=== PATIENT | female | born 1960 | race Caucasian/White ===

== ENCOUNTER 2020-07-30 12:51 | Outpatient (REF) | payer OTHER, SELFPAY ==
--- NOTE | 2020-07-30 13:03 | CT_ITS ---
EXAMINATION: CT CHEST SCREENING CLINICAL INFORMATION: Lung cancer screening COMPARISON: Previous exam June 2019 TECHNIQUE: Multidetector volumetric CT imaging of the chest is performed without contrast using low dose technique. Additional 2D coronal and sagittal reformatted images and axial 3D maximum intensity projection (MIP) images are generated on the CT workstation. This CT examination was performed using dose optimization techniques as appropriate, variously including the following: *Automated exposure control *Adjustment of mA and/or kV according to patient size (this includes techniques or standardized protocols for targeted exams where dose is matched to indication/reason for exam; i.e. extremities or head) *Use of iterative reconstruction technique DLP: 53 mGy-cm FINDINGS: LUNGS: There is a 2 mm left upper lobe nodule axial image 173 series 5 that is stable. There is question of a 3 mm right middle lobe nodule axial image 275 series 5 that is stable. There is scarring or chronic subsegmental atelectasis in the medial segment of the right middle lobe that is stable. The lungs are otherwise clear. No evidence of emphysema interstitial lung disease or bronchiectasis is seen. No endobronchial or endotracheal lesion is seen. The questioned endobronchial lesion in the occipital medial segment right middle lobe bronchus is no longer seen. MEDIASTINUM: There is mild coronary artery calcification. The mediastinum is otherwise normal. PLEURA: There is no pleural effusion. No pleural mass or thickening. AXILLA: No lymphadenopathy. No chest wall mass. The previously identified nodule in the left medial breast is no longer seen. UPPER ABDOMEN: Unremarkable OSSEOUS STRUCTURES: Unremarkable. CT/CT lung screening IMPRESSION: Stable small pulmonary nodules. The questioned endobronchial lesion in the proximal medial segment of the right middle lobe is no longer seen. The 8 mm density in the medial left breast is no longer seen. Mild coronary artery calcification. ASSESSMENT: Lung-RADS category 2: Benign RECOMMENDATION: Annual low-dose chest CT follow-up recommended.
== END 2020-07-30 12:52 | disposition home or self-care (01) ==
LOC: HO.CT 12:51
PROVIDERS: PCP Internal Medicine; Visit Provider Surgery
DX: Z12.2 Encounter for screening for malignant neoplasm of respiratory organs (principal); F17.210 Nicotine dependence, cigarettes, uncomplicated
CPT/HCPCS: 71250

== ENCOUNTER 2020-11-04 11:43 | Outpatient (REF) | payer OTHER, SELFPAY ==
[2020-11-04 14:19] LABS: Albumin Level 4.4 g/dL (3.5-5.0); Calcium 9.5 mg/dL (8.4-10.2)
[2020-11-04 14:50] LABS: Vitamin D 25-OH Total 58.8 ng/mL (>30)
[2020-11-05 13:32] LABS: Calcium (PTHI) 9.6 mg/dL (8.6-10.4); PTHI 25 pg/mL (14-64)
== END 2020-11-04 11:44 | disposition home or self-care (01) ==
LOC: HO.HMGCLDS 11:43
PROVIDERS: PCP Internal Medicine; Visit Provider Internal Medicine
DX: M81.0 Age-related osteoporosis without current pathological fracture (principal); E67.3 Hypervitaminosis D
CPT/HCPCS: 36415; 82040; 82306; 82310; 83970

== ENCOUNTER → 2020-11-19 11:35 | Outpatient (BNVA) | payer OTHER, SELFPAY | PROVIDERS: PCP Internal Medicine; Visit Provider Internal Medicine | DX: M81.0 Age-related osteoporosis without current pathological fracture (principal) | CPT/HCPCS: 96402 ==

== ENCOUNTER 2020-12-04 11:17 | Outpatient (REF) | payer OTHER, SELFPAY ==
[2020-12-04 14:30] LABS: Albumin Level 4.2 g/dL (3.5-5.0); Calcium 9.3 mg/dL (8.4-10.2); Estimated Glomerular Filt Rate > 60
== END 2020-12-04 11:18 | disposition home or self-care (01) ==
LOC: HO.HMGCLDS 11:17
PROVIDERS: PCP Internal Medicine; Visit Provider Internal Medicine
DX: M81.0 Age-related osteoporosis without current pathological fracture (principal)
CPT/HCPCS: 36415; 82040; 82310; 82565

== ENCOUNTER → 2021-01-14 12:28 | Outpatient (BNVA) | payer OTHER, SELFPAY | PROVIDERS: PCP Internal Medicine; Visit Provider Internal Medicine ==

== ENCOUNTER 2021-04-29 11:42 | Outpatient (REF) | payer OTHER, SELFPAY ==
--- NOTE | ~2021-04-29 | MM_ITS ---
EXAMINATION: MM SCREENING DIGITAL BREAST TOMOSYNTHESIS, BILATERAL CLINICAL INFORMATION: Screening. Asymptomatic. Benign left breast ultrasound-guided biopsy 2013. The lifetime risk of breast cancer based on the Tyrer-Cuzick Model is 4%. COMPARISON: Mammography: 07/26/2019, 04/26/2019, 03/24/2018, 02/03/2017, 01/22/2016 TECHNIQUE: Digital breast tomosynthesis is performed in both the craniocaudal and mediolateral oblique views along with computer-aided detection (CAD). Synthesized 2D images are generated from the tomosynthesis. FINDINGS: There are scattered areas of fibroglandular density (ACR BI-RADS breast composition Category b). Parenchymal pattern is similar to prior studies. There is no significant mass or architectural abnormality or abnormal calcifications. There is stable parenchymal asymmetry central and central outer left breast. There is no developing density. The axilla and skin contours are unremarkable. Biopsy clip marker is present left breast anterior to mid 9:00 position. MM/MM tomosynthesis screening BI IMPRESSION: No significant changes from prior exams. ASSESSMENT: BI-RADS 2: Benign RECOMMENDATION: Routine annual mammography screening. This patient's information was entered into a reminder system with a target due date for their next mammogram.
== END 2021-04-29 11:43 | disposition home or self-care (01) ==
LOC: HO.MAMMO 11:42
PROVIDERS: PCP Internal Medicine; Visit Provider Internal Medicine
DX: Z12.31 Encounter for screening mammogram for malignant neoplasm of breast (principal)
CPT/HCPCS: 77063; 77067

== ENCOUNTER 2021-05-18 13:27 | Outpatient (REF) | payer OTHER, SELFPAY ==
[2021-05-18 17:04] LABS: Alanine Aminotransferase 10 U/L (0-31); Albumin Level 4.3 g/dL (3.5-5.0); Alkaline Phosphatase 69 U/L (39-117); Anion Gap 13 (12-20); Aspartate Amino Transferase 15 U/L (5-31); Bilirubin Total 0.2 mg/dL (0.0-1.0); Blood Urea Nitrogen 13 mg/dL (9-16); Calcium 9.6 mg/dL (8.4-10.2); Carbon Dioxide 23 mmol/L (22-29); Chloride 109 mmol/L (96-108); Estimated Glomerular Filt Rate > 60; Glucose Random 100 mg/dL (60-115); Phosphorus 3.7 mg/dL (2.7-4.5); Potassium 4.4 mmol/L (3.3-5.1); Sodium 141 mmol/L (135-145); Total Protein 6.9 g/dL (6.5-8.0)
[2021-05-18 17:26] LABS: Vitamin D 25-OH Total 51.5 ng/mL (>30)
[2021-05-19 16:31] LABS: Calcium (PTHI) 9.8 mg/dL (8.6-10.4); PTHI 13 pg/mL (14-64)
[2021-05-22 10:51] LABS: Alkaline Phosphatase Bone 9.3 mcg/L (5.6-29.0)
== END 2021-05-18 13:28 | disposition home or self-care (01) ==
LOC: HO.HMGCLDS 13:27
PROVIDERS: PCP Internal Medicine; Visit Provider Internal Medicine
DX: M81.0 Age-related osteoporosis without current pathological fracture (principal)
CPT/HCPCS: 36415; 80053; 82306; 83970; 84075; 84100

== ENCOUNTER 2021-05-20 13:19 | Outpatient (REF) | payer OTHER, SELFPAY ==
[2021-05-26 23:01] LABS: N-Telopeptide 14 (see note); NTXCreaRU 56 mg/dL (20-275)
== END 2021-05-20 13:20 | disposition home or self-care (01) ==
LOC: HO.HMGCLNP 13:19
PROVIDERS: Visit Provider Internal Medicine
DX: M81.0 Age-related osteoporosis without current pathological fracture (principal)
CPT/HCPCS: 82523

== ENCOUNTER → 2021-05-21 13:04 | Outpatient (BNVA) | payer OTHER, SELFPAY | PROVIDERS: PCP Internal Medicine; Visit Provider Internal Medicine | DX: M81.0 Age-related osteoporosis without current pathological fracture (principal); E55.9 Vitamin D deficiency, unspecified; F17.210 Nicotine dependence, cigarettes, uncomplicated; Z79.82 Long term (current) use of aspirin; Z91.038 Other insect allergy status; Z88.8 Allergy status to other drugs, medicaments and biological substances; Z91.018 Allergy to other foods; Z91.09 Other allergy status, other than to drugs and biological substances; Z79.899 Other long term (current) drug therapy | CPT/HCPCS: 20552; 96372; 99212 ==

== ENCOUNTER 2021-06-04 13:58 | Outpatient (REF) | payer OTHER, SELFPAY ==
[2021-06-04 17:15] LABS: Alanine Aminotransferase 12 U/L (0-31); Albumin Level 4.2 g/dL (3.5-5.0); Alkaline Phosphatase 80 U/L (39-117); Anion Gap 13 (12-20); Aspartate Amino Transferase 17 U/L (5-31); Bilirubin Total 0.2 mg/dL (0.0-1.0); Blood Urea Nitrogen 16 mg/dL (9-16); Calcium 9.3 mg/dL (8.4-10.2); Carbon Dioxide 21 mmol/L (22-29); Chloride 111 mmol/L (96-108); Estimated Glomerular Filt Rate > 60; Glucose Random 138 mg/dL (60-115); Phosphorus 3.5 mg/dL (2.7-4.5); Potassium 4.3 mmol/L (3.3-5.1); Sodium 141 mmol/L (135-145)
[2021-06-04 17:35] LABS: Vitamin D 25-OH Total 52.8 ng/mL (>30)
[2021-06-05 17:51] LABS: Calcium (PTHI) 9.5 mg/dL (8.6-10.4); PTHI 25 pg/mL (14-64)
== END 2021-06-04 13:59 | disposition home or self-care (01) ==
LOC: HO.HMGCLDS 13:58
PROVIDERS: PCP Internal Medicine; Visit Provider Internal Medicine
DX: M81.0 Age-related osteoporosis without current pathological fracture (principal); E55.9 Vitamin D deficiency, unspecified
CPT/HCPCS: 36415; 80053; 82306; 83970; 84100

== ENCOUNTER 2021-06-06 | Outpatient (REF) | payer OTHER, SELFPAY ==
[2021-06-09 23:01] LABS: N-Telopeptide 11 (see note); NTXCreaRU 23 mg/dL (20-275)
== END 2021-06-06 00:01 | disposition home or self-care (01) ==
LOC: HO.HMGCLNP
PROVIDERS: Visit Provider Internal Medicine
DX: M81.0 Age-related osteoporosis without current pathological fracture (principal)
CPT/HCPCS: 82523

== ENCOUNTER 2021-09-11 13:00 | Outpatient (RCR) | payer OTHER, SELFPAY ==
--- NOTE | 2021-07-22 17:07 | MHC.PT.EP ---
[facility] [place] Office [place] Office [place] Office [address] Rudy Kelsey [address] [phone] F: [phone] F: [phone] F: [phone] F: [phone] Physical Therapy Plan of Care Date of Evaluation: Date of Surgery: Diagnosis: R shoulder pain. Assessment: Pt is a 61 y/o female referred to PT for eval and treat of R shoulder pain resulting in decreased tolerance for performing heavy HH chores like carrying laundry, dressing pullovers, reaching her back pocket, and laying on her R side as well as disturbed sleep secondary to decreased R shoulder ROM and strength, decreased scapular posture, TTP of her R supraspnatus and UT, and pain. Pt is deemed an appropriate candidate to receive skilled PT in order to address her physical limitations to improve her functional ability. Frequency and Duration: The patient will be seen 2 x/ wk x 5 wks. Short Term Goals: initiate HEP with evidence of compliance. improve baseline pain with activity to < 4/10; initial 7/10. Detention Goals: Pt will be able to carry her laundry with managed Sx; initial 7/10 difficulty. Pt will be able to dress pullovers with managed Sx; initial 9/10 difficulty. I with HEP. Treatment Plan: Modalities to reduce pain, spasms and effusion. Manual therapy to restore motion and function. Therapeutic exercise to improve strength and flexibility. Neuromuscular re-education for posture and balance. Therapeutic activities to return to functional activities of daily living. Electronically signed by: Jimmy courtney PT Please sign and return to therapist. Thank you for your referral.
--- NOTE | 2021-09-11 16:33 | MHC.PT.DC ---
[facility] [place] Office [place] Office [place] Office [address] Rudy Kelsey [address] [phone] F: [phone] F: [phone] F: [phone] F: [phone] Physical Therapy Discharge Report Diagnosis: R shoulder pain. Date of Surgery: Date of Evaluation: 07/22/21 Date of Discharge: 09/11/21 Treatments to Date: 9 Cancellations to Date: No Shows to Date: Discharge Status: Recommend MD Follow-up Discharge Summary: Blanquita has attended 8 therapy sessions without real improvement of her symptoms. During her time in the clinic she participates in exercises well and has a pleasant attitude though these continue to be many of her initial exercises as she demonstrates therapy interfering behaviors of poor self management in the form of continued over use of her shoulder after repeatedly discussing alternatives as well as poor home program compliance. MD follow up is recommended as Pt not invested self management of her symptoms. 09/08 Pt reports she did a lot of wiping of counters and tables which was painful; Pt reports she did not think about switching arm while in pain from this activity. Pt continues to require some cues for her basic exercises. DC NV likely as program is ending and though improved she has improved though Pt is self limiting her recovery by not changing her behaviors re over use. 09/02: 2 visits to DC anticipated as Pt continues to plateau her progress d/t continuing to refuse limiting repetitive injury activities; she also needs to be reminded of her basic HEP exercises indicating poor home compliance leading to poor progression of therapeutic activities. Pt reports minimal pain/ discomfort with exercises in the clinic. 08/21: 3 visits to DC; continued with Pt ed on decreased repetitive stressors and consistent pain limited HEP. no adverse effects. improving posture with ther ex. 08/14: Pt able to perform program with minor discomfort, no adverse effects. Assess ability to progress NV as Pt reports she has over used her shoulder again and has been in more pain. 08/07: Pt requires re-direction to her exercises. improving self awareness re. painful activities. No adverse effects. Pt re-ed on over use injury and continuing to over use it. NV progress HEP to sharmaine. Pt performs exercises slowly and requires cues to keep count of her reps/ sets. Good sharmaine for todays ther ex. Electronically signed by: Jimmy Wayne PT. Please sign and return to therapist. Thank you for your referral.
== END 2021-09-11 16:33 | disposition home or self-care (01) ==
LOC: HO.PTCHIC 13:00
PROVIDERS: PCP Internal Medicine; Visit Provider Internal Medicine
DX: M25.511 Pain in right shoulder (principal)
CPT/HCPCS: 97110; 97161

== ENCOUNTER → 2021-09-23 13:27 | Outpatient (BNVA) | payer OTHER, SELFPAY | PROVIDERS: PCP Internal Medicine; Visit Provider Urology ==

== ENCOUNTER 2021-10-14 11:26 | Outpatient (REF) | payer OTHER, SELFPAY ==
--- NOTE | 2021-10-19 13:42 | MHC.AU.ANO ---
Adult Audiological Evaluation Date of Visit: 10/14/21 Engineering Design Supervisor Used: Not Applicable Reason for Appointment: Audiologic evaluation due to increased hearing difficulties. Blanquita reports she frequently needs to ask for speech to be repeated. Does patient feel they have a hearing loss?: Yes If Yes, Which Ear?: Both Ears When Was Hearing Difficulty First Noticed?: Approximately 6-7 years ago. Has hearing been tested previously?: Yes Previous Hearing Test Results: Many years ago. Results are not available for review. Hearing Handicap Inventory: HHIE SCORE: 22 Based on HHIE score, patient has: Mild to moderate perceived hearing handicap Ear History: Family History of Hearing Loss?: Yes: Father Ear Infections in Childhood: Both Ears Tinnitus/Ringing/Noises in Ears: Both Ears Ear used on the phone: Right Ear Blocked/Full Sensation in Ear(s): Both Ears History of occupational noise exposure?: No History: History: No Medical History: Medical History: Headache, Migraines, Tobacco Use, Anemia, Schizophrenic Disorder Medication List: Amitrptyline, Aspirin, Buspar, Calcium Carbonate, Claritin, Depakote ER, Ditropan ER, Fioricet, Anushka-Lanta, Inderal LA, Lomotil, Meclizine, Mevacor, Miralax, Nystatin, Prilosec, Prolia, Requip, Rogaine, Topamax, Vistaril, Zyprexa, Vitamin C and D3 Otoscopy: Right Ear: Unremarkable Left Ear: Unremarkable Tympanometry: Tympanometry performed due to: To assess integrity of the middle ear system Right Ear: Hypercompliant Middle Ear System (Type Ad) Left Ear: Hypercompliant Middle Ear System (Type Ad) Otoacoustic Emissions Frequency Range Used: 1.6-8 kHz Right Ear Results: Present 1600 and 2000 Hz, Absent 3122-4925 Hz Analysis: Present emissions suggest normal cochlear function Rules out peripheral hearing loss greater than a mild degree Reduced/Absent emissions suggest cochlear dysfunction Results are consistent with degree and configuration of hearing loss Left Ear Results: Present 1600 and 2000 Hz, Absent 8015-5290 Hz Analysis: Present emissions suggest normal cochlear function Rules out peripheral hearing loss greater than a mild degree Reduced/Absent emissions suggest cochlear dysfunction Results are consistent with degree and configuration of hearing loss Hearing Evaluation: Transducer(s) Used: Insert Earphones Bone Conduction Method: Conventional Audiometry Stimuli Used: Pure Tones Right Ear: Description of Hearing: Mild sloping to moderate sensorineural hearing loss Left Ear: Description of Hearing: Mild sloping to moderate sensorineural hearing loss Speech Recognition Threshold (SRT): Method Used: Monitored Live Voice Stimuli Used: Spondee Words Right Ear: 30 dB HL Left Ear: 30 dB HL Word Discrimination: Method: Recorded Lists Word Lists Used: NU-6 Right Ear: 92% at 70 dB HL Left Ear: 96% at 70 dB HL QuickSIN: Binaural Quick SIN Test: 13 dB SNR Loss . This score suggests Blanquita experiences a moderate degree of difficulty understanding speech with increasing levels of background noise in this controlled test environment. Real world situations, or if Blanquita is not paying attention to the speaker, or is more anxious, speech understanding/auditory processing may be much more difficult for her. Recommendations: Trial with amplification is recommended. Medical clearance from a physician is required before fitting. Hearing Aid Fitting will be scheduled when all materials arrive. Discussed and provided a handout regarding Communication Strategies to use to try to improve speech understanding as much as possible. Audiological re-evaluation in one year. Will send a reminder card. Diagnosis: Primary Diagnosis: H90.3 Bilateral Sensorineural Hearing Loss Services Performed: Comprehensive Audiological Evaluation (CPT 38654) Diagnostic Otoacoustic Emissions (CPT 52030, 26+TC) Tympanometry (CPT 82879) Signature: Provider: Justice Bradley, [facility]
--- NOTE | 2021-10-19 13:46 | MHC.AU.MED ---
Medical Clearance for Hearing Instrumentation Date: 10/19/21 Patient Name: Blanquita Gonzalez Date of : 1960 Primary Care Provider: Referring Provider: Kevin Muñoz MD We have seen your patient on 10/14/21 and have determined that they are a candidate for amplification (See accompanying report). Specifically, they would benefit from: Hearing aid use in both ears There is a statute that addresses Medical Evaluation Requirements prior to fitting a patient with a hearing aid. According to [place] statute 265 CMR:6.03(1), (a) General. Except as provided in 265 CMR 6.03(1)(b), a electronic engineering draftsperson shall not sell a hearing aid unless the prospective user has presented to the electronic engineering draftsperson a written statement signed by a licensed physician that states that the patient's hearing loss has been medically evaluated and the patient may be considered a candidate for a hearing aid. The medical evaluation must have taken place within the preceding six months. Please note: Due to the [place] Statute referenced above, we cannot accept a signature other than that of a licensed physician. ROAD MACHINE RUNNER and PA signatures cannot be accepted. I am in agreement with the above recommendation. There is no medical contraindication for hearing instrumentation. Physician Signature Date Physician Name (Printed)
--- NOTE | 2021-10-19 13:51 | MHC.AU.HAS ---
Hearing Aid Evaluation Date of Visit: 10/14/21 Database Admin Used: Not Applicable Historical Information: Description of Hearing: Mild sloping to moderate sensorineural hearing loss bilaterally. Speech understanding in quiet is excellent; however, Quick SIN shows at least a moderate degree of difficulty with increasing levels of background noise. Current personal amplification information, if applicable: None Summary: Due to Blanquita's history of significant anxiety, and to make care and manipulation of hearing aids easier, recommend binaural rechargeable hearing aids. Hearing Aid Prescription: Based on the individual?s shared listening needs, communication environments, dexterity, desire for connectivity, and personal preferences, the following prescription for amplification has been made: Right ear: Voice Coach: Phonak Model: Audeo P 70-R Battery Size: Rechargeable Color: Brown Cloth Finishing Range Tender: #2 Medium Type of Dome: Open Left ear: Voice Coach: Phonak Model: Audeo P 70-R Battery Size: Rechargeable Color: Brown Cloth Finishing Range Tender: #2 Medium Type of Dome: Open Accessories/Assistive Technology Recommended: None Plan of Care: Patient wishes to purchase hearing aids as prescribed Action Taken/Action Needed: Medical Clearance to be requested from PCP/ENT Hearing Instrument Fitting to be scheduled when materials arrive Primary Diagnosis: H90.3 Bilateral Sensorineural Hearing Loss Signature:Provider: Justice Bradley, [facility]
--- NOTE | 2021-10-23 11:07 | MHC.AU.MED ---
Medical Clearance for Hearing Instrumentation Date: 10/19/21 Patient Name: Blanquita Gonzalez Date of : 1960 Primary Care Provider: Referring Provider: Kevin Muñoz MD We have seen your patient on 10/14/21 and have determined that they are a candidate for amplification (See accompanying report). Specifically, they would benefit from: Hearing aid use in both ears There is a statute that addresses Medical Evaluation Requirements prior to fitting a patient with a hearing aid. According to [place] statute 265 CMR:6.03(1), (a) General. Except as provided in 265 CMR 6.03(1)(b), a hearing instrument specialist shall not sell a hearing aid unless the prospective user has presented to the hearing instrument specialist a written statement signed by a licensed physician that states that the patient's hearing loss has been medically evaluated and the patient may be considered a candidate for a hearing aid. The medical evaluation must have taken place within the preceding six months. Please note: Due to the [place] Statute referenced above, we cannot accept a signature other than that of a licensed physician. WELLNESS INSTRUCTOR and PA signatures cannot be accepted. I am in agreement with the above recommendation. There is no medical contraindication for hearing instrumentation. Physician Signature Date Physician Name (Printed)
== END 2021-10-14 11:27 | disposition home or self-care (01) ==
LOC: HO.SH 11:26
PROVIDERS: Visit Provider Internal Medicine
DX: H90.3 Sensorineural hearing loss, bilateral (principal)
CPT/HCPCS: 92557; 92567; 92588; 92591

== ENCOUNTER 2021-10-29 16:11 | Outpatient (REF) | payer OTHER, SELFPAY ==
[2021-10-29 18:04] LABS: Ferritin 107 ng/mL (10-250); Vitamin D 25-OH Total 50.2 ng/mL (>30)
[2021-10-30 09:01] LABS: Thyroglobulin 16.1 ng/mL
[2021-11-02 16:42] LABS: Zinc 75 mcg/dL (60-130)
== END 2021-10-29 16:12 | disposition home or self-care (01) ==
LOC: HO.LAB 16:11
PROVIDERS: Visit Provider Physician Assistant Medical
DX: L30.4 Erythema intertrigo (principal); L64.8 Other androgenic alopecia; L65.0 Telogen effluvium
CPT/HCPCS: 36415; 82306; 82728; 84432; 84630

== ENCOUNTER 2021-11-12 10:48 | Outpatient (REF) | payer OTHER, SELFPAY ==
--- NOTE | ~2021-11-12 | MM_ITS ---
EXAMINATION: BONE DENSITOMETRY CLINICAL INDICATION: Age-related osteoporosis without current pathological fracture. COMPARISON: Previous BD dated 08/24/2019 and baseline BD dated 07/22/2017. TECHNIQUE: Using a Settle DXA System (software version: 13.1) manufactured by [employer], dual-energy x-ray absorptiometry was performed of the lumbar spine and left hip. The images are of good technical quality. Summary results are attached. FINDINGS: AP SPINE L1-L2 (excluding L3 and L4): The data of L1-L4 has been changed to exclude the L3 and L4 vertebral bodies, because degenerative changes at these levels may cause overestimation of lumbar spine density. Current: BMD 0.846 g/cm2, Z-score -1.2, T-score -2.7, osteoporosis, 14.6% decrease from previous, 2.2% decrease from baseline (<5% change is not significant). Prior: BMD 0.991 g/cm2. Baseline: BMD 0.865 g/cm2. LEFT FEMUR, NECK: Current: BMD 0.818 g/cm2, Z-score -0.2, T-score -1.6, osteopenia. Prior: BMD 0.764 g/cm2. Baseline: BMD 0.792 g/cm2. LEFT FEMUR, TOTAL: Current: BMD 0.864 g/cm2, Z-score -0.1, T-score -1.1, osteopenia, 1.9% increase from previous, 1.2% increase from baseline (<5% change is not significant). Prior: BMD 0.848 g/cm2. Baseline: BMD 0.854 g/cm2. IDENTIFIED RISK FACTORS: Osteoporosis, tobacco use (current smoker), menopause. HISTORY OF FRACTURE: None listed. MEDICATIONS: Calcium and multivitamin, Prolia. MM/XR DEXA axial skeleton IMPRESSION: 1. DIAGNOSIS: Osteoporosis based on the lowest T-score value of -2.7 in the lumbar spine applying World Health Organization criteria. 2. 10-YEAR FRACTURE RISK PREDICTION, FRAX: According to the guidelines, FRAX calculation should only be performed on patients in the osteopenia bone density category. Therefore, FRAX was not performed on this patient. 3. Treatment Recommendations: NOF guidelines recommend consideration for treatment in postmenopausal women and men age 50 and older presenting with the following: -A hip or vertebral (clinical or morphometric) fracture. -T-score less than or equal to -2.5 at the femoral neck or spine after appropriate evaluation to exclude secondary causes. -Low bone mass at the hip or spine and a 10-year fracture probability by FRAX of greater than or equal to 3% for hip fracture or greater than or equal to 20% for major osteoporotic fracture based on the [place] adapted WHO algorithm. 4. Other Recommendations: All treatment decisions require clinical judgment and consideration of individual patient factors, including patient preferences, comorbidities, previous drug use, risk factors not captured in the FRAX model (e.g. frailty, falls, vitamin D deficiency, increased bone turnover, interval significant decline in bone density) and possible under or overestimation of fracture risk by FRAX. Additional medical evaluation for secondary cause of low bone mineral density may be appropriate. FUTURE SCAN RECOMMENDATION: People with diagnosed cases of osteoporosis or at high risk for fracture should have regular bone mineral density tests. For patients eligible for Medicare, routine testing is allowed once every 2 years. The testing frequency can be increased to one year for patients who have rapidly progressing disease, those who are receiving or discontinuing medical therapy to restore bone mass, or have additional risk factors.
== END 2021-11-12 10:49 | disposition home or self-care (01) ==
LOC: HO.MAMMO 10:48
PROVIDERS: Visit Provider Internal Medicine
DX: Z13.820 Encounter for screening for osteoporosis (principal); M81.0 Age-related osteoporosis without current pathological fracture; Z78.0 Asymptomatic menopausal state; F17.200 Nicotine dependence, unspecified, uncomplicated
CPT/HCPCS: 77080

== ENCOUNTER 2021-11-20 12:49 | Outpatient (REF) | payer OTHER, SELFPAY | END 2021-11-20 12:50 | disposition home or self-care (01) | LOC: HO.HAP 12:49 | PROVIDERS: Visit Provider Internal Medicine | DX: Z13.89 Encounter for screening for other disorder (principal) ==

== ENCOUNTER → 2021-11-25 13:18 | Outpatient (BNVA) | payer OTHER, SELFPAY | PROVIDERS: PCP Internal Medicine; Visit Provider Internal Medicine | DX: M81.0 Age-related osteoporosis without current pathological fracture (principal); E55.9 Vitamin D deficiency, unspecified; F17.210 Nicotine dependence, cigarettes, uncomplicated; F14.20 Cocaine dependence, uncomplicated; Z23 Encounter for immunization; Z88.8 Allergy status to other drugs, medicaments and biological substances; Z91.038 Other insect allergy status; Z91.018 Allergy to other foods; Z79.82 Long term (current) use of aspirin; Z79.899 Other long term (current) drug therapy | CPT/HCPCS: 96372; 99212 ==

== ENCOUNTER 2021-11-30 13:30 | Outpatient (RCR) | payer OTHER, SELFPAY ==
--- NOTE | 2021-11-10 12:25 | MHC.OT.OEV ---
[address] [phone] F: [phone] Occupational Therapy Evaluation Diagnosis: Left thumb pain Date of Onset: 11/03/20 Attending Provider: Kevin Muñoz Prescribed Treatment: Eval and Treat History of Current Condition: Pt w/ hx of left thumb pain. About one year ago, pt reports injury to right shoulder from excessive cleaning - used left hand to compensate which caused more pain. Significant Medical History: Right shoulder injury. High cholesterol. 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 Living Situation, Family and/or Social Support: Lives in 2 room apartment. Lives on the 2nd floor. Current Level of Function and Occupation Self Care, Employment, Leisure: Difficulty with cooking/cleaning, gripping and pinching tasks Hard time dumping water pasta water Sleep: Sleeping is difficult due to right arm and shoulder pain. *When asked pt reports changes in sensation with arms, but unable to specify, reports that she sleeps in position w/ arms flexed in towards body Driving: Able to drive. Vision: Balance: Pain Assessment Pain Score: 0 Pain Scale Used: Numeric (0 - 10) Pain Location and Description: Left thumb MP joint. No pain at rest. Pain when aggravated 8/10. Aggravating Factors: Pinching, grasping such as putting dishes away and carrying objects. Alleviating Factors: None trialed, had recommendation for Tylenol from PCP but is unsure of dosing and will confirm w/ Dr Muñoz Skin and Soft Tissue Assessment Skin and Soft Tissue: Atrophy Comments: Edema in left thenar eminence Hypothenar atrophy and intrinsic wasting Dryness B/L'y Nerve assessment Ulnar Nerve: Left Impaired Median Nerve: WFL Radial Nerve: WFL Comments: Sensory Assessment Temperature: WFL Light Touch: WFL Proprioception: WFL Edema Assessment Upper Extremity: Left Impaired Comments: left thenar eminence/MCP edema Special Tests Comments: (-) Finklestein's (-) Grind Test B/L'ly Pt w/ CMC laxity on assessment (+) Anai's sign w/ lat pinch (+) Ananya's sign AROM(PROM) Strength Cervical Cervical Flexion: Cervical Extension: Cervical Lateral Flexion: Cervical Rotation: Comments: WNL Shoulder Flexion: Extension: Abduction: Internal Rotation: External Rotation: Comments: WNL Flexion: Extension: Abduction: Internal Rotation: External Rotation: Comments: Elbow Flexion: Extension: Pronation: Supination: Comments: WNL Flexion: Extension: Pronation: Supination: Comments: Wrist Flexion: Extension: Ulnar Deviation: Radial Deviation: Comments: WNL Flexion: Extension: Ulnar Deviation: Radial Deviation: Comments: Thumb Thumb CMC Flexion: Thumb MCP Flexion: Thumb IP Flexion: Radial Abduction: Palmar Abduction: [place] (Kapandji 0-10): Comments: WNL, left MP hyperext w/ lat pinch Digits Index MCP: PIP: DIP: Long MCP: PIP: DIP: Ring MCP: PIP: DIP: Small MCP: PIP: DIP: Comments: Some intrinsic tightness B/L'ly Gross Grasp: L 45 lbs R 48 lbs Lateral Pinch: L 7lbs R 9lbs Two-Point Pinch: L 3lbs R 4lbs Three-Jaw Pillo: L 6lbs R 9lbs Comments: Patient Education Primary Language: Gambian Garbage Collection Supervisor Required: No Current Knowledge: Teaching Method: Demonstration Handouts Verbal Education Needs Identified on Evaluation: ADL's Disease Information Equipment Use Exercise Pain Safety How did patient/family demonstrate learning? Patient demonstrates Patient verbalizes Needs reinforcement Barriers to Learning: Hearing Readiness for Learning: Accepting Who was educated? Patient Comments: Pt needs reinforcement and multiple verbal cues to comprehend new information. Plan of Care Assessment: Pt presents with left thumb pain, that has been prevalent for the past year. Pt says left thumb pain was exacerbated after a right shoulder injury from excessive cleaning. Pt went to PT for shoulder injury, but still reports pain, has not kept up w/ HEP. Pt is right hand dominant but was using the left hand more due to right shoulder injury. Prior to injury, pt was Ind with ADLs and IADLs. Currently, pt has difficulty with cooking and cleaning, specifically gripping and pinching tasks such as holding pots and pans. At this time pain is consistent w/ arthritic changes, also may have mild ulnar neuropathy. Pt to cont OT services to relive pain, and learn adaptive techniques. STG Duration: 1 week Short Term Goals: Pt to be Ind with HEP Pt to report <4/10 pain with exacerbating tasks. Pt to verbalize or demo adaptive techniques for joint protection. Pt to report appropriate orthosis wear. LTG Duration: 3 weeks Lean Leader Goals: Pt to report <2/10 pain with all ADLs/IADLs. Pt QuickDash score to be <25. Pt to demo good use of heat for self management of pain. Pt to report good follow through with sleeping modifictions. Frequency and Duration: The patient will be seen 2x/week for 3 weeks Treatment Plan: Therapeutic Exercise Therapeutic Activity Home Exercise Program Splinting Patient Education Edema Control Paraffin Fluidotherapy MHP Soft Tissue Mobilization Kinesiotaping Left CMC orthosis made on eval Electronically Signed By: Tuyet Avilez OT/s Reviewed/agree with student documentation: Yes Therapist: Joselin Correia OTR/L Please sign and return to therapist, Thank you for your referral.
--- NOTE | 2021-11-30 14:13 | MHC.OT.DC ---
[address] [phone] F: [phone] Occupational Therapy Discharge Note Provider: Kevin Muñoz MD Diagnosis: Left thumb pain Date of Evaluation: 11/10/21 Date of Discharge: 11/30/21 Treatments to Date: 4 Discharge Status: Achieved Goals Improved Function Independent with HEP Discharge Summary: Blanquita was seen for left thumb due to hx of arthritis. Pt is doing well, with some decreased carry over for modification/adaptive techniques for joint protection. Pt reporting pain when not taking Tylenol, but has a good understanding of using Tylenol for pain management. Consistent and good carry over w/ orthosis wear. Pt good follow through with HEP and able to demonstrate ulner nerve glides, and tendon glides. Pt to d/c today for continued self management with HEP. Electronically Signed By: Tuyet Avilez OT/s Reviewed/agree with student documentation: Yes Therapist: Joselin Correia OTR/L Please Sign and return to therapist, thank you for your referral.
== END 2021-11-30 14:12 | disposition home or self-care (01) ==
LOC: HO.OT 13:30
PROVIDERS: PCP Internal Medicine; Visit Provider Internal Medicine
DX: M79.645 Pain in left finger(s) (principal)
CPT/HCPCS: 29130; 97110; 97140; 97165; 97760

== ENCOUNTER 2021-12-09 12:46 | Outpatient (REF) | payer OTHER, SELFPAY ==
[2021-12-09 14:08] LABS: Albumin Level 4.3 g/dL (3.5-5.0)
[2021-12-11 13:46] LABS: Calcium (PTHI) 9.9 mg/dL (8.6-10.4); PTHI 28 pg/mL (14-64)
== END 2021-12-09 12:47 | disposition home or self-care (01) ==
LOC: HO.HMGCLDS 12:46
PROVIDERS: Visit Provider Internal Medicine
DX: M81.0 Age-related osteoporosis without current pathological fracture (principal)
CPT/HCPCS: 36415; 82040; 83970

== ENCOUNTER 2022-01-08 12:46 | Outpatient (REF) | payer OTHER, SELFPAY | END 2022-01-08 12:47 | disposition home or self-care (01) | LOC: HO.HAP 12:46 | PROVIDERS: Visit Provider Internal Medicine | DX: Z46.1 Encounter for fitting and adjustment of hearing aid (principal); H90.3 Sensorineural hearing loss, bilateral; H93.13 Tinnitus, bilateral | CPT/HCPCS: V5011; V5020; V5160; V5261; V5264 ==

== ENCOUNTER 2022-01-25 12:29 | Outpatient (REF) | payer OTHER, SELFPAY ==
--- NOTE | 2022-01-26 10:54 | MHC.AU.HFU ---
Hearing Instrument Follow-Up- Binaural Date of Visit: 01/25/22 Right Ear: [facility] Cook: Phonak Model: Audeo P 70-R Serial Number: [id number] Repair Warranty: 02/07/2025 Loss and Damage Warranty: 02/07/2025 Battery Size: Rechargeable Color: Brown Manager Of Business: #2 Medium Type of Dome: Open Type of Mold: Canal Lock C-Shell #[id number] warranty 04/02/2022 Type of Wax Guard: CeruStop Dispensed By: [facility] Date of Fittin01/08/2022 Left Ear: [facility] Cook: Phonak Model: Audeo P 70-R Serial Number: [id number] Repair Warranty: 02/07/2025 Loss and Damage Warranty: 02/07/2025 Battery Size: Rechargeable Color: Brown Manager Of Business: #2 Medium Type of Dome: Open Type of Mold: Canal Lock C-Shell #[id number] warranty 04/02/2022 Type of Wax Guard: CeruStop Dispensed By: [facility] Date of Fittin01/08/2022 Follow-Up Summary: Overall patient reports she is doing well the aids. Datalogging show average of 6.6 hours daily wearing time. Patient reports she did not wear them for a few days when not feeling well and she stayed in bed. 2 concerns: Left aid rubs behind the ear with some discomfort and hears herself well, but does not notice much difference with the aids in speech understanding when others talk. After looking at left aid on ear, patient's glasses fit differently compared to the right side. When the glasses (only on the left ear) is placed over the forest technician wire, the aid no longer rubs against the back of the ear. Patient will try. Increased 6733-1535 Hz overall 5 dB with patient noticing difference in clarity of speech while in office. Reviewed hearing aid care and wax guard change. Patient wants to keep aids. Recommendations: Hearing instrument follow-up or maintenance as needed. Please contact our clinic with any questions or concerns. Diagnosis Code(s): Primary Diagnosis: H90.3 Bilateral Sensorineural Hearing Loss Secondary Diagnosis: H93.13 Tinnitus, Bilateral Services Performed:[place] Non-Quantity Charges: HANC: NonBillable Event Signature:Provider: Justice Bradley, [facility]
== END 2022-01-25 12:30 | disposition home or self-care (01) ==
LOC: HO.HAP 12:29
PROVIDERS: Visit Provider Internal Medicine
DX: Z13.89 Encounter for screening for other disorder (principal)

== ENCOUNTER 2022-05-20 11:19 | Outpatient (REF) | payer OTHER, SELFPAY ==
[2022-05-20 14:21] LABS: Alanine Aminotransferase 10 U/L (0-31); Alkaline Phosphatase 61 U/L (39-117); Anion Gap 14 (12-20); Aspartate Amino Transferase 14 U/L (5-31); Bilirubin Total < 0.2 mg/dL (0.0-1.0); Blood Urea Nitrogen 15 mg/dL (9-16); Calcium 9.1 mg/dL (8.4-10.2); Carbon Dioxide 23 mmol/L (22-29); Chloride 109 mmol/L (96-108); Estimated Glomerular Filt Rate > 60; Glucose Random 142 mg/dL (60-115); Phosphorus 4.6 mg/dL (2.7-4.5); Potassium 4.3 mmol/L (3.3-5.1); Sodium 142 mmol/L (135-145); Total Protein 6.8 g/dL (6.5-8.0)
[2022-05-20 14:33] LABS: Vitamin D 25-OH Total 40.2 ng/mL (>30)
[2022-05-23 12:52] LABS: Calcium (PTHI) 9.3 mg/dL (8.6-10.4); PTHI 27 pg/mL (16-77)
== END 2022-05-20 11:20 | disposition home or self-care (01) ==
LOC: HO.HMGCLDS 11:19
PROVIDERS: PCP Internal Medicine; Visit Provider Internal Medicine
DX: M81.0 Age-related osteoporosis without current pathological fracture (principal); E55.9 Vitamin D deficiency, unspecified
CPT/HCPCS: 36415; 80053; 82306; 83970; 84100

== ENCOUNTER 2022-05-21 11:25 | Outpatient (REF) | payer OTHER, SELFPAY ==
[2022-05-28 05:41] LABS: N-Telopeptide 18 (see note); NTXCreaRU 47 mg/dL (20-275)
== END 2022-05-21 11:26 | disposition home or self-care (01) ==
LOC: HO.HMGCLNP 11:25
PROVIDERS: Visit Provider Internal Medicine
DX: M81.0 Age-related osteoporosis without current pathological fracture (principal)
CPT/HCPCS: 82523

== ENCOUNTER → 2022-05-26 11:31 | Outpatient (BNVA) | payer OTHER, SELFPAY | PROVIDERS: PCP Internal Medicine; Visit Provider Internal Medicine | DX: M81.0 Age-related osteoporosis without current pathological fracture (principal) | CPT/HCPCS: 96372; 99212 ==

== ENCOUNTER 2022-06-11 13:28 | Outpatient (REF) | payer OTHER, SELFPAY ==
[2022-06-11 16:46] LABS: Estimated Glomerular Filt Rate > 60
[2022-06-13 13:56] LABS: Calcium (PTHI) 9.6 mg/dL (8.6-10.4); PTHI 32 pg/mL (16-77)
== END 2022-06-11 13:29 | disposition home or self-care (01) ==
LOC: HO.HMGCLDS 13:28
PROVIDERS: PCP Internal Medicine; Visit Provider Internal Medicine
DX: M81.0 Age-related osteoporosis without current pathological fracture (principal)
CPT/HCPCS: 36415; 82565; 83970

== ENCOUNTER 2022-09-22 11:30 | Outpatient (REF) | payer OTHER, SELFPAY ==
--- NOTE | ~2022-09-22 | MM_ITS ---
EXAMINATION: MM SCREENING DIGITAL BREAST TOMOSYNTHESIS, BILATERAL CLINICAL INFORMATION: Screening. Asymptomatic. The lifetime risk of breast cancer based on the Tyrer-Cuzick Model is 4%. COMPARISON: Mammography: 04/29/2021, 07/26/2019, 04/26/2019, targeted left breast ultrasound 03/04/2020, 07/26/2019 TECHNIQUE: Digital breast tomosynthesis is performed in both the craniocaudal and mediolateral oblique views along with computer-aided detection (CAD). Synthesized 2D images are generated from the tomosynthesis. FINDINGS: There are scattered areas of fibroglandular density (ACR BI-RADS breast composition Category b). Parenchymal pattern is similar to prior exams and there is no developing density or interval mass or architectural abnormality. Small parenchymal asymmetry central left breast on CC view is stable and consistent with grouped microcysts on prior ultrasounds. There is a biopsy clip marker again seen anterior 9:00 left breast. There are some scattered round and ductal secretory calcifications again noted on the right. The axilla and skin contours are unremarkable. MM/MM tomosynthesis screening BI IMPRESSION: No mammographic evidence of malignancy. ASSESSMENT: BI-RADS 2: Benign RECOMMENDATION: Routine annual mammography screening. This patient's information was entered into a reminder system with a target due date for their next mammogram.
== END 2022-09-22 11:31 | disposition home or self-care (01) ==
LOC: HO.MAMMO 11:30
PROVIDERS: PCP Internal Medicine; Visit Provider Internal Medicine
DX: Z12.31 Encounter for screening mammogram for malignant neoplasm of breast (principal)
CPT/HCPCS: 77063; 77067

== ENCOUNTER 2022-11-29 09:13 | Outpatient (REF) | payer OTHER, SELFPAY ==
[2022-11-29 12:48] LABS: Alanine Aminotransferase 9 U/L (0-31); Albumin Level 4.2 g/dL (3.5-5.0); Alkaline Phosphatase 78 U/L (39-117); Anion Gap 11 (12-20); Aspartate Amino Transferase 16 U/L (5-31); Bilirubin Total 0.2 mg/dL (0.0-1.0); Blood Urea Nitrogen 12 mg/dL (9-16); Calcium 9.6 mg/dL (8.4-10.2); Carbon Dioxide 26 mmol/L (22-29); Chloride 108 mmol/L (96-108); Estimated Glomerular Filt Rate > 60; Glucose Random 138 mg/dL (60-115); Phosphorus 3.8 mg/dL (2.7-4.5); Sodium 141 mmol/L (135-145); Total Protein 6.7 g/dL (6.5-8.0)
[2022-11-29 12:54] LABS: Vitamin D 25-OH Total 50.3 ng/mL (>30)
[2022-11-30 13:58] LABS: Calcium (PTHI) 10.5 mg/dL (8.6-10.4); PTHI 14 pg/mL (16-77)
== END 2022-11-29 09:14 | disposition home or self-care (01) ==
LOC: HO.HMGCLDS 09:13
PROVIDERS: Visit Provider Internal Medicine
DX: M81.0 Age-related osteoporosis without current pathological fracture (principal); E55.9 Vitamin D deficiency, unspecified
CPT/HCPCS: 36415; 80053; 82306; 83970; 84100

== ENCOUNTER 2022-11-30 | Outpatient (REF) | payer OTHER, SELFPAY ==
[2022-12-09 13:33] LABS: N-Telopeptide 19 (see note); NTXCreaRU 63 mg/dL (20-275)
== END 2022-11-30 00:01 | disposition home or self-care (01) ==
LOC: HO.LNP
PROVIDERS: Visit Provider Internal Medicine
DX: M81.0 Age-related osteoporosis without current pathological fracture (principal)
CPT/HCPCS: 82523

== ENCOUNTER 2022-12-01 10:49 | Outpatient (REF) | payer OTHER, SELFPAY | END 2022-12-01 10:50 | disposition home or self-care (01) | LOC: HO.HMGCLNP 10:49 | PROVIDERS: PCP Internal Medicine; Visit Provider Internal Medicine | DX: Z13.89 Encounter for screening for other disorder (principal) ==

== ENCOUNTER → 2022-12-08 11:34 | Outpatient (BNVA) | payer OTHER, SELFPAY | PROVIDERS: PCP Internal Medicine; Visit Provider Internal Medicine | DX: M81.0 Age-related osteoporosis without current pathological fracture (principal) | CPT/HCPCS: 96372 ==

== ENCOUNTER → 2022-12-17 13:09 | Outpatient (BNVA) | payer OTHER, SELFPAY | PROVIDERS: PCP Internal Medicine; Visit Provider Urology ==

== ENCOUNTER 2022-12-28 14:24 | Outpatient (REF) | payer OTHER, SELFPAY ==
[2022-12-28 18:23] LABS: Estimated Glomerular Filt Rate > 60
[2022-12-31 14:04] LABS: Calcium (PTHI) 9.4 mg/dL (8.6-10.4); PTHI 34 pg/mL (16-77)
== END 2022-12-28 14:25 | disposition home or self-care (01) ==
LOC: HO.HMGCLDS 14:24
PROVIDERS: PCP Internal Medicine; Visit Provider Internal Medicine
DX: M81.0 Age-related osteoporosis without current pathological fracture (principal)
CPT/HCPCS: 36415; 82565; 83970

== ENCOUNTER 2023-01-06 11:00 | Outpatient (RCR) | payer OTHER, SELFPAY ==
--- NOTE | 2022-12-06 16:11 | MHC.PT.EP ---
[facility] [place] Office [place] Office [place] Office [address] Rudy Kelsey [address] [phone] F: [phone] F: [phone] F: [phone] F: [phone] Physical Therapy Plan of Care Date of Evaluation: Date of Surgery: Diagnosis: LBP, unspecified. Assessment: Pt is a 62 y/o female referred to PT for LBP resulting in decreased tolerance for sitting and walking for duration, as well as bedding and squatting activities, heavy HH chores, and disturbed sleep secondary to R LE radicular Sx, decreased trunk ROM and strength, increased R > L posterior LE tissue tension, decreased posture, and pain. Pt is deemed an appropriate candidate to receive skilled PT services to address their physical impairments in order to improve their functional ability. Frequency and Duration: The patient will be seen 2 x / wk x 4 wks. Short Term Goals: Initiate HEP. Improve base line pain to < 3/10; initial 4/5 with activity. Home Economics Expert Goals: I with HEP. R LE radicular Sx abolished. Core strength improved to at least good +; initial: good. Pt will be able to walk long distances with managed sx; initial: unable to tolerate. Pt will be able to sit > 1 hour with managed Sx initial: < 1/2 hour. Treatment Plan: Modalities to reduce pain, spasms and effusion. Manual therapy to restore motion and function. Therapeutic exercise to improve strength and flexibility. Neuromuscular re-education for posture and balance. Therapeutic activities to return to functional activities of daily living. Electronically signed by: Jimmy Wayne PT Please sign and return to therapist. Thank you for your referral.
--- NOTE | 2023-02-22 12:03 | MHC.PT.DC ---
[facility] [place] Office [place] Office [place] Office [address] Rudy Kelsey [address] [phone] F: [phone] F: [phone] F: [phone] F: [phone] Physical Therapy Discharge Report Diagnosis: LBP, unspecified. Date of Surgery: Date of Evaluation: 12/06/22 Date of Discharge: 02/22/23 Treatments to Date: 8 Cancellations to Date: No Shows to Date: Discharge Status: Achieved Goals Improved Function Independent with HEP Discharge Summary: Electronically signed by: Jimmy Wayne PT. Please sign and return to therapist. Thank you for your referral.
== END 2023-02-22 12:01 | disposition home or self-care (01) ==
LOC: HO.PTCHIC 11:00
PROVIDERS: PCP Internal Medicine; Visit Provider Internal Medicine
DX: M54.50 Low back pain, unspecified (principal)
CPT/HCPCS: 97110; 97161

== ENCOUNTER 2023-02-22 14:31 | Outpatient (REF) | payer OTHER, SELFPAY | END 2023-02-22 14:32 | disposition home or self-care (01) | LOC: HO.SH 14:31 | PROVIDERS: Visit Provider Internal Medicine | DX: H90.3 Sensorineural hearing loss, bilateral (principal); R13.19 Other dysphagia | CPT/HCPCS: 92557; 92567; 92593; 99499 ==

== ENCOUNTER 2023-03-14 06:59 | Day surgery (SDC) | payer OTHER, SELFPAY ==
[2023-03-08 14:04] VITALS: BMI 27.2
--- NOTE | 2023-03-11 07:58 | MHC.SHP ---
Pre-Procedural Eval Section A Date of Service: 03/11/23 The patient is an INPATIENT: No Changes since office visit: No Cold of Flu in the past 2 weeks, No New Medical Problems, No Changes in Medication and No Patient answered all questions The History & Physical has been completed within 30 days and I have reviewed it.: Yes Section B Chief Complaint: Age-related nuclear cataract, right eye Allergies: Allergies Allergy/AdvReac Type Severity Reaction Status Date / Time clozapine [From Clozaril] Allergy Mild UNKNOWN Verified 02/25/23 14:40 fluoxetine [From Prozac] Allergy Mild ANXIETY Verified 02/25/23 14:40 lithium [[place]] Allergy Mild UNKNOWN Verified 02/25/23 14:40 oxcarbazepine Allergy Mild ANXIETY Verified 02/25/23 14:40 [From Trileptal] carbamazepine [Tegretol] Allergy Unknown Unknown Verified 02/25/23 14:40 quetiapine [Seroquel] Allergy Unknown unknown Verified 02/25/23 14:40 ziprasidone [Ge[place]] Allergy Unknown Unknown Verified 02/25/23 14:40 CINNAMON TOAST CRUNCH Allergy Severe THROAT Uncoded 12/17/22 13:13 SWELLING FRUIT LOOPS Allergy Severe THROAT Uncoded 12/17/22 13:13 SWELLING KIDNEY BEANS Allergy Severe THROAT Uncoded 12/17/22 13:13 SWELLING Clozaril Allergy Unknown Unknown Uncoded 12/17/22 13:13 Environmental Allergy Unknown unknown Uncoded 12/17/22 13:13 Floxin Otic Allergy Unknown unknown Uncoded 12/17/22 13:13 [place] Carbonate Allergy Unknown Unknown Uncoded 12/17/22 13:13 [place] Allergy Unknown unknown Uncoded 12/17/22 13:13 Some cereals Allergy Unknown Unknown Uncoded 12/17/22 13:13 Spider Bites Allergy Unknown unknown Uncoded 12/17/22 13:13 Plan Diagnosis/Plan: Unchanged I have reviewed the history and physical and performed a pertinent physical examination on my patient. No changes have occurred unless specified. Time Spent With Patient Time: Total time managing care of this patient today ____ minutes.
--- NOTE | 2023-03-11 08:31 | HO.ANESPROP2 ---
Documented by User: Felicia Saldana NP 03/11/23 08:35 HPI - Anesthesia Eval Consult details Narrative: 63yo F for Right Cataract Multifocal with IOL Insertion PCP cleared No previous cataract on record PMFSH Active Problems Active Problems: All Active Problems (Updated 03/08/23 @ 13:37 by Kita Mehta, RN) Shoulder pain, right (Acute) Encounter for general adult medical examination with abnormal findings (Acute) Restless leg syndrome (Acute) Lipid disorder (Acute) Difficulty hearing (Acute) Abdominal bloating (Acute) Folliculitis (Acute) Overactive bladder (Acute) Pain of left thumb (Acute) Poor balance (Acute) Tobacco abuse (Acute) Shortness of breath (Acute) Lower back pain (Acute) Right ankle pain (Acute) At risk for polypharmacy (Acute) Stress bladder incontinence, female (Acute) Pre-op evaluation (Acute) Cataract (Acute) Family history of diabetes mellitus (Acute) Vitamin D deficiency (Acute) Osteoporosis (Acute) Back pain (Acute) Past Medical History Medical History (Updated 03/08/23 @ 13:37 by Kita Mehta RN) Anxiety Asthma Back pain Depression Endobronchial mass Habitual snoring Headache IBS (irritable bowel syndrome) Osteoporosis Schizophrenia Vitamin D deficiency Family History Family History Father Back problem Diabetes mellitus Cataract Mother Diabetes mellitus Maternal Grandfather No problems noted. Maternal Grandmother No problems noted. Paternal Grandfather No problems noted. Paternal Grandmother No problems noted. Surgical History Surgical History History of bladder surgery History of tubal ligation Social History Social History Housing: Apartment Alcohol intake: former Patient Tobacco Use Status: Current everyday Tobacco user Tobacco use type: Cigarette Cigarette Packs Per Day: 0.5 Cigarettes Per Day: 10.0 Years Smoked: 35 e-Cigarette/Vaping Use: Never Used Use of substances other than those prescribed or required for medical reasons: No Substance Use Type: Crack/Cocaine Have you been hit, kicked, punched, or otherwise hurt by someone within the past year? If so, by whom?: No Advance Directives: No Advance Directives Information Provided: Yes Advance Directives on File: No Recently lost weight without trying: No Eating poorly because of decreased appetite: No Nutrition Risks: No Nutritional Risk Patient : No : No Poor oral hygiene: Yes (dentures) Current occupational status: disabled Cognitive needs: No Hearing needs: No Vision needs: Yes Meds Allergies Allergy/AdvReac Type Severity Reaction Status Date / Time clozapine [From Clozaril] Allergy Mild UNKNOWN Verified 02/25/23 14:40 fluoxetine [From Prozac] Allergy Mild ANXIETY Verified 02/25/23 14:40 lithium [[place]] Allergy Mild UNKNOWN Verified 02/25/23 14:40 oxcarbazepine Allergy Mild ANXIETY Verified 02/25/23 14:40 [From Trileptal] carbamazepine [Tegretol] Allergy Unknown Unknown Verified 02/25/23 14:40 quetiapine [Seroquel] Allergy Unknown unknown Verified 02/25/23 14:40 ziprasidone [Geodon] Allergy Unknown Unknown Verified 02/25/23 14:40 CINNAMON TOAST CRUNCH Allergy Severe THROAT Uncoded 12/17/22 13:13 SWELLING FRUIT LOOPS Allergy Severe THROAT Uncoded 12/17/22 13:13 SWELLING KIDNEY BEANS Allergy Severe THROAT Uncoded 12/17/22 13:13 SWELLING Clozaril Allergy Unknown Unknown Uncoded 12/17/22 13:13 Environmental Allergy Unknown unknown Uncoded 12/17/22 13:13 Floxin Otic Allergy Unknown unknown Uncoded 12/17/22 13:13 [place] Carbonate Allergy Unknown Unknown Uncoded 12/17/22 13:13 [place] Allergy Unknown unknown Uncoded 12/17/22 13:13 Some cereals Allergy Unknown Unknown Uncoded 12/17/22 13:13 Spider Bites Allergy Unknown unknown Uncoded 12/17/22 13:13 Home Medications Medication Instructions Recorded Confirmed Last Taken Type amitriptyline 25 mg tablet 25 mg PO DAILY 09/11/20 03/08/23 03/14/23 History buspirone 10 mg tablet 10 mg PO BID 09/11/20 03/08/23 03/14/23 History tkslwuddkj-xbopdbbkhqcco-nfbvwvle 1 cap PO Q6H PRN Migraine Headache 09/11/20 03/08/23 Unknown History 50 mg-300 mg-40 mg capsule (Fioricet) dicyclomine 20 mg tablet 20 mg PO QID 09/11/20 03/08/23 Unknown History lorazepam 0.5 mg tablet (Ativan) 0.5 mg PO Q6H PRN Anxiety 09/11/20 03/08/23 Unknown History meclizine 25 mg tablet 25 mg PO DAILY PRN Dizziness 09/11/20 03/08/23 Unknown History olanzapine 20 mg tablet (Zyprexa) 40 mg PO BEDTIME 09/11/20 03/08/23 Unknown History propranolol 120 mg capsule,24 120 mg PO DAILY 09/11/20 03/08/23 03/14/23 History hr,extended release topiramate 100 mg tablet (Topamax) 100 mg PO DAILY 07/07/21 03/08/23 03/14/23 History minoxidil 2.5 mg tablet 2.5 mg PO DAILY 08/26/21 03/08/23 Unknown History divalproex 500 mg tablet,extended 1,000 mg PO BEDTIME 09/23/21 03/08/23 Unknown History release 24 hr hydroxyzine pamoate 50 mg capsule 50 mg PO DAILY PRN Anxiety 09/23/21 03/08/23 Unknown History polyethylene glycol 3350 17 gram 17 g PO BEDTIME 09/23/21 03/08/23 Unknown History oral powder packet acetaminophen 650 mg 650 mg PO Q8H PRN Pain 11/06/21 03/08/23 Unknown History tablet,extended release (Tylenol 8 Hour) omeprazole 20 mg capsule,delayed 20 mg PO DAILY 11/25/21 03/08/23 03/14/23 History release Exam Exam Date and Time: March 11, 2023 0831 Height,Weight and Vital Signs: Height 5 ft 1 in Weight 65.317 kg Pertinent Lab Results Pertinent Lab Results: Laboratory Tests 03/20/20 11/29/22 12/28/22 10:25 09:23 14:29 WBC 8.6 Hgb 14.5 Hct 44.9 Plt Count 282 Sodium 141 Potassium 4.0 Chloride 108 Carbon Dioxide 26 BUN 12 Creatinine 0.71 Assessment and Plan Assessment Anesthesia Assessment: Chart Reviewed Documented by User: Angelica Styles MD 03/14/23 08:48 [facility] Past Medical History Medical History (Updated 03/08/23 @ 13:37 by Kita Mehta RN) Anxiety Asthma Back pain Depression Endobronchial mass Habitual snoring Headache IBS (irritable bowel syndrome) Osteoporosis Schizophrenia Vitamin D deficiency Family History Family History Father Back problem Diabetes mellitus Cataract Mother Diabetes mellitus Maternal Grandfather No problems noted. Maternal Grandmother No problems noted. Paternal Grandfather No problems noted. Paternal Grandmother No problems noted. Family history of problems with anesthesia: No Surgical History Surgical History History of bladder surgery History of tubal ligation History of Problems with Anesthesia: No Social History Social History Housing: Apartment Alcohol intake: former Patient Tobacco Use Status: Current everyday Tobacco user Tobacco use type: Cigarette Cigarette Packs Per Day: 0.5 Cigarettes Per Day: 10.0 Years Smoked: 35 e-Cigarette/Vaping Use: Never Used Use of substances other than those prescribed or required for medical reasons: No Substance Use Type: Crack/Cocaine Have you been hit, kicked, punched, or otherwise hurt by someone within the past year? If so, by whom?: No Advance Directives: No Advance Directives Information Provided: Yes Advance Directives on File: No Recently lost weight without trying: No Eating poorly because of decreased appetite: No Nutrition Risks: No Nutritional Risk Patient : No : No Poor oral hygiene: Yes (dentures) Current occupational status: disabled Cognitive needs: No Hearing needs: No Vision needs: Yes Meds Allergies Allergy/AdvReac Type Severity Reaction Status Date / Time clozapine [From Clozaril] Allergy Mild UNKNOWN Verified 02/25/23 14:40 fluoxetine [From Prozac] Allergy Mild ANXIETY Verified 02/25/23 14:40 lithium [[place]] Allergy Mild UNKNOWN Verified 02/25/23 14:40 oxcarbazepine Allergy Mild ANXIETY Verified 02/25/23 14:40 [From Trileptal] carbamazepine [Tegretol] Allergy Unknown Unknown Verified 02/25/23 14:40 quetiapine [Seroquel] Allergy Unknown unknown Verified 02/25/23 14:40 ziprasidone [Geodon] Allergy Unknown Unknown Verified 02/25/23 14:40 CINNAMON TOAST CRUNCH Allergy Severe THROAT Uncoded 12/17/22 13:13 SWELLING FRUIT LOOPS Allergy Severe THROAT Uncoded 12/17/22 13:13 SWELLING KIDNEY BEANS Allergy Severe THROAT Uncoded 12/17/22 13:13 SWELLING Clozaril Allergy Unknown Unknown Uncoded 12/17/22 13:13 Environmental Allergy Unknown unknown Uncoded 12/17/22 13:13 Floxin Otic Allergy Unknown unknown Uncoded 12/17/22 13:13 [place] Carbonate Allergy Unknown Unknown Uncoded 12/17/22 13:13 [place] Allergy Unknown unknown Uncoded 12/17/22 13:13 Some cereals Allergy Unknown Unknown Uncoded 12/17/22 13:13 Spider Bites Allergy Unknown unknown Uncoded 12/17/22 13:13 Home Medications Medication Instructions Recorded Confirmed Last Taken Type amitriptyline 25 mg tablet 25 mg PO DAILY 09/11/20 03/08/23 03/14/23 History buspirone 10 mg tablet 10 mg PO BID 09/11/20 03/08/23 03/14/23 History wufzauisbq-ygwhiwysmrqxw-aunioimg 1 cap PO Q6H PRN Migraine Headache 09/11/20 03/08/23 Unknown History 50 mg-300 mg-40 mg capsule (Fioricet) dicyclomine 20 mg tablet 20 mg PO QID 09/11/20 03/08/23 Unknown History lorazepam 0.5 mg tablet (Ativan) 0.5 mg PO Q6H PRN Anxiety 09/11/20 03/08/23 Unknown History meclizine 25 mg tablet 25 mg PO DAILY PRN Dizziness 09/11/20 03/08/23 Unknown History olanzapine 20 mg tablet (Zyprexa) 40 mg PO BEDTIME 09/11/20 03/08/23 Unknown History propranolol 120 mg capsule,24 120 mg PO DAILY 09/11/20 03/08/23 03/14/23 History hr,extended release topiramate 100 mg tablet (Topamax) 100 mg PO DAILY 07/07/21 03/08/23 03/14/23 History minoxidil 2.5 mg tablet 2.5 mg PO DAILY 08/26/21 03/08/23 Unknown History divalproex 500 mg tablet,extended 1,000 mg PO BEDTIME 09/23/21 03/08/23 Unknown History release 24 hr hydroxyzine pamoate 50 mg capsule 50 mg PO DAILY PRN Anxiety 09/23/21 03/08/23 Unknown History polyethylene glycol 3350 17 gram 17 g PO BEDTIME 09/23/21 03/08/23 Unknown History oral powder packet acetaminophen 650 mg 650 mg PO Q8H PRN Pain 11/06/21 03/08/23 Unknown History tablet,extended release (Tylenol 8 Hour) omeprazole 20 mg capsule,delayed 20 mg PO DAILY 11/25/21 03/08/23 03/14/23 History release Exam Airway Mallampati Class: II TM Dist: >3cm Neck ROM: Full Heart: rrr Lungs: cta Assessment and Plan Assessment Anesthesia Assessment: Anesthesia Plan Discussed Final Anesthetic Review Family History of Problems with Anesthesia: No History of Problems with Anesthesia: No NPO: Yes ASA Class: III Final Preanesthetic Review: No Changes in Pt Med Stat, Meds/Allgs Chart Reviewed and Consent Obtained/Reviewed Patient Risk: Intermediate Procedure Risk: Intermediate Anesthetic Plan Anesthetic Plan: MAC: Disposition: Standard PACU
--- OUTSIDE RECORDS SUMMARY | 2023-03-14 07:00 | XMS_ITS ---
Author Name Alpesh Aranda Jr Address [address] [place] [address] Organization [facility] Address [address] [place] [address] Care Team Providers Care Drawer In Stitch Bonding Machine Name Role Phone Alpesh Aranda Jr Unavailable PROBLEMS Type Condition ICD9-CM Code [id number] Code Onset Dates Condition Status SNOMED Code Problem Irritable bowel syndrome with both constipation and diarrhea K58.2 Active 22703863 Problem Colon cancer screening Z12.11 Active 632981131 Problem Gastroesophageal reflux disease without esophagitis K21.9 Active [id number] 5 ALLERGIES Substance Reaction Event Type Date Status steroids Unknown Non Drug Allergy January, Active ENCOUNTERS Encounter Location Date Diagnosis [facility] [address] [place] [phone] January, Other dysphagia R13.19 ; Gastroesophageal reflux disease without esophagitis K21.9 and Irritable bowel syndrome with both constipation and diarrhea K58.2 [facility] [address] [place] [phone] Dec, [facility] [address] [place] [phone] January, Gastroesophageal reflux disease without esophagitis K21.9 [facility] [address] [place] [phone] Apr, [facility] [address] [place] [address] 14 Apr, 2021 [facility] [address] [place] 10 Dec, 2020 [facility] [address] [place] 09 Dec, 2020 Gastroesophageal reflux disease without esophagitis K21.9 [facility] [address] [place] 09 Dec, 2020 [facility] [address] [place] Sep, [facility] [address] [place] Sep, Gastroesophageal reflux disease without esophagitis K21.9 and Irritable bowel syndrome with both constipation and diarrhea K58.2 [facility] [address] [place] [address] Jul, [facility] [address] [place] May, [facility] [address] [place] 31 Dec, 2019 [facility] [address] [place] 24 Dec, 2019 [facility] [address] [place] [address] 18 Dec, 2019 Colon cancer screening Z12.11 [facility] [address] [place] [phone] 13 Dec, 2019 Colon cancer screening Z12.11 and Esophageal reflux K21.9 [facility] [address] [place] [address] Oct, Gastroesophageal reflux disease without esophagitis K21.9 ; Irritable bowel syndrome with both constipation and diarrhea K58.2 and Colon cancer screening Z12.11 [facility] [address] [place] [address] Sep, Esophageal reflux 530.81 [facility] [address] [place] [address] May, Gastro-esophageal reflux disease without esophagitis K21.9 [facility] [address] [place] [address] Apr, [facility] [address] [place] [address] January, [facility] [address] [place] [address] January, [facility] [address] [place] [address] January, Irritable bowel syndrome with both constipation and diarrhea K58.2 and Gastroesophageal reflux disease without esophagitis K21.9 [facility] [address] [place] [address] January, [facility] [address] [place] [address] Dec, [facility] [address] [place] [address] Oct, [facility] [address] [place] [address] Oct, [facility] [address] [place] [address] Aug, [facility] [address] [place] [address] Jun, [facility] [address] [place] [address] Jun, [facility] [address] [place] [address] Dec, [facility] [address] [place] [address] Oct, [facility] [address] [place] [address] Apr, [facility] [address] [place] [address] Jan, [facility] [address] [place] [address] Jan, [facility] [address] [place] [address] Aug, [facility] [address] [place] [address] Jul, [facility] [address] [place] [address] 09 Oct, 2015 Other dysphagia R13.19 ; Irritable bowel syndrome without diarrhea K58.9 and Gastro-esophageal reflux disease without esophagitis K21.9 [facility] [address] [place] [phone] January, [facility] [address] [place] [phone] Jan, [facility] [address] [place] [phone] Jan, [facility] [address] [place] [address] Dec, [facility] [address] [place] [phone] Dec, Irritable bowel syndrome 564.1 [facility] [address] [place] [address] Dec, Irritable bowel syndrome 564.1 and Esophageal reflux 530.81 [facility] [address] [place] [phone] Aug, [facility] [address] [place], [place] [phone] Apr, [facility] [address] [place] [phone] Sep, [facility] [address] [place] [phone] Apr, [facility] [address] [place] [phone] Mar, IMMUNIZATIONS Vaccine Route Administration Date Status Influenza Unknown Jul 20, 2022 Administered Influenza Unknown Jul 03, 2020 Administered Influenza Unknown Jul 11, 2019 Administered SOCIAL HISTORY Qualifiers Date Current Smoker REASON FOR REFERRAL FUNCTIONAL STATUS PLAN OF CARE Activity Details VITAL SIGNS Weight 164 lbs 2023-02-18 Weight 147 lbs 2020-09-04 Weight 142 lbs 2019-10-24 Weight 142 lbs 2018-02-15 Weight 127 lbs 2015-07-11 Weight 131 lbs 2014-12-04 Height 61.5 in 2023-02-18 Height 61.5 in 2020-09-04 Height 61.5 in 2019-10-24 Height 61.5 in 2018-02-15 Height 61.5 in 2015-07-11 Height 61.5 in 2014-12-04 BMI 30.48 kg/m2 2023-02-18 BMI 27.32 kg/m2 2020-09-04 BMI 26.39 kg/m2 2019-10-24 BMI 26.39 kg/m2 2018-02-15 BMI 23.61 kg/m2 2015-07-11 BMI 24.35 kg/m2 2014-12-04 Heart Rate 80 /min 2018-02-15 Heart Rate 60 /min 2014-12-04 Temperature 97.5 degrees Fahrenheit Temperature 97.5 degrees Fahrenheit Blood pressure systolic 000 mm Hg Blood pressure diastolic 00 mm Hg 2023-01 MEDICATIONS Medication Instructions Dosage Frequency Start Date End Date Duration Status Requip 1 MG Orally Once a day 1 tablet 1 to 3 hours before bedtime 24h Active Omeprazole 20 MG TAKE 1 CAPSULE BY MOUTH TWICE DAILY 30 Active Calcium Carbonate 600 MG Orally Once a day 1 tablet 24h Active Fish Oil 1000 MG Orally Once a day 1 capsule 24h Active Tylenol 8 Hour 650 MG Orally every 8 hrs 1 tablets as needed 8h Active busPIRone HCl 10 MG Orally Twice a day 1 tablet 12h Active Propranolol HCl 120 MG Orally Once a day 1 capsule 24h 30 day(s) Active MiraLax 17 GM Orally Once a day 1 packet mixed with 8 ounces of fluid 24h Apr, 30 day(s) Active Meclizine HCl 25 MG Orally prn 1 tablet as needed Active ZyPREXA 20 MG Orally Once a day 1 tablet 24h Active Claritin 10 MG Orally Once a day 1 tablet 24h Active Bentyl 20 MG Orally up to 4 times daily 1 tablet Active Simethicone 80 MG Orally Four times a day as needed for gas 1 tablet after meals and at bedtime January, Active Diphenoxylate-Atr opine 2.5-0.025 MG TAKE 1 TABLET BY MOUTH FOUR TIMES DAILY Jan, 30 Active Vistaril 50 MG Orally every 6 hrs 1 capsule as needed 6h 30 day(s) Active Ditropan XL 15 MG Orally Once a day 1 tablet 24h Active Aspirin 325 MG Orally Once a day 1 tablet 24h Active Amitriptyline HCl 25 MG Orally Once a day 1 tablet at bedtime 24h Active Prolia 60 MG/ML as directed Active SM Antacid Advanced 200-200-20 MG/5ML TAKE 10 ML NEEDED ORALLY FOUR TIMES A DAY 9 Active Depakote ER 500 MG Orally Once a day 2 tablet 24h Active Fioricet 50-300-40 MG Orally every 4 hrs 1 capsule as needed 4h Active Topiramate 100 MG Orally twice a day 1 tablet 12h Active Melatonin 3 MG Orally Once a day 1 tablet at bedtime as needed 24h 30 day(s) Active Lovastatin 40 MG Orally Once a day 1 tablet with a meal 24h Active PROCEDURES Procedure Date Ordered Result Body Site DOC MEDS VERIFIED W/PT OR RE Oct 24, 2019 COLORECTAL CA SCREEN DOC REV Sep 04, 2020 COLORECTAL CA SCREEN DOC REV February 18, 2023 COLORECTAL CA SCREEN DOC REV Oct 24, 2019 Pt scrn tbco id as non user February 18, 2023 PT TOBACCO SCREEN RCVD TLK Sep 04, 2020 UPPER GI ENDOSCOPY, BIOPSY December 14, 2019 DOC MEDS VERIFIED W/PT OR RE February 18, 2023 DOC MEDS VERIFIED W/PT OR RE Sep 04, 2020 BP NOT ASSESS PATIENT NOT ELIGIBLE Sep 04, 2020 BP SCR PRFRM RCMDD DEFIND SCR INTVL Oct 24, 2019 DOC RSN FOR NOT SCREEN/REC F/U HBP February 18, 2023 PT TOBACCO SCREEN RCVD TLK Oct 24, 2019 RESULTS Name Result Date Reference Range CT SCREENING COLONOGRAPHY 2020-02-08 GI BIOPSY 2019-12-14 G.I. BIOPSY XR GIAC 2019-07-23 XR GIAC 2015-07-15 REASON FOR VISIT Patient presents today for food stuck in throat, food been getting stuck in throat./ waitiing on sooner appt for pt , Patient presents today for food stuck in throat, Aluminum -Magnesium Simethicone , r/f request/ dr. ybarra pt , gas and bloating, needs refill on lomotil, requesting refill, void, 1 yr ov recall, patient presents today for irritable bowel syndrome, Pt no show, Patient presents today heartburn, Lower abdominal Food , needs new scripts due to was transferred over from [facility], results., gerd,screening, Patient presents today for GERD and colon recall, f/u office visit, r/f request, reflux/Maalox, r/f request miralax, Needs refill , follow up, Put on one year OV follow up, patient presents today for F/U VISIT, Rx, refill , Patient presents today for follow up for dysphagia and IBS, r/s o/v, question on bentyl, refill request on Lomotil, Needs refill, Looking for refill on RX Bentyl, RE: Lomotil, Looking for a refill on Bentyl, looking for Lomotil, [employer] NEED[employer] SIGN, refill request for Dicyclomine, 1 year o/v recall, follow up/hard time swollowing, prior auth, med not covered, new script, Needs Lomotil, ? meds, abdominal pain, constipation Insurance Providers Health Insurance Type Health Plan Insurance Address Health Plan Insurance Phone Health Plan Insurance Name Health Plan Coverage Dates Member ID Patient Relationship to Subscriber Patient Address Patient Phone Patient Name Patient Date of Subscriber ID Subscriber Name Subscriber Date of Group No MEDICAID OF [employer] [address] [facility] [address] MEDICAID OF [facility] [id number] self MARS Daniel [id number] [address] [facility] [address] [address] [facility] [id number] [facility] self MARS Daniel [id number]
[2023-03-14 07:48] VITALS: BP 111/62; PULSE 75; RESP 16; TEMP 36.6; O2SAT 95
[2023-03-14] MEDS: Lactated Ringers 500 ML 50 ML IV (07:50)
[2023-03-14] MEDS: Tetracaine HCl/PF 0.5% Oph Sol 4 ML DROPS 1 DROP EYE-RIGHT (07:50)
[2023-03-14] MEDS: Cyclopentolate 1 % Ophth Sol 2 ML DRPBTL 1 DROP EYE-RIGHT ×3 (07:51→08:00)
[2023-03-14] MEDS: Tropicamide 1 % Ophth Sol 3 ML BTL 1 DROP EYE-RIGHT ×3 (07:52→08:00)
[2023-03-14] MEDS: Ketorolac Tromethamine 0.5% Op 5 ML DROPS 1 DROP EYE-RIGHT ×3 (07:53→08:01)
[2023-03-14] MEDS: Phenylephrine HCL 2.5% Oph SoL 2 ML BOTTLE 1 DROP EYE-RIGHT ×3 (07:56→08:02)
--- NOTE | 2023-03-14 08:43 | HO.PNOPHT ---
Ophthalmology Procedure Procedure Date of Service: 03/14/23 Ophthalmology Viscoelastic: Healtrini Duet Dual Pack Pro Ophthalmology Lenses: TECNIS [id number] (15.5) Procedure Notes: PREOPERATIVE DIAGNOSIS: Decreased visual acuity right eye secondary to cataract POSTOPERATIVE DIAGNOSIS: Same PROCEDURE: Right cataract extraction with intraocular lens insertion SURGEON: Flynn Mendoza M.D. ANESTHESIA: Topical/MAC ESTIMATED BLOOD LOSS: None COMPLICATIONS: None After obtaining informed consent, the patient was brought to the operating room suite and placed in the supine position. After adequate sedation per anesthesia, topical drops of Tetracaine were given to the right eye. The eye was then prepped and draped in the usual sterile fashion. The operating room microscope was then positioned over the operative eye and a lid speculum placed. A paracentesis was created. Viscoelastic was then instilled into the anterior chamber. A three plane incision was then created temporally, utilizing a 2.85 mm keratome. Capsulotomy forceps were then utilized to create a circular tear capsulotomy. Hydrodissection and hydrodelineation were carried out until adequate mobilization of the nucleus occurred. Phacoemulsification was then utilized to remove the dense central nucleus followed by removal of the cortical material utilizing the automated aspiration irrigation unit. Viscoelastic was instilled into the posterior capsular bag followed by placement of a posterior chamber intraocular lens without difficulty. The residual Viscoelastic was then removed utilizing the automated IA machine. The wound was checked and found to be watertight. The patient tolerated the procedure well and the lid speculum was removed. Intracameral injection of Vigamox 0.1 mL followed by a subtenon injection of Kenalog-40 0.2 mL were administered. The patient will be seen in the a.m.
[2023-03-14 09:09] VITALS: BP 133/57; PULSE 73; RESP 17; TEMP 36.1; O2SAT 97
== END 2023-03-14 09:18 | disposition home or self-care (01) ==
PROVIDERS: PCP Internal Medicine; Visit Provider Ophthalmology
PROC: (CPT 66985; principal; 2023-03-14 09:30)
DX: H25.11 Age-related nuclear cataract, right eye (principal); H54.7 Unspecified visual loss; H35.413 Lattice degeneration of retina, bilateral; H18.413 Arcus senilis, bilateral; E78.00 Pure hypercholesterolemia, unspecified; G43.909 Migraine, unspecified, not intractable, without status migrainosus; G47.00 Insomnia, unspecified; J45.909 Unspecified asthma, uncomplicated; M81.0 Age-related osteoporosis without current pathological fracture; Z79.899 Other long term (current) drug therapy; Z79.82 Long term (current) use of aspirin; Z79.51 Long term (current) use of inhaled steroids; Z88.8 Allergy status to other drugs, medicaments and biological substances; Z83.3 Family history of diabetes mellitus; F17.210 Nicotine dependence, cigarettes, uncomplicated
CPT/HCPCS: 66984; J2250; J3301; V2632

== ENCOUNTER 2023-03-28 06:50 | Day surgery (SDC) | payer OTHER, SELFPAY ==
[2023-03-08 14:08] VITALS: BMI 27.2
--- NOTE | 2023-03-24 14:46 | HO.ANESPROP2 ---
Documented by User: Felicia Saldana NP 03/24/23 14:47 HPI - Anesthesia Eval Consult details Narrative: 63yo F for Left Cataract Multifocal with IOL Insertion PCP cleared Right eye 03/14/23 with MAC: midaz 1 PMFSH Active Problems Active Problems: All Active Problems (Updated 03/08/23 @ 13:37 by Kita Mehta, RN) Shoulder pain, right (Acute) Encounter for general adult medical examination with abnormal findings (Acute) Restless leg syndrome (Acute) Lipid disorder (Acute) Difficulty hearing (Acute) Abdominal bloating (Acute) Folliculitis (Acute) Overactive bladder (Acute) Pain of left thumb (Acute) Poor balance (Acute) Tobacco abuse (Acute) Shortness of breath (Acute) Lower back pain (Acute) Right ankle pain (Acute) At risk for polypharmacy (Acute) Stress bladder incontinence, female (Acute) Pre-op evaluation (Acute) Cataract (Acute) Family history of diabetes mellitus (Acute) Vitamin D deficiency (Acute) Osteoporosis (Acute) Back pain (Acute) Past Medical History Medical History (Updated 03/08/23 @ 13:37 by Kita Mehta RN) Anxiety Asthma Back pain Depression Endobronchial mass Habitual snoring Headache IBS (irritable bowel syndrome) Osteoporosis Schizophrenia Vitamin D deficiency Family History Family History Father Back problem Diabetes mellitus Cataract Mother Diabetes mellitus Maternal Grandfather No problems noted. Maternal Grandmother No problems noted. Paternal Grandfather No problems noted. Paternal Grandmother No problems noted. Family history of problems with anesthesia: No Surgical History Surgical History History of bladder surgery History of tubal ligation History of Problems with Anesthesia: No Social History Social History Housing: Apartment Alcohol intake: former Patient Tobacco Use Status: Current everyday Tobacco user Tobacco use type: Cigarette Cigarette Packs Per Day: 0.5 Cigarettes Per Day: 10.0 Years Smoked: 35 e-Cigarette/Vaping Use: Never Used Use of substances other than those prescribed or required for medical reasons: No Substance Use Type: Crack/Cocaine Have you been hit, kicked, punched, or otherwise hurt by someone within the past year? If so, by whom?: No Advance Directives: No Advance Directives Information Provided: Yes Advance Directives on File: No Recently lost weight without trying: No Nutrition Risks: No Nutritional Risk Patient : No : No Poor oral hygiene: Yes (dentures) Current occupational status: disabled Cognitive needs: No Hearing needs: No Vision needs: Yes Meds Allergies Allergy/AdvReac Type Severity Reaction Status Date / Time clozapine [From Clozaril] Allergy Mild UNKNOWN Verified 02/25/23 14:40 fluoxetine [From Prozac] Allergy Mild ANXIETY Verified 02/25/23 14:40 lithium [[employer]] Allergy Mild UNKNOWN Verified 02/25/23 14:40 oxcarbazepine Allergy Mild ANXIETY Verified 02/25/23 14:40 [From Trileptal] carbamazepine [Tegretol] Allergy Unknown Unknown Verified 02/25/23 14:40 quetiapine [Seroquel] Allergy Unknown unknown Verified 02/25/23 14:40 ziprasidone [Ge[place]] Allergy Unknown Unknown Verified 02/25/23 14:40 [place] TOAST CRUNCH Allergy Severe THROAT Uncoded 12/17/22 13:13 SWELLING FRUIT LOOPS Allergy Severe THROAT Uncoded 12/17/22 13:13 SWELLING KIDNEY BEANS Allergy Severe THROAT Uncoded 12/17/22 13:13 SWELLING Clozaril Allergy Unknown Unknown Uncoded 12/17/22 13:13 Environmental Allergy Unknown unknown Uncoded 12/17/22 13:13 Floxin Otic Allergy Unknown unknown Uncoded 12/17/22 13:13 [employer] Carbonate Allergy Unknown Unknown Uncoded 12/17/22 13:13 Narvane Allergy Unknown unknown Uncoded 12/17/22 13:13 Some cereals Allergy Unknown Unknown Uncoded 12/17/22 13:13 Spider Bites Allergy Unknown unknown Uncoded 12/17/22 13:13 Home Medications Medication Instructions Recorded Confirmed Last Taken Type amitriptyline 25 mg tablet 25 mg PO DAILY 09/11/20 03/08/23 03/14/23 History buspirone 10 mg tablet 10 mg PO BID 09/11/20 03/08/23 03/14/23 History sowwwlalhy-beaxokzvqfuuy-oapoyadj 1 cap PO Q6H PRN Migraine Headache 09/11/20 03/08/23 Unknown History 50 mg-300 mg-40 mg capsule (Fioricet) dicyclomine 20 mg tablet 20 mg PO QID 09/11/20 03/08/23 Unknown History lorazepam 0.5 mg tablet (Ativan) 0.5 mg PO Q6H PRN Anxiety 09/11/20 03/08/23 Unknown History meclizine 25 mg tablet 25 mg PO DAILY PRN Dizziness 09/11/20 03/08/23 Unknown History olanzapine 20 mg tablet (Zyprexa) 40 mg PO BEDTIME 09/11/20 03/08/23 Unknown History propranolol 120 mg capsule,24 120 mg PO DAILY 09/11/20 03/08/23 03/14/23 History hr,extended release topiramate 100 mg tablet (Topamax) 100 mg PO DAILY 07/07/21 03/08/23 03/14/23 History minoxidil 2.5 mg tablet 2.5 mg PO DAILY 08/26/21 03/08/23 Unknown History divalproex 500 mg tablet,extended 1,000 mg PO BEDTIME 09/23/21 03/08/23 Unknown History release 24 hr hydroxyzine pamoate 50 mg capsule 50 mg PO DAILY PRN Anxiety 09/23/21 03/08/23 Unknown History polyethylene glycol 3350 17 gram 17 g PO BEDTIME 09/23/21 03/08/23 Unknown History oral powder packet acetaminophen 650 mg 650 mg PO Q8H PRN Pain 11/06/21 03/08/23 Unknown History tablet,extended release (Tylenol 8 Hour) omeprazole 20 mg capsule,delayed 20 mg PO DAILY 11/25/21 03/08/23 03/14/23 History release Exam Exam Date and Time: March 24, 2023 144 Height,Weight and Vital Signs: Height 5 ft 1 in Weight 65.317 kg Assessment and Plan Assessment Anesthesia Assessment: Chart Reviewed Final Anesthetic Review Family History of Problems with Anesthesia: No History of Problems with Anesthesia: No Documented by User: Karina Humphries MD 03/28/23 07:31 [facility] Past Medical History Medical History (Updated 03/08/23 @ 13:37 by Kita Mehta RN) Anxiety Asthma Back pain Depression Endobronchial mass Habitual snoring Headache IBS (irritable bowel syndrome) Osteoporosis Schizophrenia Vitamin D deficiency Family History Family History Father Back problem Diabetes mellitus Cataract Mother Diabetes mellitus Maternal Grandfather No problems noted. Maternal Grandmother No problems noted. Paternal Grandfather No problems noted. Paternal Grandmother No problems noted. Surgical History Surgical History History of bladder surgery History of tubal ligation Social History Social History Housing: Apartment Alcohol intake: former Patient Tobacco Use Status: Current everyday Tobacco user Tobacco use type: Cigarette Cigarette Packs Per Day: 0.5 Cigarettes Per Day: 10.0 Years Smoked: 35 e-Cigarette/Vaping Use: Never Used Use of substances other than those prescribed or required for medical reasons: No Substance Use Type: Crack/Cocaine Have you been hit, kicked, punched, or otherwise hurt by someone within the past year? If so, by whom?: No Advance Directives: No Advance Directives Information Provided: Yes Advance Directives on File: No Recently lost weight without trying: No Nutrition Risks: No Nutritional Risk Patient : No : No Poor oral hygiene: Yes (dentures) Current occupational status: disabled Cognitive needs: No Hearing needs: No Vision needs: Yes Meds Allergies Allergy/AdvReac Type Severity Reaction Status Date / Time clozapine [From Clozaril] Allergy Mild UNKNOWN Verified 02/25/23 14:40 fluoxetine [From Prozac] Allergy Mild ANXIETY Verified 02/25/23 14:40 lithium [[employer]] Allergy Mild UNKNOWN Verified 02/25/23 14:40 oxcarbazepine Allergy Mild ANXIETY Verified 02/25/23 14:40 [From Trileptal] carbamazepine [Tegretol] Allergy Unknown Unknown Verified 02/25/23 14:40 quetiapine [Seroquel] Allergy Unknown unknown Verified 02/25/23 14:40 ziprasidone [Geodon] Allergy Unknown Unknown Verified 02/25/23 14:40 [place] TOAST CRUNCH Allergy Severe THROAT Uncoded 12/17/22 13:13 SWELLING FRUIT LOOPS Allergy Severe THROAT Uncoded 12/17/22 13:13 SWELLING KIDNEY BEANS Allergy Severe THROAT Uncoded 12/17/22 13:13 SWELLING Clozaril Allergy Unknown Unknown Uncoded 12/17/22 13:13 Environmental Allergy Unknown unknown Uncoded 12/17/22 13:13 Floxin Otic Allergy Unknown unknown Uncoded 12/17/22 13:13 [employer] Carbonate Allergy Unknown Unknown Uncoded 12/17/22 13:13 Narvane Allergy Unknown unknown Uncoded 12/17/22 13:13 Some cereals Allergy Unknown Unknown Uncoded 12/17/22 13:13 Spider Bites Allergy Unknown unknown Uncoded 12/17/22 13:13 Home Medications Medication Instructions Recorded Confirmed Last Taken Type amitriptyline 25 mg tablet 25 mg PO DAILY 09/11/20 03/08/23 03/14/23 History buspirone 10 mg tablet 10 mg PO BID 09/11/20 03/08/23 03/14/23 History djgtakshyf-slfqlywqqildm-fendttiq 1 cap PO Q6H PRN Migraine Headache 09/11/20 03/08/23 Unknown History 50 mg-300 mg-40 mg capsule (Fioricet) dicyclomine 20 mg tablet 20 mg PO QID 09/11/20 03/08/23 Unknown History lorazepam 0.5 mg tablet (Ativan) 0.5 mg PO Q6H PRN Anxiety 09/11/20 03/08/23 Unknown History meclizine 25 mg tablet 25 mg PO DAILY PRN Dizziness 09/11/20 03/08/23 Unknown History olanzapine 20 mg tablet (Zyprexa) 40 mg PO BEDTIME 09/11/20 03/08/23 Unknown History propranolol 120 mg capsule,24 120 mg PO DAILY 09/11/20 03/08/23 03/14/23 History hr,extended release topiramate 100 mg tablet (Topamax) 100 mg PO DAILY 07/07/21 03/08/23 03/14/23 History minoxidil 2.5 mg tablet 2.5 mg PO DAILY 08/26/21 03/08/23 Unknown History divalproex 500 mg tablet,extended 1,000 mg PO BEDTIME 09/23/21 03/08/23 Unknown History release 24 hr hydroxyzine pamoate 50 mg capsule 50 mg PO DAILY PRN Anxiety 09/23/21 03/08/23 Unknown History polyethylene glycol 3350 17 gram 17 g PO BEDTIME 09/23/21 03/08/23 Unknown History oral powder packet acetaminophen 650 mg 650 mg PO Q8H PRN Pain 11/06/21 03/08/23 Unknown History tablet,extended release (Tylenol 8 Hour) omeprazole 20 mg capsule,delayed 20 mg PO DAILY 11/25/21 03/08/23 03/14/23 History release Exam Airway Mallampati Class: II TM Dist: >3cm Neck ROM: Full Denture: Upper and Lower Assessment and Plan Assessment Anesthesia Assessment: Anesthesia Plan Discussed Final Anesthetic Review NPO: Yes ASA Class: II Final Preanesthetic Review: No Changes in Pt Med Stat, Meds/Allgs Chart Reviewed, Consent Obtained/Reviewed and Anes Risks/Benef Reviewed Patient Risk: Low Procedure Risk: Low Anesthetic Plan Anesthetic Plan: MAC: Disposition: Standard PACU
--- OUTSIDE RECORDS SUMMARY | 2023-03-28 06:52 | XMS_ITS ---
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 Name Role Phone Alpesh Aranda Jr Unavailable [phone] PROBLEMS Type Condition ICD9-CM Code WTD84-[id number] Code Onset Dates Condition Status SNOMED Code Problem Irritable bowel syndrome with both constipation and diarrhea K58.2 Active 42443761 Problem Colon cancer screening Z12.11 Active 053067435 Problem Gastroesophageal reflux disease without esophagitis K21.9 Active 48104050 5 ALLERGIES Substance Reaction Event Type Date Status steroids Unknown Non Drug Allergy January, Active ENCOUNTERS Encounter Location Date Diagnosis [facility] [address] [place] [phone] January, Other dysphagia R13.19 ; Gastroesophageal reflux disease without esophagitis K21.9 and Irritable bowel syndrome with both constipation and diarrhea K58.2 [facility] [address] [place] [phone] Dec, [facility] [address] [place] [phone] January, Gastroesophageal reflux disease without esophagitis K21.9 [facility] [address] [place] [phone] Apr, [facility] [address] [place] [address] 14 Apr, 2021 [facility] [address] [place] 10 Dec, 2020 [facility] [address] [place] 09 Dec, 2020 Gastroesophageal reflux disease without esophagitis K21.9 [facility] [address] [place] 09 Dec, 2020 [facility] [address] [place] Sep, [facility] [address] [place] Sep, Gastroesophageal reflux disease without esophagitis K21.9 and Irritable bowel syndrome with both constipation and diarrhea K58.2 [facility] [address] [place] [address] Jul, [facility] [address] [place] May, [facility] [address] [place] 31 Dec, 2019 [facility] [address] [place] 24 Dec, 2019 [facility] [address] [place] [address] 18 Dec, 2019 Colon cancer screening Z12.11 [facility] Outpatient [address] [place] [id number] Dec, 2019 Colon cancer screening Z12.11 and Esophageal reflux K21.9 [facility] [address] [place] [address] Oct, Gastroesophageal reflux disease without esophagitis K21.9 ; Irritable bowel syndrome with both constipation and diarrhea K58.2 and Colon cancer screening Z12.11 [facility] [address] [place] [address] Sep, Esophageal reflux 530.81 [facility] [address] [place] [address] May, Gastro-esophageal reflux disease without esophagitis K21.9 [facility] [address] [place] [address] Apr, [facility] [address] [place] [address] January, [facility] [address] [place] [address] January, [facility] [address] [place] [address] January, Irritable bowel syndrome with both constipation and diarrhea K58.2 and Gastroesophageal reflux disease without esophagitis K21.9 [facility] [address] [place] [address] January, [facility] [address] [place] [address] Dec, [facility] [address] [place] [address] Oct, [facility] [address] [place] [address] Oct, [facility] [address] [place] [address] Aug, [facility] [address] [place] [address] Jun, [facility] [address] [place] [address] Jun, [facility] [address] [place] [address] Dec, [facility] [address] [place] [address] Oct, [facility] [address] [place] [address] Apr, [facility] [address] [place] [address] Jan, [facility] [address] [place] [address] Jan, [facility] [address] [place] [address] Aug, [facility] [address] [place] [address] Jul, [facility] [address] [place] [address] 09 Oct, 2015 Other dysphagia R13.19 ; Irritable bowel syndrome without diarrhea K58.9 and Gastro-esophageal reflux disease without esophagitis K21.9 [facility] [address] [place] [phone] January, [facility] [address] [place] [phone] Jan, [facility] [address] [place] [phone] Jan, [facility] [address] [place] [address] Dec, [facility] [address] [place] [address] Dec, Irritable bowel syndrome 564.1 [facility] [address] [place] [address] Dec, Irritable bowel syndrome 564.1 and Esophageal reflux 530.81 [facility] ER [address] [place] [phone] Aug, [facility] ER [address] [place], [place] [id number] Apr, [facility] Outpatient [address] [place] [id number] Sep, [facility] ER [address] [place] [id number] Apr, [facility] ER [address] [place] [id number] Mar, IMMUNIZATIONS Vaccine Route Administration Date Status [...] CA SCREEN DOC REV Oct 24, 2019 PT TOBACCO SCREEN RCVD TLK Oct 24, 2019 Pt scrn tbco id as non user February 18, 2023 DOC MEDS VERIFIED W/PT OR RE February 18, 2023 UPPER GI ENDOSCOPY, BIOPSY December 14, 2019 DOC MEDS VERIFIED W/PT OR RE Sep 04, 2020 DOC RSN FOR NOT SCREEN/REC F/U HBP February 18, 2023 BP NOT ASSESS PATIENT NOT ELIGIBLE Sep 04, 2020 BP SCR PRFRM RCMDD DEFIND SCR INTVL Oct 24, 2019 PT TOBACCO SCREEN RCVD TLK Sep 04, 2020 RESULTS Name Result Date Reference Range CT [...] scripts due to was transferred over from [facility], results., gerd,screening, Patient presents today for GERD [...] Subscriber Date of Group No MEDICAID OF [employer] [address] [facility] [address] MEDICAID OF [facility] Corp[employer] self MARS Daniel [id number] 1 [facility] [address] [address] [facility] [id number] [facility] self MARS Daniel [id number]
[2023-03-28 07:43] VITALS: BP 128/63; PULSE 79; RESP 16; TEMP 36.9; O2SAT 97
[2023-03-28] MEDS: Tetracaine HCl/PF 0.5% Oph Sol 4 ML DROPS 1 DROP EYE-LEFT (07:45)
[2023-03-28] MEDS: Cyclopentolate 1 % Ophth Sol 2 ML DRPBTL 1 DROP EYE-LEFT ×3 (07:46→08:02)
[2023-03-28] MEDS: Tropicamide 1 % Ophth Sol 3 ML BTL 1 DROP EYE-LEFT ×3 (07:48→08:04)
[2023-03-28] MEDS: Ketorolac Tromethamine 0.5% Op 5 ML DROPS 1 DROP EYE-LEFT ×3 (07:50→08:06)
[2023-03-28] MEDS: Lactated Ringers 500 ML 50 ML IV (07:51)
[2023-03-28] MEDS: Phenylephrine HCL 2.5% Oph SoL 2 ML BOTTLE 1 DROP EYE-LEFT ×3 (07:52→08:08)
--- NOTE | 2023-03-28 08:01 | PC.NURSE ---
Patient unsure what medications were taken today. [facility] comes and delivers my medications, I know I took 6 today, not sure what ones . Dr. Humphries aware. Okay to proceed. Upper and lower full dentures glued in, okay to leave in for procedure per Dr. Humphries. Arline CURTAIN FITTER made aware.
--- NOTE | 2023-03-28 08:35 | HO.PNOPHT ---
Ophthalmology Procedure Procedure Date of Service: 03/28/23 Ophthalmology Viscoelastic: Healtrini Beardt Dual Pack Pro Ophthalmology Lenses: TECJENNIFER [id number] (12) Procedure Notes: PREOPERATIVE DIAGNOSIS: Decreased visual acuity left eye secondary to cataract POSTOPERATIVE DIAGNOSIS: Same PROCEDURE: Left cataract extraction with intraocular lens insertion SURGEON: Flynn Mendoza M.D. ANESTHESIA: Topical/MAC ESTIMATED BLOOD LOSS: None COMPLICATIONS: None After obtaining informed consent, the patient was brought to the operation room suite and placed in the supine position. After adequate sedation per anesthesia, topical drops of Tetracaine were given to the left eye. The eye was then prepped and draped in the usual sterile fashion. The operating room microscope was then positioned over the operative eye and a lid speculum placed. A paracentesis was created. Viscoelastic was then instilled into the anterior chamber. A three plane incision was then created temporally, utilizing a 2.85 mm keratome. Capsulotomy forceps were then utilized to create a circular tear capsulotomy. Hydrodissection and hydrodelineation were carried out until adequate mobilization of the nucleus occurred. Phacoemulsification was then utilized to remove the dense central nucleus followed by removal of the cortical material utilizing the automated aspiration irrigation unit. Viscoat elastic was instilled into the posterior capsular bag followed by placement of a posterior chamber intraocular lens without difficulty. The residual Viscoat elastic was then removed utilizing the automated IA machine. The wound was check and found to be watertight. The patient tolerated the procedure well and the lid speculum was removed. Intracameral injection of Vigamox 0.1 mL followed by a subtenon injection of Kenalog-40 0.2 mL were administered. The patient will be seen in the a.m.
[2023-03-28 09:10] VITALS: BP 109/66; PULSE 75; RESP 18; TEMP 36.1; O2SAT 96
== END 2023-03-28 09:12 | disposition home or self-care (01) ==
PROVIDERS: PCP Internal Medicine; Visit Provider Ophthalmology
PROC: (CPT 66985; principal; 2023-03-28 08:50)
DX: H25.12 Age-related nuclear cataract, left eye (principal); H54.7 Unspecified visual loss; H18.413 Arcus senilis, bilateral; H35.413 Lattice degeneration of retina, bilateral; E78.00 Pure hypercholesterolemia, unspecified; E55.9 Vitamin D deficiency, unspecified; M81.0 Age-related osteoporosis without current pathological fracture; Z83.3 Family history of diabetes mellitus; Z79.82 Long term (current) use of aspirin; Z79.899 Other long term (current) drug therapy; Z88.8 Allergy status to other drugs, medicaments and biological substances; F17.210 Nicotine dependence, cigarettes, uncomplicated
CPT/HCPCS: 66984; J2250; J3301; V2632

== ENCOUNTER 2023-05-27 09:56 | Outpatient (REF) | payer OTHER, SELFPAY ==
--- NOTE | ~2023-05-27 | FL_ITS ---
EXAMINATION: FL BARIUM SWALLOW CLINICAL INFORMATION: Dysphagia. COMPARISON: None available. TECHNIQUE: Barium swallow examination is performed using fluoroscopic evaluation in addition to multiple fluoroscopic spot views. The patient is imaged both upright and prone and using both thick and thin sulfate along with effervescent granules. Fluoroscopy time: 1.6 minutes DAP: 11.077 Gycm2 Images: 45 FINDINGS: Following oral administration of thick, thin barium and barium-coated turkey, there is normal propagation of bolus from the oral cavity through the pharynx, esophagus into stomach. There is slow progression of solid food through the mid and distal esophagus which subsequently cleared with thin barium and water. On oral administration thin barium and barium tablet, there is spontaneous passage through the pharynx and esophagus into stomach without obstruction. FL/FL barium swallow IMPRESSION: Unremarkable barium swallow in upright view.
== END 2023-05-27 09:57 | disposition home or self-care (01) ==
LOC: HO.XRAY 09:56
PROVIDERS: PCP Internal Medicine; Visit Provider Internal Medicine Gastroenterology
DX: R13.19 Other dysphagia (principal)
CPT/HCPCS: 74220

== ENCOUNTER → 2023-05-27 09:57 | Outpatient (BNV) | payer OTHER, SELFPAY | PROVIDERS: PCP Internal Medicine; Visit Provider Radiology Diagnostic Radiology | DX: R13.19 Other dysphagia (principal) | CPT/HCPCS: 74221 ==

== ENCOUNTER 2023-06-13 13:54 | Outpatient (REF) | payer OTHER, SELFPAY ==
[2023-06-13 16:30] LABS: Alanine Aminotransferase 7 U/L (0-31); Albumin Level 4.2 g/dL (3.5-5.0); Alkaline Phosphatase 84 U/L (39-117); Anion Gap 15 (12-20); Aspartate Amino Transferase 12 U/L (5-31); Bilirubin Total 0.1 mg/dL (0.0-1.0); Blood Urea Nitrogen 10 mg/dL (9-16); Calcium 9.9 mg/dL (8.4-10.2); Carbon Dioxide 23 mmol/L (22-29); Chloride 108 mmol/L (96-108); Estimated Glomerular Filt Rate > 60; Glucose Random 130 mg/dL (60-115); Phosphorus 3.5 mg/dL (2.7-4.5); Potassium 3.7 mmol/L (3.3-5.1); Sodium 142 mmol/L (135-145); Total Protein 7.1 g/dL (6.5-8.0)
[2023-06-13 16:39] LABS: Vitamin D 25-OH Total 84.2 ng/mL (>30)
[2023-06-14 14:13] LABS: Calcium (PTHI) 9.7 mg/dL (8.6-10.4); PTHI 24 pg/mL (16-77)
[2023-06-17 16:04] LABS: Alkaline Phosphatase Bone 10.7 mcg/L (5.6-29.0)
== END 2023-06-13 13:55 | disposition home or self-care (01) ==
LOC: HO.HMGCLDS 13:54
PROVIDERS: PCP Internal Medicine; Visit Provider Internal Medicine
DX: M81.0 Age-related osteoporosis without current pathological fracture (principal); E55.9 Vitamin D deficiency, unspecified
CPT/HCPCS: 36415; 80053; 82306; 83970; 84075; 84100

== ENCOUNTER 2023-06-21 12:57 | Outpatient (AMB) | payer OTHER, SELFPAY ==
--- NOTE | 2023-06-21 13:02 | AM.OFFVISNUR ---
Intake Intake Visit Reasons: Prolia Allergies clozapine [From Clozaril] Allergy (Mild, Verified 03/28/23 07:39) UNKNOWN fluoxetine [From Prozac] Allergy (Mild, Verified 03/28/23 07:39) ANXIETY lithium [[place]] Allergy (Mild, Verified 03/28/23 07:39) UNKNOWN oxcarbazepine [From Trileptal] Allergy (Mild, Verified 03/28/23 07:39) ANXIETY carbamazepine [Tegretol] Allergy (Unknown, Verified 03/28/23 07:39) Unknown quetiapine [Seroquel] Allergy (Unknown, Verified 03/28/23 07:39) unknown ziprasidone [[place]] Allergy (Unknown, Verified 03/28/23 07:39) Unknown [place] TOAST CRUNCH Allergy (Severe, Uncoded 03/28/23 07:39) THROAT SWELLING FRUIT LOOPS Allergy (Severe, Uncoded 03/28/23 07:39) THROAT SWELLING KIDNEY BEANS Allergy (Severe, Uncoded 03/28/23 07:39) THROAT SWELLING Clozaril Allergy (Unknown, Uncoded 03/28/23 07:39) Unknown Environmental Allergy (Unknown, Uncoded 03/28/23 07:39) unknown Floxin Otic Allergy (Unknown, Uncoded 03/28/23 07:39) unknown [place] Carbonate Allergy (Unknown, Uncoded 03/28/23 07:39) Unknown Narvane Allergy (Unknown, Uncoded 03/28/23 07:39) unknown Some cereals Allergy (Unknown, Uncoded 03/28/23 07:39) Unknown Spider Bites Allergy (Unknown, Uncoded 03/28/23 07:39) unknown Office Meds Prolia 60 mg/mL subcutaneous syringe Performing Provider: Hesham Scott MD Performing Location: [facility] Administered by: Al Bales RN on 06/21/23 13:02 Dose Route Admin Location Dispensed Lot Number Expiration Date NDC Serger 60 mg subcut L arm 1 mL [id number] 10/02/25 AMGEN Coding Assessment & Plan Assessment & Plan Orders: Orders AMB Denosumab Injection Patient Supplied Today M81.0 - Age-related osteoporosis without current pathological fracture
== END 2023-06-21 13:42 | disposition home or self-care (01) ==
PROVIDERS: PCP Internal Medicine; Visit Provider Internal Medicine Endocrinology, Diabetes & Metabolism
DX: M81.0 Age-related osteoporosis without current pathological fracture (principal)

== ENCOUNTER → 2023-06-21 12:57 | Outpatient (BNVA) | payer OTHER, SELFPAY | PROVIDERS: PCP Internal Medicine; Visit Provider Internal Medicine Endocrinology, Diabetes & Metabolism | DX: M81.0 Age-related osteoporosis without current pathological fracture (principal) | CPT/HCPCS: 96372; J0897 ==

== ENCOUNTER 2023-07-19 11:32 | Outpatient (AMB) | payer OTHER, SELFPAY ==
--- NOTE | 2023-07-19 11:33 | MHC.PC.OV ---
Vital Signs 07/19/23 11:35 Height 5 ft 1 in Weight 140 lb 8 oz BMI 26.5 BP 110/64 Blood Pressure Location Lt brachial Position Sitting Pulse 74 Pulse Source Pulse Oximeter Temp 97.8 F Temp Source Oral Pulse Oximetry (%) 94 Oxygen Delivery Method Room Air Intake Visit Reasons: PE Allergies clozapine [From Clozaril] Allergy (Mild, Verified 07/19/23 11:38) UNKNOWN fluoxetine [From Prozac] Allergy (Mild, Verified 07/19/23 11:38) ANXIETY lithium [[place]] Allergy (Mild, Verified 07/19/23 11:38) UNKNOWN oxcarbazepine [From Trileptal] Allergy (Mild, Verified 07/19/23 11:38) ANXIETY carbamazepine [Tegretol] Allergy (Unknown, Verified 07/19/23 11:38) Unknown quetiapine [Seroquel] Allergy (Unknown, Verified 07/19/23 11:38) unknown ziprasidone [Geodon] Allergy (Unknown, Verified 07/19/23 11:38) Unknown CINNAMON TOAST CRUNCH Allergy (Severe, Uncoded 03/28/23 07:39) THROAT SWELLING FRUIT LOOPS Allergy (Severe, Uncoded 03/28/23 07:39) THROAT SWELLING KIDNEY BEANS Allergy (Severe, Uncoded 03/28/23 07:39) THROAT SWELLING Clozaril Allergy (Unknown, Uncoded 03/28/23 07:39) Unknown Environmental Allergy (Unknown, Uncoded 03/28/23 07:39) unknown Floxin Otic Allergy (Unknown, Uncoded 03/28/23 07:39) unknown [place] Carbonate Allergy (Unknown, Uncoded 03/28/23 07:39) Unknown [place] Allergy (Unknown, Uncoded 03/28/23 07:39) unknown Some cereals Allergy (Unknown, Uncoded 03/28/23 07:39) Unknown Spider Bites Allergy (Unknown, Uncoded 03/28/23 07:39) unknown Medication List - Last Reconciled 07/19/23 by Kevin Muñoz MD acetaminophen ER (Tylenol 8 Hour) 650 mg PO Q8H PRN albuterol sulfate 90 mcg/actuation (ProAir HFA) 1 inh inhalation QID PRN 30 days amitriptyline 25 mg PO DAILY aspirin (Adult Aspirin Regimen) 81 mg PO DAILY buspirone 10 mg PO BID gjpslckpmp-zymxyxnfebqtb-wdcz 50-300-40 mg (Fioricet) 1 cap PO Q6H PRN calcium citrate-vitamin D3 315 mg-5 mcg (200 unit) 1 tab PO BID 30 days denosumab (Prolia) 60 mg subcut [id number] 1 day dicyclomine 20 mg PO QID divalproex ER 1,000 mg PO BEDTIME fluticasone propionate 50 mcg/actuation 1 spray intranasal DAILY hydroxyzine pamoate 50 mg PO DAILY PRN lactobacillus combination no.4 (Probiotic) 3,000 mmu cells PO DAILY 90 days loratadine 10 mg PO DAILY 90 days lorazepam (Ativan) 0.5 mg PO Q6H PRN lovastatin 40 mg PO DAILY meclizine 25 mg PO DAILY PRN minoxidil 2.5 mg PO DAILY mupirocin calcium 2% 1 appl topical TID 7 days olanzapine (Zyprexa) 40 mg PO BEDTIME omeprazole 20 mg PO DAILY oxybutynin chloride ER 15 mg PO DAILY 90 days polyethylene glycol 3350 17 grams PO BEDTIME propranolol ER 120 mg PO DAILY ropinirole 1 mg PO DAILY 90 days simethicone (Gas Relief (simethicone)) 80 mg PO BID-QID PRN 90 days topiramate (Topamax) 100 mg PO DAILY Tobacco use date assessed: 07/19/23 Fall risk assessment: No Falls in past year Last assessed Fall Risk: 07/19/23 Dental Screening Dental Screen Date: 07/19/23 Did you have a dental visit in the last 12 months?: No Did you have a dental problem in the last 6 months where you did not have access to dental care?: No Was dental information given to patient?: Patient declined HPI PE HPI Details Patient is 63-year-old female came in today for physical examination. Currently having sinus pressure with nasal discharge yellow in color for the past 4 days Postnasal drip present and headache present around eyes. Continue to smoke once again patient was instructed to stop smoking or at least cut down Mammogram was in September of last year Patient goes to OBGYN for Pap smear and breast exams Colonoscopy was in [address] Aranda Amoxicillin sent for sinus infection patient is to continue with Flonase nasal spray Labs done recently reviewed vitamin-D level is in 80s patient does not need any more supplements. Patient is seeing number of other providers including psychiatrist [facility] Medical History Headache Anxiety Depression Schizophrenia Habitual snoring Asthma IBS (irritable bowel syndrome) Endobronchial mass Vitamin D deficiency Osteoporosis Back pain Surgical History History of bladder surgery History of tubal ligation Family History Father Back problem Diabetes mellitus Cataract Mother Diabetes mellitus Maternal Grandfather No problems noted. Maternal Grandmother No problems noted. Paternal Grandfather No problems noted. Paternal Grandmother No problems noted. Social History Housing: Apartment Alcohol intake: former Patient Tobacco Use Status: Current everyday Tobacco user Tobacco use type: Cigarette Cigarette Packs Per Day: 0.5 Cigarettes Per Day: 10.0 Years Smoked: 35 e-Cigarette/Vaping Use: Never Used Substance Use Type: Crack/Cocaine Current occupational status: disabled Cognitive needs: No Hearing needs: No Vision needs: Yes Questionnaire PHQ-9 Over the last 2 weeks, how often have you been bothered by any of the following problems? 1. Little interest or pleasure in doing things: several days 2. Feeling down, depressed, or hopeless: several days 3. Trouble falling or staying asleep, or sleeping too much: nearly every day 4. Feeling tired or having little energy: nearly every day 5. Poor appetite or overeating: more than half the days 6. Feeling bad about yourself - or that you are a failure or have let yourself or your family down: more than half the days 7. Trouble concentrating on things, such as reading the newspaper or watching television: several days 8. Moving or speaking so slowly that other people could have noticed. Or the opposite - being so fidgety or restless that you have been moving around a lot more than usual: not at all 9. Thoughts that you would be better off or of hurting yourself in some way: not at all Total score: 13 Depression Screening Interpretation: Positive Depression Screening Follow-up: Existing condition and In treatment Depression Screening Done: Yes 52812 - PHQ-9 Billing: Yes Source: Developed by Drs. Hesham Sapp, Amanda Marino, Jace Phillips and colleagues, with an educational brittany from [employer]. Thrive Questionnaire Date Thrive assessed: 07/19/23 I am a: Patient What is your living situation today?: I have a steady place to live Within the past 12 months, did the food you bought not last and you didn't have the money to get more?: Sometimes True Do you have trouble paying for medicines?: Yes Do you have trouble getting transportation to medical appointments?: No Do you have trouble paying your heating and electricity bill?: Yes Do you have trouble taking care of your child, family member or friend?: No Are you currently unemployed and looking for a job?: No Are you interested in more education?: No AUDIT C Alcohol Use Questionnaire (AUDIT-C) 1. How often do you have a drink containing alcohol?: Never 3. How often do you have six or more drinks on one occasion?: Never Total Score: 0 Score Reviewed/Action Taken: Yes MARIA TERESA-7 AMB Questionnaire MARIA TERESA-7 Date MARIA TERESA - 7 assessed: 07/19/23 Feeling nervous, anxious, or on edge: 1 = Several days Not being able to stop or control worryin = More than half the days Worrying too much about different things: 1 = Several days Trouble relaxin = Several days Being so restless that it is hard to sit still: 1 = Several days Becoming easily annoyed or irritable: 1 = Several days Feeling afraid as if something awful might happen: 1 = Several days Total MARIA TERESA-7 score (0-4 normal; 5-9 mild; 10-14 moderate; 15-21 severe): 8 Source: Developed by Drs. Hesham Sapp, Amanda Marino, Jace Phillips and colleagues, with an educational brittany from [employer]. MARIA TERESA-7 Assessment Billing MARIA TERESA-7 Assessment Tool: MARIA TERESA-7 Assessment [id number] Review of Systems Const Denies chills, Denies fever(s) and Denies headache(s) Eyes Denies blurry vision ENT Denies headache(s), Denies nasal discharge, Denies nasal obstruction, Denies odynophagia and Denies sinus pain Card Denies chest pain at rest and Denies chest pain with activity Resp Denies cough and Denies hemoptysis GI Denies diarrhea, Denies odynophagia, Denies vomiting and Denies hematemesis Reports as per HPI Musc Denies abnormal gait Skin/Breast Reports as per HPI Neuro Denies Neuro-related abnormal movements, Denies Abnormal speech present, Denies abnormal gait, Denies headache(s) and Denies Sensory deficit (Neuro) Psych Denies mood swings and Denies paranoia Endo Reports as per HPI Russ/Lymph Reports as per HPI Aller/Immun Reports as per HPI Physical exam (Primary Care) Vital Signs: Last Vital Signs Temp 97.8 F 07/19/23 11:35 Pulse 74 07/19/23 11:35 BP 110/64 07/19/23 11:35 Pulse Ox 94 07/19/23 11:35 Oxygen Delivery Method Room Air 07/19/23 11:35 BMI result Body Mass Index 26.5 Tobacco/Smoking Status: Tobacco use Status Tobacco use date assessed 07/19/23 07/19/23 11:40 Patient Tobacco Use Status Current everyday Tobacco 07/19/23 11:34 Tobacco use type Cigarette 07/19/23 11:34 e-Cigarette/Vaping Use Never Used 07/19/23 11:34 PHQ-9: PHQ-9 Score PHQ-9: Total score 13 07/19/23 12:28 Depression Screening Interpretation: Positive Depression Screening Follow-up: Existing condition and In treatment Thrive Assessment: Date of Thrive Assessment Date Thrive assessed 07/19/23 07/19/23 12:04 Const General: cooperative, comfortable and no acute distress Orientation/consciousness: patient oriented x3 HENMT Head: Yes normocephalic and Yes atraumatic Eyes General: appearance normal, both eyes and all related structures Pupils: Equal, round and reactive pupils present EOM: EOMs intact bilaterally Neck Neck: Yes supple and No lymphadenopathy Thyroid: Thyroid normal Lymphatic: no lymphadenopathy noted Resp Effort & Inspection: normal respiratory effort and able to speak in complete sentences Auscultation: clear to auscultation bilaterally Cardio Heart sounds: S1 normal heart sound present and S2 normal heart sound present GI Palpation (GI): Soft to palpation and nontender Auscultation: normal bowel sounds General: Yes no CVA tenderness Back/Spine/Pelvis Back: no CVA tenderness Skin General skin exam: elasticity normal and turgor normal Neuro General: patient oriented x3 and gait normal Cranial nerves: Yes Equal, round and reactive pupils present Speech: No Abnormal speech present Sensory Exam: No Sensory deficit (Neuro) Coordination: tandem gait normal and Romberg test negative Extrem General: Yes normal exam except as noted and No edema Assessment and Plan Assessment & Plan (1) Encounter for general adult medical examination with abnormal findings: Code(s): Z00.01 - Encounter for general adult medical examination with abnormal findings (2) Acute sinusitis: Code(s): J01.90 - Acute sinusitis, unspecified Qualifiers: Recurrence: non-recurrent Sinusitis location: maxillary Qualified Code(s): J01.00 - Acute maxillary sinusitis, unspecified (3) Restless leg syndrome: Code(s): G25.81 - Restless legs syndrome (4) Poor balance: Code(s): R26.89 - Other abnormalities of gait and mobility (5) Tobacco abuse: Code(s): Z72.0 - Tobacco use (6) At risk for polypharmacy: Code(s): Z91.89 - Other specified personal risk factors, not elsewhere classified (7) Overactive bladder: Code(s): N32.81 - Overactive bladder (8) Lipid disorder: Code(s): E78.9 - Disorder of lipoprotein metabolism, unspecified (9) Osteoporosis: Code(s): M81.0 - Age-related osteoporosis without current pathological fracture Qualifiers: Osteoporosis type: age-related Presence of current pathological fracture: unspecified Qualified Code(s): M81.0 - Age-related osteoporosis without current pathological fracture Plan Patient is 63-year-old female came in today for physical examination. Currently having sinus pressure with nasal discharge yellow in color for the past 4 days Postnasal drip present and headache present around eyes. Continue to smoke once again patient was instructed to stop smoking or at least cut down Mammogram was in September of last year Patient goes to OBGYN for Pap smear and breast exams Colonoscopy was in [address] Aranda Amoxicillin sent for sinus infection patient is to continue with Flonase nasal spray Labs done recently reviewed vitamin-D level is in 80s patient does not need any more supplements. Patient is seeing number of other providers including psychiatrist Medication list reviewed patient is on ropinirole for restless leg Also have a history of osteoporosis and is taking calcium supplement IBS is stable with dicyclomine For allergies she is taking loratadine and Flonase nasal spray She has chronic vertigo which is stable with meclizine Continue lovastatin for lipid control Medications: New amoxicillin 875 mg PO BID 14 tabs 0RF 7 days Coding Level of Care Code Est Pt Prev Care 40-64y(71122) Diagnoses Encounter for general adult medical examination with abnormal findings Z00.01 Acute non-recurrent maxillary sinusitis J01.00 Recurrence: non-recurrent Sinusitis location: maxillary Restless leg syndrome G25.81 Poor balance R26.89 Tobacco abuse Z72.0 At risk for polypharmacy Z91.89 Overactive bladder N32.81 Lipid disorder E78.9 Age related osteoporosis, unspecified pathological fracture presence M81.0 Osteoporosis type: age-related Presence of current pathological fracture: unspecified Additional Codes MARIA TERESA-7 Assessment Billing - MARIA TERESA-7 Assessment Tool: MARIA TERESA-7 Assessment [id number] ([id number])
[2023-07-19 11:35] VITALS: BP 110/64; PULSE 74; TEMP 36.6; O2SAT 94; BMI 26.5
== END 2023-07-19 12:00 | disposition home or self-care (01) ==
PROVIDERS: Visit Provider Internal Medicine
DX: Z00.01 Encounter for general adult medical examination with abnormal findings (principal); J01.00 Acute maxillary sinusitis, unspecified; G25.81 Restless legs syndrome; R26.89 Other abnormalities of gait and mobility; Z72.0 Tobacco use; Z91.89 Other specified personal risk factors, not elsewhere classified; N32.81 Overactive bladder; E78.9 Disorder of lipoprotein metabolism, unspecified; M81.0 Age-related osteoporosis without current pathological fracture
CPT/HCPCS: 99396

== ENCOUNTER 2023-08-31 13:22 | Outpatient (AMB) | payer OTHER, SELFPAY ==
--- NOTE | 2023-08-31 13:23 | A.OFFVIS_ITS ---
Intake Vital Signs 08/31/23 13:26 Height 5 ft 1 in Weight 141 lb 12.116 oz BMI 26.8 BP 128/72 Blood Pressure Location Lt brachial Position Sitting Pulse 86 Pulse Source Pulse Oximeter Intake Visit Reasons: F/U Osteoporosis-CONFIRMED Intake Note: Patient present today for Osteoporosis follow up visit. 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 Accompanied by: Self / Same As Patient Allergies clozapine [From Clozaril] Allergy (Mild, Verified 08/31/23 13:30) UNKNOWN fluoxetine [From Prozac] Allergy (Mild, Verified 08/31/23 13:30) ANXIETY lithium [[place]] Allergy (Mild, Verified 08/31/23 13:30) UNKNOWN oxcarbazepine [From Trileptal] Allergy (Mild, Verified 08/31/23 13:30) ANXIETY carbamazepine [Tegretol] Allergy (Unknown, Verified 08/31/23 13:30) Unknown quetiapine [Seroquel] Allergy (Unknown, Verified 08/31/23 13:30) unknown ziprasidone [Geodon] Allergy (Unknown, Verified 08/31/23 13:30) Unknown CINNAMON TOAST CRUNCH Allergy (Severe, Uncoded 03/28/23 07:39) THROAT SWELLING FRUIT LOOPS Allergy (Severe, Uncoded 03/28/23 07:39) THROAT SWELLING KIDNEY BEANS Allergy (Severe, Uncoded 03/28/23 07:39) THROAT SWELLING Clozaril Allergy (Unknown, Uncoded 03/28/23 07:39) Unknown Environmental Allergy (Unknown, Uncoded 03/28/23 07:39) unknown Floxin Otic Allergy (Unknown, Uncoded 03/28/23 07:39) unknown [place] Carbonate Allergy (Unknown, Uncoded 03/28/23 07:39) Unknown Narv[place] Allergy (Unknown, Uncoded 03/28/23 07:39) unknown Some cereals Allergy (Unknown, Uncoded 03/28/23 07:39) Unknown Spider Bites Allergy (Unknown, Uncoded 03/28/23 07:39) unknown Medication List - Last Reconciled 08/31/23 by Hesham Scott MD acetaminophen ER (Tylenol 8 Hour) 650 mg PO Q8H PRN albuterol sulfate 90 mcg/actuation (ProAir HFA) 1 inh inhalation QID PRN 30 days amitriptyline 25 mg PO DAILY amoxicillin 875 mg PO BID 7 days aspirin (Adult Aspirin Regimen) 81 mg PO DAILY buspirone 10 mg PO BID cooxlblcou-qjbcxndchlqcg-savk 50-300-40 mg (Fioricet) 1 cap PO Q6H PRN calcium citrate-vitamin D3 315 mg-5 mcg (200 unit) 1 tab PO BID 30 days denosumab (Prolia) 60 mg subcut [id number] 1 day dicyclomine 20 mg PO QID divalproex ER 1,000 mg PO BEDTIME fluticasone propionate 50 mcg/actuation 1 spray intranasal DAILY hydroxyzine pamoate 50 mg PO DAILY PRN lactobacillus combination no.4 (Probiotic) 3,000 mmu cells PO DAILY 90 days loratadine 10 mg PO DAILY 90 days lorazepam (Ativan) 0.5 mg PO Q6H PRN lovastatin 40 mg PO DAILY meclizine 25 mg PO DAILY PRN minoxidil 2.5 mg PO DAILY mupirocin calcium 2% 1 appl topical TID 7 days olanzapine (Zyprexa) 40 mg PO BEDTIME omeprazole 20 mg PO DAILY oxybutynin chloride ER 15 mg PO DAILY 90 days polyethylene glycol 3350 17 grams PO BEDTIME propranolol ER 120 mg PO DAILY ropinirole 1 mg PO DAILY 90 days simethicone (Gas Relief (simethicone)) 80 mg PO BID-QID PRN 90 days topiramate (Topamax) 100 mg PO DAILY HPI HPI Comments History of Present Illness Details 63 YO Female with PMHx Osteoporosis is seen in F/U for Osteoporosis. She was previously followed by Darya Rhoades. First diagnosed in 2016 after she had a fragility fracture of the R leg. She had a DEXA scan completed shortly after which revealed Osteoporosis of the lumbar spine with T score of -2.5. Was started on treatment with Fosamax weekly 04/2018. She failed treatment with this as her BMD acutely worsened while on treatment. This was stopped and she was switched to Prolia. She has had 5 doses thus far (11/02/2019, 05/12/2020, and 11/19/2020, 05/21/2021, 11/25/2021). She has tolerated Prolia well. BMD did decline slightly from prior in her spine on her most recent DEXA. Has 2 servings of dietary calcium per day in the form of milk. Takes Calcium supplement 600 mg 3 tabs daily. Not taking Vitamin D currently. Does use depakote and Topiramate daily. Denies ever using PPI, anticoagulant or glucocorticoid medication. Does not do exercise. Fracture history: Fragility fracture of R leg in 2017. Height loss: 0.5 inch. 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 Menses were regular. , breastfed for 3 years in total. Menopause was age 51. History of Kidney stones: Denies. Family history of Osteoporosis in her mother. UTD on dental cleanings and sees dentist every 6 months. No planned upcoming dental work or extractions. DXA dated: 11/12/2021 FINDINGS: AP SPINE L1-L2 (excluding L3 and L4): The data of L1-L4 has been changed to exclude the L3 and L4 vertebral bodies, because degenerative changes at these levels may cause overestimation of lumbar spine density. Current: BMD 0.846 g/cm2, Z-score -1.2, T-score -2.7, osteoporosis, 14.6% decrease from previous, 2.2% decre ase from baseline (<5% change is not significant). Prior: BMD 0.991 g/cm2. Baseline: BMD 0.865 g/cm2. LEFT FEMUR, NECK: Current: BMD 0.818 g/cm2, Z-score -0.2, T-score -1.6, osteopenia. Prior: BMD 0.764 g/cm2. Baseline: BMD 0.792 g/cm2. LEFT FEMUR, TOTAL: Current: BMD 0.864 g/cm2, Z-score -0.1, T-score -1.1, osteopenia, 1.9% increase from previous, 1.2% increase from baseline (<5% change is not significant). Prior: BMD 0.848 g/cm2. Baseline: BMD 0.854 g/cm2. Labs: Laboratory Tests 05/20/22 05/20/22 11:35 11:35 Sodium 142 Potassium 4.3 Creatinine 0.80 Estimated GFR > 60 25-OH Vitamin D To jenise 40.2 PTH Intact 27 Calcium (PTH Intac t) 9.3 currently on Prolia since 2019 [facility] Medical History Headache Anxiety Depression Schizophrenia Habitual snoring Asthma IBS (irritable bowel syndrome) Endobronchial mass Vitamin D deficiency Osteoporosis Back pain Surgical History History of bladder surgery History of tubal ligation Family History Father Back problem Diabetes mellitus Cataract Mother Diabetes mellitus Maternal Grandfather No problems noted. Maternal Grandmother No problems noted. Paternal Grandfather No problems noted. Paternal Grandmother No problems noted. Social History Housing: Apartment Alcohol intake: former Patient Tobacco Use Status: Current everyday Tobacco user Tobacco use type: Cigarette Cigarette Packs Per Day: 0.5 Cigarettes Per Day: 10.0 Years Smoked: 35 e-Cigarette/Vaping Use: Never Used Substance Use Type: Crack/Cocaine Current occupational status: disabled Cognitive needs: No Hearing needs: No Vision needs: Yes Physical Exam Vital Signs: Last Vital Signs Pulse 86 08/31/23 13:26 BP 128/72 08/31/23 13:26 BMI result Body Mass Index 26.8 Assessment & Plan Assessment & Plan (1) Osteoporosis: Code(s): M81.0 - Age-related osteoporosis without current pathological fracture Qualifiers: Osteoporosis type: age-related Presence of current pathological fracture: unspecified Qualified Code(s): M81.0 - Age-related osteoporosis without current pathological fracture Plan: This is a 63-year-old white female with a history of osteoporosis and previous fragility fracture. Secondary workup was negative. She is currently on Prolia. The plan is to repeat DEXA bone density in 2-3 months time. Assuming bone density is stable or increased, could consider transitioning to either intravenous oral bisphosphonate at next time of Prolia administration in January 2024 Orders: Orders XR DEXA axial skeleton Today M81.0 - Age-related osteoporosis without current pathological fracture Coding Level of Care Code Est Pt Level 3 (10118) Diagnoses Age related osteoporosis, unspecified pathological fracture presence M81.0 Osteoporosis type: age-related Presence of current pathological fracture: unspecified
[2023-08-31 13:26] VITALS: BP 128/72; PULSE 86; BMI 26.8
== END 2023-08-31 15:04 | disposition home or self-care (01) ==
PROVIDERS: PCP Internal Medicine; Visit Provider Internal Medicine Endocrinology, Diabetes & Metabolism
DX: M81.0 Age-related osteoporosis without current pathological fracture (principal)
CPT/HCPCS: 99213

== ENCOUNTER → 2023-08-31 13:22 | Outpatient (BNVA) | payer OTHER, SELFPAY | PROVIDERS: Visit Provider Internal Medicine Endocrinology, Diabetes & Metabolism | DX: M81.0 Age-related osteoporosis without current pathological fracture (principal) | CPT/HCPCS: 99212 ==

== ENCOUNTER 2023-09-04 00:17 | Inpatient (IN) | payer OTHER, SELFPAY ==
[2023-09-04] VITALS (8 sets, daily range): BP systolic 92–129; BP diastolic 41–66; PULSE 70–97; RESP 16–18; TEMP 36.7–37.8; O2SAT 94–98; BMI 27.6
--- NOTE | ~2023-09-04 | CT_ITS ---
EXAMINATION: CT ABDOMEN AND PELVIS WITH CONTRAST CLINICAL INFORMATION: Pain, tenderness COMPARISON: None available. TECHNIQUE: Multidetector volumetric images were obtained from the superior aspect of the liver through the pubic symphysis following administration 85 mL of Omnipaque 350 intravenous contrast. Sagittal and coronal reformatted images were obtained on the technologist's workstation. Oral contrast: No This CT examination was performed using dose optimization techniques as appropriate, variously including the following: *Automated exposure control *Adjustment of mA and/or kV according to patient size (this includes techniques or standardized protocols for targeted exams where dose is matched to indication/reason for exam; i.e. extremities or head) *Use of iterative reconstruction technique DLP: 541 mGy-cm FINDINGS: LUNG BASES: Streaky right lower lobe and additional dependent bilateral lower lobe opacities are more suggestive of atelectasis. LIVER, GALLBLADDER, AND BILIARY TREE: The liver is normal in size, shape, and attenuation. No focal hepatic lesion or biliary ductal dilatation is present. The gallbladder is unremarkable with no evidence of radiopaque gallstones, gallbladder wall thickening, or obvious pericholecystic inflammatory changes. PANCREAS: Mild fatty atrophy. SPLEEN: Unremarkable. ADRENAL GLANDS: Unremarkable. KIDNEYS AND URETERS: Bilateral nephrograms are symmetric. No hydronephrosis or obstructing calculus identified. BLADDER: Unremarkable. GASTROINTESTINAL TRACT: Small bowel appears unremarkable. There is prominent fluid distention of the ascending, transverse, and proximal descending colon. There is prominent stool within the distal descending and proximal to mid sigmoid colon. Transition from stool-distended to a decreased caliber of bowel is present in the region of the mid sigmoid colon in the posterior pelvis such as on image 71/85. There is only mild gaseous distention of the colon beyond this site as well as a small amount of stool in the rectum. At the transition site there is a suspected segment of wall thickening with surrounding stranding. Overall pattern is suspicious for colonic obstruction which could be due to underlying malignant or benign stricturing. Appendix appears borderline dilated, without significant adjacent inflammatory change. Small volume of free fluid predominantly in the lower abdomen and pelvis. No free air identified. ABDOMINAL WALL: No significant hernia is appreciated. LYMPH NODES: Normal. VASCULAR: There is atherosclerotic calcification along the aorta and iliac arteries. PELVIC VISCERA: Unremarkable. OSSEOUS STRUCTURES: Scattered degenerative changes in the spine. CT/CT abdomen pelvis w IV con IMPRESSION: 1. Prominent distention of the much of the colon with fluid and stool, with transition to decreased caliber in the region of the mid sigmoid colon in the posterior pelvis. Appearance is suspicious for colonic obstruction, which could be due to underlying malignant or benign stricturing. Correlation with colonoscopy is recommended. 2. Small volume of free fluid predominantly in the lower abdomen and pelvis. 3. Borderline dilated appendix without significant adjacent inflammatory change.
--- OUTSIDE RECORDS SUMMARY | 2023-09-04 00:34 | XMS_ITS | Patient Health Record ---
Author Name Unknown Organization [facility] Address [address] [place] [phone] Care Team Providers Care Medical Insurance Claims Specialist Name Role Phone Toni HARDING, [facility] Primary Care Provider Siddharth Alexander Jr Unavailable ALLERGIES Allergen (clinical drug ingredient) Drug/Non Drug Allergy documented on EMR Reaction Allergy Type Onset Date Status Steroids steroids (uncoded) Unknown Allergy A ctive RESULTS Component Value Reference Range Notes FL barium swallow Reviewed date:06/01/2023 09:02:24 AM Interpretation: Performing Lab: Notes/Report: [address] [address] Fluoroscopy Report Signed Patient: Mars Gonzalez MR#: [id number] : 1960 Acct:[id number] Age/Sex: 63 / F ADM Date: 05/27/23 Loc: HO.XRAY Attending Dr: Siddharth Ware Ordering Physician: SIDDHARTH WARE MD Date of Service: 05/27/23 Procedure(s): FL barium swallow Accession Number(s): [id number] cc: SIDDHARTH WARE MD EXAMINATION: FL BARIUM SWALLOW CLINICAL INFORMATION: Dysphagia. COMPARISON: None available. TECHNIQUE: Barium swallow examination is performed using fluoroscopic evaluation in addition to multiple fluoroscopic spot views. The patient is imaged both upright and prone and using both thick and thin sulfate along with effervescent granules. Fluoroscopy time: 1.6 minutes DAP: 11.077 Gycm2 Images: 45 FINDINGS: Following oral administration of thick, thin barium and barium-coated turkey, there is normal propagation of bolus from the oral cavity through the pharynx, esophagus into stomach. There is slow progression of solid food through the mid and distal esophagus which subsequently cleared with thin barium and water. On oral administration thin barium and barium tablet, there is spontaneous passage through the pharynx and esophagus into stomach without obstruction. FL/FL barium swallow IMPRESSION: Unremarkable barium swallow in upright view. 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: PRIETO REASON FOR REFERRAL No Information MEDICATIONS Medication SIG (Take, Route, Frequency, Duration) Notes Start Date End Date Status Melatonin 3 MG 1 tablet at bedtime as needed Orally Once a day for 30 day(s) Active Claritin 10 MG 1 tablet Orally Once a day Active Polyethylene Glycol 3350 17 GM TAKE 1 PACKET MIXED WITH 8 OUNCES OF FLUID ONCE A DAY FOR CONSTIPATION for 28 Active Bentyl 20 MG 1 tablet Orally up t o 4 times daily Active Prolia 60 MG/ML as directed Subcutaneous Active Vistaril 50 MG 1 capsule as needed Orally every 6 hrs for 30 day(s) Active MiraLax 17 GM 1 packet mixed with 8 ounces of fluid Orally Once a day for 30 day(s) 04/28/2021 Active busPIRone HCl 10 MG 1 tablet Orally Twic e a day Active Tylenol 8 Hour 650 MG 1 tablets as neede d Orally every 8 hrs Active Aspirin 325 MG 1 tablet Orally Once a day Active Fioricet 50-300-40 MG 1 capsule as neede d Orally every 4 hrs Active Diphenoxylate-Atropine 2.5-0.025 MG TAKE 1 TABLET BY MOUTH FOUR TIMES DAILY for 30 days 04/12/2023 Active Calcium Carbonate 600 MG 1 tablet Orally Once a day Active SM Antacid Advanced 200-200-20 MG/5ML TAKE 10 ML NEEDED ORALLY FOUR TIMES A DAY for 9 Active Topiramate 100 MG 1 tablet Orally twic e a day Active Meclizine HCl 25 MG 1 tablet as needed O rally prn Active Simethicone 80 MG 1 tablet after meals and at bedtime Orally Four times a day as needed for gas 02/18/2023 Active Fish Oil 1000 MG 1 capsule Orally Onc e a day Active ZyPREXA 20 MG 1 tablet Orally Once a day Active Ditropan XL 15 MG 1 tablet Orally Once a day Active Propranolol HCl 120 MG 1 capsule Orally Once a day for 30 day(s) Active Lovastatin 40 MG 1 tablet with a meal Orally Once a day Active Requip 1 MG 1 tablet 1 to 3 hour s before bedtime Orally Once a day Active Amitriptyline HCl 25 MG 1 tablet at bedt angela Orally Once a day Active Depakote ER 500 MG 2 tablet Orally Once a day Active Omeprazole 20 MG TAKE 1 CAPSULE BY [facility] TWICE DAILY for 30 Active IMMUNIZATIONS Vaccine Route Administration Date Status Comme nts Influenza Unknown 07/11/2019 Administered Influenza Unknown 07/03/2020 Administered Influenza Unknown 07/20/2022 Administered SOCIAL HISTORY Tobacco Use: Social History Observation Description Date Details (start date - stop date) Current Smoker NA - NA Sex Assigned At : Social History Observation Description Sex Assigned At Unknown Tobacco Use/Smoking Question Answer Notes Patient is a current smoker How often do you smoke cigarettes? every day How many cigarettes a day do you smoke? 21-30 How soon after you wake up do you smoke your fir st cigarette? 6-30 minutes Are you interested in quitting? Not ready to kelly t PROBLEMS Problem Type ICD Code Onset Dates Problem Status W/U Status Risk SNOMED Code Notes Problem Colon cancer screening (Z12.11) Active confirmed 980750247 Problem Gastroesophageal reflux disease without esophagitis (K21.9) Active confirmed 850346719 Problem Irritable bowel syndrome with both constipation and diarrhea (K58.2) Active confirmed 36556690 Encounters Encounter Location Date Provider Diagnosis [facility] [address] [place] [phone] 10/27/2022 Siddharth Ware Jr [facility] [address] [place] [phone] 02/18/2023 Siddharth Ware Jr Other dysphagia R13.19 ; Gastroesophageal reflux disease without esophagitis K21.9 and Irritable bowel syndrome with both constipation and diarrhea K58.2 [facility] [address] [place] [phone] 12/03/2022 Siddharth Ware Jr [facility] [address] [place] [phone] 04/11/2023 Siddharth Ware Jr [facility] [address] [place] [address] 06/01/2023 Siddharth Ware Jr ASSESSMENTS Encounter Date Diagnosis Assessment Notes Treatment Notes Treatment Clinical Notes 02/18/2023 Other dysphagia (ICD -10 - R13.19) 02/18/2023 Gastroesophageal ref lux disease without esophagitis (ICD-10 - K21.9) 02/18/2023 Irritable bowel syndrome with both constipation and diarrhea (ICD-10 - K58.2) PLAN OF TREATMENT Pending Test Test Name Order Date CT COLON SCREENING NO CONTRAST 0 XR BARIUM SWALLOW-ESOPHAGUS 02/18/2023 XR GI SERIES 07/11/2015 XR GI SERIES 05/30/2019 Future Test Test Name Order Date UPPER GI ENDOSCOPY 10/24/2019 COLONOSCOPY 10/24/2019 Insurance Providers Payer Name Payer Address Payer Phone Subscriber Number Group Number Insured Name Patient Relationship to Insured Coverage Start Date Coverage End Date [facility] [address] [address] [place], [place] [id number] MARS APTEL Self - patient is the insured MEDICAID OF [facility] [address] [place] [address] [id number] MARS PATEL Self - patient is the insured MEDICAL (GENERAL) HISTORY Medical History History ICD Code colonoscopy 12/14/19, no polyps, ten-year followup irritable bowel syndrome with both const ipation and diarrhea Schizo-affective disorder with history o f psychosis depression anxiety 2017 right ankle fracture osteoporosis gastroesophageal reflux disease, endosco py 12/14/19, normal Dysphagia Surgical History Surgery Date(Month/Year) tubal ligation ankle 2017
[2023-09-04] MEDS: 0.9 % Sodium Chloride 1,000 ML 999 ML IV ×3 (01:46→08:23)
[2023-09-04 01:55] LABS: Basophils Absolute Auto 0.1 X10*3/uL (0.0-0.2); Basophils Percent Auto 0.2 % (0-2); Eosinophils Absolute Auto 0.1 X10*3/uL (0.0-0.4); Eosinophils Percent Auto 0.5 % (0-4); Hematocrit 42.3 % (37.0-47.0); Hemoglobin 14.3 g/dl (12.0-16.0); Imm Gran Pct Auto 0.5 % (0.0-0.4); Lymphocytes Absolute Auto 1.9 X10*3/uL (1.2-4.9); Lymphocytes Percent Auto 9.1 % (20-40); MANUAL DIFF FLAG SCAN; Mean Corpuscular HGB Conc 33.8 g/dl (31.0-35.0); Mean Corpuscular Hemoglobin 30.1 pg (27.0-33.0); Mean Corpuscular Volume 89.1 fL (80.0-98.0); Mean Platelet Volume 11.4 fL (9.4-12.3); Monocytes Absolute Auto 2.2 X10*3/uL (0.1-1.2); Monocytes Percent Auto 10.5 % (2-11); Neutrophils Absolute Auto 16.8 x10*3/uL (2.0-8.3); Neutrophils Percent Auto 79.2 % (45-73); Platelet Count 255 X10*3/uL (160-400); Red Blood Count 4.75 X10*6/uL (4.20-5.50); Red Cell Distribution Width 14.5 % (11.0-16.0); SCAN SMEAR FLAG 1; White Blood Count 21.1 X10*3/uL (4.8-10.8)
[2023-09-04 02:30] LABS: SLIDE REVIEW VERIFIED
[2023-09-04 03:02] LABS: Alanine Aminotransferase 6 U/L (0-31); Albumin Level 3.4 g/dL (3.5-5.0); Alkaline Phosphatase 68 U/L (39-117); Anion Gap 13 (12-20); Aspartate Amino Transferase 12 U/L (5-31); Bilirubin Direct 0.2 mg/dL (0.0-0.5); Bilirubin Total 0.3 mg/dL (0.0-1.0); Blood Urea Nitrogen 9 mg/dL (9-16); C Reactive Protein 10.53 mg/dL (< or = 0.50); Calcium 8.5 mg/dL (8.4-10.2); Carbon Dioxide 15 mmol/L (22-29); Chloride 113 mmol/L (96-108); Creatinine Clr Calc Pharmacy 72.8; Estimated Glomerular Filt Rate > 60; Glucose Random 135 mg/dL (60-115); Lipase 7 U/L (8-78); Magnesium 2.7 mg/dL (1.6-2.6); Potassium 3.2 mmol/L (3.3-5.1); Sodium 138 mmol/L (135-145); Total Protein 6.7 g/dL (6.5-8.0)
[2023-09-04 03:46] LABS: Appearance Urine Cloudy; Color Urine Yellow; Glucose Urine UA Negative (Negative); Leukocyte Esterase Urine Trace (Negative); Nitrite Urine Negative (Negative); PH 8.5 (5.0-9.0); UMIC TRIGGER UACC YES; Urine Blood Small (1+) (Negative); Urine Ketones Negative (Negative); Urine Protein Trace mg/dL (Neg-Trace)
[2023-09-04 03:49] LABS: Bacteria Urine 4+ (None Seen); Hyaline Casts Urine 0-2 /LPF (0-2); UACC Culture Trigger YES; WBC Urine 21-50 /HPF (0-5)
[2023-09-04] MEDS: Sodium Phosphate,Mono-Dibasic 133 ML ENEMA PR (04:45)
--- NOTE | 2023-09-04 06:05 | PC.NURSE ---
housekeeping staff to bring soap enema
--- NOTE | 2023-09-04 08:06 | ED_ITS ---
HPI - General Adult General Chief complaint: Abdominal Pain Stated complaint: ABD Pain Time Seen by Provider: 09/04/23 01:12 Related Data Home Medications Medication Instructions Recorded Confirmed amitriptyline 25 mg tablet 25 mg PO DAILY 09/11/20 07/19/23 buspirone 10 mg tablet 10 mg PO BID 09/11/20 07/19/23 rieapinqza-cptrmpvxzrzor-jbdzcwmy 1 cap PO Q6H PRN Migraine Headache 09/11/20 07/19/23 50 mg-300 mg-40 mg capsule (Fioricet) dicyclomine 20 mg tablet 20 mg PO QID 09/11/20 03/28/23 lorazepam 0.5 mg tablet (Ativan) 0.5 mg PO Q6H PRN Anxiety 09/11/20 07/19/23 meclizine 25 mg tablet 25 mg PO DAILY PRN Dizziness 09/11/20 07/19/23 olanzapine 20 mg tablet (Zyprexa) 40 mg PO BEDTIME 09/11/20 03/28/23 propranolol 120 mg capsule,24 120 mg PO DAILY 09/11/20 07/19/23 hr,extended release topiramate 100 mg tablet (Topamax) 100 mg PO DAILY 07/07/21 07/19/23 minoxidil 2.5 mg tablet 2.5 mg PO DAILY 08/26/21 07/19/23 divalproex 500 mg tablet,extended 1,000 mg PO BEDTIME 09/23/21 03/28/23 release 24 hr hydroxyzine pamoate 50 mg capsule 50 mg PO DAILY PRN Anxiety 09/23/21 03/28/23 polyethylene glycol 3350 17 gram 17 g PO BEDTIME 09/23/21 03/28/23 oral powder packet acetaminophen 650 mg 650 mg PO Q8H PRN Pain 11/06/21 07/19/23 tablet,extended release (Tylenol 8 Hour) omeprazole 20 mg capsule,delayed 20 mg PO DAILY 11/25/21 03/28/23 release Previous Rx's Medication Instructions Recorded mupirocin calcium 2 % topical cream 1 appl topical TID 7 days #15 grams 08/26/21 lactobacillus combination no.4 3 3,000 mmu cells PO DAILY Bloating 09/08/21 billion cell capsule (Probiotic) 90 days #90 caps ropinirole 1 mg tablet 1 mg PO DAILY 90 days #90 tabs 02/12/22 albuterol sulfate 90 mcg/actuation 1 inh inhalation QID PRN shortness 07/14/22 aerosol inhaler (ProAir HFA) of breath or wheezing 30 days #18 grams simethicone 80 mg chewable tablet 80 mg PO BID-QID PRN abdominal 10/26/22 (Gas Relief (simethicone)) distention 90 days #90 tabs loratadine 10 mg tablet 10 mg PO DAILY 90 days #90 tabs 11/03/22 oxybutynin chloride 15 mg 15 mg PO DAILY overactive bladder 12/17/22 tablet,extended release 24 hr 90 days #90 tabs fluticasone propionate 50 1 spray intranasal DAILY #16 grams 12/20/22 mcg/actuation nasal spray,suspension lovastatin 40 mg tablet 40 mg PO DAILY #90 tabs 01/06/23 calcium citrate 315 mg-vitamin D3 1 tab PO BID 30 days #60 tabs 01/26/23 5 mcg (200 unit) tablet aspirin 81 mg tablet,delayed 81 mg PO DAILY #90 tabs 04/22/23 release (Adult Aspirin Regimen) denosumab 60 mg/mL subcutaneous 60 mg subcut [id number] 1 day #1 mL 06/09/23 syringe (Prolia) amoxicillin 875 mg tablet 875 mg PO BID 7 days #14 tabs 07/19/23 Allergies Allergy/AdvReac Type Severity Reaction Status Date / Time clozapine [From Clozaril] Allergy Mild UNKNOWN Verified 09/04/23 00:27 fluoxetine [From Prozac] Allergy Mild ANXIETY Verified 09/04/23 00:27 lithium [[place]] Allergy Mild UNKNOWN Verified 09/04/23 00:27 oxcarbazepine Allergy Mild ANXIETY Verified 09/04/23 00:27 [From Trileptal] carbamazepine [Tegretol] Allergy Unknown Unknown Verified 09/04/23 00:27 quetiapine [Seroquel] Allergy Unknown unknown Verified 09/04/23 00:27 ziprasidone [Geodon] Allergy Unknown Unknown Verified 09/04/23 00:27 CINNAMON TOAST CRUNCH Allergy Severe THROAT Uncoded 09/04/23 00:27 SWELLING FRUIT LOOPS Allergy Severe THROAT Uncoded 09/04/23 00:27 SWELLING KIDNEY BEANS Allergy Severe THROAT Uncoded 09/04/23 00:27 SWELLING Clozaril Allergy Unknown Unknown Uncoded 09/04/23 00:27 Environmental Allergy Unknown unknown Uncoded 09/04/23 00:27 Floxin Otic Allergy Unknown unknown Uncoded 09/04/23 00:27 [place] Carbonate Allergy Unknown Unknown Uncoded 09/04/23 00:27 [place] Allergy Unknown unknown Uncoded 09/04/23 00:27 Some cereals Allergy Unknown Unknown Uncoded 09/04/23 00:27 Spider Bites Allergy Unknown unknown Uncoded 09/04/23 00:27 [facility] Past Medical History Medical History Headache Anxiety Depression Schizophrenia Habitual snoring Asthma IBS (irritable bowel syndrome) Endobronchial mass Vitamin D deficiency Osteoporosis Back pain Surgical History History of bladder surgery History of tubal ligation Family History Family History Father Back problem Diabetes mellitus Cataract Mother Diabetes mellitus Maternal Grandfather No problems noted. Maternal Grandmother No problems noted. Paternal Grandfather No problems noted. Paternal Grandmother No problems noted. Social History Social History Housing: Apartment Alcohol intake: former Patient Tobacco Use Status: Current everyday Tobacco user Tobacco use type: Cigarette Cigarette Packs Per Day: 0.5 Cigarettes Per Day: 10.0 Years Smoked: 35 e-Cigarette/Vaping Use: Never Used Substance Use Type: Crack/Cocaine Advance Directives: No Advance Directives Information Provided: No Current occupational status: disabled Cognitive needs: No Hearing needs: No Vision needs: Yes Physical Exam ED Vital Signs: Vital Signs - 24 hr 09/04/23 00:27 09/04/23 03:49 09/04/23 04:43 Temperature 98.8 F 98.8 F 100.1 F Pulse Rate 87 88 Respiratory Rate 16 16 Blood Pressure 112/58 L 92/41 L Pulse Oximetry 94 95 Oxygen Delivery Method Room Air Room Air 09/04/23 05:50 Temperature 99.7 F Pulse Rate 90 Respiratory Rate 17 Blood Pressure 101/41 L Pulse Oximetry 95 Oxygen Delivery Method Room Air BMI result Body Mass Index 27.6 Const Other: The patient is a chronically ill appearing, frail 63-year-old. She is awake and alert and pleasant and cooperative. She does not appear obviously acutely toxic or in distress. HENMT Other: Face is symmetrical. Mucous membranes moist. Eyes Other: Pupils are round equal, conjunctivae clear, extraocular movements intact. Neck Other: Moving her neck easily Resp Other: Lungs are clear, no respiratory difficulty Cardio Other: Patient has regular rate and rhythm no murmur GI Other: The abdomen is protuberant but not frankly distended. She is quite tender in the left lower quadrant. Skin Other: Skin is pale and dry. Neuro Other: The patient is awake and alert. She is frail but neurologically intact. Extrem Other: No peripheral edema. Medications Administered Discontinued Medications Generic Name Dose Route Start Last Admin Trade Name Freq PRN Reason Stop Dose Admin Sodium Chloride 1,000 mls @ 999 mls/hr 09/04/23 01:30 09/04/23 02:55 Ns IV 09/04/23 02:30 Infused .Q1H1M MARILEE Infusion Sodium Chloride 1,000 mls @ 999 mls/hr 09/04/23 06:00 09/04/23 06:08 Ns IV 09/04/23 07:00 999 mls/hr .Q1H1M MARILEE Administration Sodium Biphosphate/Sodium Phosphate 133 ml 09/04/23 04:23 09/04/23 04:45 Sodium Phosphate,[place]-Dibasic 133 Ml Enema AL 09/04/23 04:24 133 ml ONCE ONE Administration Medical Decision Making Medical Decision Making [facility] Narrative: The patient presents with abdominal pain and a complaint of feeling constipated with no stool for several days. Patient does not seem toxic and she has not had a fever [place] [address] [place] scan of the abdomen and pelvis shows ?prominent distension much of the colon with fluid and stool with transition to decreased caliber in the region of the mid sigmoid colon in the posterior pelvis. Appearance is suspicious for colonic obstruction, which could be due to underlying malignant or benign stricture ring. Correlation with colonoscopy is recommended. ? I spoke to the radiologist about his reading. The radiologist also implied that any colonic abscess obstruction could be due to impacted stool in the sigmoid and he felt that attempts at stool evacuation with enemas was not unreasonable. The patient was given a Fleet enema with no success. She was then given a soapsuds enema also with no success. At that point I felt the patient would need hospitalization. I spoke to Dr. Clark of Gastroenterology who felt that possibly giving a bowel prep from above might be appropriate. I then contacted the hospitalist and the patient will be admitted to the hospitalist service. Have also ordered ceftriaxone and metronidazole given the high white blood count although I do not have a strong impression that this is obviously an infectious process. The patient has not had a fever. Lab Data 09/04/23 01:41 09/04/23 02:39 Labs: Lab Results 09/04/23 09/04/23 09/04/23 Range/Units 01:41 02:39 03:38 WBC 21.1 H (4.8-10.8) X10*3/uL RBC 4.75 (4.20-5.50) X10*6/uL Hgb 14.3 (12.0-16.0) g/dl Hct 42.3 (37.0-47.0) % MCV 89.1 (80.0-98.0) fL MCH 30.1 (27.0-33.0) pg MCHC 33.8 (31.0-35.0) g/dl RDW 14.5 (11.0-16.0) % Plt Count 255 (160-400) X10*3/uL MPV 11.4 (9.4-12.3) fL Immature Gran % (Auto) 0.5 H (0.0-0.4) % Neut % (Auto) 79.2 H (45-73) % Lymph % (Auto) 9.1 L (20-40) % Bullitt % (Auto) 10.5 (2-11) % Eos % (Auto) 0.5 (0-4) % Baso % (Auto) 0.2 (0-2) % Lymph # (Auto) 1.9 (1.2-4.9) X10*3/uL [place]itt # (Auto) 2.2 H (0.1-1.2) X10*3/uL Eos # (Auto) 0.1 (0.0-0.4) X10*3/uL Baso # (Auto) 0.1 (0.0-0.2) X10*3/uL Abs Immat Gran (auto) 0.10 H (0.00-0.03) X10*3/uL Absolute Neuts (auto) 16.8 H (2.0-8.3) x10*3/uL Absolute Nucleated RBC 0.000 (0.0-0.012) X10*3/uL Nucleated RBC % (auto) 0.0 (0.0-0.2) /100WBC Smear Tech's Comments VERIFIED Sodium 138 (135-145) mmol/L Potassium 3.2 L (3.3-5.1) mmol/L Chloride 113 H (96-108) mmol/L Carbon Dioxide 15 L (22-29) mmol/L Anion Gap 13 (12-20) BUN 9 (9-16) mg/dL Creatinine 0.68 (0.5-1.4) mg/dL Estim Creat Clear Calc 72.8 Estimated GFR > 60 Random Glucose 135 H (60-115) mg/dL Lactic Acid (0.5-2.0) mmol/L Calcium 8.5 D (8.4-10.2) mg/dL Magnesium 2.7 H (1.6-2.6) mg/dL Total Bilirubin 0.3 (0.0-1.0) mg/dL Direct Bilirubin 0.2 (0.0-0.5) mg/dL AST 12 (5-31) U/L ALT 6 (0-31) U/L Alkaline Phosphatase 68 (39-117) U/L C-Reactive Protein 10.53 H (< or = 0.50) mg/dL Total Protein 6.7 (6.5-8.0) g/dL Albumin 3.4 L (3.5-5.0) g/dL Lipase 7 L (8-78) U/L Urine Color Yellow Urine Appearance Cloudy Urine pH 8.5 (5.0-9.0) Ur Specific Lawn 1.010 (1.005-1.025) Urine Protein Trace (Neg-Trace) mg/dL Urine Glucose (UA) Negative (Negative) mg/dL Urine Ketones Negative (Negative) mg/dL Urine Blood Small (1+) H (Negative) Urine Nitrite Negative (Negative) Ur Leukocyte Esterase Trace H (Negative) Urine RBC 11-20 H (0-2) /HPF Urine WBC 21-50 H (0-5) /HPF Ur Squamous Epith Cells 11-20 (0-2) /HPF Urine Bacteria 4+ (None Seen) Hyaline Casts 0-2 (0-2) /LPF 09/04/23 Range/Units 07:54 WBC (4.8-10.8) X10*3/uL RBC (4.20-5.50) X10*6/uL Hgb (12.0-16.0) g/dl Hct (37.0-47.0) % MCV (80.0-98.0) fL MCH (27.0-33.0) pg MCHC (31.0-35.0) g/dl RDW (11.0-16.0) % Plt Count (160-400) X10*3/uL MPV (9.4-12.3) fL Immature Gran % (Auto) (0.0-0.4) % Neut % (Auto) (45-73) % Lymph % (Auto) (20-40) % Bull[place] % (Auto) (2-11) % Eos % (Auto) (0-4) % Baso % (Auto) (0-2) % Lymph # (Auto) (1.2-4.9) X10*3/uL [place] # (Auto) (0.1-1.2) X10*3/uL Eos # (Auto) (0.0-0.4) X10*3/uL Baso # (Auto) (0.0-0.2) X10*3/uL Abs Immat Gran (auto) (0.00-0.03) X10*3/uL Absolute Neuts (auto) (2.0-8.3) x10*3/uL Absolute Nucleated RBC (0.0-0.012) X10*3/uL Nucleated RBC % (auto) (0.0-0.2) /100WBC Smear Tech's Comments Sodium (135-145) mmol/L Potassium (3.3-5.1) mmol/L Chloride (96-108) mmol/L Carbon Dioxide (22-29) mmol/L Anion Gap (12-20) BUN (9-16) mg/dL Creatinine (0.5-1.4) mg/dL Estim Creat Clear Calc Estimated GFR Random Glucose (60-115) mg/dL Lactic Acid 2.2 H* (0.5-2.0) mmol/L Calcium (8.4-10.2) mg/dL Magnesium (1.6-2.6) mg/dL Total Bilirubin (0.0-1.0) mg/dL Direct Bilirubin (0.0-0.5) mg/dL AST (5-31) U/L ALT (0-31) U/L Alkaline Phosphatase (39-117) U/L C-Reactive Protein (< or = 0.50) mg/dL Total Protein (6.5-8.0) g/dL Albumin (3.5-5.0) g/dL Lipase (8-78) U/L Urine Color Urine Appearance Urine pH (5.0-9.0) Ur Specific Lawn (1.005-1.025) Urine Protein (Neg-Trace) mg/dL Urine Glucose (UA) (Negative) mg/dL Urine Ketones (Negative) mg/dL Urine Blood (Negative) Urine Nitrite (Negative) Ur Leukocyte Esterase (Negative) Urine RBC (0-2) /HPF Urine WBC (0-5) /HPF Ur Squamous Epith Cells (0-2) /HPF Urine Bacteria (None Seen) Hyaline Casts (0-2) /LPF Discharge Plan Discharge Clinical Impression: Abdominal pain Patient Disposition: Admitted As Inpatient
[2023-09-04 08:15] LABS: Lactic Acid 2.2 mmol/L (0.5-2.0)
[2023-09-04] MEDS: cefTRIAXone sodium 2 GM in 0.9 % Sodium Chloride 50 ML IV (08:23)
--- NOTE | 2023-09-04 08:31 | PC.NURSE ---
Pt is a&ox4, abd is distended and firm. Pt reports diffuse abd pain upon movement. +Bowel sounds in all quadrants. abx started with another liter of NS, awaiting admission. #20 on left ac
[2023-09-04] MEDS: metroNIDAZOLE/NS 500 MG/100 ML PIGGYBACK 100 MG IV ×2 (09:01→21:42)
--- NOTE | 2023-09-04 09:24 | PHA.MEDREC ---
Pharmacy Consult ? Medication Reconciliation Pharmacy has completed the medication reconciliation. Spoke to [facility] ([phone]) which handles patient's medications to confirm meds.
[2023-09-04] MEDS: Magnesium Hydrox/Alum Hydrox 30 ML ORAL.SUSP PO (09:52)
[2023-09-04 09:58] LABS: Reflex Lactate? Lactic Acid Added
[2023-09-04] MEDS: Potassium Chloride/H20 10 MEQ/100 ML PIGGYBACK 100 MEQ IV ×2 (12:39→14:03)
--- NOTE | 2023-09-04 12:44 | PC.NURSE ---
Seen by hospitalist, awaits admit orders. K+ started per order. ?Plan for bowel prep tonight
--- NOTE | 2023-09-04 13:01 | P.HPHOSP_ITS ---
History of Present Illness Date of Service: 09/04/23 Attending physician on admission: Kassandra Jacob Chief Complaint: Constipation, abd pain Pt is a 63-year-old female with a PMH significant for?IBS, GERD, HTN, HLD, mild intermittent asthma, and mood disorder who presents to the ED with?worsening constipation, abdominal distention and pain x3 days. Pt has a hx of GI issues including IBS and GERD, followed by Dr. Aranda with last colonoscopy in 2019. Pt states symptoms began around a week ago with constipation. Was having infrequent small, hard bowel movements with last movement three days ago. Has not been passing gas today, not sure if she did yesterday. Also reports three days of worsening abdominal distention and left lower abdominal pain. Some nausea yesterday and today but no vomiting. She has been eating very little the past three days and been taking home laxatives to no effect. Reports a similar episode of constipation approximately 1 year ago that resolved with home remedies, but notes this current episode is much more severe and she is in much greater pain. Denies chest pain/pressure, palpitations. No shortness of breath. Spoke with General surgery who said patient may need diverting colostomy, but there is currently no need for emergent surgery. In the ED pt with elevated temperature up to 100.1, tachycardia to 97 and initially soft BP as low as 92/41, satting at 95% on RA. Labs were significant for leukocytosis of 21.1, potassium 3.2, lactic acid 2.2 with repeat 1.0, C- reactive protein 10.53. UA possibly positive for UTI with trace amount of leukocyte esterase with 21-[address]?abdomen and pelvis found prominent distension of much of the colon with fluid and stool with transition to decreased caliber in the region of the mid sec avoid, apparent suspicious for colonic obstruction could be due to underlying malignant or benign stricturring. In the ED patient was given a Fleet enema and then a soapsuds enema without any benefit. ED clinician spoke to gastroenterology recommended hospitalization and a trial of Hold bowel prep. Pt was treated with enema, IVF, ceftriaxone, and metronidazole. Pt will be admitted to the hospital for treatment further evaluation of colonic obstruction. Review of Systems 2 Review of Systems: Constipation x1 week Abd pain and distention x3 days Not passing gas times day Nausea, no vomiting Denies SOB No chest pain/pressure [facility] Medical History HLD (hyperlipidemia) HTN (hypertension) Headache Anxiety Depression Schizophrenia Habitual snoring Asthma IBS (irritable bowel syndrome) Endobronchial mass Vitamin D deficiency Osteoporosis Back pain Family History Father Back problem Diabetes mellitus Cataract Mother Diabetes mellitus Maternal Grandfather No problems noted. Maternal Grandmother No problems noted. Paternal Grandfather No problems noted. Paternal Grandmother No problems noted. Surgical History History of bladder surgery History of tubal ligation Social History Household Members: None Housing: Apartment Do you presently have visiting nurse or other home services: No Alcohol intake: former Patient Tobacco Use Status: Current everyday Tobacco user Tobacco use type: Cigarette Cigarette Packs Per Day: 1 Cigarettes Per Day: 20.0 Years Smoked: 35 Smoked in Last 30 Days: Yes e-Cigarette/Vaping Use: Never Used Use of substances other than those prescribed or required for medical reasons: No Substance Use Type: Crack/Cocaine Have you been hit, kicked, punched, or otherwise hurt by someone within the past year? If so, by whom?: No Do you feel safe in your current relationship?: No Current Relationship Is there a partner from a previous relationship who is making you feel unsafe now?: No Are you made to feel afraid or neglected: No Advance Directives: No Advance Directives Information Provided: No Do you have thoughts of harming others: None Do you have a plan to hurt others: No Plan Recently lost weight without trying: No Nutrition Risks: No Nutritional Risk Patient : No Current occupational status: disabled Cognitive needs: No Hearing needs: No Vision needs: Yes Meds Allergies Allergy/AdvReac Type Severity Reaction Status Date / Time clozapine [From Clozaril] Allergy Mild UNKNOWN Verified 09/04/23 00:27 fluoxetine [From Prozac] Allergy Mild ANXIETY Verified 09/04/23 00:27 lithium [[place]] Allergy Mild UNKNOWN Verified 09/04/23 00:27 oxcarbazepine Allergy Mild ANXIETY Verified 09/04/23 00:27 [From Trileptal] carbamazepine [Tegretol] Allergy Unknown Unknown Verified 09/04/23 00:27 quetiapine [Seroquel] Allergy Unknown unknown Verified 09/04/23 00:27 ziprasidone [Geodon] Allergy Unknown Unknown Verified 09/04/23 00:27 CINNAMON TOAST CRUNCH Allergy Severe THROAT Uncoded 09/04/23 00:27 SWELLING FRUIT LOOPS Allergy Severe THROAT Uncoded 09/04/23 00:27 SWELLING KIDNEY BEANS Allergy Severe THROAT Uncoded 09/04/23 00:27 SWELLING Clozaril Allergy Unknown Unknown Uncoded 09/04/23 00:27 Environmental Allergy Unknown unknown Uncoded 09/04/23 00:27 Floxin Otic Allergy Unknown unknown Uncoded 09/04/23 00:27 [place] Carbonate Allergy Unknown Unknown Uncoded 09/04/23 00:27 [place] Allergy Unknown unknown Uncoded 09/04/23 00:27 Some cereals Allergy Unknown Unknown Uncoded 09/04/23 00:27 Spider Bites Allergy Unknown unknown Uncoded 09/04/23 00:27 Active Medications: Current Medications Acetaminophen (Acetaminophen 325 Mg Tablet) 650 mg PO Q6H PRN PRN Reason: Pain, Mild (Pain Scale 1-3) Potassium Chloride (Potassium Chloride/H20) 10 meq in 100 mls @ 100 mls/hr IV Q1H [facility] Stop: 09/04/23 14:14 Last Admin: 09/04/23 12:39 Dose: 100 mls/hr Sodium Chloride (Ns) 1,000 mls @ 100 mls/hr IVCONT .Q10H [facility] Metronidazole (Flagyl) 500 mg in 100 mls @ 100 mls/hr IV Q12H [facility] Ceftriaxone Sodium 1 gm/ (Sodium Chloride) 50 mls @ 100 mls/hr IV Q24H [facility] Melatonin (Melatonin 3 Mg Tablet) 6 mg PO BEDTIME PRN PRN Reason: Insomnia Morphine Sulfate (Morphine Sulfate 4 Mg/Ml Cartridge) 4 mg IVPUSH Q4H PRN; Protocol PRN Reason: Pain, Severe (Pain Scale 7-10) Ondansetron HCl (Ondansetron Hcl 4 Mg/2 Ml Vial) 4 mg IVPUSH Q8H PRN PRN Reason: Nausea and Vomiting Sodium Chloride (0.9 % Sodium Chloride Flush 3 Ml Syringe) 3 ml IVFLUSH QSHIFT MARILEE Home Medications Medication Instructions Recorded Confirmed Last Taken Type tphmzwosxd-mqxiuvqigxlmj-tadtzmvo 1 cap PO Q6H PRN Migraine Headache 09/11/20 09/04/23 Unknown History 50 mg-300 mg-40 mg capsule (Fioricet) lorazepam 0.5 mg tablet (Ativan) 0.5 mg PO Q6H PRN Anxiety 09/11/20 09/04/23 Unknown History olanzapine 20 mg tablet (Zyprexa) 20 mg PO BEDTIME 09/11/20 09/04/23 09/02/23 History propranolol 120 mg capsule,24 120 mg PO DAILY 09/11/20 09/04/23 09/03/23 09:00 History hr,extended release minoxidil 2.5 mg tablet 2.5 mg PO BID 08/26/21 09/04/23 09/03/23 09:00 History divalproex 500 mg tablet,extended 1,000 mg PO BEDTIME 09/23/21 09/04/23 09/02/23 History release 24 hr polyethylene glycol 3350 17 gram 17 g PO BEDTIME 09/23/21 09/04/23 09/02/23 History oral powder packet omeprazole 20 mg capsule,delayed 20 mg PO BID 11/25/21 09/04/23 09/03/23 09:00 History release amitriptyline 25 mg tablet 50 mg PO BEDTIME 09/04/23 09/04/23 09/02/23 History aspirin 325 mg tablet 325 mg PO DAILY 09/04/23 09/04/23 09/03/23 09:00 History buspirone 15 mg tablet 15 mg PO BID 09/04/23 09/04/23 09/03/23 09:00 History diphenoxylate-atropine 2.5 1 tab PO QID PRN Diarrhea 09/04/23 09/04/23 Unknown History mg-0.025 mg tablet lovastatin 40 mg tablet 40 mg PO BEDTIME 09/04/23 09/04/23 09/02/23 History melatonin 5 mg disintegrating 5 mg PO BEDTIME 09/04/23 09/04/23 09/02/23 History tablet nystatin 100,000 unit/gram topical 1 appl topical BID 09/04/23 09/04/23 09/03/23 09:00 History cream oxybutynin chloride 15 mg 15 mg PO BEDTIME overactive bladder 09/04/23 09/04/23 09/02/23 History tablet,extended release 24 hr ropinirole 1 mg tablet 1 mg PO BEDTIME 09/04/23 09/04/23 09/02/23 History simethicone 80 mg chewable tablet 80 mg PO BID PRN abdominal 09/04/23 09/04/23 Unknown History (Gas Relief (simethicone)) distention topiramate 100 mg tablet 100 mg PO BID 09/04/23 09/04/23 09/03/23 09:00 History Physical Exam 2 Vital Signs and Narrative: Vital Signs: Last Vital Signs Temp 99.1 F 09/04/23 11:52 Pulse 97 09/04/23 11:52 Resp 16 09/04/23 11:52 BP 129/66 09/04/23 11:52 Pulse Ox 96 09/04/23 11:52 O2 Del Method Room Air 09/04/23 11:52 BMI result Body Mass Index 27.6 Constitutional: Alert, in no acute distress. Mental Status: Oriented to person, place and time. Eyes: Pupils are equal, round, and reactive to light. Ear, Nose, and Throat: Oropharynx clear, mucous membranes moist. Ears and nose without deformities. Trachea midline. Respiratory: Clear to auscultation bilaterally. No wheezing, rales, or rhonchi. Cardiovascular: S1, S2 regular. No murmurs, rubs, or gallops. Gastrointestinal: Abdomen soft, distended, with lower abd tenderness especially in LLQ. Normal bowel sounds. Neurologic: Cranial nerves II-XII are grossly intact bilaterally. No focal neurological deficits. Moves all extremities spontaneously. Skin: Warm, dry. Musculoskeletal: No cyanosis or clubbing. Extremities: No edema. Psychiatric: Normal mood and affect. Results Labs 09/05/23 05:18 09/05/23 05:18 Labs: Laboratory Results - last 24 hr 09/04/23 09/04/23 09/04/23 01:41 02:39 03:38 MCV 89.1 MCH 30.1 MCHC 33.8 RDW 14.5 Plt Count 255 MPV 11.4 Immature Gran % (Auto) 0.5 H Neut % (Auto) 79.2 H Lymph % (Auto) 9.1 L Will % (Auto) 10.5 Eos % (Auto) 0.5 Baso % (Auto) 0.2 Lymph # (Auto) 1.9 Will # (Auto) 2.2 H Eos # (Auto) 0.1 Baso # (Auto) 0.1 Abs Immat Gran (auto) 0.10 H Absolute Neuts (auto) 16.8 H Absolute Nucleated RBC 0.000 Nucleated RBC % (auto) 0.0 Smear Tech's Comments VERIFIED Anion Gap 13 Estim Creat Clear Calc 72.8 Estimated GFR > 60 Random Glucose 135 H Lactic Acid Lactic Acid F/U @ 2Hr Calcium 8.5 D Magnesium 2.7 H Total Bilirubin 0.3 Direct Bilirubin 0.2 AST 12 ALT 6 Alkaline Phosphatase 68 C-Reactive Protein 10.53 H Total Protein 6.7 Albumin 3.4 L Lipase 7 L Urine Color Yellow Urine Appearance Cloudy Urine pH 8.5 Ur Specific [place] 1.010 Urine Protein Trace Urine Glucose (UA) Negative Urine Ketones Negative Urine Blood Small (1+) H Urine Nitrite Negative Ur Leukocyte Esterase Trace H Urine RBC 11-20 H Urine WBC 21-50 H Ur Squamous Epith Cells 11-20 Urine Bacteria 4+ Hyaline Casts 0-2 09/04/23 09/04/23 07:54 10:12 MCV MCH MCHC RDW Plt Count MPV Immature Gran % (Auto) Neut % (Auto) Lymph % (Auto) Will % (Auto) Eos % (Auto) Baso % (Auto) Lymph # (Auto) Will # (Auto) Eos # (Auto) Baso # (Auto) Abs Immat Gran (auto) Absolute Neuts (auto) Absolute Nucleated RBC Nucleated RBC % (auto) Smear Tech's Comments Anion Gap Estim Creat Clear Calc Estimated GFR Random Glucose Lactic Acid 2.2 H* Lactic Acid F/U @ 2Hr 1.0 Calcium Magnesium Total Bilirubin Direct Bilirubin AST ALT Alkaline Phosphatase C-Reactive Protein Total Protein Albumin Lipase Urine Color Urine Appearance Urine pH Ur Specific [place] Urine Protein Urine Glucose (UA) Urine Ketones Urine Blood Urine Nitrite Ur Leukocyte Esterase Urine RBC Urine WBC Ur Squamous Epith Cells Urine Bacteria Hyaline Casts Imaging Radiologist's Impressions: Impressions Abdomen/Pelvis CT 09/04/23 03:32 IMPRESSION: 1. Prominent distention of the much of the colon with fluid and stool, with transition to decreased caliber in the region of the mid sigmoid colon in the posterior pelvis. Appearance is suspicious for colonic obstruction, which could be due to underlying malignant or benign stricturing. Correlation with colonoscopy is recommended. 2. Small volume of free fluid predominantly in the lower abdomen and pelvis. 3. Borderline dilated appendix without significant adjacent inflammatory change. Assessment and Plan (1) Abdominal pain: Status: Acute (2) Constipation: Status: Acute Plan Pt is a 63-year-old female with a PMH significant for?IBS, GERD, HTN, HLD, mild intermittent asthma, and mood disorder who presents to the ED with?worsening constipation, abdominal distention and pain x3 days. Pt has a hx of GI issues including IBS and GERD, followed by Dr. Aranda with last colonoscopy in 2019. Pt states symptoms began around a week ago with constipation. Pt will be admitted to the hospital for treatment further evaluation of colonic obstruction. Constipation, ?Colonic obstruction Patient constipation x1 week, distention and abdominal pain x3 days, not passing gas at least [address] of abdomen and pelvis suspicious for colonic obstruction, possibly d/t underlying malignant or benign stricturing Received Fleet enema and then a soapsuds enema with no benefit in ED Patient will be made NPO, given IVF Analgesics for pain management Will start on colace, Miralax bid GI consult General surgery consult Question of gastroenteritis Patient with low-grade fever, leukocytosis of 21.1 Patient meets sepsis criteria: Tachycardia, wbc's, lactic acid Patient given IVF and started on broad-spectrum antibiotics in the ED Will place on maintenance fluids Will empirically treat with ceftriaxone and Flagyl, started 09/04/2023 Question of UTI UA with trace leukocyte esterase, 21-50 WBCs Patient being covered by ceftriaxone Mood disorder Continue home meds HTN BP initially soft, will hold for today HLD Continue statin Full Code Attending:?Dr. Jacob DVT Prophylaxis: Pneumatic boots d/t possible procedures Pt will require a hospitalization of at least two nights for treatment of?likely colonic obstruction. Patient required IVF, bowel rest, close monitoring, and specialist consultation. Quality Stroke Does the patient have a stroke diagnosis?: No VTE Prior VTE?: No VTE Risk Level:: Medical - moderate - high VTE Device Contraindication: N/A - Device Ordered VTE Drug Contraindication: Treatment Not Indicated
[2023-09-04] MEDS: 0.9 % Sodium Chloride 1,000 ML 100 ML IVCONT ×2 (13:03→22:56)
--- OUTSIDE RECORDS SUMMARY | 2023-09-04 13:03 | XMS_ITS | Patient Health Record ---
Author Name Unknown Organization [facility] Address [address] [place] [phone] Care Team Providers Care Car Greaser Name Role Phone Toni HARDING, [facility] Primary Care Provider Siddharth Alexander Jr Unavailable [phone] ALLERGIES Allergen (clinical drug ingredient) Drug/Non Drug Allergy documented on EMR Reaction Allergy Type Onset Date Status Steroids steroids (uncoded) Unknown Allergy A ctive RESULTS Component Value Reference Range Notes [place] barium swallow Reviewed date:06/01/2023 09:02:24 AM Interpretation: Performing Lab: Notes/Report: [address] [address] Fluoroscopy Report Signed Patient: Mars Gonzalez MR#: [id number] : 1960 Acct:[id number] Age/Sex: 63 / F ADM Date: 05/27/23 Loc: HO.XRAY Attending Dr: Siddharth Ware Ordering Physician: SIDDHARTH WARE MD Date of Service: 05/27/23 Procedure(s): FL barium swallow Accession Number(s): [id number] cc: SIDDHARTH WARE MD EXAMINATION: FL BARIUM [...] in OV> 05/27/23 1713 DD/ 1017 TD/TT: Tag Press Operator: PRIETO REASON FOR REFERRAL No Information MEDICATIONS [...] Omeprazole 20 MG TAKE 1 CAPSULE BY [facility] TWICE DAILY for 30 Active IMMUNIZATIONS Vaccine [...] Problem Colon cancer screening (Z12.11) Active confirmed 084479741 Problem Gastroesophageal reflux disease without esophagitis (K21.9) Active confirmed 010138510 Problem Irritable bowel syndrome with both constipation and diarrhea (K58.2) Active confirmed [id number] Encounters Encounter Location Date Provider Diagnosis [facility] [address] [place] [phone] 10/27/2022 Siddharth Ware Jr [facility] [address] [place] [phone] 02/18/2023 Siddharth Ware Jr Other dysphagia R13.19 ; Gastroesophageal reflux disease without esophagitis K21.9 and Irritable bowel syndrome with both constipation and diarrhea K58.2 [facility] [address] [place] [phone] 12/03/2022 Siddharth Ware Jr [facility] [address] [place] [phone] 04/11/2023 Siddharth Ware Jr [facility] [address] [place] [address] 06/01/2023 Siddharth Ware Jr ASSESSMENTS Encounter Date [...] Insured Coverage Start Date Coverage End Date [facility] [address] [address] [place], [place] [id number] MARS PATEL Self - patient is the insured MEDICAID OF [facility] [address] [place] [address] [id number] MARS PATEL Self - patient is the [...]
[2023-09-04] MEDS: Docusate Sodium 100 MG CAPSULE PO ×2 (14:02→21:35)
[2023-09-04] MEDS: polyethylene glycoL 3350 17 GM POWD.PACK PO ×2 (14:03→21:35)
--- NOTE | 2023-09-04 15:02 | PM.EVENT ---
Event Note Date of Service: 09/04/23 Event Note: GI Consult-Full note dictated. History from patient and EMR. Imp: I suspect this could represent diverticulitis with resultant narrowing and spasm of the colon in that region leading to the CT findings, the leukocytosis and elevated CRP, her symptoms of the worsening IBS and constipation, and the clinical findings of distention and tenderness. Her colonoscopy and CT colonography in 2019 were negative for any mass or colitis in that area, but both exams were limited due to the redundancy of her colon and limited preps on each occasion. Other possible diagnoses could include a colon neoplasm or stricture. Rec: Agree with IV antibiotics, surgical consult, NPO, supportive care, stool softeners, and observation. F/U labs in AM. If her course does not improve I would consider a Gastrograffin enema to evaluate the left colon if OK with Surgery. If things remain as they are I would not recommend a colonoscopy as she would not tolerate an oral cleanout and there would be an increased risk of complication with ongoing inflammation and the component of obstruction. She may ultimately need surgery if things don't improve as well. D/W patient in detail and she is comfortable with this plan. Thanks. Time Spent With Patient Time: Total time managing care of this patient today ____ minutes.
[2023-09-04] MEDS: Morphine Sulfate 4 MG/ML CARTRIDGE 2 MG IVPUSH (16:40)
[2023-09-04] MEDS: Omeprazole 20 MG CAPSULE.DR PO (16:41)
[2023-09-04] MEDS: cefTRIAXone sodium 1 GM in 0.9 % Sodium Chloride 50 ML IV (20:41)
[2023-09-04] MEDS: rOPINIRole HCL 1 MG TABLET PO (21:35)
[2023-09-04] MEDS: busPIRone HCl 5 MG TABLET 15 MG PO (21:35)
[2023-09-04] MEDS: Pravastatin Sodium 40 MG TABLET PO (21:35)
[2023-09-04] MEDS: Divalproex Sodium ER 500 MG TAB.ER.24H 1000 MG PO (21:35)
[2023-09-04] MEDS: OLANZapine 10 MG TABLET 20 MG PO (21:35)
[2023-09-04] MEDS: oxyBUTYnin chloride ER 5 MG TAB.ER.24 15 MG PO (21:36)
[2023-09-04] MEDS: Topiramate 100 MG TABLET PO (21:36)
[2023-09-04] MEDS: minoxidiL 2.5 MG TABLET PO (22:23)
[2023-09-04] MEDS: Amitriptyline HCl 50 MG TABLET PO (22:23)
--- NOTE | 2023-09-04 23:29 | CONS_ITS ---
DATE OF SERVICE: 09/04/2023 REASON FOR CONSULTATION: Abdominal pain, worsening constipation, and abnormal CT scan of colon. HISTORY OF PRESENT ILLNESS: The patient is a 63-year-old female, followed by Dr. Aranda for underlying chronic irritable bowel syndrome. She has symptoms that seem to range from both diarrhea to constipation. That has been her baseline for many years. She underwent both an incomplete colonoscopy and CT colonography in 2019. These were both negative for any type of mass nor inflammatory bowel disease, but the preps were somewhat limited on both exams and the colon was redundant. The patient describes that she was basically in her usual state of health up until a few days ago when she began having worsening constipation, abdominal distention, abdominal pain primarily in the left lower quadrant, and anorexia. She did have some nausea, but did not have any vomiting. She did not notice any hematochezia nor melena. She denies any jaundice nor definitive fever at home. She did have some dysuria. She did try some oral laxative such as milk of magnesia without any relief and she came to the ER earlier today for evaluation. In the ER, she received a Fleets Enema and a soapsuds enema, but without any improvement nor any real clinical response in regard to bowel movements. She has not been passing any gas nor stool basically for the past 1 or 2 days. She is still having abdominal pain primarily in the left lower quadrant, although it does spread rather diffusely. Her temperature in the ER was as high as 100.1. She was started on ceftriaxone and metronidazole intravenously. MEDICATIONS: Medications at home include amitriptyline, aspirin, buspirone, butalbital with acetaminophen and caffeine, vitamin D, Lomotil p.r.n., divalproex, Flonase nasal spray, loratadine, lorazepam, lovastatin, melatonin, minoxidil, olanzapine, omeprazole, oxybutynin, MiraLAX, propranolol, Requip, simethicone p.r.n., topiramate, and denosumab subcutaneously every 6 months. Her medications here in the hospital include acetaminophen, amitriptyline, buspirone, butalbital with acetaminophen and caffeine, IV ceftriaxone, divalproex, Colace, Flonase, Claritin, Ativan, melatonin, IV Flagyl, minoxidil, morphine p.r.n., Zyprexa, omeprazole, Zofran, oxybutynin, MiraLAX, pravastatin, Requip, propranolol, simethicone p.r.n., and Topamax. PAST MEDICAL HISTORY: She describes a tubal ligation, bladder suspensions. She denies any other abdominal surgeries. Colonoscopy and CT colonography in 2019 with results as above, although both preps were limited. Irritable bowel syndrome. Gastroesophageal reflux. Hypertension. Hyperlipidemia. Asthma. Mood disorder. She denies any history of [place], stroke, nor diabetes. Anxiety and depression. Schizophrenia. Osteoporosis. SOCIAL HISTORY: She lives by herself. She does smoke. She denies any alcohol use. FAMILY HISTORY: Negative for GI malignancy nor inflammatory bowel disease. REVIEW OF SYSTEMS: CONSTITUTIONAL: She has been feeling poorly lately due to the symptoms with associated anorexia. CARDIAC: No chest pain. PULMONARY: No coughing or hemoptysis. GI: As above. URINARY: She has had dysuria, but no hematuria. NEUROLOGIC: No headache. PHYSICAL EXAMINATION: GENERAL: The patient is a pleasant, alert, comfortable-appearing female, in no distress. VITAL SIGNS: Stable and she has been afebrile since her temperature of 100.1 earlier on the arrival in the ER. SKIN: Warm and dry. Anicteric sclerae. NECK: Supple. Moist mucous membranes. CHEST: Clear. CARDIAC: Normal S1 and S2. ABDOMEN: Soft, but distended. There is diffuse tenderness, but primarily in the left lower quadrant to palpation. Bowel sounds are diminished. The abdomen is somewhat tympanitic. She has guarding. LABORATORY DATA: Initial white blood cell count 21.1, hemoglobin 14.3, platelets 255,000. Lactic acid level 2.2 with a followup of 1.0. Potassium 3.2, chloride 113, CO2 15, BUN 9, creatinine 0.7. Normal LFTs. C-reactive protein of 10.5. Albumin 3.4. Lipase of 7. Urinalysis is consistent with urinary tract infection with 21 to 50 wbc's, 11 to 20 rbc's, trace leukocyte esterase, and a pH of 8.5. IMAGING DATA: Her CT scan is notable for what appears to be some component of inflammation and obstruction at the level of the sigmoid colon without any definitive mass. The proximal colon was somewhat dilated with stool and liquid. At the segment of transition, there were some wall thickening and stranding consistent with some type of inflammation. There was no definitive mass. There was a small amount of fluid in the pelvis. IMPRESSION: Given the patient's clinical history, she appears to have some acute process causing a component of obstruction in the sigmoid colon with the resultant abdominal pain, CT scan findings, and tenderness on her exam. This may very well represent diverticulitis given a longstanding history of chronic constipation. Given the CT scan colonography and colonoscopy 3 years ago, I doubt this represents a colon cancer, but again those studies were somewhat suboptimal due to the prep and the redundant colon. A stricture in relation to either ischemia or chronic diverticular disease could be a contributing factor as well. At this point, I would continue the current plan of antibiotics, n.p.o., supportive care and surgical consultation. I would not recommend a colonoscopy at this time due to the component of obstruction and inflammation, as I do not think she would tolerate a p.o. cleanout nor tolerate the procedure due to increased potential for complications such as perforation. If her course does not improve, one could consider a Gastrografin enema to further evaluate the left colon and area of probable obstruction. I would clear that with the surgical consultation first. Certainly, if she does not improve and things remain as they are, she may very well need surgical exploration as well. This has been discussed with the patient in detail. She understands and is comfortable with the plan. Thanks for the consultation. MD BARB Byrne/ÁLVARO / [id number] K[place]
--- NOTE | 2023-09-05 02:08 | PC.NURSE ---
pt self ambulating to bedside commode, assist pt with blankets, now resting comfortably, no complaints at this time
--- NOTE | 2023-09-05 04:06 | PC.NURSE ---
pt had large formed BM
[2023-09-05 04:11] VITALS: BP 98/52; PULSE 100; RESP 12; TEMP 37.8; O2SAT 95
[2023-09-05] MEDS: Acetaminophen 325 MG TABLET 650 MG PO (04:20)
[2023-09-05 06:20] LABS: Anion Gap 9 (12-20); Blood Urea Nitrogen 6 mg/dL (9-16); Calcium 7.3 mg/dL (8.4-10.2); Carbon Dioxide 15 mmol/L (22-29); Chloride 117 mmol/L (96-108); Creatinine Clr Calc Pharmacy 88.4; Estimated Glomerular Filt Rate > 60; Glucose Random 118 mg/dL (60-115); Potassium 3.3 mmol/L (3.3-5.1); Sodium 138 mmol/L (135-145)
[2023-09-05 06:21] VITALS: BP 106/54; PULSE 91; RESP 18; TEMP 36.8; O2SAT 93
[2023-09-05 06:25] LABS: Hematocrit 37.1 % (37.0-47.0); Hemoglobin 12.3 g/dl (12.0-16.0); Mean Corpuscular HGB Conc 33.2 g/dl (31.0-35.0); Mean Corpuscular Hemoglobin 30.7 pg (27.0-33.0); Mean Corpuscular Volume 92.5 fL (80.0-98.0); Mean Platelet Volume 11.9 fL (9.4-12.3); Platelet Count 230 X10*3/uL (160-400); Red Blood Count 4.01 X10*6/uL (4.20-5.50); Red Cell Distribution Width 14.7 % (11.0-16.0); White Blood Count 19.3 X10*3/uL (4.8-10.8)
[2023-09-05 06:26] VITALS: TEMP 36.8
[2023-09-05 07:46] VITALS: BP 121/58; PULSE 88; RESP 16; TEMP 36.4; O2SAT 94
[2023-09-05] MEDS: 0.9 % Sodium Chloride 1,000 ML 100 ML IVCONT ×2 (08:33→16:27)
[2023-09-05] MEDS: metroNIDAZOLE/NS 500 MG/100 ML PIGGYBACK 100 MG IV ×2 (08:35→23:24)
[2023-09-05] MEDS: Loratadine 10 MG TABLET PO (08:35)
[2023-09-05] MEDS: Sodium Bicarbonate 650 MG TABLET PO ×4 (08:36→22:31)
[2023-09-05] MEDS: busPIRone HCl 5 MG TABLET 15 MG PO ×2 (08:36→22:27)
[2023-09-05] MEDS: Propranolol HCL LA 60 MG CAP.SA.24H 120 MG PO (08:36)
[2023-09-05] MEDS: polyethylene glycoL 3350 17 GM POWD.PACK PO (08:36)
[2023-09-05] MEDS: Topiramate 100 MG TABLET PO ×2 (08:36→22:31)
[2023-09-05] MEDS: minoxidiL 2.5 MG TABLET PO ×2 (08:36→22:31)
[2023-09-05] MEDS: Docusate Sodium 100 MG CAPSULE PO (08:36)
[2023-09-05 08:38] VITALS: BMI 27.6
--- NOTE | 2023-09-05 08:53 | PM.CNGS ---
History of Present Illness Consult details Consult date: 09/05/23 <Eloina Jones PA-C - Last Filed: 09/05/23 09:09> Requesting physician: Kassandra Jacob <CASANDRA Almendarez Last Filed: 09/05/23 09:09> Narrative: The patient is a 63-year-old female with hx of IBS who presented to the ED with complaints of worsening abdominal pain and distention over the past few days. She is followed by Dr. Aranda for underlying chronic irritable bowel syndrome. She reports constipation at baseline and takes miralax daily. She underwent both an incomplete colonoscopy and CT colonography in 2019 which were both negative for any type of mass, inflammatory bowel disease, but the preps were somewhat limited on both exams and the colon was redundant. Her pain is in the lower abdomen, mainly the left side. She denies flatus or BM in the past 2 days. She did have some nausea without vomiting. She denies fever, chills, diarrhea, melena, hematochezia. She tried her normal miralax and milk of magnesia without relief. She therefore came to the ED for evaluation where she received fleets and soapsuds enema without any improvement or BM. In the ED, labs were obtained which were significant for a leukocytosis of 21.1 and a lactic acidosis. CT scan showed prominent distention of the much of the colon with fluid and stool with transition to decreased caliber in the region of the mid sigmoid colon with segment of wall thickening with surrounding stranding. She was admitted to the hospitalist service for further treatment. <Eloina Jones PA-C - Last Filed: 09/05/23 09:09> Review of Systems Constitutional: Constitutional: Denies chills and Denies fever(s) <CASANDRA Almendarez Last Filed: 09/05/23 09:09> ENT: Denies dizziness <CASANDRA Almendarez Last Filed: 09/05/23 09:09> Cardiovascular: Cardiovascular: Denies chest pain and Denies dyspnea <CASANDRA Almendarez Last Filed: 09/05/23 09:09> Respiratory: Respiratory: Denies cough and Denies dyspnea <CASANDRA Almendarez Last Filed: 09/05/23 09:09> Gastrointestinal: Gastrointestinal: Reports as per HPI <Eloina Jones PA-C Last Filed: 09/05/23 09:09> Genitourinary: Genitourinary: Denies hematuria <Eloina Jones PA-C Last Filed: 09/05/23 09:09> Integumentary/Breasts: Skin/Breast: Denies rash and Denies jaundice <Eloina Jones PA-C Last Filed: 09/05/23 09:09> Neurologic: Denies dizziness <Eloina Jones PA-C Last Filed: 09/05/23 09:09> [facility] Past Medical History Medical History: Medical History HLD (hyperlipidemia) HTN (hypertension) Headache Anxiety Depression Schizophrenia Habitual snoring Asthma IBS (irritable bowel syndrome) Endobronchial mass Vitamin D deficiency Osteoporosis Back pain <Eloina Jones PA-C Last Filed: 09/05/23 09:09> Family History Family History: Family History Father Back problem Diabetes mellitus Cataract Mother Diabetes mellitus Maternal Grandfather No problems noted. Maternal Grandmother No problems noted. Paternal Grandfather No problems noted. Paternal Grandmother No problems noted. <Eloina Jones PA-C Last Filed: 09/05/23 09:09> Surgical History Surgical History: Surgical History History of bladder surgery History of tubal ligation <CASANDRA Almendarez Last Filed: 09/05/23 09:09> Social History Social History: Social History Household Members: None Housing: Apartment Do you presently have visiting nurse or other home services: No Alcohol intake: former Patient Tobacco Use Status: Current everyday Tobacco user Tobacco use type: Cigarette Cigarette Packs Per Day: 1 Cigarettes Per Day: 20.0 Years Smoked: 35 Smoked in Last 30 Days: Yes e-Cigarette/Vaping Use: Never Used Use of substances other than those prescribed or required for medical reasons: No Substance Use Type: Crack/Cocaine Have you been hit, kicked, punched, or otherwise hurt by someone within the past year? If so, by whom?: No Do you feel safe in your current relationship?: No Current Relationship Is there a partner from a previous relationship who is making you feel unsafe now?: No Are you made to feel afraid or neglected: No Advance Directives: No Advance Directives Information Provided: No Do you have thoughts of harming others: None Do you have a plan to hurt others: No Plan Recently lost weight without trying: No Nutrition Risks: No Nutritional Risk Patient : No Current occupational status: disabled Cognitive needs: No Hearing needs: No Vision needs: Yes <Eloina Jones PA-C - Last Filed: 09/05/23 09:09> Meds Allergies/Adverse reactions: Allergies Allergy/AdvReac Type Severity Reaction Status Date / Time clozapine [From Clozaril] Allergy Mild UNKNOWN Verified 09/04/23 00:27 fluoxetine [From Prozac] Allergy Mild ANXIETY Verified 09/04/23 00:27 lithium [[place]] Allergy Mild UNKNOWN Verified 09/04/23 00:27 oxcarbazepine Allergy Mild ANXIETY Verified 09/04/23 00:27 [From Trileptal] carbamazepine [Tegretol] Allergy Unknown Unknown Verified 09/04/23 00:27 quetiapine [Seroquel] Allergy Unknown unknown Verified 09/04/23 00:27 ziprasidone [[place]] Allergy Unknown Unknown Verified 09/04/23 00:27 CINNAMON TOAST CRUNCH Allergy Severe THROAT Uncoded 09/04/23 00:27 SWELLING FRUIT LOOPS Allergy Severe THROAT Uncoded 09/04/23 00:27 SWELLING KIDNEY BEANS Allergy Severe THROAT Uncoded 09/04/23 00:27 SWELLING Clozaril Allergy Unknown Unknown Uncoded 09/04/23 00:27 Environmental Allergy Unknown unknown Uncoded 09/04/23 00:27 Floxin Otic Allergy Unknown unknown Uncoded 09/04/23 00:27 [place] Carbonate Allergy Unknown Unknown Uncoded 09/04/23 00:27 [place] Allergy Unknown unknown Uncoded 09/04/23 00:27 Some cereals Allergy Unknown Unknown Uncoded 09/04/23 00:27 Spider Bites Allergy Unknown unknown Uncoded 09/04/23 00:27 <Eloina Jones PA-C - Last Filed: 09/05/23 09:09> Active Medications: Current Medications Acetaminophen (Acetaminophen 325 Mg Tablet) 650 mg PO Q6H PRN PRN Reason: Pain, Mild (Pain Scale 1-3) Last Admin: 09/05/23 04:20 Dose: 650 mg Acetaminophen/Butalbital/Caffeine (Butalb/Acetamin/Caff 50/325/40 Tablet) 1 tab PO Q6H PRN PRN Reason: Migraine Headache Amitriptyline HCl (Amitriptyline Hcl 50 Mg Tablet) 50 mg PO BEDTIME [facility] Last Admin: 09/04/23 22:23 Dose: 50 mg Buspirone HCl (Buspirone Hcl 5 Mg Tablet) 15 mg PO BID [facility] Last Admin: 09/05/23 08:36 Dose: 15 mg Divalproex Sodium (Divalproex Sodium Er 500 Mg Tab.Er.24h) 1,000 mg PO BEDTIME [facility] Last Admin: 09/04/23 21:35 Dose: 1,000 mg Docusate Sodium (Docusate Sodium 100 Mg Capsule) 100 mg PO BID [facility] Last Admin: 09/05/23 08:36 Dose: 100 mg Fluticasone Propionate (Fluticasone Propionate Nasal 16 Gm [place]) 1 spray NOSTRIL-B DAILY [facility] Last Admin: 09/05/23 08:36 Dose: Not Given Sodium Chloride (Ns) 1,000 mls @ 100 mls/hr IVCONT .Q10H [facility] Last Admin: 09/05/23 08:33 Dose: 100 mls/hr Metronidazole (Flagyl) 500 mg in 100 mls @ 100 mls/hr IV Q12H [facility] Last Admin: 09/05/23 08:35 Dose: 100 mls/hr Ceftriaxone Sodium 1 gm/ (Sodium Chloride) 50 mls @ 100 mls/hr IV Q24H [facility] Last Infusion: 09/04/23 21:33 Dose: Infused Loratadine (Loratadine 10 Mg Tablet) 10 mg PO DAILY [facility] Last Admin: 09/05/23 08:35 Dose: 10 mg Lorazepam (Lorazepam 0.5 Mg Tablet) 0.5 mg PO Q6H PRN PRN Reason: Anxiety Melatonin (Melatonin 3 Mg Tablet) 6 mg PO BEDTIME PRN PRN Reason: Insomnia Minoxidil (Minoxidil 2.5 Mg Tablet) 2.5 mg PO BID [facility] Last Admin: 09/05/23 08:36 Dose: 2.5 mg Morphine Sulfate (Morphine Sulfate 4 Mg/Ml Cartridge) 2 mg IVPUSH Q4H PRN; Protocol PRN Reason: Pain, Severe (Pain Scale 7-10) Last Admin: 09/04/23 16:40 Dose: 2 mg Olanzapine (Olanzapine 10 Mg Tablet) 20 mg PO BEDTIME [facility] Last Admin: 09/04/23 21:35 Dose: 20 mg Omeprazole (Omeprazole 20 Mg Capsule.Dr) 20 mg PO BID@0630,1630 [facility] Last Admin: 09/05/23 08:32 Dose: Not Given Ondansetron HCl (Ondansetron Hcl 4 Mg/2 Ml Vial) 4 mg IVPUSH Q8H PRN PRN Reason: Nausea and Vomiting Oxybutynin Chloride (Oxybutynin Chloride Er 5 Mg Tab.Er.24) 15 mg PO BEDTIME [facility] Last Admin: 09/04/23 21:36 Dose: 15 mg Polyethylene Glycol (Polyethylene Glycol 3350 17 Gm Powd.Pack) 17 gm PO BID [facility] Last Admin: 09/05/23 08:36 Dose: 17 gm Pravastatin Sodium (Pravastatin Sodium 40 Mg Tablet) 40 mg PO BEDTIME [facility] Last Admin: 09/04/23 21:35 Dose: 40 mg Propranolol HCl (Propranolol Hcl La 60 Mg Cap.Sa.24h) 120 mg PO DAILY [facility]; Protocol Last Admin: 09/05/23 08:36 Dose: 120 mg Ropinirole HCl (Ropinirole Hcl 1 Mg Tablet) 1 mg PO BEDTIME [facility] Last Admin: 09/04/23 21:35 Dose: 1 mg Simethicone (Simethicone 80 Mg Tab.Chew) 80 mg PO BID PRN PRN Reason: abdominal distention Sodium Bicarbonate (Sodium Bicarbonate 650 Mg Tablet) 650 mg PO QID [facility] Last Admin: 09/05/23 08:36 Dose: 650 mg Sodium Chloride (0.9 % Sodium Chloride Flush 3 Ml Syringe) 3 ml IVFLUSH QSHIFT [facility] Last Admin: 09/05/23 08:36 Dose: Not Given Topiramate (Topiramate 100 Mg Tablet) 100 mg PO BID [facility] Last Admin: 09/05/23 08:36 Dose: 100 mg <Eloina Jones PA-C - Last Filed: 09/05/23 09:09> Home medications: Home Medications Medication Instructions Recorded Confirmed Last Taken Type [id number] 1 cap PO Q6H PRN Migraine Headache 09/11/20 09/04/23 Unknown History 50 mg-300 mg-40 mg capsule (Fioricet) lorazepam 0.5 mg tablet (Ativan) 0.5 mg PO Q6H PRN Anxiety 09/11/20 09/04/23 Unknown History olanzapine 20 mg tablet (Zyprexa) 20 mg PO BEDTIME 09/11/20 09/04/23 09/02/23 History propranolol 120 mg capsule,24 120 mg PO DAILY 09/11/20 09/04/23 09/03/23 09:00 History hr,extended release minoxidil 2.5 mg tablet 2.5 mg PO BID 08/26/21 09/04/23 09/03/23 09:00 History divalproex 500 mg tablet,extended 1,000 mg PO BEDTIME 09/23/21 09/04/23 09/02/23 History release 24 hr polyethylene glycol 3350 17 gram 17 g PO BEDTIME 09/23/21 09/04/23 09/02/23 History oral powder packet omeprazole 20 mg capsule,delayed 20 mg PO BID 11/25/21 09/04/23 09/03/23 09:00 History release amitriptyline 25 mg tablet 50 mg PO BEDTIME 09/04/23 09/04/23 09/02/23 History aspirin 325 mg tablet 325 mg PO DAILY 09/04/23 09/04/23 09/03/23 09:00 History buspirone 15 mg tablet 15 mg PO BID 09/04/23 09/04/23 09/03/23 09:00 History diphenoxylate-atropine 2.5 1 tab PO QID PRN Diarrhea 09/04/23 09/04/23 Unknown History mg-0.025 mg tablet lovastatin 40 mg tablet 40 mg PO BEDTIME 09/04/23 09/04/23 09/02/23 History melatonin 5 mg disintegrating 5 mg PO BEDTIME 09/04/23 09/04/23 09/02/23 History tablet nystatin 100,000 unit/gram topical 1 appl topical BID 09/04/23 09/04/23 09/03/23 09:00 History cream oxybutynin chloride 15 mg 15 mg PO BEDTIME overactive bladder 09/04/23 09/04/23 09/02/23 History tablet,extended release 24 hr ropinirole 1 mg tablet 1 mg PO BEDTIME 09/04/23 09/04/23 09/02/23 History simethicone 80 mg chewable tablet 80 mg PO BID PRN abdominal 09/04/23 09/04/23 Unknown History (Gas Relief (simethicone)) distention topiramate 100 mg tablet 100 mg PO BID 09/04/23 09/04/23 09/03/23 09:00 History <CASANDRA Almendarez Last Filed: 09/05/23 09:09> Physical Exam Vital Signs: Vital Signs: Last Vital Signs Temp 97.5 F 09/05/23 07:46 Pulse 88 09/05/23 07:46 Resp 16 09/05/23 07:46 BP 121/58 L 09/05/23 07:46 Pulse Ox 94 09/05/23 07:46 O2 Del Method Room Air 09/05/23 07:46 BMI result Body Mass Index 27.6 <CASANDRA Almendarez Last Filed: 09/05/23 09:09> Const: General: comfortable, no acute distress and alert <CASANDRA Almendarez Last Filed: 09/05/23 09:09> Orientation/consciousness: patient oriented x3 <CASANDRA Almendarez Last Filed: 09/05/23 09:09> Resp: Effort & Inspection: normal respiratory effort <CASANDRA Almendarez Last Filed: 09/05/23 09:09> GI: Inspection: Yes distended and No scar <CASANDRA Almendarez Last Filed: 09/05/23 09:09> Palpation (GI): Soft to palpation, nontender, no guarding and not rigid <CASANDRA Almendarez Last Filed: 09/05/23 09:09> Percussion: Yes tympanic to percussion <CASANDRA Almendarez Last Filed: 09/05/23 09:09> Skin: General skin exam: no rashes or lesions noted <CASANDRA Almendarez Last Filed: 09/05/23 09:09> Neuro: General: patient oriented x3 and moves all extremities <CASANDRA Almendarez Last Filed: 09/05/23 09:09> Results Labs Result diagrams: 09/05/23 05:18 09/05/23 05:18 <CASANDRA Almendarez Last Filed: 09/05/23 09:09> Labs: Abnormal lab results 09/05/23 Range/Units 05:18 WBC 19.3 H (4.8-10.8) X10*3/uL RBC 4.01 L (4.20-5.50) X10*6/uL Chloride 117 H (96-108) mmol/L Carbon Dioxide 15 L (22-29) mmol/L Anion Gap 9 L (12-20) BUN 6 L (9-16) mg/dL Random Glucose 118 H (60-115) mg/dL Calcium 7.3 L D (8.4-10.2) mg/dL Short CBC 09/05/23 Range/Units 05:18 WBC 19.3 H (4.8-10.8) X10*3/uL Hgb 12.3 (12.0-16.0) g/dl Hct 37.1 (37.0-47.0) % Plt Count 230 (160-400) X10*3/uL BMP 09/05/23 05:18 Sodium 138 Potassium 3.3 Chloride 117 H Carbon Dioxide 15 L BUN 6 L Creatinine 0.56 Calcium 7.3 L D Urine 09/04/23 Range/Units 03:38 Urine Color Yellow Urine Appearance Cloudy Urine pH 8.5 (5.0-9.0) Ur Specific [place] 1.010 (1.005-1.025) Urine Protein Trace (Neg-Trace) mg/dL Urine Glucose (UA) Negative (Negative) mg/dL All other labs normal. <CASANDRA Almendarez Last Filed: 09/05/23 09:09> Imaging Abdomen CT scan report/results: report reviewed and image reviewed <CASANDRA Almendarez Last Filed: 09/05/23 09:09> Assessment and Plan (1) Constipation: Qualifiers: Constipation type: chronic idiopathic constipation Qualified Code(s): K59.04 - Chronic idiopathic constipation <Eloina GamezCASANDRA nagel - Last Filed: 09/05/23 09:09> Status: Acute <Eloina RobertCASANDRA nagel - Last Filed: 09/05/23 09:09> (2) Abdominal pain: Qualifiers: Abdominal location: generalized Qualified Code(s): R10.84 - Generalized abdominal pain <Eloina CASANDRA Jones - Last Filed: 09/05/23 09:09> Status: Acute <Eloina GamezCASANDRA nagel - Last Filed: 09/05/23 09:09> 63 year old female admitted with worsening abdominal pain and distention with CT scan showing colonic distention and sigmoid stricture. Seen by GI who felt this was secondary to diverticulitis. She is now passing flatus and moving her bowels. May require resection of strictured segment if obstruction persists or recurs but at this point can hold off as she is improving and continue supportive measures. Advance diet as tolerated. Continue bowel regimen for constipation and hard stools. Increase activity. <Eloina Jones PA-C - Last Filed: 09/05/23 09:09> 63 year old female admitted with worsening abdominal pain and distention with CT scan showing colonic distention and sigmoid stricture. Seen by GI who felt this was secondary to diverticulitis. She is now passing flatus and moving her bowels. May require resection of strictured segment if obstruction persists or recurs but at this point can hold off as she is improving and continue supportive measures. Advance diet as tolerated. Continue bowel regimen for constipation and hard stools. Increase activity. As noted above patient with abdominal pain and distension found on CT to have evidence of chronic constipation with markedly distended colon with possibility of a narrowing in the sigmoid colon. Patient previously underwent colonoscopy and no tumor or stricture was identified although the sigmoid colon was found to be redundant. This morning the patient feels improved and did pass a bowel movement. No surgical intervention is anticipated at this time although she will need continued bowel regime to allow passage of the probable hard stool. Agree with advancing diet. <Deandre Jackson MD - Last Filed: 09/05/23 12:27> Procedures Date of Service Date of Service: 09/05/23 <Eloina Jones PA-C - Last Filed: 09/05/23 09:09> 09/05/23 <Deandre Jackson MD - Last Filed: 09/05/23 12:27>
[2023-09-05 15:45] VITALS: BP 114/62; PULSE 77; RESP 18; TEMP 37.2; O2SAT 93
--- NOTE | 2023-09-05 15:54 | HO.PM.IMPN ---
Subjective Subjective Date of Service: 09/05/23 Interval History: abd pain Review of Systems Abdominal pain somewhat improving, patient passed bowel movement this morning. Denies any nausea or vomiting Will try clear liquid diet. Physical Exam Vital Signs: Vital Signs: Last Vital Signs Temp 97.5 F 09/05/23 07:46 Pulse 88 09/05/23 07:46 Resp 16 09/05/23 07:46 BP 121/58 L 09/05/23 07:46 Pulse Ox 94 09/05/23 07:46 O2 Del Method Room Air 09/05/23 07:46 BMI result Body Mass Index 27.6 Appearance: Alert.? Oriented X3.? . cvs: rrr, [id number] , no murmur res: clear to auscultation ,no rhonchii or wheezing abd: no rebound or guarding ,mild soarness llq , bs present. ext pulses present , no cyanosis . neuro: axo3 , nonfocal. Objective Data Active Medications Acetaminophen (Acetaminophen 325 Mg Tablet) 650 mg PO Q6H PRN PRN Reason: Pain, Mild (Pain Scale 1-3) Last Admin: 09/05/23 04:20 Dose: 650 mg Documented By: NUBIA Acetaminophen/Butalbital/Caffeine (Butalb/Acetamin/Caff 50/325/40 Tablet) 1 tab PO Q6H PRN PRN Reason: Migraine Headache Amitriptyline HCl (Amitriptyline Hcl 50 Mg Tablet) 50 mg PO BEDTIME [facility] Last Admin: 09/04/23 22:23 Dose: 50 mg Documented By: NUBIA Buspirone HCl (Buspirone Hcl 5 Mg Tablet) 15 mg PO BID [facility] Last Admin: 09/05/23 08:36 Dose: 15 mg Documented By: JOANA Divalproex Sodium (Divalproex Sodium Er 500 Mg Tab.Er.24h) 1,000 mg PO BEDTIME [facility] Last Admin: 09/04/23 21:35 Dose: 1,000 mg Documented By: NUBIA Docusate Sodium (Docusate Sodium 100 Mg Capsule) 100 mg PO BID [facility] Last Admin: 09/05/23 08:36 Dose: 100 mg Documented By: JOANA Fluticasone Propionate (Fluticasone Propionate Nasal 16 Gm [place]) 1 spray NOSTRIL-B DAILY [facility] Last Admin: 09/05/23 08:36 Dose: Not Given Documented By: JOANA Non-Admin Reason: Med Not Available Sodium Chloride (Ns) 1,000 mls @ 100 mls/hr IVCONT .Q10H [facility] Last Admin: 09/05/23 08:33 Dose: 100 mls/hr Documented By: JOANA Metronidazole (Flagyl) 500 mg in 100 mls @ 100 mls/hr IV Q12H [facility] Last Infusion: 09/05/23 10:00 Dose: Infused Documented By: JOANA Ceftriaxone Sodium 1 gm/ (Sodium Chloride) 50 mls @ 100 mls/hr IV Q24H [facility] Last Infusion: 09/04/23 21:33 Dose: Infused Documented By: NUBIA Loratadine (Loratadine 10 Mg Tablet) 10 mg PO DAILY [facility] Last Admin: 09/05/23 08:35 Dose: 10 mg Documented By: JOANA Lorazepam (Lorazepam 0.5 Mg Tablet) 0.5 mg PO Q6H PRN PRN Reason: Anxiety Melatonin (Melatonin 3 Mg Tablet) 6 mg PO BEDTIME PRN PRN Reason: Insomnia Minoxidil (Minoxidil 2.5 Mg Tablet) 2.5 mg PO BID [facility] Last Admin: 09/05/23 08:36 Dose: 2.5 mg Documented By: JOANA Morphine Sulfate (Morphine Sulfate 4 Mg/Ml Cartridge) 2 mg IVPUSH Q4H PRN; Protocol PRN Reason: Pain, Severe (Pain Scale 7-10) Last Admin: 09/04/23 16:40 Dose: 2 mg Documented By: TRESSA Olanzapine (Olanzapine 10 Mg Tablet) 20 mg PO BEDTIME [facility] Last Admin: 09/04/23 21:35 Dose: 20 mg Documented By: NUBIA Omeprazole (Omeprazole 20 Mg Capsule.Dr) 20 mg PO BID@0630,1630 [facility] Last Admin: 09/05/23 08:32 Dose: Not Given Documented By: JOANA Non-Admin Reason: Patient Refused Ondansetron HCl (Ondansetron Hcl 4 Mg/2 Ml Vial) 4 mg IVPUSH Q8H PRN PRN Reason: Nausea and Vomiting Oxybutynin Chloride (Oxybutynin Chloride Er 5 Mg Tab.Er.24) 15 mg PO BEDTIME [facility] Last Admin: 09/04/23 21:36 Dose: 15 mg Documented By: NUBIA Polyethylene Glycol (Polyethylene Glycol 3350 17 Gm Powd.Pack) 17 gm PO BID [facility] Last Admin: 09/05/23 08:36 Dose: 17 gm Documented By: JOANA Pravastatin Sodium (Pravastatin Sodium 40 Mg Tablet) 40 mg PO BEDTIME [facility] Last Admin: 09/04/23 21:35 Dose: 40 mg Documented By: NUBIA Propranolol HCl (Propranolol Hcl La 60 Mg Cap.Sa.24h) 120 mg PO DAILY [facility]; Protocol Last Admin: 09/05/23 08:36 Dose: 120 mg Documented By: JOANA Ropinirole HCl (Ropinirole Hcl 1 Mg Tablet) 1 mg PO BEDTIME [facility] Last Admin: 09/04/23 21:35 Dose: 1 mg Documented By: NUBIA Simethicone (Simethicone 80 Mg Tab.Chew) 80 mg PO BID PRN PRN Reason: abdominal distention Sodium Bicarbonate (Sodium Bicarbonate 650 Mg Tablet) 650 mg PO QID [facility] Last Admin: 09/05/23 12:15 Dose: 650 mg Documented By: JOANA Sodium Chloride (0.9 % Sodium Chloride Flush 3 Ml Syringe) 3 ml IVFLUSH QSHIFT [facility] Last Admin: 09/05/23 08:36 Dose: Not Given Documented By: JOANA Non-Admin Reason: IV Running Topiramate (Topiramate 100 Mg Tablet) 100 mg PO BID [facility] Last Admin: 09/05/23 08:36 Dose: 100 mg Documented By: JOANA Labs 09/05/23 05:18 09/05/23 05:18 Labs: Laboratory Results - last 24 hr 09/05/23 05:18 MCV 92.5 MCH 30.7 MCHC 33.2 RDW 14.7 Plt Count 230 MPV 11.9 Absolute Nucleated RBC 0.000 Nucleated RBC % (auto) 0.0 Anion Gap 9 L Estim Creat Clear Calc 88.4 Estimated GFR > 60 Random Glucose 118 H Calcium 7.3 L D Microbiology Microbiology Results: Microbiology 09/04/23 07:54 Blood Culture - Preliminary Blood - Venous No growth after 24 hours. 09/04/23 07:54 Blood Culture - Preliminary Blood - Venous No growth after 24 hours. 09/04/23 Unknown Urine Culture - Preliminary Urine clean catch - Urine [place] top Gram negative tushar Assessment and Plan (1) Abdominal pain: Status: Acute (2) Constipation: Status: Acute Plan 63-year-old female with a PMH significant for?IBS, GERD, HTN, HLD, mild intermittent asthma, and mood disorder who presents to the ED with?worsening constipation, abdominal distention and pain x3 days. Pt has a hx of GI issues including IBS and GERD, followed by Dr. Aranda with last colonoscopy in 2019. Pt states symptoms began around a week ago with constipation. Pt will be admitted to the hospital for treatment further evaluation of colonic obstruction. Constipation, ?Colonic obstruction Patient constipation x1 week, distention and abdominal pain x3 days, not passing gas at least [address] of abdomen and pelvis suspicious for colonic obstruction, possibly d/t underlying malignant or benign stricturing Received Fleet enema and then a soapsuds enema with no benefit in ED passed bm this morning, abdominal pain improving Analgesics for pain management Will start on colace, Miralax bid GI consult and General surgery consult evaluation noted-started on clear liquid,continue iv antibiotics Question of gastroenteritis Patient with low-grade fever, leukocytosis of 21.1 Patient meets sepsis criteria: Tachycardia, wbc's, lactic acid continue ceftriaxone and Flagyl, started 09/04/2023 Question of UTI urine culture grew gram neg tushar. UA with trace leukocyte esterase, 21-50 WBCs Patient being covered by ceftriaxone Mood disorder Continue home meds HTN BP initially soft, will hold for today HLD Continue statin Full Code DVT Prophylaxis: Pneumatic boots d/t possible procedures ongoing hospitalization need for treatment of?likely colonic obstruction,gastroenteritis/uti: Patient required IVF, bowel rest, iv antibiotics close monitoring, and specialist consultation. Quality Stroke Does the patient have a stroke diagnosis?: No VTE Prior VTE?: No VTE Risk Level:: Medical - moderate - high VTE Device Contraindication: N/A - Device Ordered VTE Drug Contraindication: Treatment Not Indicated
[2023-09-05] MEDS: Omeprazole 20 MG CAPSULE.DR PO (16:27)
[2023-09-05 19:25] VITALS: BP 101/51; PULSE 82; RESP 19; TEMP 36.1; O2SAT 97
[2023-09-05] MEDS: OLANZapine 10 MG TABLET 20 MG PO (22:27)
[2023-09-05] MEDS: oxyBUTYnin chloride ER 5 MG TAB.ER.24 15 MG PO (22:27)
[2023-09-05] MEDS: Pravastatin Sodium 40 MG TABLET PO (22:28)
[2023-09-05] MEDS: Divalproex Sodium ER 500 MG TAB.ER.24H 1000 MG PO (22:29)
[2023-09-05] MEDS: rOPINIRole HCL 1 MG TABLET PO (22:29)
[2023-09-05] MEDS: Amitriptyline HCl 50 MG TABLET PO (22:30)
[2023-09-05] MEDS: cefTRIAXone sodium 1 GM in 0.9 % Sodium Chloride 50 ML IV (22:35)
[2023-09-06 04:00] VITALS: BP 93/51; PULSE 77; RESP 16; TEMP 36; O2SAT 96
[2023-09-06] MEDS: 0.9 % Sodium Chloride 1,000 ML 100 ML IVCONT (04:49)
--- NOTE | 2023-09-06 05:46 | PC.NURSE ---
Pt's BP trending down, last BP 93/51, asymptomatic. Throughout shift, pt had multiple episodes of loose stools. Pt on IVF and has been drinking fluids. MD Han notified of the pt's BP trending down. No new orders were given, but to monitor pt's BP. Will continue to monitor pt's BP.
[2023-09-06] MEDS: Omeprazole 20 MG CAPSULE.DR PO ×2 (06:09→17:25)
[2023-09-06 07:46] VITALS: BP 108/55; PULSE 77; RESP 16; TEMP 36.1; O2SAT 98
--- NOTE | 2023-09-06 08:02 | PM.PNGS ---
Subjective Subjective Date of Service: 09/06/23 Patient reports: feels better, tolerating liquids well and diarrhea Physical Exam Vital Signs: Vital Signs: Last Vital Signs Temp 96.9 F 09/06/23 07:46 Pulse 77 09/06/23 07:46 Resp 16 09/06/23 07:46 BP 108/55 L 09/06/23 07:46 Pulse Ox 98 09/06/23 07:46 O2 Del Method Room Air 09/06/23 07:46 BMI result Body Mass Index 27.6 Const: General: comfortable, no acute distress and alert Orientation/consciousness: patient oriented x3 Resp: Effort & Inspection: normal respiratory effort GI: Inspection: Yes distended and No scar Palpation (GI): Soft to palpation, nontender, no guarding and not rigid Percussion: Yes tympanic to percussion ( Reduced from yesterday) Skin: General skin exam: no rashes or lesions noted Neuro: General: patient oriented x3 and moves all extremities Extrem: General: No edema Objective Data Active Medications Acetaminophen (Acetaminophen 325 Mg Tablet) 650 mg PO Q6H PRN PRN Reason: Pain, Mild (Pain Scale 1-3) Last Admin: 09/05/23 04:20 Dose: 650 mg Documented By: NUBIA Acetaminophen/Butalbital/Caffeine (Butalb/Acetamin/Caff 50/325/40 Tablet) 1 tab PO Q6H PRN PRN Reason: Migraine Headache Amitriptyline HCl (Amitriptyline Hcl 50 Mg Tablet) 50 mg PO BEDTIME [facility] Last Admin: 09/05/23 22:30 Dose: 50 mg Documented By: DAVION Buspirone HCl (Buspirone Hcl 5 Mg Tablet) 15 mg PO BID [facility] Last Admin: 09/05/23 22:27 Dose: 15 mg Documented By: DAVION Divalproex Sodium (Divalproex Sodium Er 500 Mg Tab.Er.24h) 1,000 mg PO BEDTIME [facility] Last Admin: 09/05/23 22:29 Dose: 1,000 mg Documented By: DAVION Docusate Sodium (Docusate Sodium 100 Mg Capsule) 100 mg PO BID [facility] Last Admin: 09/05/23 22:32 Dose: Not Given Documented By: DAVION Non-Admin Reason: multiple bowel movements Fluticasone Propionate (Fluticasone Propionate Nasal 16 Gm [place]) 1 spray NOSTRIL-B DAILY [facility] Last Admin: 09/05/23 08:36 Dose: Not Given Documented By: JOANA Non-Admin Reason: Med Not Available Metronidazole (Flagyl) 500 mg in 100 mls @ 100 mls/hr IV Q12H [facility] Last Infusion: 09/06/23 00:38 Dose: Infused Documented By: DAVION Ceftriaxone Sodium 1 gm/ (Sodium Chloride) 50 mls @ 100 mls/hr IV Q24H [facility] Last Infusion: 09/05/23 23:25 Dose: Infused Documented By: DAVION Loratadine (Loratadine 10 Mg Tablet) 10 mg PO DAILY [facility] Last Admin: 09/05/23 08:35 Dose: 10 mg Documented By: JOANA Lorazepam (Lorazepam 0.5 Mg Tablet) 0.5 mg PO Q6H PRN PRN Reason: Anxiety Melatonin (Melatonin 3 Mg Tablet) 6 mg PO BEDTIME PRN PRN Reason: Insomnia Minoxidil (Minoxidil 2.5 Mg Tablet) 2.5 mg PO BID [facility] Last Admin: 09/05/23 22:31 Dose: 2.5 mg Documented By: DAVION Morphine Sulfate (Morphine Sulfate 4 Mg/Ml Cartridge) 2 mg IVPUSH Q4H PRN; Protocol PRN Reason: Pain, Severe (Pain Scale 7-10) Last Admin: 09/04/23 16:40 Dose: 2 mg Documented By: TRESSA Olanzapine (Olanzapine 10 Mg Tablet) 20 mg PO BEDTIME [facility] Last Admin: 09/05/23 22:27 Dose: 20 mg Documented By: DAVION Omeprazole (Omeprazole 20 Mg Capsule.Dr) 20 mg PO BID@0630,1630 [facility] Last Admin: 09/06/23 06:09 Dose: 20 mg Documented By: DAVION Ondansetron HCl (Ondansetron Hcl 4 Mg/2 Ml Vial) 4 mg IVPUSH Q8H PRN PRN Reason: Nausea and Vomiting Oxybutynin Chloride (Oxybutynin Chloride Er 5 Mg Tab.Er.24) 15 mg PO BEDTIME [facility] Last Admin: 09/05/23 22:27 Dose: 15 mg Documented By: DAVION Polyethylene Glycol (Polyethylene Glycol 3350 17 Gm Powd.Pack) 17 gm PO BID [facility] Last Admin: 09/05/23 22:32 Dose: Not Given Documented By: DAVION Non-Admin Reason: multiple bowel movements Pravastatin Sodium (Pravastatin Sodium 40 Mg Tablet) 40 mg PO BEDTIME [facility] Last Admin: 09/05/23 22:28 Dose: 40 mg Documented By: DAVION Propranolol HCl (Propranolol Hcl La 60 Mg Cap.Sa.24h) 120 mg PO DAILY [facility]; Protocol Last Admin: 09/05/23 08:36 Dose: 120 mg Documented By: JOANA Ropinirole HCl (Ropinirole Hcl 1 Mg Tablet) 1 mg PO BEDTIME [facility] Last Admin: 09/05/23 22:29 Dose: 1 mg Documented By: DAVION Simethicone (Simethicone 80 Mg Tab.Chew) 80 mg PO BID PRN PRN Reason: abdominal distention Sodium Bicarbonate (Sodium Bicarbonate 650 Mg Tablet) 650 mg PO QID [facility] Last Admin: 09/05/23 22:31 Dose: 650 mg Documented By: DAVION Sodium Chloride (0.9 % Sodium Chloride Flush 3 Ml Syringe) 3 ml IVFLUSH QSHIFT [facility] Last Admin: 09/06/23 00:35 Dose: Not Given Documented By: DAVION Non-Admin Reason: IV Running Topiramate (Topiramate 100 Mg Tablet) 100 mg PO BID [facility] Last Admin: 09/05/23 22:31 Dose: 100 mg Documented By: DAVION Labs 09/05/23 05:18 09/05/23 05:18 Microbiology Microbiology Results: Microbiology 09/04/23 Unknown Urine Culture - Final Urine clean catch - Urine m[place] top Klebsiella pneumoniae 09/04/23 07:54 Blood Culture - Preliminary Blood - Venous No growth after 24 hours. 09/04/23 07:54 Blood Culture - Preliminary Blood - Venous No growth after 24 hours. Procedures Date of Service Date of Service: 09/06/23 Progress Note: A&P Assessment and plan (1) Abdominal pain: Status: Acute (2) Constipation: Status: Acute Plan overall patient is much improved having had multiple bowel movements. Examination is improved with minimal to no abdominal tenderness at this time. She probably still has a fair amount of stool within her colon and she continue with the Bowel regime. She tolerated the clear liquids feels ready to advance to a regular diet. This was discussed with Dr. Jacob and regular diet has been ordered. No surgical intervention recommended at this time. Time Spent With Patient Time: Total time managing care of this patient today ____ minutes. Quality Stroke Does the patient have a stroke diagnosis?: No VTE Prior VTE?: No VTE Risk Level:: Medical - moderate - high VTE Device Contraindication: N/A - Device Ordered VTE Drug Contraindication: Treatment Not Indicated
[2023-09-06] MEDS: metroNIDAZOLE/NS 500 MG/100 ML PIGGYBACK 100 MG IV (08:28)
[2023-09-06] MEDS: Nicotine 21 MG PATCH.TD24 TRANSDERMA (08:29)
[2023-09-06] MEDS: Propranolol HCL LA 60 MG CAP.SA.24H 120 MG PO (08:30)
[2023-09-06] MEDS: Loratadine 10 MG TABLET PO (08:30)
[2023-09-06] MEDS: minoxidiL 2.5 MG TABLET PO ×2 (08:30→22:19)
[2023-09-06] MEDS: Topiramate 100 MG TABLET PO ×2 (08:30→22:20)
[2023-09-06] MEDS: Sodium Bicarbonate 650 MG TABLET PO ×4 (08:30→22:21)
[2023-09-06] MEDS: busPIRone HCl 5 MG TABLET 15 MG PO ×2 (08:30→22:18)
[2023-09-06] MEDS: Docusate Sodium 100 MG CAPSULE PO (08:30)
[2023-09-06 08:50] LABS: Anion Gap 10 (12-20); Blood Urea Nitrogen 3 mg/dL (9-16); Calcium 7.6 mg/dL (8.4-10.2); Carbon Dioxide 17 mmol/L (22-29); Chloride 119 mmol/L (96-108); Estimated Glomerular Filt Rate > 60; Glucose Random 93 mg/dL (60-115); Potassium 3.2 mmol/L (3.3-5.1); Sodium 143 mmol/L (135-145)
--- NOTE | 2023-09-06 09:10 | MHC.CM.PN ---
Female 63 DX Colonic obstruction. She lives by herself in a [facility] apartment. She is independent with all functional mobility. A copy of her HCP has been requested. DP return to [facility] apartment. [facility] will provide transport home.
--- NOTE | 2023-09-06 11:05 | HO.PM.IMPN ---
Subjective Subjective Date of Service: 09/06/23 Interval History: suspected diverticulitis Review of Systems abd pain seems somewhat improving , has diarrhae Physical Exam Vital Signs: Vital Signs: Last Vital Signs Temp 96.9 F 09/06/23 07:46 Pulse 77 09/06/23 07:46 Resp 16 09/06/23 07:46 BP 108/55 L 09/06/23 07:46 Pulse Ox 98 09/06/23 07:46 O2 Del Method Room Air 09/06/23 07:46 BMI result Body Mass Index 27.6 Appearance: Alert.? Oriented X3.? . cvs: rrr, [id number] , no murmur res: clear to auscultation ,no rhonchii or wheezing abd: no rebound or guarding ,mild soarness llq , bs present. ext pulses present , no cyanosis . neuro: axo3 , nonfocal. Objective Data Active Medications Acetaminophen (Acetaminophen 325 Mg Tablet) 650 mg PO Q6H PRN PRN Reason: Pain, Mild (Pain Scale 1-3) Last Admin: 09/05/23 04:20 Dose: 650 mg Documented By: NUBIA Acetaminophen/Butalbital/Caffeine (Butalb/Acetamin/Caff 50/325/40 Tablet) 1 tab PO Q6H PRN PRN Reason: Migraine Headache Amitriptyline HCl (Amitriptyline Hcl 50 Mg Tablet) 50 mg PO BEDTIME [facility] Last Admin: 09/05/23 22:30 Dose: 50 mg Documented By: DAVION Buspirone HCl (Buspirone Hcl 5 Mg Tablet) 15 mg PO BID [facility] Last Admin: 09/06/23 08:30 Dose: 15 mg Documented By: URI Divalproex Sodium (Divalproex Sodium Er 500 Mg Tab.Er.24h) 1,000 mg PO BEDTIME [facility] Last Admin: 09/05/23 22:29 Dose: 1,000 mg Documented By: DAVION Fluticasone Propionate (Fluticasone Propionate Nasal 16 Gm [place]) 1 spray NOSTRIL-B DAILY [facility] Last Admin: 09/05/23 08:36 Dose: Not Given Documented By: JOANA Non-Admin Reason: Med Not Available Metronidazole (Flagyl) 500 mg in 100 mls @ 100 mls/hr IV Q12H [facility] Last Admin: 09/06/23 08:28 Dose: 100 mls/hr Documented By: URI Ceftriaxone Sodium 1 gm/ (Sodium Chloride) 50 mls @ 100 mls/hr IV Q24H [facility] Last Infusion: 09/05/23 23:25 Dose: Infused Documented By: DAVION Loratadine (Loratadine 10 Mg Tablet) 10 mg PO DAILY [facility] Last Admin: 09/06/23 08:30 Dose: 10 mg Documented By: URI Lorazepam (Lorazepam 0.5 Mg Tablet) 0.5 mg PO Q6H PRN PRN Reason: Anxiety Melatonin (Melatonin 3 Mg Tablet) 6 mg PO BEDTIME PRN PRN Reason: Insomnia Minoxidil (Minoxidil 2.5 Mg Tablet) 2.5 mg PO BID [facility] Last Admin: 09/06/23 08:30 Dose: 2.5 mg Documented By: URI Morphine Sulfate (Morphine Sulfate 4 Mg/Ml Cartridge) 2 mg IVPUSH Q4H PRN; Protocol PRN Reason: Pain, Severe (Pain Scale 7-10) Last Admin: 09/04/23 16:40 Dose: 2 mg Documented By: TRESSA Nicotine (Nicotine 21 Mg Patch.Td24) 21 mg TRANSDERMA DAILY [facility] Last Admin: 09/06/23 08:29 Dose: 21 mg Documented By: URI Olanzapine (Olanzapine 10 Mg Tablet) 20 mg PO BEDTIME [facility] Last Admin: 09/05/23 22:27 Dose: 20 mg Documented By: DAVION Omeprazole (Omeprazole 20 Mg Capsule.Dr) 20 mg PO BID@0630,1630 [facility] Last Admin: 09/06/23 06:09 Dose: 20 mg Documented By: DAVION Ondansetron HCl (Ondansetron Hcl 4 Mg/2 Ml Vial) 4 mg IVPUSH Q8H PRN PRN Reason: Nausea and Vomiting Oxybutynin Chloride (Oxybutynin Chloride Er 5 Mg Tab.Er.24) 15 mg PO BEDTIME [facility] Last Admin: 09/05/23 22:27 Dose: 15 mg Documented By: DAVION Pravastatin Sodium (Pravastatin Sodium 40 Mg Tablet) 40 mg PO BEDTIME [facility] Last Admin: 09/05/23 22:28 Dose: 40 mg Documented By: DAVION Propranolol HCl (Propranolol Hcl La 60 Mg Cap.Sa.24h) 120 mg PO DAILY [facility]; Protocol Last Admin: 09/06/23 08:30 Dose: 120 mg Documented By: URI Ropinirole HCl (Ropinirole Hcl 1 Mg Tablet) 1 mg PO BEDTIME [facility] Last Admin: 09/05/23 22:29 Dose: 1 mg Documented By: DAVION Simethicone (Simethicone 80 Mg Tab.Chew) 80 mg PO BID PRN PRN Reason: abdominal distention Sodium Bicarbonate (Sodium Bicarbonate 650 Mg Tablet) 650 mg PO QID [facility] Last Admin: 09/06/23 08:30 Dose: 650 mg Documented By: URI Sodium Chloride (0.9 % Sodium Chloride Flush 3 Ml Syringe) 3 ml IVFLUSH QSHIFT [facility] Last Admin: 09/06/23 08:06 Dose: Not Given Documented By: URI Non-Admin Reason: IV Running Topiramate (Topiramate 100 Mg Tablet) 100 mg PO BID [facility] Last Admin: 09/06/23 08:30 Dose: 100 mg Documented By: URI Labs 09/05/23 05:18 09/06/23 08:29 Labs: Laboratory Results - last 24 hr 09/06/23 08:29 Anion Gap 10 L Estim Creat Clear Calc 90.0 Estimated GFR > 60 Random Glucose 93 Calcium 7.6 L Microbiology Microbiology Results: Microbiology 09/04/23 07:54 Blood Culture - Preliminary Blood - Venous No growth after 48 hours. 09/04/23 07:54 Blood Culture - Preliminary Blood - Venous No growth after 48 hours. 09/04/23 Unknown Urine Culture - Final Urine clean catch - Urine [place] top Klebsiella pneumoniae Assessment and Plan (1) Constipation: Status: Acute (2) Abdominal pain: Status: Acute Plan 63-year-old female with a PMH significant for?IBS, GERD, HTN, HLD, mild intermittent asthma, and mood disorder who presents to the ED with?worsening constipation, abdominal distention and pain x3 days. Pt has a hx of GI issues including IBS and GERD, followed by Dr. Aranda with last colonoscopy in 2019. Pt states symptoms began around a week ago with constipation. Pt will be admitted to the hospital for treatment further evaluation of colonic obstruction. Suspected Duverticulitis ,constipation Patient constipation x1 week, distention and abdominal pain x3 days, not passing gas at least [address] of abdomen and pelvis suspicious for colonic obstruction, possibly d/t underlying malignant or benign stricturing given ivf ,npo,pain meds intially: then seeb by Gi -possible Suspected Duverticulitis ,constipation -added iv antibiotics and luxatives (please see Gi note for detail info). General surgery following-continue above management -no acute surgerical intervention at present. Question of gastroenteritis vs diverticulitis leukocytosis improving intially met sepsis criteria: Tachycardia, wbc's, lactic acid,which seems to be improved. added stool studies -c diff and gip panel. continue ceftriaxone and Flagyl, started 09/04/2023 Question of UTI urine culture grew gram neg tushar. UA with trace leukocyte esterase, 21-50 WBCs [place] ceftriaxone( 09/04/23). Mood disorder Continue home meds HTN BP initially soft, will hold for today HLD Continue statin Full Code DVT Prophylaxis: Pneumatic boots d/t possible procedures ongoing hospitalization need : for treatment of?likely diverticulitis vs gastroenteritis/uti: Patient required IVF, bowel rest, iv antibiotics close monitoring, and specialist consultation. Quality Stroke Does the patient have a stroke diagnosis?: No VTE Prior VTE?: No VTE Risk Level:: Medical - moderate - high VTE Device Contraindication: N/A - Device Ordered VTE Drug Contraindication: Treatment Not Indicated
[2023-09-06] MEDS: Potassium Chloride ER 20 MEQ TAB.ER.PRT PO (12:57)
--- NOTE | 2023-09-06 14:08 | P.CDIM_ITS ---
PROVIDER RESPONSE TEXT: To clarify, the appropriate diagnosis supported by the clinical indicators: Other (explain): sepsis sec to suspected diverticulitis QUERY TEXT: PHYSICIAN'S DOCUMENTATION REQUEST Date of Query: 09/06/2023 07:53 AM EST Patient Name: Blanquita Gonzalez Admit Date: 09/04/2023 Dear Kassandra Jacob, A review of the medical record indicates additional documentation may be needed. Please review below and update the documentation accordingly. Clinical indicators: H&P & Progress notes: Question of gastroenteritis patient with low grade fever, leukocytosis of 21.1 Patient meets sepsis criteria: Tachycardia, wbc's, lactic acid WBC 19.3 LA 2.2 RR 16 TEMP 98.8 Started broad spectrum antibiotics in the ED. Sepsis Systemic manifestations of infection, with 2 or more SIRS criteria which include: Fever > 100.4?F or hypothermia < 96.8?F Leukocytosis - WBC > 12,000 or leukopenia, WBC < 4,000, or > 10% bands Tachycardia- > 90 beats/minute Tachypnea- RR > 20 breaths/minute or PaCO2 < 32mmHg Based on the above information and the recognized standard for sepsis, could you please clarify if th is diagnoses is still accurate and reflective of the patient's condition to ensure quality of the medical record. Sepsis is/was present and is a clinical diagnosis based on After study (the condition) has been ruled out Other (explain) Clinically unable to determine (explain) Thank you, Catalina Benson, CCS, CDIS Use of terms such as suspected, likely, concern for, or probable (associated with a specific diagnosi s that is being evaluated, monitored, or treated as if it exists) are acceptable and can be coded in the inpatient se tting, when documented at the time of discharge. Please use your independent medical judgment in providing your response. THIS QUERY IS PART OF THE PERMANENT MEDICAL RECORD
[2023-09-06] MEDS: Meclizine HCl 12.5 MG TABLET PO (14:17)
[2023-09-06 15:24] VITALS: BP 126/66; PULSE 81; RESP 16; TEMP 36.3; O2SAT 98
[2023-09-06 15:41] LABS: CDiff Gene PCR NEGATIVE (Negative)
[2023-09-06 16:27] LABS: Adenovirus F 40/41 Not Detected (Not Detect.); Astrovirus Not Detected (Not Detect.); Campylobacter Not Detected (Not Detect.); Cryptosporidium Not Detected (Not Detect.); Cyclospora cayetanensis Not Detected (Not Detect.); E. coli EAEC Not Detected (Not Detect.); E. coli EPEC Not Detected (Not Detect.); E. coli ETEC Not Detected (Not Detect.); E. coli STEC Not Detected (Not Detect.); Entamoeba histolytica Not Detected (Not Detect.); Giardia lamblia Not Detected (Not Detect.); Norovirus GI/GII Not Detected (Not Detect.); Plesiomonas shigelloides Not Detected (Not Detect.); Rotavirus A Not Detected (Not Detect.); Salmonella Not Detected (Not Detect.); Sapovirus Not Detected (Not Detect.); Shigella sp./EIEC Not Detected (Not Detect.); Vibrio Not Detected (Not Detect.); Vibrio Cholerae Not Detected (Not Detect.); Yersinia enterocolitica Not Detected (Not Detect.)
--- NOTE | 2023-09-06 18:36 | PC.NURSE ---
Pt A&OX4. [place] to command 4/5 sensation intact. LS dim denies SOB or CP. Abdomen round semi firm BS+X4 denies nausea/vomiting. Diet changed this am tolerating solid food. Continues with loose stool. OOB to bathroom with assist. Stool sample sent per order. c/o vertigo, per pt has had in past and taken Meclizine. Dr Jacob notified 12.5mg Meclizine ordered and given in afternoon per pt with little effect. IV fluids dc'd this am. OOB to chair in afternoon. Will continue to monitor and report changes
[2023-09-06] MEDS: cefTRIAXone sodium 1 GM in 0.9 % Sodium Chloride 50 ML IV (22:10)
[2023-09-06] MEDS: Divalproex Sodium ER 500 MG TAB.ER.24H 1000 MG PO (22:17)
[2023-09-06] MEDS: oxyBUTYnin chloride ER 5 MG TAB.ER.24 15 MG PO (22:18)
[2023-09-06] MEDS: Pravastatin Sodium 40 MG TABLET PO (22:19)
[2023-09-06] MEDS: rOPINIRole HCL 1 MG TABLET PO (22:19)
[2023-09-06] MEDS: Amitriptyline HCl 50 MG TABLET PO (22:19)
[2023-09-06] MEDS: OLANZapine 10 MG TABLET 20 MG PO (22:20)
[2023-09-06] MEDS: 0.9 % Sodium Chloride Flush 3 ML SYRINGE IVFLUSH (22:23)
[2023-09-07] MEDS: metroNIDAZOLE/NS 500 MG/100 ML PIGGYBACK 100 MG IV
[2023-09-07 03:59] VITALS: BP 117/56; PULSE 78; RESP 16; TEMP 36.1; O2SAT 97
[2023-09-07] MEDS: Omeprazole 20 MG CAPSULE.DR PO (06:20)
[2023-09-07 06:58] LABS: Hematocrit 37.4 % (37.0-47.0); Hemoglobin 12.5 g/dl (12.0-16.0); Mean Corpuscular HGB Conc 33.4 g/dl (31.0-35.0); Mean Corpuscular Hemoglobin 30.4 pg (27.0-33.0); Platelet Count 324 X10*3/uL (160-400); Red Blood Count 4.11 X10*6/uL (4.20-5.50); Red Cell Distribution Width 14.9 % (11.0-16.0); White Blood Count 9.9 X10*3/uL (4.8-10.8)
[2023-09-07 07:15] VITALS: BP 90/60; PULSE 70; RESP 16; TEMP 36.1; O2SAT 95
[2023-09-07 07:21] LABS: Anion Gap 12 (12-20); Blood Urea Nitrogen 7 mg/dL (9-16); Calcium 8.5 mg/dL (8.4-10.2); Carbon Dioxide 17 mmol/L (22-29); Chloride 118 mmol/L (96-108); Creatinine Clr Calc Pharmacy 77.4; Estimated Glomerular Filt Rate > 60; Glucose Random 93 mg/dL (60-115); Potassium 3.7 mmol/L (3.3-5.1); Sodium 143 mmol/L (135-145)
[2023-09-07] MEDS: metroNIDAZOLE 500 MG TABLET PO (10:29)
[2023-09-07] MEDS: Sodium Bicarbonate 650 MG TABLET PO (10:29)
[2023-09-07] MEDS: Topiramate 100 MG TABLET PO (10:29)
[2023-09-07] MEDS: Loratadine 10 MG TABLET PO (10:30)
[2023-09-07] MEDS: Nicotine 21 MG PATCH.TD24 TRANSDERMA (10:30)
[2023-09-07] MEDS: busPIRone HCl 5 MG TABLET 15 MG PO (10:30)
[2023-09-07] MEDS: 0.9 % Sodium Chloride Flush 3 ML SYRINGE IVFLUSH (10:30)
[2023-09-07] MEDS: Fluticasone Propionate Nasal 16 GM SPRAY 1 SPRAY NOSTRIL-B (10:30)
--- NOTE | 2023-09-07 10:30 | P.DS_ITS ---
DS: Providers Provider Date of Service: 09/07/23 Date of admission: 09/04/23 12:53 Primary care physician: Kevin Muñoz MD Consults: 09/04/23 12:58 Consult to Gastroenterology Routine Consulting Provider: Hesham Clark Reason for consultation: Colonic obstruction Consult to General Surgery Routine Consulting Provider: [facility] Reason for consultation: Colonic obstruction DS: Diagnosis Discharge Diagnosis (1) Constipation: Status: Acute (2) Abdominal pain: Status: Acute DS: Summary Hospital Course Hospital Course: from initial hpi: 63-year-old female with a PMH significant for IBS, GERD, HTN, HLD, mild intermittent asthma, and mood disorder who presents to the ED with worsening constipation, abdominal distention and pain x3 days. Pt has a hx of GI issues including IBS and GERD, followed by Dr. Aranda with last colonoscopy in 2019. Pt states symptoms began around a week ago with constipation. Was having infrequent small, hard bowel movements with last movement three days ago. Has not been passing gas today, not sure if she did yesterday. Also reports three days of worsening abdominal distention and left lower abdominal pain. Some nausea yesterday and today but no vomiting. She has been eating very little the past three days and been taking home laxatives to no effect. Reports a similar episode of constipation approximately 1 year ago that resolved with home remedies, but notes this current episode is much more severe and she is in much greater pain. Denies chest pain/pressure, palpitations. No shortness of breath . Spoke with General surgery who said patient may need diverting colostomy, but there is currently no need for emergent surgery. In the ED pt with elevated temperature up to 100.1, tachycardia to 97 and initially soft BP as low as 92/41, satting at 95% on RA. Labs were significant for leukocytosis of 21.1, potassium 3.2, lactic acid 2.2 with repeat 1.0, C- reactive protein 10.53. UA possibly positive for UTI with trace amount of leukocyte esterase with 21-[address] abdomen and pelvis found prominent distension of much of the colon with fluid and stool with transition to decreased caliber in the region of the mid sec avoid, apparent suspicious for colonic obstruction could be due to underlying malignant or benign stricturring. In the ED patient was given a Fleet enema and then a soapsuds enema without any benefit. ED clinician spoke to gastroenterology recommended hospitalization and a trial of Hold bowel prep. Pt was treated with enema, IVF, ceftriaxone, and metronidazole. Pt will be admitted to the hospital for treatment further evaluation of colonic obstruction. hospital course: Patient was admitted for suspected acute diverticulitis. Was treated with ceftriaxone Flagyl. Diet was slowly advanced and patient tolerated well. On discharge will continue 5 more days of cefuroxime and Flagyl. Also noted to have acute urinary tract infection growing Klebsiella. On discharge will continue with cefuroxime. Patient will also follow up with GI as outpatient for mood disorders continue Depakote. For hyperlipidemia is continue statin. For chronic metabolic acidosis will be started on sodium bicarb and should be followed up outpatient. Time Attestation Discharge coordination time: Greater than 30 minutes Quality: Safe Use of Opioids Does Pt have an Active Cancer Diagnosis on the Problem List?: No Quality: Stroke Does the patient have a stroke diagnosis?: No Physical Exam Vital Signs: Vital Signs: Last Vital Signs Temp 96.9 F 09/07/23 07:15 Pulse 70 09/07/23 07:15 Resp 16 09/07/23 07:15 BP 90/60 09/07/23 07:15 Pulse Ox 95 09/07/23 07:15 O2 Del Method Room Air 09/07/23 07:15 BMI result Body Mass Index 27.6 Appearance: Alert.? Oriented X3.? . cvs: rrr, [id number] , no murmur res: clear to auscultation ,no rhonchii or wheezing abd: no rebound or guarding bs present. ext pulses present , no cyanosis . neuro: axo3 , nonfocal. DS: Data Data Completed and Pending Labs on day of discharge: Laboratory Results - last 24 hr 09/06/23 09/07/23 14:16 06:31 WBC 9.9 RBC 4.11 L Hgb 12.5 Hct 37.4 MCV 91.0 MCH 30.4 MCHC 33.4 RDW 14.9 Plt Count 324 D MPV 11.0 Absolute Nucleated RBC 0.000 Nucleated RBC % (auto) 0.0 Sodium 143 Potassium 3.7 Chloride 118 H Carbon Dioxide 17 L Anion Gap 12 BUN 7 L Creatinine 0.64 Estim Creat Clear Calc 77.4 Estimated GFR > 60 Random Glucose 93 Calcium 8.5 D Stl C. cayetanensis PCR Not Detected Stool Rotavirus A PCR Not Detected Stl Adenov F 40/41 PCR Not Detected Stool Astrovirus (PCR) Not Detected Stool Campylobacter PCR Not Detected Stool Cryptosporidium PCR Not Detected Stl Sh Tox Pr E STEC PCR Not Detected Stool E coli O157 PCR Not applicable Stl Enterotoxigenic E PCR Not Detected Stool EPEC (PCR) Not Detected Stool EAEC (PCR) Not Detected Stl E. histolytica PCR Not Detected Stool Giardia Lamblia PCR Not Detected Stl P. shigelloides PCR Not Detected Stool Salmonella PCR Not Detected Stool Sapovirus (PCR) Not Detected Stl Shigella/EIEC PCR Not Detected St Y.enterocolitica PCR Not Detected Stool Vibrio (PCR) Not Detected Stl Vibrio cholerae PCR Not Detected Stl Norovirus GI/GII PCR Not Detected C. difficile Tox B Gene NEGATIVE Preliminary micro results at discharge 09/04/23 07:54 Blood Culture - Preliminary Blood - Venous No growth after 48 hours. 09/04/23 07:54 Blood Culture - Preliminary Blood - Venous No growth after 48 hours. Discharge Plan Discharge Anticipated Discharge Date/Time: 09/07/23 10:26 Patient Disposition: Home, Self-Care Discharge Diagnosis: constipation Referrals: Kevin Muñoz MD [Primary Care Provider] - 1 Week Discharge Medications: New metronidazole 500 mg Tablet 500 mg PO Q8H Qty: 15 0RF sodium bicarbonate 650 mg Tablet 650 mg PO TIDAC Qty: 90 0RF cefuroxime axetil 500 mg tablet 500 mg PO BID Qty: 10 0RF Continued loratadine 10 mg tablet 10 mg PO DAILY 90 Days Qty: 90 3RF fluticasone propionate 50 mcg/actuation spray,suspension 1 spray intranasal DAILY Qty: 16 2RF calcium citrate-vitamin D3 315 mg-5 mcg (200 unit) tablet 1 tab PO BID 30 Days Qty: 60 11RF Prolia 60 mg/mL syringe 60 mg subcut [id number] 1 Days Qty: 1 1RF aspirin 325 mg tablet 325 mg PO DAILY amitriptyline 25 mg tablet 50 mg PO BEDTIME nystatin 100,000 unit/gram cream 1 appl topical BID topiramate 100 mg tablet 100 mg PO BID buspirone 15 mg tablet 15 mg PO BID melatonin 5 mg tablet,disintegrating 5 mg PO BEDTIME simethicone [Gas Relief (simethicone)] 80 mg tablet,chewable 80 mg PO BID PRN (Reason: abdominal distention) diphenoxylate-atropine 2.5-0.025 mg tablet 1 tab PO QID PRN (Reason: Diarrhea) oxybutynin chloride 15 mg tablet extended release 24hr 15 mg PO BEDTIME ropinirole 1 mg tablet 1 mg PO BEDTIME Rx Instructions: Take 1-3 hours before bedtime lovastatin 40 mg tablet 40 mg PO BEDTIME propranolol 120 mg capsule,extended release 24 hr 120 mg PO DAILY [id number] [Fioricet] 50-300-40 mg capsule 1 cap PO Q6H PRN (Reason: Migraine Headache) lorazepam [Ativan] 0.5 mg tablet 0.5 mg PO Q6H PRN (Reason: Anxiety) olanzapine [Zyprexa] 20 mg tablet 20 mg PO BEDTIME minoxidil 2.5 mg tablet 2.5 mg PO BID divalproex 500 mg tablet extended release 24 hr 1,000 mg PO BEDTIME polyethylene glycol 3350 17 gram powder in packet 17 g PO BEDTIME omeprazole 20 mg capsule,delayed release(DR/EC) 20 mg PO BID Discharge Orders: Discharge Order (Routine); Ordered 09/07/23 Ordered By: Jalen Guadalupe Diet: Advance to usual diet Activity on Discharge: As tolerated Stand Alone Forms: Patient Portal Discharge page Care Plan Goals: recovery Health Concerns: acidosis, uti, colitis Plan of Treatment: ceftin, flagyl for 5 days, start sodium bicarb and monitor bmp, follow up with gi Assessment: see above
--- NOTE | 2023-09-07 11:08 | MHC.CM.PN ---
Patient is discharged today to [facility]. Spoke with power project manager, Freya. [facility] worker will provide transportation home at 1pm this afternoon.
== END 2023-09-07 13:22 | disposition home or self-care (01) | DRG 720 ==
LOC: HO.ED 08:07 → HO.EDOVER 13:01 → HO.S3 09-05 06:40
PROVIDERS: Internal Medicine; Admitting Provider Student in an Organized Health Care Education/Training Program; Emergency Provider Emergency Medicine; PCP Internal Medicine; Visit Provider Internal Medicine
DX: A41.9 Sepsis, unspecified organism (principal); E78.5 Hyperlipidemia, unspecified; B96.1 Klebsiella pneumoniae [K. pneumoniae] as the cause of diseases classified elsewhere; K57.32 Diverticulitis of large intestine without perforation or abscess without bleeding; F39 Unspecified mood [affective] disorder; J45.20 Mild intermittent asthma, uncomplicated; K59.04 Chronic idiopathic constipation; N39.0 Urinary tract infection, site not specified; Z79.82 Long term (current) use of aspirin; Z79.51 Long term (current) use of inhaled steroids; Z79.899 Other long term (current) drug therapy
CPT/HCPCS: 36415; 74177; 80048; 80076; 81001; 83605; 83690; 83735; 85025; 85027; 86140; 87040; 87086; 87088; 87186; 87493; 87507; 99285; J0696; J1836; J2270; J3480

== ENCOUNTER → 2023-09-04 12:53 | Outpatient (BNV) | payer OTHER, SELFPAY | PROVIDERS: Admitting Provider Student in an Organized Health Care Education/Training Program; Emergency Provider Emergency Medicine; PCP Internal Medicine; Visit Provider Physician Assistant Surgical | DX: R10.84 Generalized abdominal pain (principal); K59.04 Chronic idiopathic constipation | CPT/HCPCS: 99222; 99232 ==

== ENCOUNTER → 2023-09-04 12:53 | Outpatient (BNV) | payer OTHER, SELFPAY | PROVIDERS: Admitting Provider Student in an Organized Health Care Education/Training Program; Emergency Provider Emergency Medicine; PCP Internal Medicine; Visit Provider Student in an Organized Health Care Education/Training Program | DX: K59.04 Chronic idiopathic constipation (principal); R10.84 Generalized abdominal pain | CPT/HCPCS: 99223; 99232; 99239 ==

== ENCOUNTER 2023-09-28 11:17 | Outpatient (REF) | payer OTHER, SELFPAY ==
--- NOTE | ~2023-09-28 | MM_ITS ---
EXAMINATION: MM SCREENING DIGITAL BREAST TOMOSYNTHESIS, BILATERAL CLINICAL INFORMATION: Screening. Asymptomatic. COMPARISON: Mammography: This study is compared with prior exams dating back to 2018. TECHNIQUE: Digital breast tomosynthesis is performed in both the craniocaudal and mediolateral oblique views along with computer-aided detection (CAD). Synthesized 2D images are generated from the tomosynthesis. FINDINGS: There are scattered areas of fibroglandular density (ACR BI-RADS breast composition Category b). There are no significant masses, abnormal calcifications, or other abnormalities. There is a tissue marker present in the left breast from prior benign percutaneous biopsy. MM/MM tomosynthesis screening BI IMPRESSION: No mammographic evidence of malignancy. ASSESSMENT: BI-RADS BI-RADS 2 - Benign Findings RECOMMENDATION: Routine annual mammography screening. 1 year F/U This examination should not preclude the clinical evaluation of a suspicious palpable abnormality. This patient's information was entered into a reminder system with a target due date for their next mammogram.
== END 2023-09-28 11:18 | disposition home or self-care (01) ==
LOC: HO.MAMMO 11:17
PROVIDERS: PCP Internal Medicine; Visit Provider Internal Medicine
DX: Z12.31 Encounter for screening mammogram for malignant neoplasm of breast (principal)
CPT/HCPCS: 77063; 77067

== ENCOUNTER → 2023-09-28 11:30 | Outpatient (BNV) | payer OTHER, SELFPAY | PROVIDERS: PCP Internal Medicine; Visit Provider Radiology Diagnostic Radiology | DX: Z12.31 Encounter for screening mammogram for malignant neoplasm of breast (principal) | CPT/HCPCS: 77063; 77067 ==

== ENCOUNTER 2023-11-04 15:44 | Outpatient (AMB) | payer OTHER, SELFPAY ==
--- NOTE | 2023-11-04 15:44 | A.OFFVIS_ITS ---
Intake Intake Visit Reasons: Overactive Bladder- follow up Intake Note: Patient presents today for a follow-up Meds- Oxybutinin, Allergies to Antibiotic- No Known Allergies Blood Thinner- Aspirin Toolman Required: No Allergies clozapine [From Clozaril] Allergy (Mild, Verified 11/04/23 15:47) UNKNOWN fluoxetine [From Prozac] Allergy (Mild, Verified 11/04/23 15:47) ANXIETY lithium [[place]] Allergy (Mild, Verified 11/04/23 15:47) UNKNOWN oxcarbazepine [From Trileptal] Allergy (Mild, Verified 11/04/23 15:47) ANXIETY carbamazepine [Tegretol] Allergy (Unknown, Verified 11/04/23 15:47) Unknown quetiapine [Seroquel] Allergy (Unknown, Verified 11/04/23 15:47) unknown ziprasidone [Geodon] Allergy (Unknown, Verified 11/04/23 15:47) Unknown CINNAMON TOAST CRUNCH Allergy (Severe, Uncoded 11/04/23 15:47) THROAT SWELLING FRUIT LOOPS Allergy (Severe, Uncoded 11/04/23 15:47) THROAT SWELLING KIDNEY BEANS Allergy (Severe, Uncoded 11/04/23 15:47) THROAT SWELLING Clozaril Allergy (Unknown, Uncoded 11/04/23 15:47) Unknown Environmental Allergy (Unknown, Uncoded 11/04/23 15:47) unknown Floxin Otic Allergy (Unknown, Uncoded 11/04/23 15:47) unknown [place] Carbonate Allergy (Unknown, Uncoded 11/04/23 15:47) Unknown Narvane Allergy (Unknown, Uncoded 11/04/23 15:47) unknown Some cereals Allergy (Unknown, Uncoded 11/04/23 15:47) Unknown Spider Bites Allergy (Unknown, Uncoded 11/04/23 15:47) unknown Medication List - Last Reconciled 11/04/23 by Zack Jha MD amitriptyline 50 mg PO BEDTIME aspirin 325 mg PO DAILY buspirone 15 mg PO BID pmpulooaei-hjmerpdwbhhww-utuo 50-300-40 mg (Fioricet) 1 cap PO Q6H PRN calcium citrate-vitamin D3 315 mg-5 mcg (200 unit) 1 tab PO BID 30 days cefuroxime axetil 500 mg PO BID denosumab (Prolia) 60 mg subcut [id number] 1 day diphenoxylate-atropine 2.5-0.025 mg 1 tab PO QID PRN divalproex ER 1,000 mg PO BEDTIME fluticasone propionate 50 mcg/actuation 1 spray intranasal DAILY loratadine 10 mg PO DAILY 90 days lorazepam (Ativan) 0.5 mg PO Q6H PRN lovastatin 40 mg PO BEDTIME melatonin 5 mg PO BEDTIME metronidazole 500 mg PO Q8H minoxidil 2.5 mg PO BID nystatin 1 appl topical BID olanzapine (Zyprexa) 20 mg PO BEDTIME omeprazole 20 mg PO BID oxybutynin chloride ER 15 mg PO BEDTIME polyethylene glycol 3350 17 grams PO BEDTIME propranolol ER 120 mg PO DAILY ropinirole 1 mg PO BEDTIME simethicone (Gas Relief (simethicone)) 80 mg PO BID PRN sodium bicarbonate 650 mg PO TIDAC topiramate 100 mg PO BID HPI HPI Comments History of Present Illness Details Blanquita is a pleasant female. She is a patient of Dr. Muoñz. She is seen for the following urologic conditions. - overactive bladder Telemedicine Evaluation 15 min Consultation Doximity Rosie Video attempted Persistent overactive bladder Does well with oxybutynin Overactive bladder Longstanding urinary urgency with frequency Occasional nocturia Stable storage symptoms Current therapy oxybutynin 15 mg daily Follow-up 6 months PFS Medical History HLD (hyperlipidemia) HTN (hypertension) Headache Anxiety Depression Schizophrenia Habitual snoring Asthma IBS (irritable bowel syndrome) Endobronchial mass Vitamin D deficiency Osteoporosis Back pain Surgical History History of bladder surgery History of tubal ligation Family History Father Back problem Diabetes mellitus Cataract Mother Diabetes mellitus Maternal Grandfather No problems noted. Maternal Grandmother No problems noted. Paternal Grandfather No problems noted. Paternal Grandmother No problems noted. Social History Household Members: None Housing: Apartment Do you presently have visiting nurse or other home services: No Alcohol intake: former Patient Tobacco Use Status: Current everyday Tobacco user Tobacco use type: Cigarette Cigarette Packs Per Day: 1 Cigarettes Per Day: 20.0 Years Smoked: 35 e-Cigarette/Vaping Use: Never Used Substance Use Type: Crack/Cocaine service: No Current occupational status: disabled Cognitive needs: No Hearing needs: No Vision needs: Yes Review of Systems Const All systems reviewed & are unremarkable except as noted in HPI and below Reports no additional complaints Resp Reports no additional complaints GI Reports no additional complaints Reports as per HPI Musc Reports no additional complaints Physical Exam Telemedicine evaluation Appropriate responses Regular breathing rate and rhythm HEENT Head: Yes normal to inspection Ears: hearing grossly normal bilaterally Eyes General: appearance normal, both eyes and all related structures Neck Neck: Yes normal visual inspection Chest Chest palpation & inspection: normal inspection of the chest Resp Effort & Inspection: normal respiratory effort and able to speak in complete sentences Assessment & Plan Assessment & Plan (1) Overactive bladder: Code(s): N32.81 - Overactive bladder Plan Six-month follow-up Medications: Changed From oxybutynin chloride ER 15 mg PO BEDTIME overactive bladder To oxybutynin chloride ER 15 mg PO BEDTIME 90 tabs 1RF overactive bladder 90 days Patient Instructions: Imaging studies, laboratory and physical exam results were discussed and reviewed in detail. No major barriers to patient understanding were identified. An opportunity to ask questions regarding the treatment plan was provided. All questions were answered. The patient expressed understanding and agreement with the above treatment plan. The patient is aware they should contact our office by phone for worsening of their current condition or the appearance of new urologic symptoms. Compliance is encouraged with any medications and followup testing that is ordered. It is a privilege to participate in the urologic care of your patient. If you have any questions or concerns regarding treatment for the above conditions, or other urologic issues, please do not hesitate to contact me. The office telephone contact is [phone]. This note is constructed using voice recognition software. While every effort has been made to ensure accuracy nutrition worker errors may have been included. Yours sincerely, Dr Zack Jha MD, [facility] - Urology Providers of Expert, Compassionate Care for the Genitourinary System Telehealth Telehealth Location of provider rendering services: practice address Location of patient: address on file Patient Identification confirmed using: Name, : Yes Telehealth method: video Patient verbally consented to treatment: Yes Patient verbally consented to billing insurance company: Yes Patient informed of any privacy concerns related to visit: Yes Coding Level of Care Code Tele Est Pt Level 4 (92872) Diagnoses Overactive bladder N32.81
--- OUTSIDE RECORDS SUMMARY | 2023-11-04 15:45 | XMS_ITS | Patient Health Record ---
Author Name Unknown Organization [facility] Address [address] [place] [phone] Care Team Providers Care Speech Clinician Name Role Phone Toni HARDING, [facility] Primary Care Provider Siddharth Alexander Jr Unavailable ALLERGIES Allergen (clinical drug ingredient) Drug/Non Drug Allergy documented on EMR Reaction Allergy Type Onset Date Status Steroids steroids (uncoded) Unknown Allergy A ctive RESULTS Component Value Reference Range Notes FL barium swallow Reviewed date:06/01/2023 09:02:24 AM Interpretation: Performing Lab: Notes/Report: [address] [address] Fluoroscopy Report Signed Patient: Mars Gonzalez MR#: [id number] : 1960 Acct:[id number] Age/Sex: 63 / F ADM Date: 05/27/23 Loc: HO.XRAY Attending Dr: Siddharth Ware Ordering Physician: SIDDHARTH WARE MD Date of Service: 05/27/23 Procedure(s): FL barium swallow Accession Number(s): [id number] cc: SIDDHARTH WARE MD EXAMINATION: FL BARIUM [...] in OV> 05/27/23 1713 DD/ 1017 TD/TT: Concrete Puddler: PRIETO REASON FOR REFERRAL No Information MEDICATIONS [...] Omeprazole 20 MG TAKE 1 CAPSULE BY [facility] TWICE DAILY for 30 Active IMMUNIZATIONS [...] Problem Colon cancer screening (Z12.11) Active confirmed [id number] Problem Diverticulitis (K57.92) Active confirmed Problem Gastroesophageal reflux disease without esophagitis (K21.9) Active confirmed [id number] Problem Irritable bowel syndrome with both constipation and diarrhea (K58.2) Active confirmed [id number] Encounters Encounter Location Date Provider Diagnosis [facility] [address] [place] [phone] 02/18/2023 Siddharth Ware Jr Other dysphagia R13.19 ; Gastroesophageal reflux disease without esophagitis K21.9 and Irritable bowel syndrome with both constipation and diarrhea K58.2 [facility] [address] [place] [phone] 12/03/2022 Siddharth Ware Jr [facility] [address] [place] [phone] 04/11/2023 Siddharth Ware Jr [facility] [address] [place] [phone] 06/01/2023 Siddharth Ware ASSESSMENTS Encounter Date Diagnosis Assessment Notes Treatment [...] Insured Coverage Start Date Coverage End Date [facility] [address] [address] [place], [place] [id number] MARS PATEL Self - patient is the insured MEDICAID OF [facility] [address] [place] [address] [id number] MARS PATEL Self - patient is the insured MEDICAL (GENERAL) HISTORY Medical History History ICD Code colonoscopy 12/14/19, no polyps, ten-year followup irritable bowel syndrome with both const ipation and diarrhea Schizo-affective disorder with history o f psychosis depression anxiety 2016 right ankle fracture osteoporosis gastroesophageal reflux disease, endosco py 12/14/19, normal Dysphagia Surgical History Surgery Date(Month/Year) tubal ligation ankle 2017
== END 2023-11-04 16:30 | disposition home or self-care (01) ==
LOC: HO.HUSH 15:44
PROVIDERS: PCP Internal Medicine; Visit Provider Urology
DX: N32.81 Overactive bladder (principal)
CPT/HCPCS: 99213

== ENCOUNTER → 2023-11-04 15:44 | Outpatient (BNVA) | payer OTHER, SELFPAY | PROVIDERS: PCP Internal Medicine; Visit Provider Urology ==

== ENCOUNTER 2023-11-19 09:31 | Outpatient (REF) | payer OTHER, SELFPAY ==
[2023-11-19 11:20] LABS: Appearance Urine Cloudy; Color Urine Yellow; Glucose Urine UA Negative (Negative); Leukocyte Esterase Urine Large (3+) (Negative); Nitrite Urine Positive (Negative); PH 6.5 (5.0-9.0); UMIC TRIGGER UA YES; Urine Blood Negative (Negative); Urine Ketones Negative (Negative); Urine Protein Negative (Neg-Trace)
[2023-11-19 11:26] LABS: Bacteria Urine 4+ (None Seen); Hyaline Casts Urine 0-2 /LPF (0-2); RBC Urine 0-2 /HPF (0-2); Squamous Epithelial Cell Urine 0-2 /HPF (0-2); WBC Urine >50 /HPF (0-5)
== END 2023-11-19 09:32 | disposition home or self-care (01) ==
LOC: HO.HMGCLDS 09:31
PROVIDERS: PCP Internal Medicine; Visit Provider Urology
DX: N32.81 Overactive bladder (principal)
CPT/HCPCS: 81001; 87086; 87088; 87186

== ENCOUNTER 2023-12-14 14:40 | Outpatient (REF) | payer OTHER, SELFPAY ==
[2023-12-14 16:35] LABS: Calcium 9.7 mg/dL (8.4-10.2)
[2023-12-14 16:40] LABS: Albumin Level 4.1 g/dL (3.5-5.0); Anion Gap 11 (12-20); Blood Urea Nitrogen 13 mg/dL (9-16); Calcium 9.7 mg/dL (8.4-10.2); Carbon Dioxide 25 mmol/L (22-29); Chloride 110 mmol/L (96-108); Estimated Glomerular Filt Rate > 60; Glucose Random 152 mg/dL (60-115); Potassium 3.5 mmol/L (3.3-5.1); Sodium 142 mmol/L (135-145)
== END 2023-12-14 14:41 | disposition home or self-care (01) ==
LOC: HO.HMGCLDS 14:40
PROVIDERS: Visit Provider Internal Medicine Endocrinology, Diabetes & Metabolism
DX: M81.0 Age-related osteoporosis without current pathological fracture (principal)
CPT/HCPCS: 36415; 80048; 82040; 82310

== ENCOUNTER 2023-12-20 12:42 | Outpatient (REF) | payer OTHER, SELFPAY ==
--- NOTE | ~2023-12-20 | MM_ITS ---
EXAMINATION: BONE DENSITOMETRY CLINICAL INDICATION: Age-related osteoporosis without current pathological fracture. COMPARISON: Previous BD dated 11/12/2021 and baseline BD dated 07/22/2017. TECHNIQUE: Using a Podclass DXA System (software version: 13.1) manufactured by [employer], dual-energy x-ray absorptiometry was performed of the lumbar spine and left hip. The images are of good technical quality. Summary results are attached. FINDINGS: LEFT FEMUR, NECK: Current: BMD 0.798 g/cm2, Z-score -0.3, T-score -1.7, osteopenia. Prior: BMD 0.818 g/cm2. Baseline: BMD 0.792 g/cm2. LEFT FEMUR, TOTAL: Current: BMD 0.873 g/cm2, Z-score 0.0, T-score -1.1, osteopenia, 1.0% increase from previous, 2.2% increase from baseline (<5% change is not significant). Prior: BMD 0.864 g/cm2. Baseline: BMD 0.854 g/cm2. AP SPINE L1-L2 (excluding L3 and L4): The data of L1-L4 has been changed to exclude the L3 and L4 vertebral bodies, because degenerative sclerosis at these levels may cause overestimation of lumbar spine density. Current: BMD 0.874 g/cm2, Z-score -1.0, T-score -2.4, osteopenia, 3.3% increase from previous, 1.0% increase from baseline (<5% change is not significant). Prior: BMD 0.846 g/cm2. Baseline: BMD 0.865 g/cm2. IDENTIFIED RISK FACTORS: Early menopause, height loss, history of fracture (adult), osteoporosis, secondary osteoporosis, tobacco user (current smoker). HISTORY OF FRACTURE: Ankle. MEDICATIONS: Calcium, multivitamin, ERT/SERMS. MM/XR DEXA axial skeleton IMPRESSION: 1. DIAGNOSIS: Osteopenia based on the lowest T-score value of -2.4 in the lumbar spine applying World Health Organization criteria. 2. 10-YEAR FRACTURE RISK PREDICTION, FRAX: Not performed in this patient on estrogen or bone building treatments. 3. Treatment Recommendations: NOF guidelines recommend consideration for treatment in postmenopausal women and men age 50 and older presenting with the following: -A hip or vertebral (clinical or morphometric) fracture. -T-score less than or equal to -2.5 at the femoral neck or spine after appropriate evaluation to exclude secondary causes. -Low bone mass at the hip or spine and a 10-year fracture probability by FRAX of greater than or equal to 3% for hip fracture or greater than or equal to 20% for major osteoporotic fracture based on the [place] adapted WHO algorithm. 4. Other Recommendations: All treatment decisions require clinical judgment and consideration of individual patient factors, including patient preferences, comorbidities, previous drug use, risk factors not captured in the FRAX model (e.g. frailty, falls, vitamin D deficiency, increased bone turnover, interval significant decline in bone density) and possible under or overestimation of fracture risk by FRAX. Additional medical evaluation for secondary cause of low bone mineral density may be appropriate. FUTURE SCAN RECOMMENDATION: People with diagnosed cases of osteoporosis or at high risk for fracture should have regular bone mineral density tests. For patients eligible for Medicare, routine testing is allowed once every 2 years. The testing frequency can be increased to one year for patients who have rapidly progressing disease, those who are receiving or discontinuing medical therapy to restore bone mass, or have additional risk factors.
== END 2023-12-20 12:43 | disposition home or self-care (01) ==
LOC: HO.MAMMO 12:42
PROVIDERS: PCP Internal Medicine; Visit Provider Internal Medicine Endocrinology, Diabetes & Metabolism
DX: Z13.820 Encounter for screening for osteoporosis (principal); M81.0 Age-related osteoporosis without current pathological fracture; Z78.0 Asymptomatic menopausal state
CPT/HCPCS: 77080

== ENCOUNTER 2023-12-27 13:32 | Outpatient (AMB) | payer OTHER, SELFPAY ==
--- NOTE | 2023-12-27 13:43 | AM.OFFVISNUR ---
Intake Intake Visit Reasons: Prolia Allergies clozapine [From Clozaril] Allergy (Mild, Verified 11/04/23 15:47) UNKNOWN fluoxetine [From Prozac] Allergy (Mild, Verified 11/04/23 15:47) ANXIETY lithium [[place]] Allergy (Mild, Verified 11/04/23 15:47) UNKNOWN oxcarbazepine [From Trileptal] Allergy (Mild, Verified 11/04/23 15:47) ANXIETY carbamazepine [Tegretol] Allergy (Unknown, Verified 11/04/23 15:47) Unknown quetiapine [Seroquel] Allergy (Unknown, Verified 11/04/23 15:47) unknown ziprasidone [Geodon] Allergy (Unknown, Verified 11/04/23 15:47) Unknown CINNAMON TOAST CRUNCH Allergy (Severe, Uncoded 11/04/23 15:47) THROAT SWELLING FRUIT LOOPS Allergy (Severe, Uncoded 11/04/23 15:47) THROAT SWELLING KIDNEY BEANS Allergy (Severe, Uncoded 11/04/23 15:47) THROAT SWELLING Clozaril Allergy (Unknown, Uncoded 11/04/23 15:47) Unknown Environmental Allergy (Unknown, Uncoded 11/04/23 15:47) unknown Floxin Otic Allergy (Unknown, Uncoded 11/04/23 15:47) unknown [place] Carbonate Allergy (Unknown, Uncoded 11/04/23 15:47) Unknown Narvane Allergy (Unknown, Uncoded 11/04/23 15:47) unknown Some cereals Allergy (Unknown, Uncoded 11/04/23 15:47) Unknown Spider Bites Allergy (Unknown, Uncoded 11/04/23 15:47) unknown Office Meds Prolia 60 mg/mL subcutaneous syringe Performing Provider: Hesham Scott MD Performing Location: [facility] Administered by: Shanda Prado LPN on 12/27/23 13:43 Dose Route Admin Location Dispensed Lot Number Expiration Date [employer] 60 mg subcut Both upper arms 1 mL [id number] 04/01/26 AMGEN Coding Assessment & Plan Assessment & Plan Orders: Orders AMB Denosumab Injection Patient Supplied Today M81.0 - Age-related osteoporosis without current pathological fracture
== END 2023-12-27 13:42 | disposition home or self-care (01) ==
PROVIDERS: PCP Internal Medicine; Visit Provider Internal Medicine Endocrinology, Diabetes & Metabolism
DX: M81.0 Age-related osteoporosis without current pathological fracture (principal)

== ENCOUNTER → 2023-12-27 13:32 | Outpatient (BNVA) | payer OTHER, SELFPAY | PROVIDERS: PCP Internal Medicine; Visit Provider Internal Medicine Endocrinology, Diabetes & Metabolism | DX: M81.0 Age-related osteoporosis without current pathological fracture (principal) | CPT/HCPCS: 96372; J0897 ==

== ENCOUNTER 2024-01-23 11:53 | Outpatient (AMB) | payer OTHER, SELFPAY ==
[2024-01-23 11:59] VITALS: BP 112/70; PULSE 81; TEMP 36.3; O2SAT 97; BMI 26.4
--- NOTE | 2024-01-23 11:59 | AM.OFFWIN_ITS ---
Intake Vital Signs 01/23/24 11:59 Height 5 ft 1 in Weight 140 lb BMI 26.4 BP 112/70 Blood Pressure Location Lt brachial Position Sitting Pulse 81 Pulse Source Pulse Oximeter Temp 97.4 F Temp Source Temporal Artery Scan Pulse Oximetry (%) 97 Oxygen Delivery Method Room Air Intake Visit Reasons: EP sore throat soars in mouth (lobby) Intake Note: pt is here today for sore throat started 4 days ago Patient Tobacco Use Status: Current everyday Tobacco user Allergies clozapine [From Clozaril] Allergy (Mild, Verified 01/23/24 12:04) UNKNOWN fluoxetine [From Prozac] Allergy (Mild, Verified 01/23/24 12:04) ANXIETY lithium [[place]] Allergy (Mild, Verified 01/23/24 12:04) UNKNOWN oxcarbazepine [From Trileptal] Allergy (Mild, Verified 01/23/24 12:04) ANXIETY carbamazepine [Tegretol] Allergy (Unknown, Verified 01/23/24 12:04) Unknown quetiapine [Seroquel] Allergy (Unknown, Verified 01/23/24 12:04) unknown ziprasidone [Geodon] Allergy (Unknown, Verified 01/23/24 12:04) Unknown CINNAMON TOAST CRUNCH Allergy (Severe, Uncoded 11/04/23 15:47) THROAT SWELLING FRUIT LOOPS Allergy (Severe, Uncoded 11/04/23 15:47) THROAT SWELLING KIDNEY BEANS Allergy (Severe, Uncoded 11/04/23 15:47) THROAT SWELLING Clozaril Allergy (Unknown, Uncoded 11/04/23 15:47) Unknown Environmental Allergy (Unknown, Uncoded 11/04/23 15:47) unknown Floxin Otic Allergy (Unknown, Uncoded 11/04/23 15:47) unknown [place] Carbonate Allergy (Unknown, Uncoded 11/04/23 15:47) Unknown Narvane Allergy (Unknown, Uncoded 11/04/23 15:47) unknown Some cereals Allergy (Unknown, Uncoded 11/04/23 15:47) Unknown Spider Bites Allergy (Unknown, Uncoded 11/04/23 15:47) unknown Do you need a note to return to daycare/school/sports/work: No HPI HPI Comments History of Present Illness Details Patient presents to the walk-in today for sick visit Reports 4 days of sore throat and ?sores? to her tongue She has been overusing cough drops to help with sinus congestion and cough Denies fevers, chills, shortness of breath, chest pain palpitations, weakness, vomiting, diarrhea, nausea Patient denies the use of steroid inhalers. Denies immunosuppressant use. Denies history of HIV/aids [facility] Medical History HLD (hyperlipidemia) HTN (hypertension) Headache Anxiety Depression Schizophrenia Habitual snoring Asthma IBS (irritable bowel syndrome) Endobronchial mass Vitamin D deficiency Osteoporosis Back pain Surgical History History of bladder surgery History of tubal ligation Family History Father Back problem Diabetes mellitus Cataract Mother Diabetes mellitus Maternal Grandfather No problems noted. Maternal Grandmother No problems noted. Paternal Grandfather No problems noted. Paternal Grandmother No problems noted. Social History Household Members: None Housing: Apartment Do you presently have visiting nurse or other home services: No Alcohol intake: former Patient Tobacco Use Status: Current everyday Tobacco user Tobacco use type: Cigarette Cigarette Packs Per Day: 1 Cigarettes Per Day: 20.0 Years Smoked: 35 e-Cigarette/Vaping Use: Never Used Substance Use Type: Crack/Cocaine service: No Current occupational status: disabled Cognitive needs: No Hearing needs: No Vision needs: Yes Review of Systems Const All systems reviewed & are unremarkable except as noted in HPI and below Physical Exam Vital Signs: Last Vital Signs Temp 97.4 F 01/23/24 11:59 Pulse 81 01/23/24 11:59 BP 112/70 01/23/24 11:59 Pulse Ox 97 01/23/24 11:59 Oxygen Delivery Method Room Air 01/23/24 11:59 BMI result Body Mass Index 26.4 General: awake, alert, oriented. Answers questions appropriately. Fully engaged in examination. Skin: warm, dry, intact HEENT: TMs intact bilaterally, without erythema or exudate. white plaques on the buccal mucosa, palate and tongue. Sclera without icterus or injection. Cardiac: External chest normal in appearance. Respiratory: +cough. LSCTAB. Abdomen: without gross distension. Neurological: Oriented to person, place, time and situation. Thought process intact. Psychiatric: Appropriate mood and affect. Good judgment and insight. Results AMB Rapid Strep AMB Rapid Strep Negative Last Edit by Curtis Marvin MA on 01/23/24 12:28 Assessment & Plan Assessment & Plan (1) Oral candidiasis: Code(s): B37.0 - Candidal stomatitis Plan Fluconazole 200 mg p.o. daily x7 days. Patient advised on cautions views, do not take Fioricet while taking this medication. Follow up with PCP or return here for any new or worsening symptoms Medications: New fluconazole Do not take Fioricet while taking this medication 200 mg PO DAILY 7 days 7 tabs 0RF Coding Level of Care Code Est Pt Level 3 (97192) Diagnoses Oral candidiasis B37.0
== END 2024-01-23 13:21 | disposition home or self-care (01) ==
PROVIDERS: PCP Internal Medicine; Visit Provider Registered Nurse Emergency
DX: B37.0 Candidal stomatitis (principal)
CPT/HCPCS: 99213

== ENCOUNTER 2024-02-01 14:59 | Outpatient (AMB) | payer MEDICARE, OTHER, MEDICAID, SELFPAY ==
[2024-02-01 15:00] VITALS: BP 110/58; PULSE 81; BMI 26.4
--- NOTE | 2024-02-01 15:00 | MHC.OFFVIS ---
Vital Signs 02/01/24 15:00 Height 5 ft 1 in Weight 139 lb 8.842 oz BMI 26.4 BP 110/58 L Blood Pressure Location Lt brachial Position Sitting Pulse 81 Pulse Source Pulse Oximeter Intake Visit Reasons: Osteoporosis Intake Note: Patient present today for Osteoporosis follow up visit. Producer Assistant Required: No Accompanied by: Self / Same As Patient Allergies clozapine [From Clozaril] Allergy (Mild, Verified 02/01/24 15:08) UNKNOWN fluoxetine [From Prozac] Allergy (Mild, Verified 02/01/24 15:08) ANXIETY lithium [[place]] Allergy (Mild, Verified 02/01/24 15:08) UNKNOWN oxcarbazepine [From Trileptal] Allergy (Mild, Verified 02/01/24 15:08) ANXIETY carbamazepine [Tegretol] Allergy (Unknown, Verified 02/01/24 15:08) Unknown quetiapine [Seroquel] Allergy (Unknown, Verified 02/01/24 15:08) unknown ziprasidone [[place]] Allergy (Unknown, Verified 02/01/24 15:08) Unknown [place] TOAST CRUNCH Allergy (Severe, Uncoded 02/01/24 15:08) THROAT SWELLING FRUIT LOOPS Allergy (Severe, Uncoded 02/01/24 15:08) THROAT SWELLING KIDNEY BEANS Allergy (Severe, Uncoded 02/01/24 15:08) THROAT SWELLING Clozaril Allergy (Unknown, Uncoded 02/01/24 15:08) Unknown Environmental Allergy (Unknown, Uncoded 02/01/24 15:08) unknown Floxin Otic Allergy (Unknown, Uncoded 02/01/24 15:08) unknown [place] Carbonate Allergy (Unknown, Uncoded 02/01/24 15:08) Unknown [place] Allergy (Unknown, Uncoded 02/01/24 15:08) unknown Some cereals Allergy (Unknown, Uncoded 02/01/24 15:08) Unknown Spider Bites Allergy (Unknown, Uncoded 02/01/24 15:08) unknown HPI Comments Details: 63 YO Female with PMHx Osteoporosis is seen in F/U for Osteoporosis. She was previously followed by Darya Rhoades. First diagnosed in 2016 after she had a fragility fracture of the R leg. She had a DEXA scan completed shortly after which revealed Osteoporosis of the lumbar spine with T score of -2.5. Was started on treatment with Fosamax weekly 04/2018. She failed treatment with this as her BMD acutely worsened while on treatment. This was stopped and she was switched to Prolia. She has had 5 doses thus far (11/02/2019, 05/12/2020, and 11/19/2020, 05/21/2021, 11/25/2021). She has tolerated Prolia well. BMD did decline slightly from prior in her spine on her most recent DEXA. Has 2 servings of dietary calcium per day in the form of milk. Takes Calcium supplement 600 mg 3 tabs daily. Not taking Vitamin D currently. Does use depakote and Topiramate daily. Denies ever using PPI, anticoagulant or glucocorticoid medication. Does not do exercise. Fracture history: Fragility fracture of R leg in 2017. Height loss: 0.5 inch. 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 Menses were regular. , breastfed for 3 years in total. Menopause was age 51. History of Kidney stones: Denies. Family history of Osteoporosis in her mother. UTD on dental cleanings and sees dentist every 6 months. No planned upcoming dental work or extractions. DXA dated: 11/12/2021 FINDINGS: AP SPINE L1-L2 (excluding L3 and L4): The data of L1-L4 has been changed to exclude the L3 and L4 vertebral bodies, because degenerative changes at these levels may cause overestimation of lumbar spine density. Current: BMD 0.846 g/cm2, Z-score -1.2, T-score -2.7, osteoporosis, 14.6% decrease from previous, 2.2% decrease from baseline (<5% change is not significant). Prior: BMD 0.991 g/cm2. Baseline: BMD 0.865 g/cm2. LEFT FEMUR, NECK: Current: BMD 0.818 g/cm2, Z-score -0.2, T-score -1.6, osteopenia. Prior: BMD 0.764 g/cm2. Baseline: BMD 0.792 g/cm2. LEFT FEMUR, TOTAL: Current: BMD 0.864 g/cm2, Z-score -0.1, T-score -1.1, osteopenia, 1.9% increase from previous, 1.2% increase from baseline (<5% change is not significant). Prior: BMD 0.848 g/cm2. Baseline: BMD 0.854 g/cm2. Labs: Laboratory Tests 05/20/22 05/20/22 11:35 11:35 Sodium 142 Potassium 4.3 Creatinine 0.80 Estimated GFR > 60 25-OH Vitamin D Total 40.2 PTH Intact 27 Calcium (PTH Intact) 9.3 currently on Prolia since 2019 [facility] Medical History HLD (hyperlipidemia) HTN (hypertension) Headache Anxiety Depression Schizophrenia Habitual snoring Asthma IBS (irritable bowel syndrome) Endobronchial mass Vitamin D deficiency Osteoporosis Back pain Surgical History History of bladder surgery History of tubal ligation Family History Father Back problem Diabetes mellitus Cataract Mother Diabetes mellitus Maternal Grandfather No problems noted. Maternal Grandmother No problems noted. Paternal Grandfather No problems noted. Paternal Grandmother No problems noted. Social History Household Members: None Housing: Apartment Do you presently have visiting nurse or other home services: No Alcohol intake: former Patient Tobacco Use Status: Current everyday Tobacco user Tobacco use type: Cigarette Cigarette Packs Per Day: 1 Cigarettes Per Day: 20.0 Years Smoked: 35 e-Cigarette/Vaping Use: Never Used Substance Use Type: Crack/Cocaine service: No Current occupational status: disabled Cognitive needs: No Hearing needs: No Vision needs: Yes Physical Exam Vital Signs: Last Vital Signs Pulse 81 02/01/24 15:00 BP 110/58 L 02/01/24 15:00 BMI result Body Mass Index 26.4 Assessment & Plan Assessment & Plan (1) Osteoporosis: Code(s): M81.0 - Age-related osteoporosis without current pathological fracture Category: Medical Qualifiers: Osteoporosis type: age-related Presence of current pathological fracture: unspecified Qualified Code(s): M81.0 - Age-related osteoporosis without current pathological fracture Plan: This is a 63-year-old white female with a history of osteoporosis and previous fragility fracture. Secondary workup was negative. She is currently on Prolia. Recent DEXA shows stability in the bone density with low bone mass present The plan is to talk to the patient about transitioning to an oral or intravenous bisphosphonate per Orders: Orders Vitamin D 25-OH Total 3 Months M81.0 - Age-related osteoporosis without current pathological fracture Coding Level of Care Code Est Pt Level 3 (16150) Diagnoses Age related osteoporosis, unspecified pathological fracture presence M81.0 Osteoporosis type: age-related Presence of current pathological fracture: unspecified
== END 2024-02-01 15:21 | disposition home or self-care (01) ==
PROVIDERS: PCP Internal Medicine; Visit Provider Internal Medicine Endocrinology, Diabetes & Metabolism
DX: M81.0 Age-related osteoporosis without current pathological fracture (principal)
CPT/HCPCS: 99213

== ENCOUNTER → 2024-02-01 14:59 | Outpatient (BNVA) | payer OTHER, SELFPAY | PROVIDERS: PCP Internal Medicine; Visit Provider Internal Medicine Endocrinology, Diabetes & Metabolism | DX: M81.0 Age-related osteoporosis without current pathological fracture (principal) | CPT/HCPCS: 99212 ==

== ENCOUNTER 2024-06-13 11:04 | Outpatient (AMB) | payer OTHER, SELFPAY ==
--- NOTE | 2024-06-13 11:06 | MHC.OFFVIS ---
Intake Visit Reasons: 6m follow up Intake Note: Patient presents today for a follow-up OAB Meds- Oxybutinin, Allergies to Antibiotic- No Known Allergies Blood Thinner- Aspirin PVR: 0ml's Signaling Project Engineer Required: No Allergies clozapine [From Clozaril] Allergy (Mild, Verified 06/13/24 11:42) UNKNOWN fluoxetine [From Prozac] Allergy (Mild, Verified 06/13/24 11:42) ANXIETY lithium [[place]] Allergy (Mild, Verified 06/13/24 11:42) UNKNOWN oxcarbazepine [From Trileptal] Allergy (Mild, Verified 06/13/24 11:42) ANXIETY carbamazepine [Tegretol] Allergy (Unknown, Verified 06/13/24 11:42) Unknown quetiapine [Seroquel] Allergy (Unknown, Verified 06/13/24 11:42) unknown ziprasidone [[place]] Allergy (Unknown, Verified 06/13/24 11:42) Unknown CINNAMON TOAST CRUNCH Allergy (Severe, Uncoded 06/13/24 11:42) THROAT SWELLING FRUIT LOOPS Allergy (Severe, Uncoded 06/13/24 11:42) THROAT SWELLING KIDNEY BEANS Allergy (Severe, Uncoded 06/13/24 11:42) THROAT SWELLING Clozaril Allergy (Unknown, Uncoded 06/13/24 11:42) Unknown Environmental Allergy (Unknown, Uncoded 06/13/24 11:42) unknown Floxin Otic Allergy (Unknown, Uncoded 06/13/24 11:42) unknown [place] Carbonate Allergy (Unknown, Uncoded 06/13/24 11:42) Unknown [place] Allergy (Unknown, Uncoded 06/13/24 11:42) unknown Some cereals Allergy (Unknown, Uncoded 06/13/24 11:42) Unknown Spider Bites Allergy (Unknown, Uncoded 06/13/24 11:42) unknown Medication List - Last Reconciled 06/13/24 by DEBRA Ray-CARLITO amitriptyline 50 mg PO BEDTIME aspirin 325 mg PO DAILY buspirone 15 mg PO BID guxtawfeqc-ianlsfbzloiwx-ebss 50-300-40 mg (Fioricet) 1 cap PO Q6H PRN calcium citrate-vitamin D3 315 mg-5 mcg (200 unit) 1 tab PO BID cefuroxime axetil 500 mg PO BID denosumab (Prolia) 60 mg subcut [id number] 1 day diphenoxylate-atropine 2.5-0.025 mg 1 tab PO QID PRN divalproex ER 1,000 mg PO BEDTIME fluconazole 200 mg PO DAILY 7 days fluticasone propionate 50 mcg/actuation 1 spray intranasal DAILY loratadine 10 mg PO DAILY 90 days lorazepam (Ativan) 0.5 mg PO Q6H PRN lovastatin 40 mg PO BEDTIME melatonin 5 mg PO BEDTIME metronidazole 500 mg PO Q8H minoxidil 2.5 mg PO BID nitrofurantoin monohyd/m-cryst 100 mg (Macrobid) 100 mg PO BID 10 days nystatin 1 appl topical BID olanzapine (Zyprexa) 20 mg PO BEDTIME omeprazole 20 mg PO BID oxybutynin chloride ER 15 mg PO BEDTIME 90 days polyethylene glycol 3350 17 grams PO BEDTIME propranolol ER 120 mg PO DAILY ropinirole 1 mg PO BEDTIME simethicone (Gas Relief (simethicone)) 80 mg PO BID PRN sodium bicarbonate 650 mg PO TIDAC topiramate 100 mg PO BID HPI Comments Details: Blanquita is a very pleasant 64-year-old female patient of Dr. Muñoz. She has a past medical history of hyperlipidemia, hypertension, headache, anxiety, depression, schizophrenia, snoring, asthma, irritable bowel syndrome, vitamin-D deficiency, osteoporosis, and back pain. She presents to the office today for follow-up of her overactive bladder. In discussion with the patient today she reports to be doing and feeling well. She reports feeling oxybutynin has been helpful with symptoms of urinary urgency and frequency. She does continue to report getting up approximately 1 time per night. She otherwise denies any bothersome urinary issues or concerns. She denies incontinence, hematuria, dysuria, foul smelling urine, changes to urinary stream, flank pain, fever, and or chills. She is happy with her current voiding parameters on 15 mg of oxybutynin at bedtime. In office urinalysis results reviewed with the patient today. PVR 0 mL. She does discuss her issues with insomnia. She otherwise offers no other issues or concerns at this time. [facility] Medical History HLD (hyperlipidemia) HTN (hypertension) Headache Anxiety Depression Schizophrenia Habitual snoring Asthma IBS (irritable bowel syndrome) Endobronchial mass Vitamin D deficiency Osteoporosis Back pain Surgical History History of bladder surgery History of tubal ligation Family History Father Back problem Diabetes mellitus Cataract Mother Diabetes mellitus Maternal Grandfather No problems noted. Maternal Grandmother No problems noted. Paternal Grandfather No problems noted. Paternal Grandmother No problems noted. Social History Household Members: None Housing: Apartment Do you presently have visiting nurse or other home services: No Alcohol intake: former Patient Tobacco Use Status: Current everyday Tobacco user Tobacco use type: Cigarette Cigarette Packs Per Day: 1 Cigarettes Per Day: 20.0 Years Smoked: 35 e-Cigarette/Vaping Use: Never Used Substance Use Type: Crack/Cocaine service: No Current occupational status: disabled Cognitive needs: No Hearing needs: No Vision needs: Yes Review of Systems Const Reports no additional complaints Eyes Reports no additional complaints ENT Reports no additional complaints Card Reports as per HPI Resp Reports as per HPI GI Reports as per HPI Reports as per HPI Musc Reports as per HPI Neuro Reports as per HPI Psych Reports as per HPI Endo Reports as per HPI Physical Exam Const General: cooperative, healthy appearing, comfortable, no acute distress, well developed, alert and awake Orientation/consciousness: patient oriented x3 Limitations: no limitations HEENT Head: Yes normal to inspection, Yes normocephalic and Yes atraumatic Ears: hearing grossly normal bilaterally Eyes General: appearance normal, both eyes and all related structures Neck Neck: Yes normal visual inspection and Yes trachea midline Chest Chest palpation & inspection: normal inspection of the chest Resp Effort & Inspection: normal respiratory effort and able to speak in complete sentences Cardio Rate: regular rate GI Inspection: Yes normal to inspection General: Yes no CVA tenderness Back/Spine/Pelvis Back: no CVA tenderness Skin General skin exam: no rashes or lesions noted Neuro General: patient oriented x3 Extrem General: Yes normal to inspection Psych Appearance: grossly normal and well kempt Mental Status: mental status grossly normal Speech and movement: Normal speech and movement present and Clear speech present Affect: normal affect Attitude: cooperative Thought process: Normal thought process present Thought content: Normal thought content present Insight: Fair insight present (Psych) Judgement: Fair judgement present (Psych) Office Procedures Post Void Residual Post Residual Void Post Void Residual (PVR): 0 [id number]-[id number] Void Residual by ultrasound Results AMB Urinalysis, Automated UA Leukoctes 0 Elvia/uL Last Edit by to beportia Daugherty on 06/13/24 12:17 UA Nitrite Last Edit by Instilling Valuesalejandra on 06/13/24 12:17 UA Urobilinogen 0.2 mg/dL Last Edit by Instilling Valuesalejandra on 06/13/24 12:17 UA Protein 0 mg/dL Last Edit by [facility] on 06/13/24 12:17 UA pH 6.0 Last Edit by Instilling Valuesalejandra on 06/13/24 12:17 UA Blood 0 Ric/uL Last Edit by Instilling Valuesalejandra on 06/13/24 12:17 UA Specific Thompson 1.010 Last Edit by Instilling Valuesalejandra on 06/13/24 12:17 UA Ketone Negative Last Edit by Instilling Valuesalejandra on 06/13/24 12:17 UA Bilirubin 0 mg/dL Last Edit by [facility] on 06/13/24 12:17 UA Glucose 0 mg/dL Last Edit by Instilling Valuesalejandra on 06/13/24 12:17 Results Reviewed Results Reviewed: Laboratory Last Values Urine pH (Auto) 6.0 06/13/24 12:16 Specific Thompson (Auto) 1.010 06/13/24 12:16 Urine Protein (Auto) 0 mg/dL 06/13/24 12:16 Glucose (UA)(Auto) 0 mg/dL 06/13/24 12:16 Urine Ketones (Auto) Negative 06/13/24 12:16 Urine Blood (Auto) 0 Ric/uL 06/13/24 12:16 Urine Bilirubin (Auto) 0 mg/dL 06/13/24 12:16 Urine Urobilinogen (Auto) 0.2 mg/dL 06/13/24 12:16 Leukocyte Esterase (Auto) 0 Elvia/uL 06/13/24 12:16 Assessment & Plan Assessment & Plan (1) Overactive bladder: Code(s): N32.81 - Overactive bladder Category: Medical Plan In office urinalysis results reviewed with the patient today; as noted above. PVR 0 mL. Continue oxybutynin as discussed and prescribed. Patient currently denies any bothersome urinary issues or concerns. She reports be happy with current voiding parameters. Follow-up in 6 months with PVR; or sooner with any issues, concerns, and or questions Orders: Orders AMB Urinalysis Automated Today Z13.9 - Encounter for screening, unspecified AMB Post Void Residual by ultrasound Today N39.3 - Stress incontinence (female) (male) Medications: Refilled oxybutynin chloride ER 15 mg PO BEDTIME 90 days 90 tabs 3RF overactive bladder Discontinued cefuroxime axetil Discontinued Reason: Doctor's Order 500 mg PO BID 10 tabs 0RF metronidazole Discontinued Reason: Patient Completed Course 500 mg PO Q8H 15 tabs 0RF fluconazole Do not take Fioricet while taking this medication Discontinued Reason: Patient Completed Course 200 mg PO DAILY 7 days 7 tabs 0RF nitrofurantoin monohyd/m-cryst 100 mg (Macrobid) must administer with a meal/food Discontinued Reason: Patient Completed Course 100 mg PO BID 10 days 20 caps 0RF UTI N32.81 - Overactive bladder Patient Instructions: The patient had an opportunity to ask questions regarding the treatment plan. All questions were answered. Physical exam, labs, and imaging were discussed and reviewed in detail. As well as risks, benefits, and discussion of treatment choices. No major barriers to understanding were identified. The patient expressed understanding and agreement with the above treatment plan. The patient was made aware they should contact our office by phone for worsening of their current condition, the appearance of new symptoms, or with any questions or concerns. Compliance is encouraged with any medications and follow up testing that is ordered. It is a privilege to be allowed the opportunity to participate in? your urological care.? Again, if you have any questions or concerns If you have any questions or concerns please do not hesitate to contact me. The office is [phone]. This note is constructed using voice recognition software. While every effort has been made to ensure accuracy lining inserter errors may have been included. Yours sincerely, OTTO Ray Coding Level of Care Code Est Pt Level 3 (06905) Complex EM visit Add On G2211 Diagnoses Overactive bladder N32.81 CPT Codes Post Residual Void - PVR CPT Code: 24131-Tnsq Void Residual by ultrasound ([id number])
== END 2024-06-13 11:46 | disposition home or self-care (01) ==
PROVIDERS: PCP Internal Medicine; Visit Provider Nurse Practitioner Family
DX: Z13.9 Encounter for screening, unspecified (principal); N32.81 Overactive bladder
CPT/HCPCS: 99213; G2211

== ENCOUNTER → 2024-06-13 11:04 | Outpatient (BNVA) | payer OTHER, SELFPAY | PROVIDERS: PCP Internal Medicine; Visit Provider Nurse Practitioner Family | DX: M81.0 Age-related osteoporosis without current pathological fracture (principal); N32.81 Overactive bladder; N39.3 Stress incontinence (female) (male) | CPT/HCPCS: 51798; 81003; 99212 ==

== ENCOUNTER 2024-06-13 12:50 | Outpatient (AMB) | payer OTHER, SELFPAY ==
--- NOTE | 2024-06-13 12:55 | MHC.OFFVIS ---
Vital Signs 06/13/24 12:59 Height 5 ft 1.02 in Weight 145 lb 1.027 oz BMI 27.4 BP 98/58 L Blood Pressure Location Lt brachial Position Sitting Pulse 69 Pulse Source Pulse Oximeter Intake Visit Reasons: f/u osteoporosis-lvm Intake Note: Patient present today for Osteoporosis follow up. 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: No Accompanied by: Self / Same As Patient Allergies clozapine [From Clozaril] Allergy (Mild, Verified 06/13/24 12:59) UNKNOWN fluoxetine [From Prozac] Allergy (Mild, Verified 06/13/24 12:59) ANXIETY lithium [[place]] Allergy (Mild, Verified 06/13/24 12:59) UNKNOWN oxcarbazepine [From Trileptal] Allergy (Mild, Verified 06/13/24 12:59) ANXIETY carbamazepine [Tegretol] Allergy (Unknown, Verified 06/13/24 12:59) Unknown quetiapine [Seroquel] Allergy (Unknown, Verified 06/13/24 12:59) unknown ziprasidone [[place]] Allergy (Unknown, Verified 06/13/24 12:59) Unknown CINNAMON TOAST CRUNCH Allergy (Severe, Uncoded 06/13/24 12:59) THROAT SWELLING FRUIT LOOPS Allergy (Severe, Uncoded 06/13/24 12:59) THROAT SWELLING KIDNEY BEANS Allergy (Severe, Uncoded 06/13/24 12:59) THROAT SWELLING Clozaril Allergy (Unknown, Uncoded 06/13/24 12:59) Unknown Environmental Allergy (Unknown, Uncoded 06/13/24 12:59) unknown Floxin Otic Allergy (Unknown, Uncoded 06/13/24 12:59) unknown [place] Carbonate Allergy (Unknown, Uncoded 06/13/24 12:59) Unknown [place]ane Allergy (Unknown, Uncoded 06/13/24 12:59) unknown Some cereals Allergy (Unknown, Uncoded 06/13/24 12:59) Unknown Spider Bites Allergy (Unknown, Uncoded 06/13/24 12:59) unknown Medication List - Last Reconciled 06/13/24 by Hesham Scott MD amitriptyline 50 mg PO BEDTIME aspirin 325 mg PO DAILY buspirone 15 mg PO BID [id number] 50-300-40 mg (Fioricet) 1 cap PO Q6H PRN calcium citrate-vitamin D3 315 mg-5 mcg (200 unit) 1 tab PO BID denosumab (Prolia) 60 mg subcut [id number] 1 day diphenoxylate-atropine 2.5-0.025 mg 1 tab PO QID PRN divalproex ER 1,000 mg PO BEDTIME fluticasone propionate 50 mcg/actuation 1 spray intranasal DAILY loratadine 10 mg PO DAILY 90 days lorazepam (Ativan) 0.5 mg PO Q6H PRN lovastatin 40 mg PO BEDTIME melatonin 5 mg PO BEDTIME minoxidil 2.5 mg PO BID nystatin 1 appl topical BID olanzapine (Zyprexa) 20 mg PO BEDTIME omeprazole 20 mg PO BID oxybutynin chloride ER 15 mg PO BEDTIME 90 days polyethylene glycol 3350 17 grams PO BEDTIME propranolol ER 120 mg PO DAILY ropinirole 1 mg PO BEDTIME simethicone (Gas Relief (simethicone)) 80 mg PO BID PRN sodium bicarbonate 650 mg PO TIDAC topiramate 100 mg PO BID HPI Comments Details: 64 YO Female with PMHx Osteoporosis is seen in F/U for Osteoporosis. First diagnosed in 2016 after she had a fragility fracture of the R leg. She had a DEXA scan completed shortly after which revealed Osteoporosis of the lumbar spine with T score of -2.5. Was started on treatment with Fosamax weekly 04/2018. She failed treatment with this as her BMD acutely worsened while on treatment. This was stopped and she was switched to Prolia. She has had 5 doses thus far (11/02/2019, 05/12/2020, and 11/19/2020, 05/21/2021, 11/25/2021). She has tolerated Prolia well. BMD did decline slightly from prior in her spine on her most recent DEXA. Has 2 servings of dietary calcium per day in the form of milk. Takes Calcium supplement 600 mg 3 tabs daily. Not taking Vitamin D currently. Does use depakote and Topiramate daily. Denies ever using PPI, anticoagulant or glucocorticoid medication. Does not do exercise. Fracture history: Fragility fracture of R leg in 2016. Height loss: 0.5 inch. 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 Menses were regular. , breastfed for 3 years in total. Menopause was age 51. History of Kidney stones: Denies. Family history of Osteoporosis in her mother. UTD on dental cleanings and sees dentist every 6 months. No planned upcoming dental work or extractions. DXA dated: 11/12/2021 FINDINGS: AP SPINE L1-L2 (excluding L3 and L4): The data of L1-L4 has been changed to exclude the L3 and L4 vertebral bodies, because degenerative changes at these levels may cause overestimation of lumbar spine density. Current: BMD 0.846 g/cm2, Z-score -1.2, T-score -2.7, osteoporosis, 14.6% decrease from previous, 2.2% decrease from baseline (<5% change is not significant). Prior: BMD 0.991 g/cm2. Baseline: BMD 0.865 g/cm2. LEFT FEMUR, NECK: Current: BMD 0.818 g/cm2, Z-score -0.2, T-score -1.6, osteopenia. Prior: BMD 0.764 g/cm2. Baseline: BMD 0.792 g/cm2. LEFT FEMUR, TOTAL: Current: BMD 0.864 g/cm2, Z-score -0.1, T-score -1.1, osteopenia, 1.9% increase from previous, 1.2% increase from baseline (<5% change is not significant). Prior: BMD 0.848 g/cm2. Baseline: BMD 0.854 g/cm2. Labs: Laboratory Tests 05/20/22 05/20/22 11:35 11:35 Sodium 142 Potassium 4.3 Creatinine 0.80 Estimated GFR > 60 25-OH Vitamin D Total 40.2 PTH Intact 27 Calcium (PTH Intact) 9.3 currently on Prolia since 2019 [facility] Medical History HLD (hyperlipidemia) HTN (hypertension) Headache Anxiety Depression Schizophrenia Habitual snoring Asthma IBS (irritable bowel syndrome) Endobronchial mass Vitamin D deficiency Osteoporosis Back pain Surgical History History of bladder surgery History of tubal ligation Family History Father Back problem Diabetes mellitus Cataract Mother Diabetes mellitus Maternal Grandfather No problems noted. Maternal Grandmother No problems noted. Paternal Grandfather No problems noted. Paternal Grandmother No problems noted. Social History Household Members: None Housing: Apartment Do you presently have visiting nurse or other home services: No Alcohol intake: former Patient Tobacco Use Status: Current everyday Tobacco user Tobacco use type: Cigarette Cigarette Packs Per Day: 1 Cigarettes Per Day: 20.0 Years Smoked: 35 e-Cigarette/Vaping Use: Never Used Substance Use Type: Crack/Cocaine service: No Current occupational status: disabled Cognitive needs: No Hearing needs: No Vision needs: Yes Physical Exam Vital Signs: Last Vital Signs Pulse 69 06/13/24 12:59 BP 98/58 L 06/13/24 12:59 BMI result Body Mass Index 27.4 Results AMB Urinalysis, Automated UA Leukoctes 0 Elvia/uL Last Edit by [facility] Harini on 06/13/24 12:17 UA Nitrite Last Edit by [facility] Schuler on 06/13/24 12:17 UA Urobilinogen 0.2 mg/dL Last Edit by [facility] Schuler on 06/13/24 12:17 UA Protein 0 mg/dL Last Edit by [employer] Harini on 06/13/24 12:17 UA pH 6.0 Last Edit by [facility] Schuler on 06/13/24 12:17 UA Blood 0 Ric/uL Last Edit by [employer] Harini on 06/13/24 12:17 UA Specific [place] 1.010 Last Edit by [facility] Schuler on 06/13/24 12:17 UA Ketone Negative Last Edit by [facility] Schuler on 06/13/24 12:17 UA Bilirubin 0 mg/dL Last Edit by [facility] Schuler on 06/13/24 12:17 UA Glucose 0 mg/dL Last Edit by [facility] Schuler on 06/13/24 12:17 Assessment & Plan Assessment & Plan (1) Osteoporosis: Code(s): M81.0 - Age-related osteoporosis without current pathological fracture Category: Medical Qualifiers: Osteoporosis type: age-related Presence of current pathological fracture: unspecified Qualified Code(s): M81.0 - Age-related osteoporosis without current pathological fracture Plan: This is a 64-year-old white female with a history of osteoporosis and previous fragility fracture. Secondary workup was negative. She is currently on Prolia. Recent DEXA shows stability in the bone density with low bone mass present The plan is to talk to the patient about transitioning to an oral or intravenous bisphosphonate . After a discussion with the pt regarding options regarding either IV Reclast or oral alendronate for 1 yr, we decided to transition to oral alendronate 70 mg Qwkly for 1 yr. Will start in 07/2024 . Will check Urine NTX 3 mos after start alendronate . Orders: Orders Collagen Crosslinks NTX 3 Months M81.0 - Age-related osteoporosis without current pathological fracture Medications: New alendronate 70 mg PO QWEEK 5 tabs 0RF Discontinued denosumab (Prolia) Discontinued Reason: Doctor's Order 60 mg subcut [id number] 1 day 1 mL 1RF Coding Level of Care Code Est Pt Level 3 (40960) Diagnoses Age related osteoporosis, unspecified pathological fracture presence M81.0 Osteoporosis type: age-related Presence of current pathological fracture: unspecified
[2024-06-13 12:59] VITALS: BP 98/58; PULSE 69; BMI 27.4
== END 2024-06-13 13:25 | disposition home or self-care (01) ==
PROVIDERS: PCP Internal Medicine; Visit Provider Internal Medicine Endocrinology, Diabetes & Metabolism
DX: M81.0 Age-related osteoporosis without current pathological fracture (principal)
CPT/HCPCS: 99213

== ENCOUNTER 2024-07-03 10:35 | Outpatient (AMB) | payer OTHER, SELFPAY ==
--- NOTE | 2024-07-03 10:36 | MHC.OFFWIV ---
Intake Vital Signs 07/03/24 10:38 Height 5 ft 1 in Weight 141 lb BMI 26.6 BP 110/70 Blood Pressure Location Lt brachial Position Sitting Pulse 94 Pulse Source Pulse Oximeter Temp 99.1 F Temp Source Oral Pulse Oximetry (%) 96 Oxygen Delivery Method Room Air Intake Visit Reasons: EP-rt eye swollen, cold symptoms, headaches Intake Note: Patient here for cold,cough, SOB, headaches that has been present since also has discharge from right eye. Patient Tobacco Use Status: Current everyday Tobacco user Allergies clozapine [From Clozaril] Allergy (Mild, Verified 07/03/24 10:40) UNKNOWN fluoxetine [From Prozac] Allergy (Mild, Verified 07/03/24 10:40) ANXIETY lithium [[place]] Allergy (Mild, Verified 07/03/24 10:40) UNKNOWN oxcarbazepine [From Trileptal] Allergy (Mild, Verified 07/03/24 10:40) ANXIETY carbamazepine [Tegretol] Allergy (Unknown, Verified 07/03/24 10:40) Unknown quetiapine [Seroquel] Allergy (Unknown, Verified 07/03/24 10:40) unknown ziprasidone [Geodon] Allergy (Unknown, Verified 07/03/24 10:40) Unknown CINNAMON TOAST CRUNCH Allergy (Severe, Uncoded 07/03/24 10:40) THROAT SWELLING FRUIT LOOPS Allergy (Severe, Uncoded 07/03/24 10:40) THROAT SWELLING KIDNEY BEANS Allergy (Severe, Uncoded 07/03/24 10:40) THROAT SWELLING Clozaril Allergy (Unknown, Uncoded 07/03/24 10:40) Unknown Environmental Allergy (Unknown, Uncoded 07/03/24 10:40) unknown Floxin Otic Allergy (Unknown, Uncoded 07/03/24 10:40) unknown [place] Carbonate Allergy (Unknown, Uncoded 07/03/24 10:40) Unknown Narv[place] Allergy (Unknown, Uncoded 07/03/24 10:40) unknown Some cereals Allergy (Unknown, Uncoded 07/03/24 10:40) Unknown Spider Bites Allergy (Unknown, Uncoded 07/03/24 10:40) unknown Do you need a note to return to daycare/school/sports/work: No HPI HPI Comments History of Present Illness Details Patient is a 64-year-old female complaining 9 days of a productive cough with green sputum which interrupts her sleep, headache and right eye swelling and drainage that has now migrated to her left eye. She also admits to some subjective fevers and a reduced appetite. She denies any visual changes, shortness of breath, nausea vomiting or diarrhea. She states that she woke up feeling a little bit better today but wanted to come in because of the drainage coming from both of her eyes. Her friend told her to apply Vaseline to her eyes so she did that a few days ago but it did not help. She states she has taken Tylenol and Advil which helps her headaches. She denies a history of COPD but she is a current smoker. [facility] Medical History HLD (hyperlipidemia) HTN (hypertension) Headache Anxiety Depression Schizophrenia Habitual snoring Asthma IBS (irritable bowel syndrome) Endobronchial mass Vitamin D deficiency Osteoporosis Back pain Surgical History History of bladder surgery History of tubal ligation Family History Father Back problem Diabetes mellitus Cataract Mother Diabetes mellitus Maternal Grandfather No problems noted. Maternal Grandmother No problems noted. Paternal Grandfather No problems noted. Paternal Grandmother No problems noted. Social History Household Members: None Housing: Apartment Do you presently have visiting nurse or other home services: No Alcohol intake: former Patient Tobacco Use Status: Current everyday Tobacco user Tobacco use type: Cigarette Cigarette Packs Per Day: 1 Cigarettes Per Day: 20.0 Years Smoked: 35 e-Cigarette/Vaping Use: Never Used Substance Use Type: Crack/Cocaine service: No Current occupational status: disabled Cognitive needs: No Hearing needs: No Vision needs: Yes Review of Systems Const All systems reviewed & are unremarkable except as noted in HPI and below Physical Exam Vital Signs: Last Vital Signs Temp 99.1 F 07/03/24 10:38 Pulse 94 07/03/24 10:38 BP 110/70 07/03/24 10:38 Pulse Ox 96 07/03/24 10:38 Oxygen Delivery Method Room Air 07/03/24 10:38 BMI result Body Mass Index 26.6 Const General: cooperative, healthy appearing, comfortable and no acute distress Orientation/consciousness: patient oriented x3 Limitations: no limitations HEENT Head: Yes normal to inspection Ears: hearing grossly normal bilaterally, external ears normal and TM's normal bilaterally General nose exam: Normal external nose present, Normal nares present and No nasal discharge present Face and sinus: Yes normal facial exam and Yes sinuses nontender Mouth: Normal oral and palatal mucosa present and moist mucous membranes Throat: Yes tonsils normal, Yes uvula midline and Yes posterior oropharynx abnormal (Erythema) Eyes Alignment and Position: alignment normal and position normal Periorbital: periorbital findings normal Conjunctivae: conjunctival abnormal bilateral conjunctival injection (Bilateral slightly) and discharge (Bilateral) purulent Pupils: Equal, round and reactive pupils present EOM: EOMs intact bilaterally Neck Neck: Yes normal visual inspection Resp Effort & Inspection: normal respiratory effort, able to speak in complete sentences, Actively coughing, no respiratory distress, not tachypneic, no tripod positioning and no use of accessory muscles Auscultation: clear to auscultation bilaterally Cardio Rate: regular rate Rhythm: regular rhythm Heart sounds: normal S1 and S2 Skin General skin exam: no rashes or lesions noted Neuro General: patient oriented x3 Cranial nerves: Yes Equal, round and reactive pupils present Extrem General: Yes normal to inspection and Yes no clubbing, cyanosis or edema Assessment & Plan Assessment & Plan (1) Bacterial conjunctivitis of both eyes: Code(s): H10.9 - Unspecified conjunctivitis; B96.89 - Other specified bacterial agents as the cause of diseases classified elsewhere Plan: Sent erythromycin ointment to pharmacy and explained in detail how to use this medication. Recommended she not put Vaseline on her eyes as that is probably how she spread the infection from her right eye to her left eye. (2) URI (upper respiratory infection): Code(s): J06.9 - Acute upper respiratory infection, unspecified Qualifiers: URI type: unspecified URI Qualified Code(s): J06.9 - Acute upper respiratory infection, unspecified Plan: Vital signs are stable and patient is well-appearing, no indication for a chest x-ray as lung sounds were clear. Encouraged patient to continue to use [id number]-[id number] medications to treat her symptoms. Plan See above Medications: New erythromycin apply 0.5cm ribbon to lower inner eyelid of each eye every 4 hours while awake, up to 4 times a day 0.5 inches ophthalmic (eye) QID 3.5 grams 0RF Coding Level of Care Code Est Pt Level 3 (62191) Diagnoses Bacterial conjunctivitis of both eyes H10.9; B96.89 Upper respiratory tract infection, unspecified type J06.9 URI type: unspecified URI
--- OUTSIDE RECORDS SUMMARY | 2024-07-03 10:37 | XMS_ITS ---
Author Organization [facility] Address [address] [place] [address] Care Team Providers Care Straw Hat Plunger Operator Name Role Phone Toni HARDING, [facility] Primary Care Provider Alpesh Alexander Jr REASON FOR VISIT barium swallow Encounters Encounter Location Date Provider Diagnosis [facility] [address] [place] [address] 06/01/2023 Alpesh Aranda Jr PLAN OF TREATMENT No Information
--- OUTSIDE RECORDS SUMMARY | 2024-07-03 10:37 | XMS_ITS ---
Author Organization [facility] Address [address] [place] [address] Care Team Providers Care Car Audio Installer Name Role Phone Toni HARDING, [facility] Primary Care Provider Alpesh Alexander Jr Unavailable [phone] REASON FOR VISIT question on esomeprazole /nexium MEDICATIONS Medication SIG (Take, Route, Frequency, Duration) Notes Start Date End Date Status Esomeprazole Magnesium 40 MG 1 capsule Orally Once a day for 30 day(s) 01/12/2024 Active Encounters Encounter Location Date Provider Diagnosis [facility] [address] [place] [address] 01/11/2024 Alpesh Aranda Jr PLAN OF TREATMENT Medication Medication Name Sig Start Date Stop Date Notes Esomeprazole Magnesium 40 MG 1 capsule O rally Once a day for 30 day(s) 01/12/2024
--- OUTSIDE RECORDS SUMMARY | 2024-07-03 10:37 | XMS_ITS | Patient Health Record ---
Author Organization [facility] Address [address] [place] [phone] Care Team Providers Care Chemicals Fermentation Operator Name Role Phone Toni HARDING, [facility] Primary Care Provider Alpesh Alexander Jr Unavailable [phone] ALLERGIES Allergen (clinical drug ingredient) Drug/Non Drug Allergy documented on EMR Reaction Allergy Type Onset Date Status Steroids steroids (uncoded) Unknown Allergy A ctive REASON FOR REFERRAL No Information MEDICATIONS Medication SIG (Take, Route, Frequency, Duration) Notes Start Date End Date Status Esomeprazole Magnesium 40 MG 1 capsule Orally Once a day for 30 day(s) 01/12/2024 Active Melatonin 3 MG 1 tablet at bedtime [...] neede d Orally every 8 hrs Active SM Antacid Advanced 200-200-20 MG/5ML TAKE 10 ML BY MOUTH NEEDED FOUR TIMES A DAY for 9 Active Aspirin 325 MG 1 tablet Orally Once a day Active Fioricet 50-300-40 MG 1 capsule as neede d Orally every 4 hrs Active Diphenoxylate-Atropine 2.5-0.025 MG TAKE 1 TABLET BY MOUTH FOUR TIMES DAILY for 30 days 04/12/2023 Active Calcium Carbonate 600 MG 1 tablet Orally Once a day Active Topiramate 100 MG 1 tablet Orally [...] Omeprazole 20 MG TAKE 1 CAPSULE BY [facility] TWICE DAILY for 30 Active IMMUNIZATIONS Vaccine [...] Problem Colon cancer screening (Z12.11) Active confirmed 379491786 Problem Diverticulitis (K57.92) Active confirmed Diverticulitis (60547833) Problem Gastroesophageal reflux disease without esophagitis (K21.9) Active confirmed [id number] Problem Irritable bowel syndrome with both constipation and diarrhea (K58.2) Active confirmed [id number] Encounters Encounter Location Date Provider Diagnosis [facility] [address] [facility] [address] [place] [id number] 01/11/2024 Alpesh Aranda Jr PLAN OF TREATMENT Pending Test Test Name Order Date CT COLON SCREENING NO CONTRAST 0 XR BARIUM SWALLOW-ESOPHAGUS 02/18/2023 XR GI SERIES 07/11/2015 XR GI SERIES 05/30/2019 Future Test Test Name Order Date UPPER GI ENDOSCOPY 10/24/2019 COLONOSCOPY 10/24/2019 Insurance Providers Payer Name Payer Address Payer Phone Subscriber Number Group Number Insured Name Patient Relationship to Insured Coverage Start Date Coverage End Date [facility] [address] [address] [place], [place] [id number] MARS PATEL Self - patient is the insured [place] [facility] [address] [place] [address] [id number] MARS PATEL Self - patient is the [...]
--- OUTSIDE RECORDS SUMMARY | 2024-07-03 10:37 | XMS_ITS ---
Author Organization [facility] Address [address] [place] [address] Care Team Providers Care Electronics Technology Department Chair Name Role Phone Toni HARDING, [facility] Primary Care Provider Alpesh Alexander Jr Unavailable REASON FOR VISIT refill on lomotil MEDICATIONS Medication SIG (Take, Route, Frequency, Duration) Notes Start Date End Date Status Diphenoxylate-Atropine 2.5-0.025 MG TAKE 1 TABLET BY MOUTH FOUR TIMES DAILY for 30 days 04/12/2023 Active Encounters Encounter Location Date Provider Diagnosis [facility] [address] [place] [address] 04/11/2023 Alpesh Aranda Jr PLAN OF TREATMENT Medication Medication Name Sig Start Date Stop Date Notes Diphenoxylate-Atropine 2.5-0.025 MG TAKE 1 TABLET BY MOUTH FOUR TIMES DAILY for 30 days 04/12/2023
[2024-07-03 10:38] VITALS: BP 110/70; PULSE 94; TEMP 37.3; O2SAT 96; BMI 26.6
== END 2024-07-03 11:23 | disposition home or self-care (01) ==
PROVIDERS: PCP Internal Medicine; Visit Provider Physician Assistant
DX: H10.9 Unspecified conjunctivitis (principal); B96.89 Other specified bacterial agents as the cause of diseases classified elsewhere; J06.9 Acute upper respiratory infection, unspecified

== ENCOUNTER → 2024-07-03 10:35 | Outpatient (BNVA) | payer OTHER, SELFPAY | PROVIDERS: PCP Internal Medicine | DX: H10.9 Unspecified conjunctivitis (principal); B96.89 Other specified bacterial agents as the cause of diseases classified elsewhere; J06.9 Acute upper respiratory infection, unspecified | CPT/HCPCS: 99212 ==

== ENCOUNTER 2024-08-01 11:42 | Outpatient (AMB) | payer OTHER, SELFPAY ==
[2024-08-01 11:48] VITALS: BP 116/74; PULSE 90; O2SAT 98; BMI 26.4
--- NOTE | 2024-08-01 11:48 | MHC.PC.OV ---
Vital Signs 08/01/24 11:48 Height 5 ft 1 in Weight 139 lb 8 oz BMI 26.4 BP 116/74 Blood Pressure Location Rt brachial Position Sitting Pulse 90 Pulse Source Pulse Oximeter Pulse Oximetry (%) 98 Oxygen Delivery Method Room Air Intake Visit Reasons: Annual PE Allergies clozapine [From Clozaril] Allergy (Mild, Verified 08/01/24 11:48) UNKNOWN fluoxetine [From Prozac] Allergy (Mild, Verified 08/01/24 11:48) ANXIETY lithium [[place]] Allergy (Mild, Verified 08/01/24 11:48) UNKNOWN oxcarbazepine [From Trileptal] Allergy (Mild, Verified 08/01/24 11:48) ANXIETY carbamazepine [Tegretol] Allergy (Unknown, Verified 08/01/24 11:48) Unknown quetiapine [Seroquel] Allergy (Unknown, Verified 08/01/24 11:48) unknown ziprasidone [[place]] Allergy (Unknown, Verified 08/01/24 11:48) Unknown CINNAMON TOAST CRUNCH Allergy (Severe, Uncoded 07/03/24 10:40) THROAT SWELLING FRUIT LOOPS Allergy (Severe, Uncoded 07/03/24 10:40) THROAT SWELLING KIDNEY BEANS Allergy (Severe, Uncoded 07/03/24 10:40) THROAT SWELLING Clozaril Allergy (Unknown, Uncoded 07/03/24 10:40) Unknown Environmental Allergy (Unknown, Uncoded 07/03/24 10:40) unknown Floxin Otic Allergy (Unknown, Uncoded 07/03/24 10:40) unknown [place] Carbonate Allergy (Unknown, Uncoded 07/03/24 10:40) Unknown [place] Allergy (Unknown, Uncoded 07/03/24 10:40) unknown Some cereals Allergy (Unknown, Uncoded 07/03/24 10:40) Unknown Spider Bites Allergy (Unknown, Uncoded 07/03/24 10:40) unknown Medication List - Last Reconciled 08/01/24 by Kevin Muñoz MD alendronate 70 mg PO QWEEK amitriptyline 50 mg PO BEDTIME aspirin 325 mg PO DAILY buspirone 15 mg PO BID pafwnkratc-eyqxzakkklrik-qjnk 50-300-40 mg (Fioricet) 1 cap PO Q6H PRN calcium citrate-vitamin D3 315 mg-5 mcg (200 unit) 1 tab PO BID diphenoxylate-atropine 2.5-0.025 mg 1 tab PO QID PRN divalproex ER 1,000 mg PO BEDTIME erythromycin 0.5 inches ophthalmic (eye) QID fluticasone propionate 50 mcg/actuation 1 spray intranasal DAILY loratadine 10 mg PO DAILY 90 days lorazepam (Ativan) 0.5 mg PO Q6H PRN lovastatin 40 mg PO BEDTIME melatonin 5 mg PO BEDTIME minoxidil 2.5 mg PO BID nystatin 1 appl topical BID olanzapine (Zyprexa) 20 mg PO BEDTIME omeprazole 20 mg PO BID oxybutynin chloride ER 15 mg PO BEDTIME 90 days polyethylene glycol 3350 17 grams PO BEDTIME propranolol ER 120 mg PO DAILY ropinirole 1 mg PO BEDTIME simethicone (Gas Relief (simethicone)) 80 mg PO BID PRN sodium bicarbonate 650 mg PO TIDAC topiramate 100 mg PO BID Tobacco use date assessed: 08/01/24 Fall risk assessment: No Falls in past year Last assessed Fall Risk: 08/01/24 Dental Screening Dental Screen Date: 08/01/24 Did you have a dental visit in the last 12 months?: No Did you have a dental problem in the last 6 months where you did not have access to dental care?: No Was dental information given to patient?: No HPI Annual PE HPI Details Patient is 64-year-old female came in today for physical examination Mammogram will be due in September Bone density was December of this year which showed osteopenia with a score of -2.4 Patient is established with [facility] , breast exams through them Colonoscopy was in 2019 Medication list reviewed New set of lab order placed last set of lab was December of this year She failed tandem walk today Patient is risk for fall, even though she was able to pass Romberg Follow-up 6 months, physical exam 1 year [facility] Medical History HLD (hyperlipidemia) HTN (hypertension) Headache Anxiety Depression Schizophrenia Habitual snoring Asthma IBS (irritable bowel syndrome) Endobronchial mass Vitamin D deficiency Osteoporosis Back pain Surgical History History of bladder surgery History of tubal ligation Family History Father Back problem Diabetes mellitus Cataract Mother Diabetes mellitus Maternal Grandfather No problems noted. Maternal Grandmother No problems noted. Paternal Grandfather No problems noted. Paternal Grandmother No problems noted. Social History Household Members: None Housing: Apartment Do you presently have visiting nurse or other home services: No Alcohol intake: former Patient Tobacco Use Status: Current everyday Tobacco user Tobacco use type: Cigarette Cigarette Packs Per Day: 1 Cigarettes Per Day: 20.0 Years Smoked: 35 e-Cigarette/Vaping Use: Never Used Substance Use Type: Crack/Cocaine service: No Current occupational status: disabled Cognitive needs: No Hearing needs: No Vision needs: Yes Questionnaire Thrive Questionnaire Date Thrive assessed: 09/06/23 AUDIT C Alcohol Use Questionnaire (AUDIT-C) 1. How often do you have a drink containing alcohol?: Never 3. How often do you have six or more drinks on one occasion?: Never Total Score: 0 Score Reviewed/Action Taken: Yes MARIA TERESA-7 AMB Questionnaire MARIA TERESA-7 Date MARIA TERESA - 7 assessed: 07/19/23 Source: Developed by Drs. Hesham Sapp, Amanda Marino, Jace Phillips and colleagues, with an educational brittany from [employer]. Review of Systems Const Denies chills, Denies fever(s) and Denies headache(s) Eyes Denies blurry vision ENT Denies headache(s), Denies nasal discharge, Denies nasal obstruction, Denies odynophagia and Denies sinus pain Card Denies chest pain at rest and Denies chest pain with activity Resp Denies cough and Denies hemoptysis GI Denies diarrhea, Denies odynophagia, Denies vomiting and Denies hematemesis Reports as per HPI Musc Denies abnormal gait Skin/Breast Reports as per HPI Neuro Denies Neuro-related abnormal movements, Denies Abnormal speech present, Denies abnormal gait and Denies headache(s) Psych Denies mood swings and Denies paranoia Endo Reports as per HPI Russ/Lymph Reports as per HPI Aller/Immun Reports as per HPI Physical exam (Primary Care) Vital Signs: Last Vital Signs Pulse 90 08/01/24 11:48 BP 116/74 08/01/24 11:48 Pulse Ox 98 08/01/24 11:48 Oxygen Delivery Method Room Air 08/01/24 11:48 BMI result Body Mass Index 26.4 Tobacco/Smoking Status: Tobacco use Status Tobacco use date assessed 08/01/24 08/01/24 11:51 Patient Tobacco Use Status Current everyday Tobacco 08/01/24 11:51 Tobacco use type Cigarette 08/01/24 11:51 e-Cigarette/Vaping Use Never Used 08/01/24 11:51 Thrive Assessment: Date of Thrive Assessment Date Thrive assessed 09/06/23 08/01/24 11:51 Const General: cooperative, comfortable and no acute distress Orientation/consciousness: patient oriented x3 HENMT Head: Yes normocephalic and Yes atraumatic Eyes General: appearance normal, both eyes and all related structures Pupils: Equal, round and reactive pupils present EOM: EOMs intact bilaterally Neck Neck: Yes supple and No lymphadenopathy Thyroid: Thyroid normal Lymphatic: no lymphadenopathy noted Resp Effort & Inspection: normal respiratory effort and able to speak in complete sentences Auscultation: clear to auscultation bilaterally Cardio Heart sounds: S1 normal heart sound present and S2 normal heart sound present GI Palpation (GI): Soft to palpation and nontender Auscultation: normal bowel sounds General: Yes no CVA tenderness Back/Spine/Pelvis Back: no CVA tenderness Skin General skin exam: elasticity normal and turgor normal Neuro General: patient oriented x3 Cranial nerves: Yes Equal, round and reactive pupils present Speech: No Abnormal speech present Coordination: Romberg test negative Extrem General: Yes normal exam except as noted and No edema Coding Level of Care Code Est Pt Level 3 (79108) Est Pt Prev Care >65y(72002) Diagnoses Encounter for general adult medical examination with abnormal findings Z00.01 Abnormal tandem walk R26.9 Tobacco abuse Z72.0 Lipid disorder E78.9 Restless leg syndrome G25.81 Overactive bladder N32.81 Stress bladder incontinence, female N39.3 Vitamin D deficiency E55.9 Age related osteoporosis, unspecified pathological fracture presence M81.0 Osteoporosis type: age-related Presence of current pathological fracture: unspecified Balance problem R26.89 Risk for falls Z91.81 History of anemia Z86.2 Assessment & Plan Assessment & Plan (1) Encounter for general adult medical examination with abnormal findings: Code(s): Z00.01 - Encounter for general adult medical examination with abnormal findings Category: Medical (2) Abnormal tandem walk: Code(s): R26.9 - Unspecified abnormalities of gait and mobility Category: Medical (3) Tobacco abuse: Code(s): Z72.0 - Tobacco use Category: Medical (4) Lipid disorder: Code(s): E78.9 - Disorder of lipoprotein metabolism, unspecified Category: Medical (5) Restless leg syndrome: Code(s): G25.81 - Restless legs syndrome Category: Medical (6) Overactive bladder: Code(s): N32.81 - Overactive bladder Category: Medical (7) Stress bladder incontinence, female: Code(s): N39.3 - Stress incontinence (female) (male) Category: Medical (8) Vitamin D deficiency: Code(s): E55.9 - Vitamin D deficiency, unspecified Category: Medical (9) Osteoporosis: Code(s): M81.0 - Age-related osteoporosis without current pathological fracture Category: Medical Qualifiers: Osteoporosis type: age-related Presence of current pathological fracture: unspecified Qualified Code(s): M81.0 - Age-related osteoporosis without current pathological fracture (10) Balance problem: Code(s): R26.89 - Other abnormalities of gait and mobility Category: Medical (11) Risk for falls: Code(s): Z91.81 - History of falling Category: Medical (12) History of anemia: Code(s): Z86.2 - Personal history of diseases of the blood and blood-forming organs and certain disorders involving the immune mechanism Category: Medical Plan Patient is 64-year-old female came in today for physical examination Mammogram will be due in September Bone density was December of this year which showed osteopenia with a score of -2.4 Patient is established with [facility] , breast exams through them Colonoscopy was in 2019 Medication list reviewed New set of lab order placed last set of lab was December of this year She failed tandem walk today Patient is risk for fall, even though she was able to pass Romberg Continue to smoke patient says that she does not know how much she is smoking because she is rolling her own cigarettes She is aware that she need to stop Follow-up 6 months, physical exam 1 year Orders: Orders Complete Blood Count Auto Diff Today E55.9 - Vitamin D deficiency, unspecified, E78.9 - Disorder of lipoprotein metabolism, unspecified, G25.81 - Restless legs syndrome, M81.0 - Age-related osteoporosis without current pathological fracture, N32.81 - Overactive bladder, N39.3 - Stress incontinence (female) (male), R26.89 - Other abnormalities of gait and mobility, Z00.01 - Encounter for general adult medical examination with abnormal findings, Z72.0 - Tobacco use, Z91.81 - History of falling Lipid Panel Today E55.9 - Vitamin D deficiency, unspecified, E78.9 - Disorder of lipoprotein metabolism, unspecified, G25.81 - Restless legs syndrome, M81.0 - Age-related osteoporosis without current pathological fracture, N32.81 - Overactive bladder, N39.3 - Stress incontinence (female) (male), R26.89 - Other abnormalities of gait and mobility, Z00.01 - Encounter for general adult medical examination with abnormal findings, Z72.0 - Tobacco use, Z91.81 - History of falling Hemoglobin A1c Today E55.9 - Vitamin D deficiency, unspecified, E78.9 - Disorder of lipoprotein metabolism, unspecified, G25.81 - Restless legs syndrome, M81.0 - Age-related osteoporosis without current pathological fracture, N32.81 - Overactive bladder, N39.3 - Stress incontinence (female) (male), R26.89 - Other abnormalities of gait and mobility, Z00.01 - Encounter for general adult medical examination with abnormal findings, Z72.0 - Tobacco use, Z91.81 - History of falling Vitamin D 25-OH (D2 and D3) Today E55.9 - Vitamin D deficiency, unspecified, E78.9 - Disorder of lipoprotein metabolism, unspecified, G25.81 - Restless legs syndrome, M81.0 - Age-related osteoporosis without current pathological fracture, N32.81 - Overactive bladder, N39.3 - Stress incontinence (female) (male), R26.89 - Other abnormalities of gait and mobility, Z00.01 - Encounter for general adult medical examination with abnormal findings, Z72.0 - Tobacco use, Z91.81 - History of falling Ferritin Today Z86.2 - Personal history of diseases of the blood and blood-forming organs and certain disorders involving the immune mechanism Comprehensive [place]. Panel Fast Today E55.9 - Vitamin D deficiency, unspecified, E78.9 - Disorder of lipoprotein metabolism, unspecified, G25.81 - Restless legs syndrome, M81.0 - Age-related osteoporosis without current pathological fracture, N32.81 - Overactive bladder, N39.3 - Stress incontinence (female) (male), R26.89 - Other abnormalities of gait and mobility, Z00.01 - Encounter for general adult medical examination with abnormal findings, Z72.0 - Tobacco use, Z91.81 - History of falling TSH reflex Free T4 Today E55.9 - Vitamin D deficiency, unspecified, E78.9 - Disorder of lipoprotein metabolism, unspecified, G25.81 - Restless legs syndrome, M81.0 - Age-related osteoporosis without current pathological fracture, N32.81 - Overactive bladder, N39.3 - Stress incontinence (female) (male), R26.89 - Other abnormalities of gait and mobility, Z00.01 - Encounter for general adult medical examination with abnormal findings, Z72.0 - Tobacco use, Z91.81 - History of falling Vitamin B12 Today E55.9 - Vitamin D deficiency, unspecified, E78.9 - Disorder of lipoprotein metabolism, unspecified, G25.81 - Restless legs syndrome, M81.0 - Age-related osteoporosis without current pathological fracture, N32.81 - Overactive bladder, N39.3 - Stress incontinence (female) (male), R26.89 - Other abnormalities of gait and mobility, Z00.01 - Encounter for general adult medical examination with abnormal findings, Z72.0 - Tobacco use, Z91.81 - History of falling
== END 2024-08-01 12:02 | disposition home or self-care (01) ==
LOC: HO.HMCC 11:43
PROVIDERS: PCP Internal Medicine; Visit Provider Internal Medicine
DX: Z00.00 Encounter for general adult medical examination without abnormal findings (principal); R26.9 Unspecified abnormalities of gait and mobility; Z72.0 Tobacco use; E78.9 Disorder of lipoprotein metabolism, unspecified; G25.81 Restless legs syndrome; N32.81 Overactive bladder; N39.3 Stress incontinence (female) (male); E55.9 Vitamin D deficiency, unspecified; M81.0 Age-related osteoporosis without current pathological fracture; R26.89 Other abnormalities of gait and mobility; Z91.81 History of falling; Z86.2 Personal history of diseases of the blood and blood-forming organs and certain disorders involving the immune mechanism

== ENCOUNTER → 2024-08-01 11:42 | Outpatient (BNVA) | payer OTHER, SELFPAY | PROVIDERS: PCP Internal Medicine; Visit Provider Internal Medicine | DX: Z00.01 Encounter for general adult medical examination with abnormal findings (principal); R26.9 Unspecified abnormalities of gait and mobility; E78.9 Disorder of lipoprotein metabolism, unspecified; G25.81 Restless legs syndrome; N32.81 Overactive bladder; N39.3 Stress incontinence (female) (male); E55.9 Vitamin D deficiency, unspecified; M81.0 Age-related osteoporosis without current pathological fracture; R26.89 Other abnormalities of gait and mobility; Z72.0 Tobacco use; Z91.81 History of falling; Z86.2 Personal history of diseases of the blood and blood-forming organs and certain disorders involving the immune mechanism | CPT/HCPCS: 99397 ==

== ENCOUNTER 2024-09-17 09:27 | Outpatient (REF) | payer OTHER, SELFPAY ==
[2024-09-17 13:34] LABS: MANUAL DIFF FLAG NO
[2024-09-17 13:51] LABS: Basophils Absolute Auto 0.1 X10*3/uL (0.0-0.2); Basophils Percent Auto 0.6 % (0-2); Eosinophils Absolute Auto 0.2 X10*3/uL (0.0-0.4); Eosinophils Percent Auto 1.9 % (0-4); Hematocrit 41.5 % (37.0-47.0); Hemoglobin 13.6 g/dl (12.0-16.0); Imm Gran Abs Auto 0.03 X10*3/uL (0.00-0.03); Imm Gran Pct Auto 0.3 % (0.0-0.4); Lymphocytes Absolute Auto 3.6 X10*3/uL (1.2-4.9); Lymphocytes Percent Auto 37.2 % (20-40); Mean Corpuscular HGB Conc 32.8 g/dl (31.0-35.0); Mean Corpuscular Hemoglobin 30.3 pg (27.0-33.0); Mean Corpuscular Volume 92.4 fL (80.0-98.0); Monocytes Absolute Auto 0.8 X10*3/uL (0.1-1.2); Platelet Count 317 X10*3/uL (160-400); Red Blood Count 4.49 X10*6/uL (4.20-5.50); Red Cell Distribution Width 14.6 % (11.0-16.0); White Blood Count 9.6 X10*3/uL (4.8-10.8)
[2024-09-17 14:31] LABS: Estimated Average Glucose 114 mg/dL; Hemoglobin A1C 123.5868 umol/L; Hemoglobin A1c % 5.6 % (<6.0); Total Hemoglobin (HGBA1C) 3300.3792 umol/L
[2024-09-17 14:33] LABS: Alanine Aminotransferase 12 U/L (0-31); Albumin Level 4.3 g/dL (3.5-5.0); Alkaline Phosphatase 66 U/L (39-117); Anion Gap 11 (12-20); Aspartate Amino Transferase 22 U/L (5-31); Bilirubin Total 0.3 mg/dL (0.0-1.0); Blood Urea Nitrogen 14 mg/dL (9-16); Calcium 9.3 mg/dL (8.4-10.2); Carbon Dioxide 25 mmol/L (22-29); Chloride 106 mmol/L (96-108); Cholesterol 204 mg/dL (<200); Estimated Glomerular Filt Rate > 60; Glucose Fasting 99 mg/dL (60-99); HDL Cholesterol 53 mg/dL (>40); LDL Cholesterol Calculated 100 mg/dL (<100); Potassium 3.8 mmol/L (3.3-5.1); Sodium 138 mmol/L (135-145); Total Protein 7.1 g/dL (6.5-8.0); Triglycerides 255 mg/dL (<150); Vitamin B12 603 pg/mL (200-900)
[2024-09-17 14:35] LABS: Ferritin 85 ng/mL (10-250); TSH reflex Free T4 3.11 uIU/mL (0.32-4.0)
[2024-09-21 16:13] LABS: Vitamin D 25-OH, D2 <4 ng/mL; Vitamin D 25-OH, D3 51 ng/mL; Vitamin D 25-OH, Total 51 ng/mL (30-100)
== END 2024-09-17 09:28 | disposition home or self-care (01) ==
LOC: HO.HMGCLDS 09:27
PROVIDERS: PCP Internal Medicine; Visit Provider Internal Medicine
DX: Z00.01 Encounter for general adult medical examination with abnormal findings (principal); E78.9 Disorder of lipoprotein metabolism, unspecified; G25.81 Restless legs syndrome; N32.81 Overactive bladder; Z72.0 Tobacco use; N39.3 Stress incontinence (female) (male); E55.9 Vitamin D deficiency, unspecified; M81.0 Age-related osteoporosis without current pathological fracture; R26.89 Other abnormalities of gait and mobility; Z91.81 History of falling; Z86.2 Personal history of diseases of the blood and blood-forming organs and certain disorders involving the immune mechanism
CPT/HCPCS: 36415; 80053; 80061; 82306; 82607; 82728; 83036; 84443; 85025

== ENCOUNTER 2024-09-18 13:33 | Outpatient (AMB) | payer OTHER, SELFPAY ==
--- NOTE | 2024-09-18 13:47 | A.OFFPC_ITS ---
Vital Signs 09/18/24 13:48 Height 5 ft 1 in Weight 140 lb 8 oz BMI 26.5 BP 116/72 Blood Pressure Location Lt brachial Position Sitting Pulse 84 Pulse Source Pulse Oximeter Pulse Oximetry (%) 98 Oxygen Delivery Method Room Air Intake Visit Reasons: Sciatica Allergies clozapine [From Clozaril] Allergy (Mild, Verified 08/01/24 11:48) UNKNOWN fluoxetine [From Prozac] Allergy (Mild, Verified 08/01/24 11:48) ANXIETY lithium [[place]] Allergy (Mild, Verified 08/01/24 11:48) UNKNOWN oxcarbazepine [From Trileptal] Allergy (Mild, Verified 08/01/24 11:48) ANXIETY carbamazepine [Tegretol] Allergy (Unknown, Verified 08/01/24 11:48) Unknown quetiapine [Seroquel] Allergy (Unknown, Verified 08/01/24 11:48) unknown ziprasidone [Geodon] Allergy (Unknown, Verified 08/01/24 11:48) Unknown CINNAMON TOAST CRUNCH Allergy (Severe, Uncoded 07/03/24 10:40) THROAT SWELLING FRUIT LOOPS Allergy (Severe, Uncoded 07/03/24 10:40) THROAT SWELLING KIDNEY BEANS Allergy (Severe, Uncoded 07/03/24 10:40) THROAT SWELLING Clozaril Allergy (Unknown, Uncoded 07/03/24 10:40) Unknown Environmental Allergy (Unknown, Uncoded 07/03/24 10:40) unknown Floxin Otic Allergy (Unknown, Uncoded 07/03/24 10:40) unknown [place] Carbonate Allergy (Unknown, Uncoded 07/03/24 10:40) Unknown [place] Allergy (Unknown, Uncoded 07/03/24 10:40) unknown Some cereals Allergy (Unknown, Uncoded 07/03/24 10:40) Unknown Spider Bites Allergy (Unknown, Uncoded 07/03/24 10:40) unknown Medication List - Last Reconciled 09/18/24 by Kevin Muñoz MD alendronate 70 mg PO QWEEK amitriptyline 50 mg PO BEDTIME aspirin 325 mg PO DAILY buspirone 15 mg PO BID cybzyrtexi-ptfmzuvevkstw-eyjk 50-300-40 mg (Fioricet) 1 cap PO Q6H PRN calcium citrate-vitamin D3 315 mg-5 mcg (200 unit) 1 tab PO BID diphenoxylate-atropine 2.5-0.025 mg 1 tab PO QID PRN disposable gloves (Disposable Latex-Free Gloves) Use As directed disposable gloves (Disposable Latex-Free Gloves) Use As directed divalproex ER 1,000 mg PO BEDTIME erythromycin 0.5 inches ophthalmic (eye) QID fluticasone propionate 50 mcg/actuation 1 spray intranasal DAILY loratadine 10 mg PO DAILY 90 days lorazepam (Ativan) 0.5 mg PO Q6H PRN lovastatin 40 mg PO BEDTIME melatonin 5 mg PO BEDTIME minoxidil 2.5 mg PO BID miscellaneous medical supply Quad cane use As directed NS [non-slip bath mat As directed NS] nystatin 1 appl topical BID olanzapine (Zyprexa) 20 mg PO BEDTIME omeprazole 20 mg PO BID oxybutynin chloride ER 15 mg PO BEDTIME 90 days polyethylene glycol 3350 17 grams PO BEDTIME propranolol ER 120 mg PO DAILY [rollator walker with basket As directed NS] ropinirole 1 mg PO BEDTIME Shower Chair Use As directed NS simethicone (Gas Relief (simethicone)) 80 mg PO BID PRN sodium bicarbonate 650 mg PO TIDAC topiramate 100 mg PO BID Tobacco use date assessed: 08/01/24 Dental Screening Dental Screen Date: 08/01/24 HPI Sciatica HPI Details Chief Complaint The patient presents with left-sided back pain radiating down left leg Assessment and Plan 64-year-old female with a history sugges tive of sciatica, presenting with left- sided pain back pain radiating to left leg. The patient reports the onset of the pain approximately two weeks ago, with exacerbations upon activity and a lleviation when at rest. There has been improvement noted . Currently, the clinical assessment does not indicate active sciatica as no pain was elicited upon lifting the leg. An x-ray of the lumbar spine has been ordered to further evaluate the potential cause of pain. It is anticipated that the condition may improve over time, and a reassessment has been planned if symptoms persist. 1. Sciatica The patient has been assessed for sciatica, The neurologic examination did not reveal active sciatica manifestations during this visit, as the leg lift test was negative. An x-ray of the lumbar spine has been ordered to confirm or rule out underlying spinal pathology. Patient is advised to monitor symptoms and limit activities that exacerbate the pain. Follow-up is suggested if symptoms persist beyond ten days, at which point physical therapy may be considered. Diagnostic results - Tests and diagnostics: X-ray of the lam mbar spine ordered but not yet completed. Problem List - Sciatica Health Maintenance - Encourage reduction of activities that exacerbate pain and suggest a temporary modification in activity levels. - Get an x-ray of the lumbar spine at yo ur convenience to evaluate the cause of pain. - Monitor symptoms over the next ten day s and reduce activities that worsen the pain. - Report back if the pain persists or wo rsens after ten days. At that point, physical therapy may be discussed. - Follow the instructions for health yuly ntenance, including avoiding activities that trigger pain. [facility] Medical History HLD (hyperlipidemia) HTN (hypertension) Headache Anxiety Depression Schizophrenia Habitual snoring Asthma IBS (irritable bowel syndrome) Endobronchial mass Vitamin D deficiency Osteoporosis Back pain Surgical History History of bladder surgery History of tubal ligation Family History Father Back problem Diabetes mellitus Cataract Mother Diabetes mellitus Maternal Grandfather No problems noted. Maternal Grandmother No problems noted. Paternal Grandfather No problems noted. Paternal Grandmother No problems noted. Social History Household Members: None Housing: Apartment Do you presently have visiting nurse or other home services: No Alcohol intake: former Patient Tobacco Use Status: Current everyday Tobacco user Tobacco use type: Cigarette Cigarette Packs Per Day: 1 Cigarettes Per Day: 20.0 Years Smoked: 35 Packs Per Year: 35 Packs per year/per ci.00 e-Cigarette/Vaping Use: Never Used Substance Use Type: Crack/Cocaine service: No Current occupational status: disabled Cognitive needs: No Hearing needs: No Vision needs: Yes Questionnaire PHQ-9 Over the last 2 weeks, how often have you been bothered by any of the following problems? 1. Little interest or pleasure in doing things: not at all 2. Feeling down, depressed, or hopeless: several days 3. Trouble falling or staying asleep, or sleeping too much: several days 4. Feeling tired or having little energy: several days 5. Poor appetite or overeating: not at all 6. Feeling bad about yourself - or that you are a failure or have let yourself or your family down: not at all 7. Trouble concentrating on things, such as reading the newspaper or watching television: not at all 8. Moving or speaking so slowly that other people could have noticed. Or the opposite - being so fidgety or restless that you have been moving around a lot more than usual: not at all 9. Thoughts that you would be better off or of hurting yourself in some w ay: not at all Total score: 3 Source: Developed by Drs. Hesham Sapp, Amanda Marino, Jace Phillips and colleagues, with an educational brittany from [employer] Thrive Questionnaire Date Thrive assessed: 09/06/23 I am a: Patient What is your living situation today?: I have a steady place to live Within the past 12 months, did the food you bought not last and you didn't have the money to get more?: Never true Within the past 12 months, did you worry whether your food would run out before you got money to buy more?: Never true Do you have trouble paying for medicines?: No Do you have trouble getting transportation to medical appointments?: I choose not to answer this question Do you have trouble paying your heating and electricity bill?: No Do you have trouble taking care of your child, family member or friend?: I choose not to answer this question Do you have trouble with day-to-day activities such as bathing, preparing meals, shopping, managing finances, etc.?: Yes Are you currently unemployed and looking for a job?: No Are you interested in more education?: No Please select the resources that you would like help with: Utilities and Daily support Currently or been in a relationship where the following occur: I choose not to answer THRIVE Score: 0 AUDIT C Alcohol Use Questionnaire (AUDIT-C) 1. How often do you have a drink containing alcohol?: Never Total Score: 0 MARIA TERESA-7 AMB Questionnaire MARIA TERESA-7 Date MARIA TERESA - 7 assessed: 07/19/23 Feeling nervous, anxious, or on edge: 1 = Several days Not being able to stop or control worryin = Several days Worrying too much about different things: 1 = Several days Trouble relaxin = Several days Being so restless that it is hard to sit still: 2 = More than half the days Becoming easily annoyed or irritable: 1 = Several days Feeling afraid as if something awful might happen: 1 = Several days Total MARIA TERESA-7 score (0-4 normal; 5-9 mild; 10-14 moderate; 15-21 severe): 8 Source: Developed by Drs. Hesham Sapp, Amanda Marino, Jace Phillips and colleagues, with an educational brittany from [employer] Review of Systems Const Denies chills and Denies fever(s) ENT Denies epistaxis and Denies nasal discharge Card Denies chest pain Resp Denies chest congestion, Denies cough and Denies hemoptysis GI Denies diarrhea and Denies nausea Skin/Breast Denies rash Neuro Reports no additional complaints Psych Reports no additional complaints Endo Reports no additional complaints Physical exam (Primary Care) Vital Signs: Last Vital Signs Pulse 84 09/18/24 13:48 BP 116/72 09/18/24 13:48 Pulse Ox 98 09/18/24 13:48 Oxygen Delivery Method Room Air 09/18/24 13:48 BMI result Body Mass Index 26.5 Tobacco/Smoking Status: Tobacco use Status Tobacco use date assessed 08/01/24 09/18/24 13:52 Patient Tobacco Use Status Current everyday Tobacco 09/18/24 13:52 Tobacco use type Cigarette 09/18/24 13:52 e-Cigarette/Vaping Use Never Used 09/18/24 13:52 PHQ-9: PHQ-9 Score PHQ-9: Total score 3 09/18/24 13:52 Thrive Assessment: Date of Thrive Assessment Date Thrive assessed 09/06/23 09/18/24 13:52 Currently or been in a relationship where the following occur: I choose not to answer Const General: cooperative, comfortable and no acute distress Orientation/consciousness: patient oriented x3 HENMT Head: Yes normocephalic Eyes General: appearance normal, both eyes and all related structures Neck Neck: Yes supple Resp Effort & Inspection: normal respiratory effort, no cough and no stridor General: Yes no CVA tenderness Back/Spine/Pelvis Other: Spine nontender to percussion Back: no CVA tenderness Skin General skin exam: turgor normal Neuro Other: Straight leg negative bilateral neuromuscular intact General: patient oriented x3, tone normal and moves all extremities Extrem Right lower extremity: no edema Left lower extremity: no edema Coding Level of Care Code Est Pt Level 3 (36209) Diagnoses Left lumbar radiculitis M54.16 Assessment & Plan Assessment & Plan (1) Left lumbar radiculitis: Code(s): M54.16 - Radiculopathy, lumbar region Category: Medical Plan Chief Complaint The patient presents with left-sided back pain radiating down left leg Assessment and Plan 64-year-old female with a history suggestive of sciatica, presenting with left- sided pain back pain radiating to left leg. The patient reports the onset of the pain approximately two weeks ago, with exacerbations upon activity and alleviation when at rest. There has been improvement noted . Currently, the clinical assessment does not indicate active sciatica as no pain was elicited upon lifting the leg. An x-ray of the lumbar spine has been ordered to further evaluate the potential cause of pain. It is anticipated that the condition may improve over time, and a reassessment has been planned if symptoms persist. 1. Sciatica The patient has been assessed for sciatica, The neurologic examination did not reveal active sciatica manifestations during this visit, as the leg lift test was negative. An x-ray of the lumbar spine has been ordered to confirm or rule out underlying spinal pathology. Patient is advised to monitor symptoms and limit activities that exacerbate the pain. Follow-up is suggested if symptoms persist beyond ten days, at which point physical therapy may be considered. Diagnostic results - Tests and diagnostics: X-ray of the lumbar spine ordered but not yet completed. Problem List - Sciatica Health Maintenance - Encourage reduction of activities that exacerbate pain and suggest a temporary modification in activity levels. - Get an x-ray of the lumbar spine at your convenience to evaluate the cause of pain. - Monitor symptoms over the next ten days and reduce activities that worsen the pain. - Report back if the pain persists or worsens after ten days. At that point, phy sical therapy may be discussed. - Follow the instructions for health maintenance, including avoiding activities that trigger pain. Orders: Orders XR lumbar spine 2-3V Today M54.16 - Radiculopathy, lumbar region
[2024-09-18 13:48] VITALS: BP 116/72; PULSE 84; O2SAT 98; BMI 26.5
== END 2024-09-18 14:19 | disposition home or self-care (01) ==
PROVIDERS: PCP Internal Medicine; Visit Provider Internal Medicine
DX: M54.16 Radiculopathy, lumbar region (principal)

== ENCOUNTER → 2024-09-18 13:33 | Outpatient (BNVA) | payer OTHER, SELFPAY | PROVIDERS: PCP Internal Medicine; Visit Provider Internal Medicine | DX: M54.16 Radiculopathy, lumbar region (principal) | CPT/HCPCS: 96127; 99212 ==

== ENCOUNTER 2024-09-21 13:00 | Outpatient (REF) | payer OTHER, SELFPAY ==
[2024-09-21 16:47] LABS: Vitamin D 25-OH Total 74.6 ng/mL (>30)
[2024-09-28 07:17] LABS: N-Telopeptide 37 (see note); NTXCreaRU 33 mg/dL (20-275)
== END 2024-09-21 13:01 | disposition home or self-care (01) ==
LOC: HO.HMGCX 13:00
PROVIDERS: PCP Internal Medicine; Referring Provider Internal Medicine Endocrinology, Diabetes & Metabolism; Visit Provider Internal Medicine
DX: M81.0 Age-related osteoporosis without current pathological fracture (principal); M54.16 Radiculopathy, lumbar region
CPT/HCPCS: 36415; 72100; 82306; 82523

== ENCOUNTER 2024-10-02 11:09 | Outpatient (REF) | payer OTHER, SELFPAY | END 2024-10-02 11:10 | disposition home or self-care (01) | LOC: HO.MAMMO 11:09 | PROVIDERS: PCP Internal Medicine; Visit Provider Internal Medicine | DX: Z12.31 Encounter for screening mammogram for malignant neoplasm of breast (principal) | CPT/HCPCS: 77063; 77067 ==

== ENCOUNTER → 2024-10-02 11:30 | Outpatient (BNV) | payer OTHER, SELFPAY | PROVIDERS: PCP Internal Medicine; Visit Provider Internal Medicine | DX: Z12.31 Encounter for screening mammogram for malignant neoplasm of breast (principal) | CPT/HCPCS: 77063; 77067 ==

== ENCOUNTER 2024-10-09 10:56 | Outpatient (AMB) | payer OTHER, SELFPAY ==
--- NOTE | 2024-10-09 11:02 | A.OFFVIS_ITS ---
Vital Signs 10/09/24 11:06 Height 5 ft 1.22 in Weight 139 lb 15.896 oz BMI 26.3 BP 92/60 Blood Pressure Location Rt brachial Position Sitting Pulse 77 Pulse Source Pulse Oximeter Intake Visit Reasons: Osteoporosis Intake Note: Patient present today for Osteoporosis follow up. 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 Accompanied by: Self / Same As Patient Allergies clozapine [From Clozaril] Allergy (Mild, Verified 10/09/24 11:07) UNKNOWN fluoxetine [From Prozac] Allergy (Mild, Verified 10/09/24 11:07) ANXIETY lithium [[place]] Allergy (Mild, Verified 10/09/24 11:07) UNKNOWN oxcarbazepine [From Trileptal] Allergy (Mild, Verified 10/09/24 11:07) ANXIETY carbamazepine [Tegretol] Allergy (Unknown, Verified 10/09/24 11:07) Unknown quetiapine [Seroquel] Allergy (Unknown, Verified 10/09/24 11:07) unknown ziprasidone [[place]] Allergy (Unknown, Verified 10/09/24 11:07) Unknown CINNAMON TOAST CRUNCH Allergy (Severe, Uncoded 10/09/24 11:07) THROAT SWELLING FRUIT LOOPS Allergy (Severe, Uncoded 10/09/24 11:07) THROAT SWELLING KIDNEY BEANS Allergy (Severe, Uncoded 10/09/24 11:07) THROAT SWELLING Clozaril Allergy (Unknown, Uncoded 10/09/24 11:07) Unknown Environmental Allergy (Unknown, Uncoded 10/09/24 11:07) unknown Floxin Otic Allergy (Unknown, Uncoded 10/09/24 11:07) unknown [place] Carbonate Allergy (Unknown, Uncoded 10/09/24 11:07) Unknown [place] Allergy (Unknown, Uncoded 10/09/24 11:07) unknown Some cereals Allergy (Unknown, Uncoded 10/09/24 11:07) Unknown Spider Bites Allergy (Unknown, Uncoded 10/09/24 11:07) unknown HPI Comments Details: 64 YO Female with PMHx Osteoporosis is seen in F/U for Osteoporosis. First diagnosed in 2016 after she had a fragility fracture of the R leg. She had a DEXA scan completed shortly after which revealed Osteoporosis of the lumbar spine with T score of -2.5. Was started on treatment with Fosamax weekly 04/2018. She failed treatment with this as her BMD acutely worsened while on treatment. This was stopped and she was switched to Prolia. She has had 5 doses thus far (11/02/2019, 05/12/2020, and 11/19/2020, 05/21/2021, 11/25/2021). She has tolerated Prolia well. BMD did decline slightly from prior in her spine on her most recent DEXA. Has 2 servings of dietary calcium per day in the form of milk. Takes Calcium supplement 600 mg 3 tabs daily. Not taking Vitamin D currently. Does use depakote and Topiramate daily. Denies ever using PPI, anticoagulant or glucocorticoid medication. Does not do exercise. Fracture history: Fragility fracture of R leg in 2017. Height loss: 0.5 inch. 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 Menses were regular. , breastfed for 3 years in total. Menopause was age 51. History of Kidney stones: Denies. Family history of Osteoporosis in her mother. UTD on dental cleanings and sees dentist every 6 months. No planned upcoming dental work or extractions. DXA dated: 11/12/2021 FINDINGS: AP SPINE L1-L2 (excluding L3 and L4): The data of L1-L4 has been changed to exclude the L3 and L4 vertebral bodies, because degenerative changes at these levels may cause overestimation of lumbar spine density. Current: BMD 0.846 g/cm2, Z-score -1.2, T-score -2.7, osteoporosis, 14.6% decrease from previous, 2.2% decrease from baseline (<5% change is not significant). Prior: BMD 0.991 g/cm2. Baseline: BMD 0.865 g/cm2. LEFT FEMUR, NECK: Current: BMD 0.818 g/cm2, Z-score -0.2, T-score -1.6, osteopenia. Prior: BMD 0.764 g/cm2. Baseline: BMD 0.792 g/cm2. LEFT FEMUR, TOTAL: Current: BMD 0.864 g/cm2, Z-score -0.1, T-score -1.1, osteopenia, 1.9% increase from previous, 1.2% increase from baseline (<5% change is not significant). Prior: BMD 0.848 g/cm2. Baseline: BMD 0.854 g/cm2. Labs: Laboratory Tests 05/20/22 05/20/22 11:35 11:35 Sodium 142 Potassium 4.3 Creatinine 0.80 Estimated GFR > 60 25-OH Vitamin D Total 40.2 PTH Intact 27 Calcium (PTH Intact) 9.3 transition from Prolia to oral alendronate in 07/2024. Currently on alendronate 70 mg Q weekly. Tolerating nicely. No fracture since last visit [facility] Medical History HLD (hyperlipidemia) HTN (hypertension) Headache Anxiety Depression Schizophrenia Habitual snoring Asthma IBS (irritable bowel syndrome) Endobronchial mass Vitamin D deficiency Osteoporosis Back pain Surgical History History of bladder surgery History of tubal ligation Family History Father Back problem Diabetes mellitus Cataract Mother Diabetes mellitus Maternal Grandfather No problems noted. Maternal Grandmother No problems noted. Paternal Grandfather No problems noted. Paternal Grandmother No problems noted. Social History Household Members: None Housing: Apartment Do you presently have visiting nurse or other home services: No Alcohol intake: former Patient Tobacco Use Status: Current everyday Tobacco user Tobacco use type: Cigarette Cigarette Packs Per Day: 1 Cigarettes Per Day: 20.0 Years Smoked: 35 e-Cigarette/Vaping Use: Never Used Substance Use Type: Crack/Cocaine service: No Current occupational status: disabled Cognitive needs: No Hearing needs: No Vision needs: Yes Physical Exam Vital Signs: Last Vital Signs Pulse 77 10/09/24 11:06 BP 92/60 10/09/24 11:06 BMI result Body Mass Index 26.3 Assessment & Plan Assessment & Plan (1) Osteoporosis: Code(s): M81.0 - Age-related osteoporosis without current pathological fracture Category: Medical Qualifiers: Osteoporosis type: age-related Presence of current pathological fracture: unspecified Qualified Code(s): M81.0 - Age-related osteoporosis without current pathological fracture Plan: This is a 64-year-old white female with a history of osteoporosis and previous fragility fracture. Secondary workup was negative. She is currently on Prolia. Recent DEXA shows stability in the bone density with low bone mass present. Currently on alendronate 70 mg Q weekly since 07/2024 when transitioning off Prolia. Urine NTX is suppressed The plan is to continue the alendronate for a full years time until 07/2025. Will check urine NTX in 3 months' time Orders: Orders Collagen Crosslinks NTX 3 Months M81.0 - Age-related osteoporosis without current pathological fracture Coding Level of Care Code Est Pt Level 3 (24252) Diagnoses Age related osteoporosis, unspecified pathological fracture presence M81.0 Osteoporosis type: age-related Presence of current pathological fracture: unspecified
[2024-10-09 11:06] VITALS: BP 92/60; PULSE 77; BMI 26.3
== END 2024-10-09 11:24 | disposition home or self-care (01) ==
PROVIDERS: PCP Internal Medicine; Visit Provider Internal Medicine Endocrinology, Diabetes & Metabolism
DX: M81.0 Age-related osteoporosis without current pathological fracture (principal)
CPT/HCPCS: 99213

== ENCOUNTER → 2024-10-09 10:56 | Outpatient (BNVA) | payer OTHER, SELFPAY | PROVIDERS: PCP Internal Medicine; Visit Provider Internal Medicine Endocrinology, Diabetes & Metabolism | DX: M81.0 Age-related osteoporosis without current pathological fracture (principal) | CPT/HCPCS: 99212 ==

== ENCOUNTER 2024-10-30 14:23 | Emergency (ER) | payer OTHER, SELFPAY ==
--- NOTE | ~2024-10-30 | CT_ITS ---
EXAMINATION: CT HEAD WITHOUT CONTRAST CLINICAL INFORMATION: Headache COMPARISON: None available. TECHNIQUE: Contiguous axial imaging was performed from the skull base to vertex without intravenous administration of contrast. This CT examination was performed using dose optimization techniques as appropriate, variously including the following: *Automated exposure control *Adjustment of mA and/or kV according to patient size (this includes techniques or standardized protocols for targeted exams where dose is matched to indication/reason for exam; i.e. extremities or head) *Use of iterative reconstruction technique DLP: 570 mGy/cm. FINDINGS: There is no acute intra-axial, extra-axial bleed, masses or midline shift. There is no acute infarction evolution. There is no edema. Phillips to white matter differentiation is maintained normal. Bone windows reveal no calvarial abnormality. There is no scalp soft tissue abnormality. Bilateral paranasal sinuses and mastoid air cells are well-aerated. CT/CT head/brain wo IV con IMPRESSION: No acute intracranial intracranial process seen. Electronically signed by: Eddi Pedroza MD 10/30/2024 04:46 PM [facility]
[2024-10-30 14:32] VITALS: BP 126/82; PULSE 78; RESP 18; TEMP 36.6; O2SAT 95; BMI 27.0
--- NOTE | 2024-10-30 14:33 | ED_ITS ---
HPI - General Adult General Chief complaint: General Medical Stated complaint: Facial numbness Time Seen by Provider: 10/30/24 18:12 Source: patient Limitations: no limitations History of Present Illness HPI narrative: 64-year-old female with history of schizophrenia, anxiety, depression, migraine, asthma, IBS and chronic back pain, presents with headache. Patient states she developed a right-sided headache this afternoon with the associated right upper lip numbness. Her symptoms lasted an hour then resolved. There was no speech impediment, facial droop, weakness of either the upper or lower extremity. Patient's symptoms have been resolved since arrival. In addition, patient complains of bilateral ?electric shock pain? in both of her feet that has been ongoing for months. Patient denies current acute back pain, weakness of lower extremities, saddle anesthesia, urinary retention or bowel incontinence. She has pending follow up with her neurologist. Related Data Home Medications ?Medication ?Instructions ?Recorded ?Confirmed ejvqddpzak-mfnsrnoibejoh-gzbnbxmp 1 cap PO Q6H PRN Migraine Headache 09/11/20 09/18/24 50 mg-300 mg-40 mg capsule (Fioricet) lorazepam 0.5 mg tablet (Ativan) 0.5 mg PO Q6H PRN Anxiety 09/11/20 09/18/24 olanzapine 20 mg tablet (Zyprexa) 20 mg PO BEDTIME 09/11/20 09/18/24 propranolol 120 mg capsule,24 120 mg PO DAILY 09/11/20 09/18/24 hr,extended release minoxidil 2.5 mg tablet 2.5 mg PO BID 08/26/21 09/18/24 divalproex 500 mg tablet,extended 1,000 mg PO BEDTIME 09/23/21 09/18/24 release 24 hr polyethylene glycol 3350 17 gram 17 g PO BEDTIME 09/23/21 09/18/24 oral powder packet omeprazole 20 mg capsule,delayed 20 mg PO BID 11/25/21 09/18/24 release amitriptyline 25 mg tablet 50 mg PO BEDTIME 09/04/23 09/18/24 buspirone 15 mg tablet 15 mg PO BID 09/04/23 09/18/24 diphenoxylate-atropine 2.5 1 tab PO QID PRN Diarrhea 09/04/23 09/18/24 mg-0.025 mg tablet melatonin 5 mg disintegrating 5 mg PO BEDTIME 09/04/23 09/18/24 tablet nystatin 100,000 unit/gram topical 1 appl topical BID 09/04/23 09/18/24 cream ropinirole 1 mg tablet 1 mg PO BEDTIME 09/04/23 09/18/24 simethicone 80 mg chewable tablet 80 mg PO BID PRN abdominal 09/04/23 09/18/24 (Gas Relief (simethicone)) distention topiramate 100 mg tablet 100 mg PO BID 09/04/23 09/18/24 Previous Rx's ?Medication ?Instructions ?Recorded sodium bicarbonate 650 mg tablet 650 mg PO TIDAC #90 tabs 09/07/23 loratadine 10 mg tablet 10 mg PO DAILY 90 days #90 tabs 11/08/23 fluticasone propionate 50 1 spray intranasal DAILY #16 grams 12/16/23 mcg/actuation nasal spray,suspension calcium 315 mg (as 1 tab PO BID #60 tabs 02/24/24 citrate)-vitamin D3 5 mcg (200 unit) tablet lovastatin 40 mg tablet 40 mg PO BEDTIME #90 tabs 03/15/24 aspirin 325 mg tablet 325 mg PO DAILY #90 tabs 03/30/24 oxybutynin chloride 15 mg 15 mg PO BEDTIME overactive 06/13/24 tablet,extended release 24 hr bladder 90 days #90 tabs erythromycin 5 mg/gram (0.5 %) eye 0.5 inch ophthalmic (eye) QID #3.5 07/03/24 ointment grams Shower Chair #1 ea 09/13/24 disposable gloves (Disposable #100 ea 09/13/24 Latex-Free Gloves) miscellaneous medical supply #1 ea 09/13/24 non-slip bath mat #1 ea 09/13/24 rollator walker with basket #1 ea 09/14/24 alendronate 70 mg tablet 70 mg PO QWEEK #4 tabs 10/07/24 disposable gloves (Disposable #100 ea 10/11/24 Latex-Free Gloves) Allergies Allergy/AdvReac Type Severity Reaction Status Date / Time clozapine [From Clozaril] Allergy Mild UNKNOWN Verified 10/30/24 14:39 fluoxetine [From Prozac] Allergy Mild ANXIETY Verified 10/30/24 14:39 lithium [Oyens] Allergy Mild UNKNOWN Verified 10/30/24 14:39 oxcarbazepine Allergy Mild ANXIETY Verified 10/30/24 14:39 [From Trileptal] carbamazepine [Tegretol] Allergy Unknown Unknown Verified 10/30/24 14:39 quetiapine [Seroquel] Allergy Unknown unknown Verified 10/30/24 14:39 ziprasidone [Geodon] Allergy Unknown Unknown Verified 10/30/24 14:39 CINNAMON TOAST CRUNCH Allergy Severe THROAT Uncoded 10/30/24 14:39 SWELLING FRUIT LOOPS Allergy Severe THROAT Uncoded 10/30/24 14:39 SWELLING KIDNEY BEANS Allergy Severe THROAT Uncoded 10/30/24 14:39 SWELLING Clozaril Allergy Unknown Unknown Uncoded 10/30/24 14:39 Environmental Allergy Unknown unknown Uncoded 10/30/24 14:39 Floxin Otic Allergy Unknown unknown Uncoded 10/30/24 14:39 Oyens Carbonate Allergy Unknown Unknown Uncoded 10/30/24 14:39 Narvane Allergy Unknown unknown Uncoded 10/30/24 14:39 Some cereals Allergy Unknown Unknown Uncoded 10/30/24 14:39 Spider Bites Allergy Unknown unknown Uncoded 10/30/24 14:39 Review of Systems 2 Review of Systems: Yes all other systems are reviewed and are negative Constitutional: Constitutional: Denies fatigue, Denies fever(s) and Reports headache(s) Eyes: Eyes: Denies change in vision and Denies loss of vision ENT: Denies dizziness, Denies facial pain, Reports headache(s) and Denies neck pain Cardiovascular: Cardiovascular: Denies chest pain and Denies dyspnea Respiratory: Respiratory: Denies cough and Denies dyspnea Gastrointestinal: Gastrointestinal: Denies abdominal pain, Denies nausea and Denies vomiting Musculoskeletal: Musculoskeletal: Denies back pain, Denies muscle weakness, Denies neck pain, Denies numbness, Denies radiating pain into limb and Reports tingling Neurologic: Denies Abnormal speech present, Denies dizziness, Reports headache(s), Denies focal weakness, Denies loss of vision, Denies numbness, Reports tingling and Reports paresthesias Endocrine: Endocrine: Denies fatigue PMFSH Past Medical History Medical History HLD (hyperlipidemia) HTN (hypertension) Headache Anxiety Depression Schizophrenia Habitual snoring Asthma IBS (irritable bowel syndrome) Endobronchial mass Vitamin D deficiency Osteoporosis Back pain Surgical History History of bladder surgery History of tubal ligation Family History Family History Father Back problem Diabetes mellitus Cataract Mother Diabetes mellitus Maternal Grandfather No problems noted. Maternal Grandmother No problems noted. Paternal Grandfather No problems noted. Paternal Grandmother No problems noted. Social History Social History Household Members: None Housing: Apartment Do you presently have visiting nurse or other home services: No Alcohol intake: former Patient Tobacco Use Status: Current everyday Tobacco user Tobacco use type: Cigarette Cigarette Packs Per Day: 1 Cigarettes Per Day: 20.0 Years Smoked: 35 e-Cigarette/Vaping Use: Never Used Substance Use Type: Crack/Cocaine Advance Directives: No Advance Directives Information Provided: No service: No Current occupational status: disabled Cognitive needs: No Hearing needs: No Vision needs: Yes Physical Exam ED Vital Signs: Vital Signs - 24 hr 10/30/24 14:32 10/30/24 18:39 Temperature 97.9 F 98.1 F Pulse Rate 78 73 Respiratory Rate 18 16 Blood Pressure 126/82 118/49 L Pulse Oximetry 95 97 Oxygen Delivery Method Room Air Room Air BMI result Body Mass Index 27.0 Const Other: Alert well-appearing Orientation/consciousness: patient oriented x3 Resp Effort & Inspection: normal respiratory effort Cardio Other: Normal peripheral perfusion Skin Other: Warm dry no rash Neuro Other: No ataxia General: patient oriented x3, gait normal, no focal motor deficits and CN's II- XI intact bilaterally Speech: No Abnormal speech present Extrem Other: Strength 5/5 bilateral upper and lower extremities with resistance, normal steady gait Psych Other: Cooperative NIH Stroke Scale Internal: Initial- Upon Arrival Level of Consciousness: Alert Level of Consciousness Questions: Answers both questions correctly Level of Consciousness Commands: Performs both tasks correctly Best Gaze: Normal Visual: No visual loss Facial Palsy: Normal Motor Arm (Right): No drift Motor Arm (Left): No drift Motor Leg (Right): No drift Motor Leg (Left): No drift Limb Ataxia: Absent Sensory: Normal Best Language: No aphasia Dysarthia: Normal Extinction and Inattention: No abnormality Score: 0 Course Course Course Narrative: This is an RME: Additional HPI, ROS, PE not included below will be deferred to primary provider. RME assessment and note performed by: Hanh Godoy PA-C This is a 63-year-old female with a PMH significant for IBS, GERD, HTN, HLD, mild intermittent asthma, and mood disorder who presents to the ER with complaints of right sided facial numbness which started at noon today, this lasted for 1 hour and has since resolved. Reports that she also has had a headache. She has a NIH stroke scale of 0. She is neurologically intact with no focal deficits. Plan: Labs, further ER eval needed. Medical Decision Making Medical Decision Making MDM Narrative: 64-year-old female with history of schizophrenia, anxiety, depression, migraine, asthma, IBS and chronic back pain, presents with headache. Patient states she developed a right-sided headache this afternoon with the associated right upper lip numbness. Her symptoms lasted an hour then resolved. There was no speech impediment, facial droop, weakness of either the upper or lower extremity. Patient's symptoms have been resolved since arrival. In addition, patient complains of bilateral ?electric shock pain? in both of her feet that has been ongoing for months. Patient denies current acute back pain, weakness of lower extremities, saddle anesthesia, urinary retention or bowel incontinence. She has pending follow up with her neurologist. Problem: Psychiatric illness, migraine , chronic back History: Per patient I have considered the following differential diagnoses: Bartlett's palsy, complex migraine, CVA, peripheral neuropathy, lumbar radiculopathy, cauda equina Plan: In regard to the patient's complaint of headache with right upper lip numbness, this is likely secondary to a migraine. CT scan of the brain was ordered, this is not consistent with a stroke, I am not ordering angiograms. On regard to the patient's tingling sensation in both of her feet, this sounds like neuropathic pain, she has already amidst workup with her neurologist. Thought about other acute etiologies such as lumbar radiculopathy and cauda equina, however she is not having concurrent acute back pain there was no radiation of pain from the back to the lower extremities, she has no red flag signs symptoms concerning for cord compression and she has had these sxs for months. I have independently reviewed the following tests: Labs: No leukocytosis, not anemic, no electrolyte abnormality, troponin less than 2.7 unclear why this was obtained, CT brain:INDINGS: There is no acute intra-axial, extra-axial bleed, masses or midline shift. There is no acute infarction evolution. There is no edema. Phillips to white matter differentiation is maintained normal. Bone windows reveal no calvarial abnormality. There is no scalp soft tissue abnormality. Bilateral paranasal sinuses and mastoid air cells are well-aerated. CT/CT head/brain wo IV con IMPRESSION: No acute intracranial intracranial process seen. Lab Data 10/30/24 16:14 10/30/24 16:14 Labs: Lab Results 10/30/24 Range/Units 16:14 WBC 8.8 (4.8-10.8) X10*3/uL RBC 4.49 (4.20-5.50) X10*6/uL Hgb 13.6 (12.0-16.0) g/dl Hct 40.8 (37.0-47.0) % MCV 90.9 (80.0-98.0) fL MCH 30.3 (27.0-33.0) pg MCHC 33.3 (31.0-35.0) g/dl RDW 14.6 (11.0-16.0) % Plt Count 343 (160-400) X10*3/uL MPV 10.2 (9.4-12.3) fL Immature Gran % (Auto) 0.3 (0.0-0.4) % Neut % (Auto) 47.1 (45-73) % Lymph % (Auto) 41.9 H (20-40) % [place] % (Auto) 8.2 (2-11) % Eos % (Auto) 1.8 (0-4) % Baso % (Auto) 0.7 (0-2) % Lymph # (Auto) 3.7 (1.2-4.9) X10*3/uL [place]yth # (Auto) 0.7 (0.1-1.2) X10*3/uL Eos # (Auto) 0.2 (0.0-0.4) X10*3/uL Baso # (Auto) 0.1 (0.0-0.2) X10*3/uL Abs Immat Gran (auto) 0.03 (0.00-0.03) X10*3/uL Absolute Neuts (auto) 4.2 (2.0-8.3) x10*3/uL Absolute Nucleated RBC 0.000 (0.0-0.012) X10*3/uL Nucleated RBC % (auto) 0.0 (0.0-0.2) /100WBC PT 9.7 L (10.9-12.4) SEC INR 0.8 L (0.9-1.1) Sodium 142 (135-145) mmol/L Potassium 4.3 (3.3-5.1) mmol/L Chloride 111 H (96-108) mmol/L Carbon Dioxide 25 (22-29) mmol/L Anion Gap 10 L (12-20) BUN 7 L (9-16) mg/dL Creatinine 0.67 (0.5-1.4) mg/dL Estim Creat Clear Calc 72.1 Estimated GFR > 60 Random Glucose 107 (60-115) mg/dL Calcium 9.4 (8.4-10.2) mg/dL Magnesium 2.3 (1.6-2.6) mg/dL Total Bilirubin 0.1 (0.0-1.0) mg/dL Direct Bilirubin < 0.2 (0.0-0.5) mg/dL AST 22 (5-31) U/L ALT 13 (0-31) U/L Alkaline Phosphatase 75 (39-117) U/L Troponin I High Sens < 2.7 (<3.5-17.0) ng/L Total Protein 7.4 (6.5-8.0) g/dL Albumin 4.2 (3.5-5.0) g/dL Discharge Plan Discharge Clinical Impression: Migraine Patient Disposition: Home, Self-Care Instructions: Migraine Headache (ED) Additional Instructions: All of your screening labs were normal. The CT scan of your brain was normal as well. I do believe your symptoms were secondary to a complex migraine. Continue to take your prescribed migraine related medications as directed. In regard to your ongoing bilateral foot discomfort, follow up with your neurologist. Prescriptions: No Action loratadine 10 mg tablet 10 mg PO DAILY 90 Days Qty: 90 3RF fluticasone propionate 50 mcg/actuation spray,suspension 1 spray intranasal DAILY Qty: 16 2RF calcium citrate-vitamin D3 315 mg-5 mcg (200 unit) tablet 1 tab PO BID Qty: 60 10RF lovastatin 40 mg tablet 40 mg PO BEDTIME Qty: 90 3RF aspirin 325 mg tablet 325 mg PO DAILY Qty: 90 3RF (DME) Shower Chair Misc See Rx Instructions .Route Qty: 1 0RF Rx Instructions: Use As directed (DME) non-slip bath mat See Rx Instructions .Route .MEDSUPPLY Qty: 1 0RF Rx Instructions: As directed (DME) disposable gloves [Disposable Latex-Free Gloves] Misc See Rx Instructions .Route Qty: 100 11RF Rx Instructions: Use As directed (DME) miscellaneous medical supply Misc See Rx Instructions .Route Qty: 1 0RF Rx Instructions: Quad cane use As directed (DME) rollator walker with basket See Rx Instructions .Route .MEDSUPPLY Qty: 1 0RF Rx Instructions: As directed alendronate 70 mg tablet 70 mg PO QWEEK Qty: 4 5RF (DME) disposable gloves [Disposable Latex-Free Gloves] [facility] See Rx Instructions .Route Qty: 100 11RF Rx Instructions: Use As directed amitriptyline 25 mg tablet 50 mg PO BEDTIME nystatin 100,000 unit/gram cream 1 appl topical BID topiramate 100 mg tablet 100 mg PO BID buspirone 15 mg tablet 15 mg PO BID melatonin 5 mg tablet,disintegrating 5 mg PO BEDTIME simethicone [Gas Relief (simethicone)] 80 mg tablet,chewable 80 mg PO BID PRN (Reason: abdominal distention) diphenoxylate-atropine 2.5-0.025 mg tablet 1 tab PO QID PRN (Reason: Diarrhea) ropinirole 1 mg tablet 1 mg PO BEDTIME Rx Instructions: Take 1-3 hours before bedtime sodium bicarbonate 650 mg Tablet 650 mg PO TIDAC Qty: 90 0RF propranolol 120 mg capsule,extended release 24 hr 120 mg PO DAILY [id number]-xmclxkutpkima-dmrz [Fioricet] 50-300-40 mg capsule 1 cap PO Q6H PRN (Reason: Migraine Headache) lorazepam [Ativan] 0.5 mg tablet 0.5 mg PO Q6H PRN (Reason: Anxiety) olanzapine [Zyprexa] 20 mg tablet 20 mg PO BEDTIME minoxidil 2.5 mg tablet 2.5 mg PO BID divalproex 500 mg tablet extended release 24 hr 1,000 mg PO BEDTIME polyethylene glycol 3350 17 gram powder in packet 17 g PO BEDTIME omeprazole 20 mg capsule,delayed release(DR/EC) 20 mg PO BID oxybutynin chloride 15 mg tablet extended release 24hr 15 mg PO BEDTIME 90 Days Qty: 90 3RF erythromycin 5 mg/gram (0.5 %) ointment 0.5 inch ophthalmic (eye) QID Qty: 3.5 0RF Rx Instructions: apply 0.5cm ribbon to lower inner eyelid of each eye every 4 hours while awake, up to 4 times a day Print Language: Japanese
[2024-10-30 16:19] LABS: MANUAL DIFF FLAG NO
[2024-10-30 16:21] LABS: Basophils Absolute Auto 0.1 X10*3/uL (0.0-0.2); Basophils Percent Auto 0.7 % (0-2); Eosinophils Absolute Auto 0.2 X10*3/uL (0.0-0.4); Eosinophils Percent Auto 1.8 % (0-4); Hematocrit 40.8 % (37.0-47.0); Hemoglobin 13.6 g/dl (12.0-16.0); Imm Gran Abs Auto 0.03 X10*3/uL (0.00-0.03); Imm Gran Pct Auto 0.3 % (0.0-0.4); Lymphocytes Absolute Auto 3.7 X10*3/uL (1.2-4.9); Lymphocytes Percent Auto 41.9 % (20-40); Mean Corpuscular HGB Conc 33.3 g/dl (31.0-35.0); Mean Corpuscular Hemoglobin 30.3 pg (27.0-33.0); Mean Corpuscular Volume 90.9 fL (80.0-98.0); Mean Platelet Volume 10.2 fL (9.4-12.3); Monocytes Absolute Auto 0.7 X10*3/uL (0.1-1.2); Monocytes Percent Auto 8.2 % (2-11); Neutrophils Absolute Auto 4.2 x10*3/uL (2.0-8.3); Neutrophils Percent Auto 47.1 % (45-73); Platelet Count 343 X10*3/uL (160-400); Red Blood Count 4.49 X10*6/uL (4.20-5.50); Red Cell Distribution Width 14.6 % (11.0-16.0); White Blood Count 8.8 X10*3/uL (4.8-10.8)
[2024-10-30 16:31] LABS: INTERNATIONAL NORM RATIO 0.8 (0.9-1.1); Prothrombin Time 9.7 SEC (10.9-12.4)
[2024-10-30 16:36] LABS: Alanine Aminotransferase 13 U/L (0-31); Albumin Level 4.2 g/dL (3.5-5.0); Alkaline Phosphatase 75 U/L (39-117); Anion Gap 10 (12-20); Aspartate Amino Transferase 22 U/L (5-31); Bilirubin Direct < 0.2 mg/dL (0.0-0.5); Bilirubin Total 0.1 mg/dL (0.0-1.0); Blood Urea Nitrogen 7 mg/dL (9-16); Calcium 9.4 mg/dL (8.4-10.2); Carbon Dioxide 25 mmol/L (22-29); Chloride 111 mmol/L (96-108); Creatinine Clr Calc Pharmacy 72.1; Estimated Glomerular Filt Rate > 60; Glucose Random 107 mg/dL (60-115); Magnesium 2.3 mg/dL (1.6-2.6); Potassium 4.3 mmol/L (3.3-5.1); Sodium 142 mmol/L (135-145); Total Protein 7.4 g/dL (6.5-8.0)
[2024-10-30 16:45] LABS: Troponin-I High Sensitivity < 2.7 ng/L (<3.5-17.0)
[2024-10-30 18:39] VITALS: BP 118/49; PULSE 73; RESP 16; TEMP 36.7; O2SAT 97
[2024-10-30 19:46] VITALS: BP 118/49; PULSE 73; RESP 16; TEMP 36.7; O2SAT 97
== END 2024-10-30 19:47 | disposition home or self-care (01) ==
PROVIDERS: Physician Assistant Medical; Emergency Provider Emergency Medicine; PCP Internal Medicine
DX: G43.909 Migraine, unspecified, not intractable, without status migrainosus (principal); R20.0 Anesthesia of skin; R29.700 NIHSS score 0; I10 Essential (primary) hypertension; E78.5 Hyperlipidemia, unspecified; J45.909 Unspecified asthma, uncomplicated; F17.210 Nicotine dependence, cigarettes, uncomplicated; Z79.82 Long term (current) use of aspirin; Z79.02 Long term (current) use of antithrombotics/antiplatelets; Z79.899 Other long term (current) drug therapy
CPT/HCPCS: 36415; 70450; 80048; 80076; 83735; 84484; 85025; 85610; 99283; 99284

== ENCOUNTER → 2024-10-30 14:39 | Outpatient (BNV) | payer OTHER, SELFPAY | PROVIDERS: PCP Internal Medicine; Visit Provider Radiology Diagnostic Radiology | DX: R51.9 Headache, unspecified (principal) | CPT/HCPCS: 70450 ==

== ENCOUNTER 2025-03-13 13:05 | Outpatient (AMB) | payer OTHER, SELFPAY ==
[2025-03-13 13:13] VITALS: BP 124/80; PULSE 83; RESP 18; TEMP 36.5; O2SAT 97; BMI 27.4
--- NOTE | 2025-03-13 13:13 | MHC.PC.OV ---
Vital Signs 03/13/25 13:13 Height 5 ft 1 in Weight 145 lb BMI 27.4 BP 124/80 Blood Pressure Location Rt brachial Position Sitting Respiration 18 Pulse 83 Pulse Source Pulse Oximeter Temp 97.7 F Temp Source Oral Pulse Oximetry (%) 97 Oxygen Delivery Method Room Air Intake Visit Reasons: Follow up Allergies clozapine [From Clozaril] Allergy (Mild, Verified 03/13/25 13:15) UNKNOWN fluoxetine [From Prozac] Allergy (Mild, Verified 03/13/25 13:15) ANXIETY lithium [Stannards] Allergy (Mild, Verified 03/13/25 13:15) UNKNOWN oxcarbazepine [From Trileptal] Allergy (Mild, Verified 03/13/25 13:15) ANXIETY carbamazepine [Tegretol] Allergy (Unknown, Verified 03/13/25 13:15) Unknown quetiapine [Seroquel] Allergy (Unknown, Verified 03/13/25 13:15) unknown ziprasidone [Geodon] Allergy (Unknown, Verified 03/13/25 13:15) Unknown CINNAMON TOAST CRUNCH Allergy (Severe, Uncoded 03/13/25 13:15) THROAT SWELLING FRUIT LOOPS Allergy (Severe, Uncoded 03/13/25 13:15) THROAT SWELLING KIDNEY BEANS Allergy (Severe, Uncoded 03/13/25 13:15) THROAT SWELLING Clozaril Allergy (Unknown, Uncoded 03/13/25 13:15) Unknown Environmental Allergy (Unknown, Uncoded 03/13/25 13:15) unknown Floxin Otic Allergy (Unknown, Uncoded 03/13/25 13:15) unknown Stannards Carbonate Allergy (Unknown, Uncoded 03/13/25 13:15) Unknown Narvane Allergy (Unknown, Uncoded 03/13/25 13:15) unknown Some cereals Allergy (Unknown, Uncoded 03/13/25 13:15) Unknown Spider Bites Allergy (Unknown, Uncoded 03/13/25 13:15) unknown Medication List - Last Reconciled 03/13/25 by Kevin Muñoz MD alendronate 70 mg PO QWEEK amitriptyline 50 mg PO BEDTIME aspirin 325 mg PO DAILY buspirone 15 mg PO BID hdufvaenna-ytjvepbvqfsnv-fzlc 50-300-40 mg (Fioricet) 1 cap PO Q6H PRN calcium citrate-vitamin D3 315 mg-5 mcg (200 unit) 1 tab PO BID cane Quad cane , use as directed NS diphenoxylate-atropine 2.5-0.025 mg 1 tab PO QID PRN disposable gloves (Disposable Latex-Free Gloves) Use As directed disposable gloves (Disposable Latex-Free Gloves) Use As directed divalproex ER 1,000 mg PO BEDTIME fluticasone propionate 50 mcg/actuation 1 spray intranasal DAILY latex gloves Use As directed loratadine 10 mg PO DAILY 90 days lorazepam (Ativan) 0.5 mg PO Q6H PRN lovastatin 40 mg PO BEDTIME melatonin 5 mg PO BEDTIME minoxidil 2.5 mg PO BID miscellaneous medical supply Quad cane use As directed NS [non-slip bath mat As directed NS] nystatin 1 appl topical BID olanzapine (Zyprexa) 20 mg PO BEDTIME omeprazole 20 mg PO BID oxybutynin chloride ER 15 mg PO BEDTIME 90 days polyethylene glycol 3350 17 grams PO BEDTIME propranolol ER 120 mg PO DAILY [rollator walker with basket As directed NS] ropinirole 1 mg PO BEDTIME Shower Chair Use As directed NS simethicone (Gas Relief (simethicone)) 80 mg PO BID PRN sodium bicarbonate 650 mg PO TIDAC topiramate 100 mg PO BID walker Folding walker with wheels, use as directed NS Tobacco use date assessed: 03/13/25 Fall risk assessment: No Falls in past year Last assessed Fall Risk: 03/13/25 Dental Screening Dental Screen Date: 03/13/25 Did you have a dental visit in the last 12 months?: No Did you have a dental problem in the last 6 months where you did not have access to dental care?: No Was dental information given to patient?: Patient declined HPI Follow up HPI Details History - The patient is a 65-year-old female presenting for routine follow-up and blood test updating. - Osteoporosis has been managed with alendronate prescribed by [employer] [address], Dr. Scott. - Anxiety managed with buspirone. - Lipid disorder treated with lovastatin. - Gastroesophageal Reflux Disease being managed with omeprazole. - Bladder incontinence is treated with oxybutynin prescribed through urology. - Restless Leg Syndrome treated with a medication referred to as looping, likely a reference to specific therapy. - Vitamin D levels last checked in September of last year, recorded at 74.6. - The patient last visited the office in September of previous year, with noted stability in disease conditions. Viral Illness The patient reported experiencing generalized weakness, shakiness, and tiredness, particularly in the legs, which led to two days of bed rest. These symptoms have improved, indicating resolution likely related to a viral illness common during this period. No specific antiviral treatment was discussed or deemed necessary given the improvement. Nicotine Dependence The patient is attempting to reduce smoking from previous higher levels of consumption. Currently, she reports smoking approximately half a pack per day, primarily on the porch, instead of previously chain smoking indoors. A 14 mg Nicoderm CQ patch has been prescribed to aid smoking cessation, with clear instructions to refrain from smoking while using the patch. An initial plan includes using this dosage for two months, followed by a reduction to 7 mg if cessation proves successful. Back Pain The patient experiences chronic back pain attributed to arthritis and osteoporosis. X-rays from September show significant arthritic changes. Analgesic management will involve the use of extra-strength Tylenol, the only indicated and permissible pain control method, with instructions for usage as needed based on symptom severity. Discussion emphasized the importance of consult with Dr. Scott for further evaluation and potential pain management strategies. Medical History: - Osteoporosis - Anxiety - Lipid Disorder - Gastroesophageal Reflux Disease (GERD) - Bladder Incontinence - Restless Leg Syndrome - Headache Medications: - Alendronate for osteoporosis - Amphetamine at bedtime - Buspirone for anxiety - Devalprex (Likely a medication for psychiatric or neurological condition) - Flonase nasal spray for allergies - Loratadine for allergies - Lovastatin for lipid disorder - Zyprexa (presumed for psychiatric purpose) - Omeprazole for GERD - Oxybutynin for bladder incontinence - Looping for restless leg syndrome (not explicitly identified but likely treatment referred) Diagnostic Results: - Labs: Complete Blood Count (CBC) returned normal - Labs: Hemoglobin within normal limits - Labs: Metabolic profile shows normal kidney function - Labs: Normal liver enzymes - Labs: Vitamin D level recorded in September at 74.6 Problem List - Osteoporosis - Anxiety - Lipid Disorder - Gastroesophageal Reflux Disease (GERD) - Bladder Incontinence - Restless Leg Syndrome - Headache - tobacco dependence - 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 - Nicoderm patches sent 40 mg apply that once a day stopped smoking You may repeat for another month if successful get back to me for step-down patch - for back pain you may take Tylenol in the morning - continue other medications Review of Systems - General: No fever no chills - Neurological: No headaches no dizziness - Ear nose throat: No sore throat no hearing difficulty no ear pain - Cardiovascular: No syncope, no chest pain, no palpitations - Gastrointestinal: No nausea vomiting or diarrhea - Endocrine: No polyuria polydipsia no heat intolerance - Genitourinary: No dysuria , no blood in urine Physical Exam - General: No acute distress - HEENT: No acute findings - Neck: Supple - Respiratory system: Able to talk in full sentences, no audible wheeze - Cardiovascular: S1-S2 regular in rate and rhythm - Gastrointestinal: No pain - Extremities: No new findings - ANIMAL RESEARCHER: Alert awake oriented x3 motor sensory intact - Skin: Normal turgor [facility] Medical History HLD (hyperlipidemia) HTN (hypertension) Headache Anxiety Depression Schizophrenia Habitual snoring Asthma IBS (irritable bowel syndrome) Endobronchial mass Vitamin D deficiency Osteoporosis Back pain Surgical History History of bladder surgery History of tubal ligation Family History Father Back problem Diabetes mellitus Cataract Mother Diabetes mellitus Maternal Grandfather No problems noted. Maternal Grandmother No problems noted. Paternal Grandfather No problems noted. Paternal Grandmother No problems noted. Social History Household Members: None Housing: Apartment Do you presently have visiting nurse or other home services: No Alcohol intake: former Patient Tobacco Use Status: Current everyday Tobacco user Tobacco use type: Cigarette Cigarette Packs Per Day: 1 Cigarettes Per Day: 20.0 Years Smoked: 35 e-Cigarette/Vaping Use: Never Used Substance Use Type: Crack/Cocaine service: No Current occupational status: disabled Cognitive needs: No Hearing needs: No Vision needs: Yes Questionnaire PHQ-9 Over the last 2 weeks, how often have you been bothered by any of the following problems? 1. Little interest or pleasure in doing things: several days 2. Feeling down, depressed, or hopeless: several days 3. Trouble falling or staying asleep, or sleeping too much: several days 4. Feeling tired or having little energy: several days 5. Poor appetite or overeating: not at all 6. Feeling bad about yourself - or that you are a failure or have let yourself or your family down: several days 7. Trouble concentrating on things, such as reading the newspaper or watching television: not at all 8. Moving or speaking so slowly that other people could have noticed. Or the opposite - being so fidgety or restless that you have been moving around a lot more than usual: not at all 9. Thoughts that you would be better off or of hurting yourself in some way: not at all Total score: 5 Depression Screening Interpretation: Negative Depression Screening Done: Yes 08213 - PHQ-9 Billing: Yes Source: Developed by Drs. Hesham Sapp, Amanda Marino, Jace Phillips and colleagues, with an educational brittany from [employer]. Thrive Questionnaire Date Thrive assessed: 03/13/25 I am a: Patient What is your living situation today?: I have a steady place to live Within the past 12 months, did the food you bought not last and you didn't have the money to get more?: I choose not to answer this question Within the past 12 months, did you worry whether your food would run out before you got money to buy more?: I choose not to answer this question Do you have trouble paying for medicines?: I choose not to answer this question Do you have trouble getting transportation to medical appointments?: No Do you have trouble paying your heating and electricity bill?: I choose not to answer this question Do you have trouble taking care of your child, family member or friend?: No Do you have trouble with day-to-day activities such as bathing, preparing meals, shopping, managing finances, etc.?: Yes Are you currently unemployed and looking for a job?: I choose not to answer this question Are you interested in more education?: No Please select the resources that you would like help with: Food, Paying for medicine and Utilities Currently or been in a relationship where the following occur: I choose not to answer THRIVE Score: 0 AUDIT C Alcohol Use Questionnaire (AUDIT-C) 1. How often do you have a drink containing alcohol?: Monthly or less 2. How many drinks containing alcohol do you have on a typical day when you are drinking?: 1 or 2 3. How often do you have six or more drinks on one occasion?: Less than monthly Total Score: 2 MARIA TERESA-7 AMB Questionnaire MARIA TERESA-7 Date MARIA TERESA - 7 assessed: 03/13/25 Feeling nervous, anxious, or on edge: 1 = Several days Not being able to stop or control worryin = Several days Worrying too much about different things: 1 = Several days Trouble relaxin = Several days Being so restless that it is hard to sit still: 1 = Several days Becoming easily annoyed or irritable: 1 = Several days Feeling afraid as if something awful might happen: 1 = Several days Total MARIA TERESA-7 score (0-4 normal; 5-9 mild; 10-14 moderate; 15-21 severe): 7 Source: Developed by Drs. Hesham Sapp, Amanda Marino, Jace Phillips and colleagues, with an educational brittany from [employer]. Physical exam (Primary Care) Vital Signs: Last Vital Signs Temp 97.7 F 03/13/25 13:13 Pulse 83 03/13/25 13:13 Resp 18 03/13/25 13:13 BP 124/80 03/13/25 13:13 Pulse Ox 97 03/13/25 13:13 Oxygen Delivery Method Room Air 03/13/25 13:13 BMI result Body Mass Index 27.4 Tobacco/Smoking Status: Tobacco use Status Tobacco use date assessed 08/01/24 12/11/24 15:18 Patient Tobacco Use Status Current everyday Tobacco 12/11/24 15:18 Tobacco use type Cigarette 12/11/24 15:18 e-Cigarette/Vaping Use Never Used 12/11/24 15:18 Depression Screening Interpretation: Negative Thrive Assessment: Date of Thrive Assessment Date Thrive assessed 09/18/24 12/11/24 15:18 Currently or been in a relationship where the following occur: I choose not to answer Coding Level of Care Code Est Pt Level 4 (94241) Complex EM visit Add On G2211 Diagnoses Lipid disorder E78.9 Restless leg syndrome G25.81 Age related osteoporosis, unspecified pathological fracture presence M81.0 Osteoporosis type: age-related Presence of current pathological fracture: unspecified Overactive bladder N32.81 Tobacco abuse Z72.0 Additional Codes PHQ-9 - 24823 - PHQ-9 Billing: Yes ([id number]) Assessment & Plan Assessment & Plan (1) Lipid disorder: Code(s): E78.9 - Disorder of lipoprotein metabolism, unspecified Category: Medical (2) Restless leg syndrome: Code(s): G25.81 - Restless legs syndrome Category: Medical (3) Osteoporosis: Code(s): M81.0 - Age-related osteoporosis without current pathological fracture Category: Medical Qualifiers: Osteoporosis type: age-related Presence of current pathological fracture: unspecified Qualified Code(s): M81.0 - Age-related osteoporosis without current pathological fracture (4) Overactive bladder: Code(s): N32.81 - Overactive bladder Category: Medical (5) Tobacco abuse: Code(s): Z72.0 - Tobacco use Category: Medical Plan History - The patient is a 65-year-old female presenting for routine follow-up and blood test updating. - Osteoporosis has been managed with alendronate prescribed by [employer] [address] tutor, Dr[address] Scott. - Anxiety managed with buspirone. - Lipid disorder treated with lovastatin. - Gastroesophageal Reflux Disease being managed with omeprazole. - Bladder incontinence is treated with oxybutynin prescribed through urology. - Restless Leg Syndrome treated with a medication referred to as looping, likely a reference to specific therapy. - Vitamin D levels last checked in September of last year, recorded at 74.6. - The patient last visited the office in September of previous year, with noted stability in disease conditions. Viral Illness The patient reported experiencing generalized weakness, shakiness, and tiredness, particularly in the legs, which led to two days of bed rest. These symptoms have improved, indicating resolution likely related to a viral illness common during this period. No specific antiviral treatment was discussed or deemed necessary given the improvement. Nicotine Dependence The patient is attempting to reduce smoking from previous higher levels of consumption. Currently, she reports smoking approximately half a pack per day, primarily on the porch, instead of previously chain smoking indoors. A 14 mg Nicoderm CQ patch has been prescribed to aid smoking cessation, with clear instructions to refrain from smoking while using the patch. An initial plan includes using this dosage for two months, followed by a reduction to 7 mg if cessation proves successful. Back Pain The patient experiences chronic back pain attributed to arthritis and osteoporosis. X-rays from September show significant arthritic changes. Analgesic management will involve the use of extra-strength Tylenol, the only indicated and permissible pain control method, with instructions for usage as needed based on symptom severity. Discussion emphasized the importance of consult with Dr. Scott for further evaluation and potential pain management strategies. Medical History: - Osteoporosis - Anxiety - Lipid Disorder - Gastroesophageal Reflux Disease (GERD) - Bladder Incontinence - Restless Leg Syndrome - Headache Medications: - Alendronate for osteoporosis - Amphetamine at bedtime - Buspirone for anxiety - Devalprex (Likely a medication for psychiatric or neurological condition) - Flonase nasal spray for allergies - Loratadine for allergies - Lovastatin for lipid disorder - Zyprexa (presumed for psychiatric purpose) - Omeprazole for GERD - Oxybutynin for bladder incontinence - Looping for restless leg syndrome (not explicitly identified but likely treatment referred) Diagnostic Results: - Labs: Complete Blood Count (CBC) returned normal - Labs: Hemoglobin within normal limits - Labs: Metabolic profile shows normal kidney function - Labs: Normal liver enzymes - Labs: Vitamin D level recorded in September at 74.6 Problem List - Osteoporosis - Anxiety - Lipid Disorder - Gastroesophageal Reflux Disease (GERD) - Bladder Incontinence - Restless Leg Syndrome - Headache - tobacco dependence - 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 - Nicoderm patches sent 40 mg apply that once a day stopped smoking You may repeat for another month if successful get back to me for step-down patch - for back pain you may take Tylenol in the morning - continue other medications Orders: Orders Comprehensive Met. Panel Today E78.9 - Disorder of lipoprotein metabolism, unspecified, G25.81 - Restless legs syndrome, M81.0 - Age-related osteoporosis without current pathological fracture, N32.81 - Overactive bladder, Z72.0 - Tobacco use Complete Blood Count Auto Diff Today E78.9 - Disorder of lipoprotein metabolism, unspecified, G25.81 - Restless legs syndrome, M81.0 - Age-related osteoporosis without current pathological fracture, N32.81 - Overactive bladder, Z72.0 - Tobacco use Medications: New nicotine (Nicoderm CQ) 1 patch transdermal DAILY 14 ea 1RF
--- OUTSIDE RECORDS SUMMARY | 2025-03-13 14:41 | XMS_ITS | Data Portability ---
Author Organization [employer] [facility], [place] [facility] [facility] Address [address] [place] [address] Care Team Providers Care Bright Cutter Name Role Phone HIM CCA OTHER MANFREDGURINDER Primary Care Provider Assessment Encounter Date Assessment Date Assessment LastModified by Organization Details LastModified Time 09/03/2024 09/03/2024 I have reviewed and agree with the assessment and plan as documented by the project eng. I provided real-time medical direction for this encounter and was immediately available to provide additional phone-based assistance as needed. 64 F, presenting with back pain and right lower leg pain, consistent with sciatica. No trauma, no neuro symptoms. Able to ambulate with steady gait. Has not tried Tylenol/ibuprofe n for symptoms. Exam unremarkable. Suspect uncomplicated sciatica. Recommend patient use Tylenol as needed and red flags discussed. paysola Not available 09/03/2024 21:38:32 Plan of Treatment Reminders Order Date Submit Date Provider Last Modified By Organization Details Last Modified Time Details Appointments None record ed. Lab None record ed. Referral None record ed. Procedures None record ed. Surgeries None record ed. Imaging None record ed. Medication Orders None record ed. Patient TargetsNo targets recorded. Patient InstructionsNo instructions recorded. Reason for Referral None Reported. Medical Equipment None Reported. Allergies Allergen ID Allergen Name Allergen Category Reaction Reaction Severity Criticality Documentation Date Start Date Code Code System Note Provider Name and Address Organization Details Recorded Time 57631 lithium Not available Not available Not available Not available 09/03/2024 6448 RxNorm Not Available [facility] - production 4 15:04:59 93971 Trileptal medicatio n Not available Not available Not available 09/03/2024 56219 0 RxNorm Not Available [facility] - production 4 15:04:59 36334 Trilafon medicatio n Not available Not available Not available 09/03/202484581 0 RxNorm Not Available [facility] - production 15:04:59 Medications Name Sig Start Date Stop Date Status Note LastModified by Organization Details LastModified Time metformin 500 mg tablet active Not Available Not Available No t Available oxybutynin chloride ER 15 mg tablet,extended release 24 hr active Not Available Not Availabl e Not Available ropinirole 1 mg tablet active Not Available Not Available Not Available polyethylene glycol 3350 17 gram oral powder packet active Not Available Not Availabl e Not Available aspirin 325 mg tablet active Not Available Not Available Not Available alendronate 70 mg tablet active Not Available Not Available No t Available lovastatin 40 mg tablet active Not Available Not Available No t Available diphenoxylate-a tropine 2.5 mg-0.025 mg tablet active Not Available Not Available Not Available metronidazole 500 mg tablet active Not Available Not Availabl e Not Available lovastatin 10 mg tablet active Not Available Not Available No t Available minoxidil 2.5 mg tablet active Not Available Not Available No t Available amitriptyline 25 mg tablet active Not Available Not Available Not Available lorazepam 0.5 mg tablet active Not Available Not Available No t Available sodium bicarbonate 650 mg tablet active Not Available Not Available No t Available meclizine 25 mg tablet active Not Available Not Available Not Available erythromycin 5 mg/gram (0.5 %) eye ointment active Not Available Not Available Not Available esomeprazole magnesium 40 mg capsule,delayed release active Not Available Not Available Not Available nystatin 100,000 unit/gram topical cream active Not Available Not Availabl e Not Available divalproex ER 500 mg tablet,extended release 24 hr active Not Available Not Availabl e Not Available nystatin 100,000 unit/gram topical powder active Not Available Not Availab le Not Available propranolol ER 120 mg capsule,24 hr,extended release active Not Available Not Available Not Available zaleplon 5 mg capsule active Not Available Not Available Not Available cefuroxime axetil 500 mg tablet active Not Available Not Available Not Available ketoconazole 2 % topical cream active Not Available Not Availa ble Not Available topiramate 100 mg tablet active Not Available Not Available No t Available olanzapine 20 mg tablet active Not Available Not Available No t Available loratadine 10 mg tablet active Not Available Not Available No t Available buspirone 15 mg tablet active Not Available Not Available Not Available calcium 315 mg (as citrate)-vitami n D3 5 mcg (200 unit) tablet active Not Available Not Available Not Available melatonin 5 mg tablet active Not Available Not Available Not Available Prolia 60 mg/mL subcutaneous syringe active Not Available Not Available Not Available Advanced Antacid-Antigas 200 mg-200 mg-20 mg/5 mL oral suspension active Not Available Not Availa ble Not Available Vitals Date Recorded Respiratory rate Heart rate Oxygen saturation Oxygen saturation in Arterial blood by Pulse oximetry Systolic blood pressure Diastolic blood pressure Provider Name and Address Organization Details Last Updated DateTime 4 16 /min 89 /min 99 % 99 % 140 mm[Hg] 80 mm[Hg] Not Available [facility] - production 4 20:27:28 Social History None recorded. Functional Status None recorded. Mental Status None recorded. Family History Nothing Reported. Medical History No medical history recorded. Gynecological HistoryNo gynecological history recorded. Obstetrics History GPAL:G 0 P 0 0 0 0 Past Encounters Encounter ID Performer Location Encounter Start Date Encounter Closed Date Diagnosis/Indication Diagnosis SNOMED-CT Code Diagnosis ICD10 Code Diagnosis Note [id number] Africa Causey MD [facility] - [facility] [address] [place] [phone] 09/03/2024 20:27:25 09/03/2024 22:05:54 Low back pain 606173485 M54.50 Health Concerns Section Related Observation LastModified by Organization Detai ls LastModified Time None Recorded Concern Status LastModified by Organization Details LastModified Time None Recorded Advance Directives Directive None Recorded Payers Insurance Date Sequence Insurance Name Policy Number Policy Ro Covered Member ID Ro Member ID Guarantor Name 09/03/2024 1 [facility] - DOS ON OR AFTER 2023 - DUAL ELIGIBLE - CUSTODIAL OPTIONS AND ONE CARE (MEDICARE REPLACEMENT/AD VANTAGE - HMO) Blanquita Gonzalez [id number] Blanquita Gonzalez Notes Date Note Type Note Provider Name and Address Organization Details Recorded Time 09/03/2024 text/html [facility] Nurse Triage Notes (Kayla Sosa): Reason For Request: left leg hip and back pain, lower back pain. Chief Complaints: Back pain PMH: Severe Persistent Mental Illness (SPMI), Anxiety Disorder Pain Assessment: Level 8 out of 10 Comments: Check Airman verified the member's name//address and phone number. Member calling to report 8/10 lower back pain that radiates to LLE/hip for over 1 week. Reports pain to be a stabbing aching pain that hurts member to walk. Recently increased exercise at home. Denies dizziness/falls at home. Pain alleviated with rest. Denies swelling in legs.Denies fevers, chest pain or SOB.Education provided on the response time and the member was advised to monitor reported s/s and seek emergency treatment if needed. ................... ................... ................... ................... ................... ................... ................... ........ Marine Services Technician Note From Db Joaquin: Dispatched for a 64yo female with back pain. Pt states she has had back pain going down her right leg. Pt states she has been using heat with some relief. Pt States pain is sharp but does get relief with positioning. Pt denies any trauma. Pt denies any h/a, dizziness, cp, sob or nausea. C consulted. Pt agrees to use Tylenol and follow up with primary care. Pt informed of red flags and when to seek further medical attention.Pt found walking and speaking in full clear sentence with no signs of distress. AO and GCS-15. PERRL Skin P/W/D. Airway open and lung sounds clear. Abd soft non tender. No swelling or discoloration to back. Pt able to bare full weight with no discomfort. Rest of exam unremarkabe. ................... ................... ................... ................... ................... ................... ................... ........ [facility] [place]: Africa Causey ................... ................... ................... ................... ................... ................... ................... ........ Disposition: Fulfilled Africa Causey MD [address] [facility],[address] [facility], [place], [address], [employer] 09/03/2024 21:38:51 OBGyn Episode No OBEpisode recorded.
== END 2025-03-13 13:59 | disposition home or self-care (01) ==
LOC: HO.HMCC 13:06
PROVIDERS: PCP Internal Medicine; Visit Provider Internal Medicine
DX: E78.9 Disorder of lipoprotein metabolism, unspecified (principal); G25.81 Restless legs syndrome; M81.0 Age-related osteoporosis without current pathological fracture; N32.81 Overactive bladder; Z72.0 Tobacco use

== ENCOUNTER → 2025-03-13 13:05 | Outpatient (BNVA) | payer OTHER, SELFPAY | PROVIDERS: PCP Internal Medicine; Visit Provider Internal Medicine | DX: M81.0 Age-related osteoporosis without current pathological fracture (principal); K21.9 Gastro-esophageal reflux disease without esophagitis; F41.9 Anxiety disorder, unspecified; R32 Unspecified urinary incontinence; G25.81 Restless legs syndrome; E55.9 Vitamin D deficiency, unspecified; M54.9 Dorsalgia, unspecified; E78.9 Disorder of lipoprotein metabolism, unspecified; N32.81 Overactive bladder; F17.210 Nicotine dependence, cigarettes, uncomplicated | CPT/HCPCS: 96127; 99212 ==

== ENCOUNTER 2025-03-18 12:33 | Outpatient (REF) | payer OTHER, SELFPAY ==
--- OUTSIDE RECORDS SUMMARY | 2025-03-18 13:54 | XMS_ITS | Data Portability ---
Author Organization [employer] [facility], [facility] Address [address] [place] [address] Care Team Providers Care Human Service Worker Name Role Phone HIM CCA OTHER MANFREDGURINDER Primary Care Provider Assessment Encounter Date Assessment Date Assessment LastModified by Organization Details LastModified Time 09/03/2024 09/03/2024 I have reviewed and agree with the assessment and plan as documented by the solicitor patent. I provided real-time medical direction for this [...] Name and Address Organization Details Recorded Time 70605 lithium Not available Not available Not available Not available 09/03/2024 6448 RxNorm Not Available [facility] - production 4 15:04:59 70191 Trileptal medicatio n Not available Not available Not available 09/03/2024 07631 0 RxNorm Not Available [facility] - production 4 15:04:59 74568 Trilafon medicatio n Not available Not available Not available 09/03/202452465 0 RxNorm Not Available [facility] - production [...] SNOMED-CT Code Diagnosis ICD10 Code Diagnosis Note [id number] Africa Causey MD Main - [facility] [address] [place] [phone] 09/03/2024 20:27:25 09/03/2024 22:05:54 Low back pain 982206034 M54.50 Health Concerns Section Related Observation LastModified by Organization Detai ls LastModified Time None Recorded Concern Status LastModified by Organization Details LastModified Time None Recorded Advance Directives Directive None Recorded Payers Insurance Date Sequence Insurance Name Policy Number Policy Ro Covered Member ID Ro Member ID Guarantor Name 09/03/2024 1 [facility] - DOS ON OR AFTER 2023 - DUAL ELIGIBLE - [employer] OPTIONS AND ONE CARE (MEDICARE REPLACEMENT/AD VANTAGE - HMO) Blanquita Gonzalez [id number] Blanquita Gonzalez Notes Date Note Type Note Provider Name and Address Organization Details Recorded Time 09/03/2024 text/html [facility] Nurse Triage Notes (Kayla Sosa): Reason For Request: left leg hip and back pain, lower back pain. Chief Complaints: Back pain PMH: Severe Persistent Mental Illness (SPMI), Anxiety Disorder Pain Assessment: Level 8 out of 10 Comments: Forensic Engineer verified the member's name//address and phone number. [...] ................... ................... ................... ................... ................... ................... ........ Pattern Finisher Note From Db Joaquin: Dispatched for a [...] ................... ................... ................... ................... ................... ................... ........ [facility] [place] Consulted: Africa Causey ................... ................... ................... ................... ................... ................... ................... ........ Disposition: Fulfilled Africa Causey MD [address] [facility],[address] [facility], [place], [address], [employer] 09/03/2024 21:38:51 OBGyn Episode No OBEpisode recorded.
[2025-03-18 16:14] LABS: MANUAL DIFF FLAG NO
[2025-03-18 16:19] LABS: Basophils Absolute Auto 0.1 X10*3/uL (0.0-0.2); Basophils Percent Auto 0.8 % (0-2); Eosinophils Absolute Auto 0.2 X10*3/uL (0.0-0.4); Eosinophils Percent Auto 2.7 % (0-4); Hematocrit 42.4 % (37.0-47.0); Hemoglobin 13.6 g/dl (12.0-16.0); Imm Gran Abs Auto 0.03 X10*3/uL (0.00-0.03); Imm Gran Pct Auto 0.4 % (0.0-0.4); Lymphocytes Absolute Auto 2.9 X10*3/uL (1.2-4.9); Lymphocytes Percent Auto 36.8 % (20-40); Mean Corpuscular HGB Conc 32.1 g/dl (31.0-35.0); Mean Corpuscular Hemoglobin 29.4 pg (27.0-33.0); Mean Corpuscular Volume 91.8 fL (80.0-98.0); Mean Platelet Volume 11.8 fL (9.4-12.3); Monocytes Absolute Auto 0.7 X10*3/uL (0.1-1.2); Neutrophils Percent Auto 50.3 % (45-73); Platelet Count 294 X10*3/uL (160-400); Red Blood Count 4.62 X10*6/uL (4.20-5.50); Red Cell Distribution Width 14.7 % (11.0-16.0); White Blood Count 7.9 X10*3/uL (4.8-10.8)
[2025-03-18 16:37] LABS: Alanine Aminotransferase 12 U/L (0-31); Albumin Level 4.2 g/dL (3.5-5.0); Alkaline Phosphatase 81 U/L (39-117); Anion Gap 12 (12-20); Aspartate Amino Transferase 27 U/L (5-31); Bilirubin Total 0.2 mg/dL (0.0-1.0); Blood Urea Nitrogen 9 mg/dL (9-16); Calcium 9.3 mg/dL (8.4-10.2); Carbon Dioxide 22 mmol/L (22-29); Chloride 111 mmol/L (96-108); Estimated Glomerular Filt Rate > 60; Glucose Random 116 mg/dL (60-115); Potassium 3.9 mmol/L (3.3-5.1); Sodium 141 mmol/L (135-145); Total Protein 6.9 g/dL (6.5-8.0)
== END 2025-03-18 12:34 | disposition home or self-care (01) ==
LOC: HO.HMGCLDS 12:33
PROVIDERS: PCP Internal Medicine; Visit Provider Internal Medicine
DX: G25.81 Restless legs syndrome (principal); E78.9 Disorder of lipoprotein metabolism, unspecified; N32.81 Overactive bladder; Z72.0 Tobacco use; M81.0 Age-related osteoporosis without current pathological fracture
CPT/HCPCS: 36415; 80053; 85025

== ENCOUNTER 2025-03-22 06:43 | Outpatient (REF) | payer OTHER, SELFPAY ==
--- OUTSIDE RECORDS SUMMARY | 2025-03-22 12:12 | XMS_ITS | Data Portability ---
Author Organization [employer] [facility], [place] [facility] [facility] Address [address] [place] [address] Care Team Providers Care Database Designer Name Role Phone HIM CCA OTHER MANFREDGURINDER Primary Care Provider Assessment Encounter Date Assessment Date Assessment LastModified by Organization Details LastModified Time 09/03/2024 09/03/2024 I have reviewed and agree with the assessment and plan as documented by the personnel security specialist. I provided real-time medical direction for this [...] Name and Address Organization Details Recorded Time 74415 lithium Not available Not available Not available Not available 09/03/2024 6448 RxNorm Not Available [facility] - production 4 15:04:59 75460 Trileptal medicatio n Not available Not available Not available 09/03/2024 75158 0 RxNorm Not Available [facility] - production 4 15:04:59 63512 Trilafon medicatio n Not available Not available Not available 09/03/202439525 0 RxNorm Not Available [facility] - production [...] SNOMED-CT Code Diagnosis ICD10 Code Diagnosis Note [id number] Africa Causey MD Main - [facility] [address] [place] [address] [phone] 09/03/2024 20:27:25 09/03/2024 22:05:54 Low back pain [id number] M54.50 Health Concerns Section Related Observation LastModified by Organization Detai ls LastModified Time None Recorded Concern Status LastModified by Organization Details LastModified Time None Recorded Advance Directives Directive None Recorded Payers Insurance Date Sequence Insurance Name Policy Number Policy Ro Covered Member ID Ro Member ID Guarantor Name 09/03/2024 1 [facility] - DOS ON OR AFTER 2023 - DUAL ELIGIBLE - INTERMEDIATE OPTIONS AND ONE CARE (MEDICARE REPLACEMENT/AD VANTAGE - HMO) Blanquita Gonzalez [id number] Blanquita Gonzalez Notes Date Note Type Note Provider Name and Address Organization Details Recorded Time 09/03/2024 text/html [facility] Nurse Triage Notes (Kayla Sosa): Reason For Request: left leg hip and back pain, lower back pain. Chief Complaints: Back pain PMH: Severe Persistent Mental Illness (SPMI), Anxiety Disorder Pain Assessment: Level 8 out of 10 Comments: Computer Laboratory Technician verified the member's name//address and phone number. [...] ................... ................... ................... ................... ................... ................... ........ Boat Tender Note From Db Joaquin: Dispatched for a [...] ................... ................... ................... ................... ................... ................... ........ [facility] [place] Consulted: Africa Causey ................... ................... ................... ................... ................... ................... ................... ........ Disposition: Fulfilled Africa Causey MD [address] [facility],[address] [facility], [place], [address], [employer] 09/03/2024 21:38:51 OBGyn Episode No OBEpisode recorded.
[2025-03-28 12:14] LABS: N-Telopeptide 16 (see note); NTXCreaRU 35 mg/dL (20-275)
== END 2025-03-22 06:44 | disposition home or self-care (01) ==
LOC: HO.HMGCLNP 06:43
PROVIDERS: PCP Internal Medicine; Visit Provider Internal Medicine Endocrinology, Diabetes & Metabolism
DX: M81.0 Age-related osteoporosis without current pathological fracture (principal)
CPT/HCPCS: 82523

== ENCOUNTER 2025-05-21 13:17 | Outpatient (AMB) | payer OTHER, SELFPAY ==
--- NOTE | 2025-05-21 13:19 | MHC.OFFVIS ---
Vital Signs 05/21/25 13:22 Height 5 ft 0.31 in Weight 145 lb 8.081 oz BMI 28.1 BP 102/64 Blood Pressure Location Rt brachial Position Sitting Pulse 90 Pulse Source Pulse Oximeter Pulse Oximetry (%) 98 Oxygen Delivery Method Room Air Intake Visit Reasons: Osteoporosis Intake Note: Patient present today for Osteoporosis follow up. Filler Shredder Required: No Accompanied by: Self / Same As Patient Allergies clozapine (From Clozaril) Allergy (Mild, Verified 05/21/25 13:23) UNKNOWN fluoxetine (From Prozac) Allergy (Mild, Verified 05/21/25 13:23) ANXIETY lithium ([place]) Allergy (Mild, Verified 05/21/25 13:23) UNKNOWN oxcarbazepine (From Trileptal) Allergy (Mild, Verified 05/21/25 13:23) ANXIETY carbamazepine (Tegretol) Allergy (Unknown, Verified 05/21/25 13:23) Unknown quetiapine (Seroquel) Allergy (Unknown, Verified 05/21/25 13:23) unknown ziprasidone (Geodon) Allergy (Unknown, Verified 05/21/25 13:23) Unknown CINNAMON TOAST CRUNCH Allergy (Severe, Uncoded 05/21/25 13:23) THROAT SWELLING FRUIT LOOPS Allergy (Severe, Uncoded 05/21/25 13:23) THROAT SWELLING KIDNEY BEANS Allergy (Severe, Uncoded 05/21/25 13:23) THROAT SWELLING Clozaril Allergy (Unknown, Uncoded 05/21/25 13:23) Unknown Environmental Allergy (Unknown, Uncoded 05/21/25 13:23) unknown Floxin Otic Allergy (Unknown, Uncoded 05/21/25 13:23) unknown [place] Carbonate Allergy (Unknown, Uncoded 05/21/25 13:23) Unknown Narvane Allergy (Unknown, Uncoded 05/21/25 13:23) unknown Some cereals Allergy (Unknown, Uncoded 05/21/25 13:23) Unknown Spider Bites Allergy (Unknown, Uncoded 05/21/25 13:23) unknown Medication List - Last Reconciled 05/21/25 by Hesham Scott MD alendronate 70 mg PO QWEEK amitriptyline 50 mg PO BEDTIME aspirin 325 mg PO DAILY buspirone 15 mg PO BID gtalmpynty-quibtizxfbqye-lzaf 50-300-40 mg (Fioricet) 1 cap PO Q6H PRN calcium citrate-vitamin D3 315 mg-5 mcg (200 unit) 1 tab PO BID cane Quad cane , use as directed NS diphenoxylate-atropine 2.5-0.025 mg 1 tab PO QID PRN disposable gloves (Disposable Latex-Free Gloves) Use As directed disposable gloves (Disposable Latex-Free Gloves) Use As directed divalproex ER 1,000 mg PO BEDTIME fluticasone propionate 50 mcg/actuation 1 spray intranasal DAILY latex gloves Use As directed loratadine 10 mg PO DAILY 90 days lorazepam (Ativan) 0.5 mg PO Q6H PRN lovastatin 40 mg PO BEDTIME melatonin 5 mg PO BEDTIME minoxidil 2.5 mg PO BID miscellaneous medical supply Quad cane use As directed NS nicotine (Nicoderm CQ) 1 patch transdermal DAILY [non-slip bath mat As directed NS] nystatin 1 appl topical BID olanzapine (Zyprexa) 20 mg PO BEDTIME omeprazole 20 mg PO BID oxybutynin chloride ER 15 mg PO BEDTIME 90 days polyethylene glycol 3350 17 grams PO BEDTIME propranolol ER 120 mg PO DAILY [rollator walker with basket As directed NS] ropinirole 1 mg PO BEDTIME Shower Chair Use As directed NS simethicone (Gas Relief (simethicone)) 80 mg PO BID PRN sodium bicarbonate 650 mg PO TIDAC topiramate 100 mg PO BID walker Folding walker with wheels, use as directed NS HPI Comments Details: 65 YO Female with PMHx Osteoporosis is seen in F/U for Osteoporosis. First diagnosed in 2016 after she had a fragility fracture of the R leg. She had a DEXA scan completed shortly after which revealed Osteoporosis of the lumbar spine with T score of -2.5. Was started on treatment with Fosamax weekly 04/2018. She failed treatment with this as her BMD acutely worsened while on treatment. This was stopped and she was switched to Prolia. She has had 5 doses thus far (11/02/2019, 05/12/2020, and 11/19/2020, 05/21/2021, 11/25/2021). She has tolerated Prolia well. BMD did decline slightly from prior in her spine on her most recent DEXA. Has 2 servings of dietary calcium per day in the form of milk. Takes Calcium supplement 600 mg 3 tabs daily. Not taking Vitamin D currently. Does use depakote and Topiramate daily. Denies ever using PPI, anticoagulant or glucocorticoid medication. Does not do exercise. Fracture history: Fragility fracture of R leg in 2017. Height loss: 0.5 inch. 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 Menses were regular. , breastfed for 3 years in total. Menopause was age 51. History of Kidney stones: Denies. Family history of Osteoporosis in her mother. UTD on dental cleanings and sees dentist every 6 months. No planned upcoming dental work or extractions. DXA dated: 11/12/2021 FINDINGS: AP SPINE L1-L2 (excluding L3 and L4): The data of L1-L4 has been changed to exclude the L3 and L4 vertebral bodies, because degenerative changes at these levels may cause overestimation of lumbar spine density. Current: BMD 0.846 g/cm2, Z-score -1.2, T-score -2.7, osteoporosis, 14.6% decrease from previous, 2.2% decrease from baseline (<5% change is not significant). Prior: BMD 0.991 g/cm2. Baseline: BMD 0.865 g/cm2. LEFT FEMUR, NECK: Current: BMD 0.818 g/cm2, Z-score -0.2, T-score -1.6, osteopenia. Prior: BMD 0.764 g/cm2. Baseline: BMD 0.792 g/cm2. LEFT FEMUR, TOTAL: Current: BMD 0.864 g/cm2, Z-score -0.1, T-score -1.1, osteopenia, 1.9% increase from previous, 1.2% increase from baseline (<5% change is not significant). Prior: BMD 0.848 g/cm2. Baseline: BMD 0.854 g/cm2. Labs: Laboratory Tests 05/20/22 05/20/22 11:35 11:35 Sodium 142 Potassium 4.3 Creatinine 0.80 Estimated GFR > 60 25-OH Vitamin D Total 40.2 PTH Intact 27 Calcium (PTH Intact) 9.3 transition from Prolia to oral alendronate in 07/2024. Currently on alendronate 70 mg Q weekly. Tolerating nicely. No fracture since last visit . Urine NTX is suppressed [facility] Medical History HLD (hyperlipidemia) HTN (hypertension) Headache Anxiety Depression Schizophrenia Habitual snoring Asthma IBS (irritable bowel syndrome) Endobronchial mass Vitamin D deficiency Osteoporosis Back pain Surgical History History of bladder surgery History of tubal ligation Family History Father Back problem Diabetes mellitus Cataract Mother Diabetes mellitus Maternal Grandfather No problems noted. Maternal Grandmother No problems noted. Paternal Grandfather No problems noted. Paternal Grandmother No problems noted. Social History Household Members: None Housing: Apartment Do you presently have visiting nurse or other home services: No Alcohol intake: former Patient Tobacco Use Status: Current everyday Tobacco user Tobacco use type: Cigarette Cigarette Packs Per Day: 1 Cigarettes Per Day: 20.0 Years Smoked: 35 e-Cigarette/Vaping Use: Never Used Substance Use Type: Crack/Cocaine service: No Current occupational status: disabled Cognitive needs: No Hearing needs: No Vision needs: Yes Physical Exam Vital Signs: Last Vital Signs Pulse 90 05/21/25 13:22 BP 102/64 05/21/25 13:22 Pulse Ox 98 05/21/25 13:22 Oxygen Delivery Method Room Air 05/21/25 13:22 BMI result Body Mass Index 28.1 Assessment & Plan Assessment & Plan (1) Osteoporosis: Code(s): M81.0 - Age-related osteoporosis without current pathological fracture Category: Medical Qualifiers: Osteoporosis type: age-related Presence of current pathological fracture: unspecified Qualified Code(s): M81.0 - Age-related osteoporosis without current pathological fracture Plan: This is a 64-year-old white female with a history of osteoporosis and previous fragility fracture. Secondary workup was negative. She is currently on Prolia. Recent DEXA shows stability in the bone density with low bone mass present. Currently on alendronate 70 mg Q weekly since 07/2024 when transitioning off Prolia. Urine NTX is suppressed The plan is to continue the alendronate for a full years time until 07/2025. Will check urine NTX in 4 months' time have her follow up in 6 months Orders: Orders Collagen Crosslinks NTX 4 Months M81.0 - Age-related osteoporosis without current pathological fracture Vitamin D 25-OH Total Today M81.0 - Age-related osteoporosis without current pathological fracture Coding Level of Care Code Est Pt Level 3 (62785) Diagnoses Age related osteoporosis, unspecified pathological fracture presence M81.0 Osteoporosis type: age-related Presence of current pathological fracture: unspecified
[2025-05-21 13:22] VITALS: BP 102/64; PULSE 90; O2SAT 98; BMI 28.1
--- OUTSIDE RECORDS SUMMARY | 2025-05-21 14:30 | XMS_ITS | Clinical Summary ---
Author Organization [facility] Address [address] [place] [address] Phone Care Team Providers Care Marketing Research Intern Name Role Phone Kevin Muñoz MD Primary Care Provider [phone] Medications No known medications Active Problems Problem Noted Date Diagnosed Date Circadian rhythm disorder 08/22/2020 AHMET (obstructive sleep apnea) 08/22/2020 RLS (restless legs syndrome) 08/22/2020 Social History Tobacco Use Types Packs/Day Years Used Date Smoking Tobacco: Never Assessed Education Answer Date Recorded Are you interested in more education? Not on krishna e 01/28/2023 Are you concerned about learning? Not on file 01/28/2023 No 01/28/2023 No 01/28/2023 Digital Access Answer Date Recorded No 02/26/2023 No 02/26/2023 Reliable internet access at home? Not on file 02/26/2023 Device with a working camera? Not on file Comments Unknown Sex and Gender Information Value Date Recorded Sex Assigned at Not on file Legal Sex Female 3:00 PM EDT Gender Identity Not on file Sexual Orientation Not on file Plan of Treatment Health Maintenance Due Date Last Done Comments Adult Td,Tdap Booster 1960 LIPID PANEL 1960 DEPRESSION SCREENING 1971 SMOKING Hx and SMOKELESS TOB ACCO SCREENING 02/10/1972 HEPATITIS C SCREENING 1977 MAMMOGRAM 1999 COLOGUARD 02/10/2004 COLONOSCOPY 02/10/2004 COLORECTAL CANCER SCREENING 02/10/2004 FIT TEST 02/10/2004 FOBT 02/10/2004 SIGMOIDOSCOPY 02/10/2004 VIRTUAL COLONOSCOPY 02/10/2004 PNEUMOCOCCAL VACCINES (50+ y ears) (1 of 1 - PCV) 2009 ZOSTER VACCINES (2 of 2) 12/19/2020 10/24/2020 OSTEOPOROSIS SCREENING INITI AL (ONE-TIME) 02/10/2024 COVID-19 VACCINE (2 - 2023-2 5 season) 2024 12/11/2020 RSV VACCINE (1 - 1-dose 75+ series) 2034 HEPATITIS A VACCINES Aged Out No long er eligible based on patient's age to complete this topic HIB VACCINES Aged Out No longer eligi ble based on patient's age to complete this topic MENINGOCOCCAL VACCINES (ACWY) Aged Out No longer eligible based on patient's age to complete this topic MENINGOCOCCAL VACCINES (B) Aged Out N o longer eligible based on patient's age to complete this topic Medical Devices Not on file Insurance ACO [facility] [place] [address] [place] [address] [address] [place] [address] [address] [place] [address] [place] [address] [place] [address] ACO [facility] ACO Advance Directives For more information, please contact: [phone] (9AM - 5PM [facility], Tuesday-Tuesday) Documents on File Type Date Recorded Patient International Exchange Coordinator Expl anation Healthcare Proxy 06/25/2020 [facility] yared ROACH Request Care Teams Marketing Research Intern Relationship Specialty Start Date End Date Kevin Muñoz MD [address] [place] [address] PCP - General Internal Medicine 05/29/20 Additional Source Comments The information contained in this document represents components of the legal health record. It is not the complete legal health record.[facility]
--- OUTSIDE RECORDS SUMMARY | 2025-05-21 14:30 | XMS_ITS | Patient Health Record ---
Author Organization [facility] Address [address] [place] [address] Care Team Providers Care Furnace Firer Name Role Phone T[facility] HARDING[facility] Primary Care Provider Alpesh Alexander Jr Unavailable Allergies Allergen (clinical drug ingredient) Drug/Non Drug Allergy documented on EMR Reaction Allergy Type Onset Date Status Steroids steroids (uncoded) Unknown Allergy A ctive Reason For Referral No Information Medications Medication SIG (Take, Route, Frequency, Duration) Notes Start Date End Date Status Diphenoxylate-Atropine 2.5-0.025 MG TAKE 1 TABLET BY MOUTH FOUR TIMES DAILY 30 DAYS for 30 07/12/2024 Active Melatonin 3 MG 1 tablet at [...] every 6 hrs for 30 day(s) Active busPIRone HCl 10 MG 1 tablet Orally Twic e a day Active Tylenol 8 Hour 650 MG 1 tablets as neede d Orally every 8 hrs Active Aspirin 325 MG 1 tablet Orally Once a day Active Fioricet 50-300-40 MG 1 capsule as neede d Orally every 4 hrs Active Calcium Carbonate 600 MG 1 tablet [...] Omeprazole 20 MG TAKE 1 CAPSULE BY [facility] TWICE DAILY for 30 Active MiraLax Mix-In [place] 17 GM 1 packet mixed with 8 ounces of fluid Orally Once a day for 30 days Active Esomeprazole Magnesium 40 MG TAKE 1 CAPSULE BY MOUTH EVERY DAY for 30 Active Antacid & Anti-Gas Max Str 800-800-80 MG/10ML 10 mL for reflux Orally Twice a day for 30 days Active Immunizations Vaccine Route Administration Date Status Comme nts Influenza Unknown 07/11/2019 Administered Influenza Unknown 07/03/2020 Administered Influenza Unknown 07/20/2022 Administered Social History Tobacco Use: Social History Observation Description Date Details (start date - stop date) Current Smoker NA - NA Tobacco Use/Smoking Question Answer Notes Patient is a current smoker How often do you smoke cigarettes? every day How many cigarettes a day do you smoke? 21-30 How soon after you wake up do you smoke your fir st cigarette? 6-30 minutes Are you interested in quitting? Not ready to kelly t Problems Problem Type SNOMED Code ICD Code Onset Dates Problem Status W/U Status Risk Notes Problem 150489729 Colon cancer screening (Z12.11) Active confirmed Problem Diverticulitis (58165553) Diverticulitis (K57.92) Active confirmed Problem 701587148 Gastroesophageal reflux disease without esophagitis (K21.9) Active confirmed Problem 77870140 Irritable bowel syndrome with both constipation and diarrhea (K58.2) Active confirmed Encounters Encounter Location Date Provider Diagnosis [facility] [address] [place] [phone] 02/28/2025 Alpesh Aranda Jr [facility] [address] [place] [address] 04/26/2025 Alpesh Aranda Jr Plan Of Treatment Pending Test Test Name Order Date CT COLON SCREENING NO CONTRAST 0 XR BARIUM SWALLOW-ESOPHAGUS 02/18/2023 XR GI SERIES 07/11/2015 XR GI SERIES 05/30/2019 Future Test Test Name Order Date UPPER GI ENDOSCOPY 10/24/2019 COLONOSCOPY 10/24/2019 Next Appt Details Provider Name:Alpesh hernandez Jr, 06/13/2025 02:55:00 PM, [address], [address], [place], [address], Insurance Providers Payer Name Payer Address Payer Phone Subscriber Number Group Number Insured Name Patient Relationship to Insured Coverage Start Date Coverage End Date [facility] [address] Attn Claims DOC Mak [id number] MARS PATEL Self - patient is the insured [place] [place] [address] [place] [address] [id number] MARS PATEL Self - patient is the insured Medical (General) History Medical History History ICD Code colonoscopy 12/14/19, no polyps, ten-year followup irritable bowel syndrome with both const ipation and diarrhea Schizo-affective disorder with history o f psychosis depression anxiety 2016 right ankle fracture osteoporosis gastroesophageal reflux disease, endosco py 12/14/19, normal Dysphagia Surgical History Surgery Date(Month/Year) tubal ligation ankle 2017
== END 2025-05-21 13:40 | disposition home or self-care (01) ==
LOC: HO.ENCR 13:18
PROVIDERS: PCP Internal Medicine; Visit Provider Internal Medicine Endocrinology, Diabetes & Metabolism
DX: M81.0 Age-related osteoporosis without current pathological fracture (principal)
CPT/HCPCS: 99213

== ENCOUNTER → 2025-05-21 13:17 | Outpatient (BNVA) | payer OTHER, SELFPAY | PROVIDERS: PCP Internal Medicine; Visit Provider Internal Medicine Endocrinology, Diabetes & Metabolism | DX: M81.0 Age-related osteoporosis without current pathological fracture (principal) | CPT/HCPCS: 99212 ==

== ENCOUNTER 2025-06-13 15:48 | Outpatient (AMB) | payer OTHER, SELFPAY ==
--- OUTSIDE RECORDS SUMMARY | 2024-12-31 06:00 | XMS_ITS ---
Author Organization [facility] Address [address] [place] [address] Care Team Providers Care Invisible Braces Orthodontist Name Role Phone Toni HARDING, Kevin Primary Care Provider Alpesh Alexander Jr REASON FOR VISIT medication check Encounters Encounter Location Date Provider Diagnosis [facility] [address] [facility] [address] [place] [address] 12/31/2024 Alpesh Aranda Jr Plan Of Treatment Next Appt Details Provider Name:Alpesh hernandez Jr, 10/10/2025 01:55:00 PM, [address] [facility] [address] [facility], [address], [place], [address], Progress Notes * MARS PANDEY CDOB:[birth year] (65 yo F)Acc No.[id number]:12/31/2024 Progress Notes Patient: MARS MCKINLEY Provider: Lucille Aranda MD :1960 A ge:64 Y S ex:Female Date:12/31/2024 Address:[address] [place] [address], A PT D, [place] [id number] Pcp:Kevin Muñoz MD Subjective: * Chief Complaints: [...] MD Date: 0 12/31/2024 Generated for Jamila trinh/Qiana/Anushaitting on: 0 06/13/2025 06:49 PM EDT
--- OUTSIDE RECORDS SUMMARY | 2025-02-28 10:55 | XMS_ITS ---
Author Organization [facility] Address [address] [place] [address] Care Team Providers Care Consumer Safety Officer Name Role Phone Toni HARDING, Kevin Primary Care Provider Alpesh Alexander Jr [phone] REASON FOR VISIT Patient presents today for a medication check Encounters Encounter Location Date Provider Diagnosis [facility] [address] [place] [address] 02/28/2025 Alpesh Aranda Jr Plan Of Treatment Next Appt Details Provider Name:Alpesh hernandez Jr, 10/10/2025 01:55:00 PM, [address], [address], [place], [address], Progress Notes * MARS PANDEY CDOB:[birth year] (65 yo F)Acc No.[id number]:02/28/2025 Progress Notes Patient: MARS MCKINLEY Provider: Lucille Aranda MD :1960 A ge:65 Y S ex:Female Date:02/28/2025 Address:[address] [place] [address], A PT D, [place] [id number] Pcp:Kevin Muñoz MD Subjective: * Chief Complaints: [...] 0 02/28/2025 Generated for Jamila trinh/Qiana/Sergey on: 0 06/13/2025 06:49 PM EDT
--- NOTE | 2025-06-13 15:49 | A.OFFVIS_ITS ---
Intake Visit Reasons: 6m migraine Allergies clozapine (From Clozaril) Allergy (Mild, Verified 06/13/25 15:54) UNKNOWN fluoxetine (From Prozac) Allergy (Mild, Verified 06/13/25 15:54) ANXIETY lithium ([place]) Allergy (Mild, Verified 06/13/25 15:54) UNKNOWN oxcarbazepine (From Trileptal) Allergy (Mild, Verified 06/13/25 15:54) ANXIETY carbamazepine (Tegretol) Allergy (Unknown, Verified 06/13/25 15:54) Unknown quetiapine (Seroquel) Allergy (Unknown, Verified 06/13/25 15:54) unknown ziprasidone (Geodon) Allergy (Unknown, Verified 06/13/25 15:54) Unknown CINNAMON TOAST CRUNCH Allergy (Severe, Uncoded 06/13/25 15:54) THROAT SWELLING FRUIT LOOPS Allergy (Severe, Uncoded 06/13/25 15:54) THROAT SWELLING KIDNEY BEANS Allergy (Severe, Uncoded 06/13/25 15:54) THROAT SWELLING Clozaril Allergy (Unknown, Uncoded 06/13/25 15:54) Unknown Environmental Allergy (Unknown, Uncoded 06/13/25 15:54) unknown Floxin Otic Allergy (Unknown, Uncoded 06/13/25 15:54) unknown [place] Carbonate Allergy (Unknown, Uncoded 06/13/25 15:54) Unknown [place] Allergy (Unknown, Uncoded 06/13/25 15:54) unknown Some cereals Allergy (Unknown, Uncoded 06/13/25 15:54) Unknown Spider Bites Allergy (Unknown, Uncoded 06/13/25 15:54) unknown Medication List - Last Reconciled 06/13/25 by Betty Conner, SCALE ATTENDANT acetaminophen (Tylenol) 650 mg PO Q8H PRN alendronate 70 mg PO QWEEK amitriptyline 50 mg PO BEDTIME aspirin 325 mg PO DAILY buspirone 15 mg PO BID ztutdrjdwh-bkbnylktztpwh-xomh 50-325-40 mg 1 tab PO Q8H 30 days calcium citrate-vitamin D3 315 mg-5 mcg (200 unit) 1 tab PO BID cane Quad cane , use as directed NS diphenoxylate-atropine 2.5-0.025 mg 1 tab PO QID PRN disposable gloves (Disposable Latex-Free Gloves) Use As directed disposable gloves (Disposable Latex-Free Gloves) Use As directed divalproex ER 1,000 mg PO BEDTIME fluticasone propionate 50 mcg/actuation 1 spray intranasal DAILY latex gloves Use As directed loratadine 10 mg PO DAILY 90 days lorazepam (Ativan) 0.5 mg PO Q6H PRN lovastatin 40 mg PO BEDTIME meclizine 25 mg PO BID PRN melatonin 10 mg PO BEDTIME minoxidil 2.5 mg PO BID miscellaneous medical supply Quad cane use As directed NS nicotine (Nicoderm CQ) 1 patch transdermal DAILY [non-slip bath mat As directed NS] nystatin 1 appl topical BID olanzapine (Zyprexa) 20 mg PO BEDTIME omeprazole 20 mg PO BID oxybutynin chloride ER 15 mg PO BEDTIME 90 days polyethylene glycol 3350 17 grams PO BEDTIME propranolol ER 120 mg PO DAILY [rollator walker with basket As directed NS] ropinirole 1 mg PO BEDTIME Shower Chair Use As directed NS simethicone (Gas Relief (simethicone)) 80 mg PO BID PRN sodium bicarbonate 650 mg PO TIDAC topiramate 100 mg PO BID walker Folding walker with wheels, use as directed NS zolpidem (Ambien) 2.5 mg PO BEDTIME HPI Comments Details: She was having headaches about 5x/week with photophobia, sonophobia, and sometimes nausea. Pain was usually right-sided, behind eye, throbbing-type pain. She has to lay down in a dark, quiet room. Butalbital as needed helped some. No triggers identified. Numbness in right foot since 10/01/2022, now up to mid- davidson, and some numbness in left foot. No significant pain. No falls. Has ongoing low back pain. Had fx and surgery of right ankle in 2017.?Insomnia is better with zolpidem. Gets some feelings of restlessness and has to roll back and forth in bed. Mood disorder is stable with current medications. She had CAT scan and EEG that were normal. [facility] Medical History HLD (hyperlipidemia) HTN (hypertension) Headache Anxiety Depression Schizophrenia Habitual snoring Asthma IBS (irritable bowel syndrome) Endobronchial mass Vitamin D deficiency Osteoporosis Back pain Surgical History History of bladder surgery History of tubal ligation Family History Father Back problem Diabetes mellitus Cataract Mother Diabetes mellitus Maternal Grandfather No problems noted. Maternal Grandmother No problems noted. Paternal Grandfather No problems noted. Paternal Grandmother No problems noted. Social History Household Members: None Housing: Apartment Do you presently have visiting nurse or other home services: No Alcohol intake: former Patient Tobacco Use Status: Current everyday Tobacco user Tobacco use type: Cigarette Cigarette Packs Per Day: 1 Cigarettes Per Day: 20.0 Years Smoked: 35 e-Cigarette/Vaping Use: Never Used Substance Use Type: Crack/Cocaine service: No Current occupational status: disabled Cognitive needs: No Hearing needs: No Vision needs: Yes Review of Systems Const Denies chills, Denies daytime sleepiness, Reports difficulty sleeping, Denies fatigue, Denies fever(s), Denies frequent falls, Reports headache(s), Denies increased appetite, Denies poor appetite, Denies snoring, Denies weakness, Denies weight gain and Denies weight loss Eyes Denies loss of vision ENT Denies vertigo, Denies dizziness, Reports headache(s) and Denies neck pain Card Denies chest pain at rest, Denies chest pain with activity, Denies syncope, Denies leg edema, Denies palpitations, Denies dyspnea and Denies dyspnea on exertion Resp Denies cough, Denies dyspnea, Denies dyspnea on exertion and Denies snoring GI Denies abdominal pain, Denies constipation, Denies heartburn, Denies diarrhea and Denies nausea Denies urinary frequency, Denies urinary incontinence and Denies urinary urgency Musc Denies abnormal gait, Denies back pain, Denies myalgias, Denies arthralgias, Denies neck pain, Reports numbness and Reports tingling Neuro Denies abnormal gait, Denies vertigo, Denies dizziness, Denies syncope, Denies frequent falls, Reports headache(s), Denies lack of coordination, Denies loss of vision, Denies memory loss, Reports numbness, Denies Other visual disturbances, Reports restless legs, Denies seizure-like activity, Reports tingling, Denies paresthesias, Denies tremor(s) and Denies weakness Psych Denies anxiety, Denies depression, Denies auditory hallucinations, Denies memory loss and Denies visual hallucinations Endo Denies fatigue and Denies palpitations Physical Exam Const Other: General Appearance:? normal, in no acute distress. Heart:? S1, S2 normal, no murmurs. Lungs:? clear anteriorly and posteriorly. Musculoskeletal:? normal. Extremities:? no edema. Psych:? alert, oriented, cognitive function intact, cooperative with exam. Neuro Other: Abnormal Neurological Findings:?none.? Mental Status: alert and oriented X 3. Normal attention, orientation, memory, and affect. Cranial Nerves: Pupils are equal, round, and reactive to light. External ocular muscles are intact. Visual shah are full, no ptosis. Face is symmetrical, no facial weakness or droop. Facial sensations are normal. Tongue protrudes in midline. Palate elevates symmetrically. Shoulder shrugging is normal Motor Examination: Normal muscle tone, bulk and strength. No atrophy or fasciculations. No drift of the extended upper extremities. DTR 2+. Plantars are flexor. Sensory Exam: Normal light touch, temperature, pinprick, vibration, and joint- position sensations. Rhomberg sign is absent. Coordination: No ataxia. No titubation. Gait Exam: Within normal limits. Cerebellar Signs: Bibzwz-xp-tmua is okay. Extrapyramidal System: No tremor, rigidity with normal facial expressions. No bradykinesia. No bradyphrenia. Normal arm swing and posture. No propulsion or retropulsion. Speech: Normal. Results Reviewed Results Reviewed: 11/24/22 NCV/EMG LE Motor axonal loss in the right peroneal nerve and tibial nerve. EMG shows denervation in L5 innervated muscles. [facility] [address] [place] [address] XRay Report Signed Patient: Blanquita Gonzalez MR#: [id number] : 1960 Acct:[id number] Age/Sex: 64 / F ADM Date: 09/21/24 Loc: HO.HMGCX Attending Dr: Kevin Muñoz MD Ordering Physician: Kevin Muñoz MD Date of Service: 09/21/24 Procedure(s): XR lumbar spine 2-3V Accession Number(s): [id number] cc: Kevin Muñoz MD~ EXAMINATION: XR LUMBAR SPINE CLINICAL INFORMATION: Radiculopathy, lumbar region M54.16. COMPARISON: XR Lumbar spine 06/13/2024 TECHNIQUE: Three views of the lumbosacral spine. FINDINGS: Vertebral body heights are maintained. Multilevel end plate degenerative changes and loss of intervertebral disc spaces. Facet arthropathy. Atherosclerotic disease of the aorta. XR/XR lumbar spine 2-3V IMPRESSION: Moderate degenerative disease of the lumbar spine. Electronically signed by: Veda Gordillo MD 11/02/2024 11:52 AM EST Workstation: [employer] Assessment & Plan Assessment & Plan (1) Migraine: Code(s): G43.909 - Migraine, unspecified, not intractable, without status migrainosus Category: Medical Qualifiers: Intractability: not intractable Migraine type: unspecified Status migrainosus presence: without status migrainosus Qualified Code(s): G43.909 - Migraine, unspecified, not intractable, without status migrainosus Plan: Continue topiramate 100mg 1 tablet twice a day. Continue propranolol ER 120mg 1 capsule daily. Continue amitriptyline 25mg 2 tablets at bedtime. Continue bzrpedqrsq-GKOS-Udge 50-325-40mg 1 tablet as needed q8h for headache #20 for 30 days. (2) Dizziness: Code(s): R42 - Dizziness and giddiness Category: Medical Plan: Continue meclizine 25mg 1 tablet as needed q8h for dizziness #60 for 30 days. (3) Restless leg syndrome: Code(s): G25.81 - Restless legs syndrome Category: Medical Plan: Continue ropinirole 1mg 1 tablet at bedtime. Plan Meds tried: topiramate, propranolol, amitriptyline, Depakote Medications: New amitriptyline 50 mg PO BEDTIME 30 tabs 5RF 30 days meclizine 25 mg PO BID PRN 60 tabs 2RF dizziness 30 days Changed From propranolol ER 120 mg PO DAILY To propranolol ER 120 mg PO DAILY 30 caps 5RF 30 days From topiramate 100 mg PO BID To topiramate 100 mg PO BID 60 tabs 5RF 30 days From ropinirole Take 1-3 hours before bedtime 1 mg PO BEDTIME To ropinirole Take 1-3 hours before bedtime 1 mg PO BEDTIME 30 tabs 5RF 30 days Refilled mpclqmkkuj-bvlvsfgfvrxri-fstb 50-325-40 mg 1 tab PO Q8H 20 tabs 2RF headache 30 days Discontinued amitriptyline Discontinued Reason: Order 50 mg PO BEDTIME Coding Level of Care Code Est Pt Level 4 (14300) Diagnoses Migraine without status migrainosus, not intractable, unspecified migraine type G43.909 Intractability: not intractable Migraine type: unspecified Status migrainosus presence: without status migrainosus Dizziness R42 Restless leg syndrome G25.81
--- OUTSIDE RECORDS SUMMARY | 2025-06-13 18:49 | XMS_ITS | Clinical Summary ---
Author Organization [facility] Address [address] [place] [address] Phone Care Team Providers Care Traffic Superintendent Name Role Phone Kevin Muñoz MD Primary Care Provider [phone] Medications No known medications Active Problems Problem [...] DEPRESSION SCREENING 1971 SMOKING Hx and SMOKELESS TOBACCO SCREENING 02/10/1972 HEPATITIS C SCREENING 1977 MAMMOGRAM 1999 COLOGUARD 02/10/2004 COLONOSCOPY 02/10/2004 COLORECTAL CANCER SCREENING 02/10/2004 FIT TEST 02/10/2004 FOBT 02/10/2004 SIGMOIDOSCOPY 02/10/2004 VIRTUAL COLONOSCOPY 02/10/2004 PNEUMOCOCCAL VACCINES (50+ years) (1 of 1 - PCV) 2009 ZOSTER VACCINES (2 of 2) 12/19/2020 10/24/2020 OSTEOPOROSIS SCREENING INITIAL (ONE-TIME) 02/10/2024 INFLUENZA VACCINE (#1) 2025 9, 08/31/2018, 06/22/2017, Additional history exists COVID-19 VACCINE ( - 2024- season) 2025 12/11/2020 RSV VACCINE (1 - 1-dose 75+ [...] Medical Devices Not on file Insurance [facility] [place] [address] [place] [address] [place] [address] [place] [address] [place] [address] [place] [address] ACO [facility] ACO Advance Directives For more information, please contact: [phone] (9AM - 5PM [facility], Tuesday-Tuesday) Documents on File Type Date Recorded Patient Saxophone Teacher Expl anation Healthcare Proxy 06/25/[address] [facility] Irina ROACH Request Care Teams Traffic Superintendent Relationship Specialty Start Date End Date Kevin Muñoz MD [address] [place] [address] PCP - General Internal Medicine 05/29/20 Additional Source Comments The information contained in this document represents components of the legal health record. It is not the complete legal health record.[facility]
--- OUTSIDE RECORDS SUMMARY | 2025-06-13 18:49 | XMS_ITS | Patient Health Record ---
Author Organization [facility] Address [address] [place] [phone] Care Team Providers Care Regional Account Director Name Role Phone Toni HARDING, [facility] Primary Care Provider Alpesh Alexander Jr [...] Omeprazole 20 MG TAKE 1 CAPSULE BY [facility] TWICE DAILY for 30 Active MiraLax Mix-In [place] 17 GM 1 packet mixed with 8 [...] Problem Status W/U Status Risk Notes Problem 416922529 Colon cancer screening (Z12.11) Active confirmed Problem Diverticulitis (92176898) Diverticulitis (K57.92) Active confirmed Problem 675364185 Gastroesophageal reflux disease without esophagitis (K21.9) Active confirmed Problem 97894907 Irritable bowel syndrome with both constipation and diarrhea (K58.2) Active confirmed Encounters Encounter Location Date Provider Diagnosis [facility] [address] [place] [phone] 02/28/2025 Alpesh Aranda Jr [facility] [address] [place] [address] 04/26/2025 Alpesh Aranda Jr [facility] [address] [place] [address] 05/21/2025 Alpesh Aranda Jr Plan Of Treatment Pending Test Test Name Order Date CT COLON SCREENING NO CONTRAST 0 XR BARIUM SWALLOW-ESOPHAGUS 02/18/2023 XR GI SERIES 07/11/2015 XR GI SERIES 05/30/2019 Future Test Test Name Order Date UPPER GI ENDOSCOPY 10/24/2019 COLONOSCOPY 10/24/2019 Next Appt Details Provider Name:Alpesh hernandez Jr, 10/10/2025 01:55:00 PM, [address], [address], [place], [address], Insurance Providers Payer Name Payer Address Payer Phone Subscriber Number Group Number Insured Name Patient Relationship to Insured Coverage Start Date Coverage End Date [facility] [address] Attn Claims [place] [id number] DONATO Daniel MARS Self - patient is the insured MED[place] OF [place] [address] [place] [phone] [id number] DONATO Daniel MARS Self - patient is the insured Medical [...]
== END 2025-06-13 16:44 | disposition home or self-care (01) ==
LOC: HO.HSM 15:48
PROVIDERS: PCP Internal Medicine; Visit Provider Registered Nurse
DX: G43.909 Migraine, unspecified, not intractable, without status migrainosus (principal); R42 Dizziness and giddiness; G25.81 Restless legs syndrome
CPT/HCPCS: 99214

== ENCOUNTER → 2025-06-13 15:48 | Outpatient (BNVA) | payer OTHER, SELFPAY | PROVIDERS: PCP Internal Medicine; Visit Provider Registered Nurse | DX: G43.909 Migraine, unspecified, not intractable, without status migrainosus (principal); R42 Dizziness and giddiness; G25.81 Restless legs syndrome | CPT/HCPCS: 99212 ==

== ENCOUNTER 2025-07-26 14:50 | Outpatient (AMB) | payer OTHER, SELFPAY ==
--- OUTSIDE RECORDS SUMMARY | 2024-12-31 06:00 | XMS_ITS ---
Author Organization [facility] Address [address] [place] [address] Care Team Providers Care Real Estate Investment Analyst Name Role Phone Toni HARDING, Kevin Primary Care Provider Alpesh Alexander Jr [phone] REASON FOR VISIT medication check Encounters Encounter Location Date Provider Diagnosis [facility] [address] [address] [address] [place] [address] 12/31/2024 Alpesh Aranda Jr Plan Of Treatment Next Appt Details Provider Name:Alpesh hernandez Jr, 10/10/2025 01:55:00 PM, [address] [address], [address], [place], [address], Progress Notes * MARS PANDEY CDOB:[birth year] (65 yo F)Acc No.[id number]:12/31/2024 Progress Notes Patient: MARS MCKINLEY Provider: Lucille Aranda MD :1960 A ge:64 Y S ex:Female Date:12/31/2024 Address:[address] [place] [address], A PT D, [place] [id number] Pcp:Kevin Muñoz MD Subjective: * Chief Complaints: [...] 0 12/31/2024 Generated for Jamila trinh/Qiana/Sergey on: 04:32 PM EDT
--- OUTSIDE RECORDS SUMMARY | 2025-02-28 10:55 | XMS_ITS ---
Author Organization [facility] Address [address] [place] [address] Care Team Providers Care Side Panel Padder Name Role Phone Toni HARDING, Kevin Primary Care Provider Alpesh Alexander Jr [phone] REASON FOR VISIT Patient presents today for a medication check Encounters Encounter Location Date Provider Diagnosis [facility] [address] [place] [address] 02/28/2025 Alpesh Aradna Jr Plan Of Treatment Next Appt Details Provider Name:Alpesh hernandez Jr, 10/10/2025 01:55:00 PM, [address], [address], [place], [address], Progress Notes * MASR PANDEY CDOB:[birth year] (65 yo F)Acc No.[id number]:02/28/2025 Progress Notes Patient: MARS MCKINLEY Provider: Lucille Aranda MD :1960 A ge:65 Y S ex:Female Date:02/28/2025 Address:[address] [place] [address], A PT D, [place] [id number] Pcp:Kevin Muñoz MD Subjective: * Chief Complaints: [...] 0 02/28/2025 Generated for Jamila trinh/Qiana/Sergey on: 04:33 PM EDT
--- OUTSIDE RECORDS SUMMARY | 2025-06-13 10:55 | XMS_ITS ---
Author Organization [facility] Address [address] [place] [address] Care Team Providers Care Asphalt Still Operator Name Role Phone Toni HARDING, Kevin Primary Care Provider Alpesh Alexander Jr REASON FOR VISIT Patient presents today for a medication recall Encounters Encounter Location Date Provider Diagnosis [facility] [address] [facility] [address] [place] [address] 06/13/2025 Alpesh Aranda Jr Plan Of Treatment Next Appt Details Provider Name:Alpesh hernandez Jr, 10/10/2025 01:55:00 PM, [address] [facility] [address] [facility], [address], [place], [address], Progress Notes * MARS PANDEY CDOB:[birth year] (65 yo F)Acc No.[id number]:06/13/2025 Progress Notes Patient: MARS MCKINLEY Provider: Lucille Aranda MD :1960 A ge:65 Y S ex:Female Date:06/13/2025 Address:[address] [place] [address], [address] PT D, [place] [id number] Pcp:Kevin Muñoz MD Subjective: * Chief Complaints: [...] 0 06/13/2025 Generated for Jamila trinh/Qiana/Sergey on: 04:32 PM EDT
--- NOTE | 2025-07-26 14:54 | A.OFFPC_ITS ---
Vital Signs 07/26/25 14:57 Height 5 ft 1 in Weight 147 lb BMI 27.8 BP 128/70 Blood Pressure Location Rt brachial Position Sitting Respiration 16 Pulse 95 Pulse Source Pulse Oximeter Temp 98.5 F Temp Source Oral Pulse Oximetry (%) 97 Oxygen Delivery Method Room Air Intake Visit Reasons: Follow up Cyanide Pot Hardener Required: No Allergies clozapine (From Clozaril) Allergy (Mild, Verified 07/26/25 14:55) UNKNOWN fluoxetine (From Prozac) Allergy (Mild, Verified 07/26/25 14:55) ANXIETY lithium ([place]) Allergy (Mild, Verified 07/26/25 14:55) UNKNOWN oxcarbazepine (From Trileptal) Allergy (Mild, Verified 07/26/25 14:55) ANXIETY carbamazepine (Tegretol) Allergy (Unknown, Verified 07/26/25 14:55) Unknown quetiapine (Seroquel) Allergy (Unknown, Verified 07/26/25 14:55) unknown ziprasidone (Geodon) Allergy (Unknown, Verified 07/26/25 14:55) Unknown CINNAMON TOAST CRUNCH Allergy (Severe, Uncoded 07/26/25 14:55) THROAT SWELLING FRUIT LOOPS Allergy (Severe, Uncoded 07/26/25 14:55) THROAT SWELLING KIDNEY BEANS Allergy (Severe, Uncoded 07/26/25 14:55) THROAT SWELLING Clozaril Allergy (Unknown, Uncoded 07/26/25 14:55) Unknown Environmental Allergy (Unknown, Uncoded 07/26/25 14:55) unknown Floxin Otic Allergy (Unknown, Uncoded 07/26/25 14:55) unknown [place] Carbonate Allergy (Unknown, Uncoded 07/26/25 14:55) Unknown Narvane Allergy (Unknown, Uncoded 07/26/25 14:55) unknown Some cereals Allergy (Unknown, Uncoded 07/26/25 14:55) Unknown Spider Bites Allergy (Unknown, Uncoded 07/26/25 14:55) unknown Medication List - Last Reconciled 07/26/25 by Kevin Muñoz MD acetaminophen (Tylenol) 650 mg PO Q8H PRN alendronate 70 mg PO QWEEK amitriptyline 50 mg PO BEDTIME 30 days aspirin 325 mg PO DAILY buspirone 15 mg PO BID toreyfgyhf-amsffouualxip-gxdc 50-325-40 mg 1 tab PO Q8H 30 days calcium citrate-vitamin D3 315 mg-5 mcg (200 unit) 1 tab PO BID cane Quad cane , use as directed NS diphenoxylate-atropine 2.5-0.025 mg 1 tab PO QID PRN disposable gloves (Disposable Latex-Free Gloves) Use As directed disposable gloves (Disposable Latex-Free Gloves) Use As directed divalproex ER 1,000 mg PO BEDTIME fluticasone propionate 50 mcg/actuation 1 spray intranasal DAILY gabapentin 100 mg PO BEDTIME 30 days latex gloves Use As directed loratadine 10 mg PO DAILY 90 days lorazepam (Ativan) 0.5 mg PO Q6H PRN lovastatin 40 mg PO BEDTIME meclizine 25 mg PO BID PRN 30 days melatonin 10 mg PO BEDTIME minoxidil 2.5 mg PO BID miscellaneous medical supply Quad cane use As directed NS nicotine (Nicoderm CQ) 1 patch transdermal DAILY [non-slip bath mat As directed NS] nystatin 1 appl topical BID olanzapine (Zyprexa) 20 mg PO BEDTIME omeprazole 20 mg PO BID oxybutynin chloride ER 15 mg PO BEDTIME 90 days polyethylene glycol 3350 17 grams PO BEDTIME propranolol ER 120 mg PO DAILY 30 days [rollator walker with basket As directed NS] ropinirole 1 mg PO BEDTIME 30 days Shower Chair Use As directed NS simethicone (Gas Relief (simethicone)) 80 mg PO BID PRN sodium bicarbonate 650 mg PO TIDAC topiramate 100 mg PO BID 30 days walker Folding walker with wheels, use as directed NS zolpidem (Ambien) 2.5 mg PO BEDTIME Tobacco use date assessed: 07/26/25 Fall risk assessment: No Falls in past year Last assessed Fall Risk: 07/26/25 Dental Screening Dental Screen Date: 07/26/25 Did you have a dental visit in the last 12 months?: No Did you have a dental problem in the last 6 months where you did not have access to dental care?: No Was dental information given to patient?: Patient declined HPI Follow up HPI Details History of Present Illness The patient is a 65-year-old female presenting with back pain and neuropathy follow-up. Back Pain: - The patient reports experiencing signi ficant lower back pain. - Pain is exacerbated when walking aroun d the house and attempting tasks such as sweeping the stairs. - Pain sometimes radiates as a shooting pain up the left leg. - The patient has tried taking extra str ength Tylenol for pain relief without improvement. Neuropathy: - The patient experiences cramping and p ain in the toes, particularly in the foot with a previous broken ankle. - Reports sensations of pinching in the toes. - Neuropathy symptoms also include numbn ess, predominantly in the other foot. - Previously prescribed gabapentin for c ramping and pain management. Problem List - Back Pain - Neuropathy - Previous Broken Ankle Left Plan - Referred to a pain management speciali st for further evaluation and treatment of back pain. Emphasized the need for evaluation to determine contributing factors such as sacroiliac joint involvement. - Discussed importance of addressing amos ropathy symptoms and referred to a street light servicer supervisor for pinching toes. it can also be due to pinch nerve in back - Blood tests ordered before upcoming ph ysical exam on August 07, with fas ting required prior to the test. Review of Systems - General: No fever no chills - Neurological: No headaches no dizziness - Ear nose throat: No sore throat no hearing difficulty no ear pain - Cardiovascular: No syncope, no chest pain, no palpitations - Gastrointestinal: No nausea vomiting or diarrhea Physical Exam - General: No acute distress - HEENT: No acute findings - Neck: Supple - Respiratory system: Able to talk in f ull sentences, no audible wheeze - Cardiovascular: S1-S2 - Gastrointestinal: No pain - Extremities: No new findings - FIELD INTERVIEWER: Alert awake oriented x3 motor in tact , straight leg neg both side, no back pain with percussion - Skin: Normal turgor PFSH Medical History HLD (hyperlipidemia) HTN (hypertension) Headache Anxiety Depression Schizophrenia Habitual snoring Asthma IBS (irritable bowel syndrome) Endobronchial mass Vitamin D deficiency Osteoporosis Back pain Surgical History History of bladder surgery History of tubal ligation Family History Father Back problem Diabetes mellitus Cataract Mother Diabetes mellitus Maternal Grandfather No problems noted. Maternal Grandmother No problems noted. Paternal Grandfather No problems noted. Paternal Grandmother No problems noted. Social History Household Members: None Housing: Apartment Do you presently have visiting nurse or other home services: No Alcohol intake: former Patient Tobacco Use Status: Current everyday Tobacco user Tobacco use type: Cigarette Cigarette Packs Per Day: 1 Cigarettes Per Day: 20.0 Years Smoked: 35 Packs Per Year: 35 Packs per year/per ci.00 e-Cigarette/Vaping Use: Never Used Substance Use Type: Crack/Cocaine service: No Current occupational status: disabled Cognitive needs: No Hearing needs: No Vision needs: Yes Questionnaire PHQ-9 Over the last 2 weeks, how often have you been bothered by any of the following problems? 1. Little interest or pleasure in doing things: several days 2. Feeling down, depressed, or hopeless: several days 3. Trouble falling or staying asleep, or sleeping too much: several days 4. Feeling tired or having little energy: several days 5. Poor appetite or overeating: not at all 6. Feeling bad about yourself - or that you are a failure or have let yourself or your family down: several days 7. Trouble concentrating on things, such as reading the newspaper or watching television: not at all 8. Moving or speaking so slowly that other people could have noticed. Or the opposite - being so fidgety or restless that you have been moving around a lot more than usual: not at all 9. Thoughts that you would be better off or of hurting yourself in some way: not at all Total score: 5 Depression Screening Interpretation: Negative Depression Screening Done: Yes 57219 - PHQ-9 Billing: Yes Source: Developed by Drs. Hesham Sapp, Amanda Marino, Jace Phillips and colleagues, with an educational brittany from [employer]. Thrive Questionnaire Date Thrive assessed: 03/13/25 I am a: Patient What is your living situation today?: I have a steady place to live Within the past 12 months, did the food you bought not last and you didn't have the money to get more?: I choose not to answer this question Within the past 12 months, did you worry whether your food would run out before you got money to buy more?: I choose not to answer this question Do you have trouble paying for medicines?: I choose not to answer this question Do you have trouble getting transportation to medical appointments?: No Do you have trouble paying your heating and electricity bill?: I choose not to answer this question Do you have trouble taking care of your child, family member or friend?: No Do you have trouble with day-to-day activities such as bathing, preparing meals, shopping, managing finances, etc.?: Yes Are you currently unemployed and looking for a job?: I choose not to answer this question Are you interested in more education?: No Currently or been in a relationship where the following occur: I choose not to answer THRIVE Score: 0 AUDIT C Alcohol Use Questionnaire (AUDIT-C) 1. How often do you have a drink containing alcohol?: Monthly or less 2. How many drinks containing alcohol do you have on a typical day when you are drinking?: 1 or 2 3. How often do you have six or more drinks on one occasion?: Less than monthly Total Score: 2 MARIA TERESA-7 AMB Questionnaire MARIA TERESA-7 Date MARIA TERESA - 7 assessed: 03/13/25 Feeling nervous, anxious, or on edge: 1 = Several days Not being able to stop or control worryin = Several days Worrying too much about different things: 1 = Several days Trouble relaxin = Several days Being so restless that it is hard to sit still: 1 = Several days Becoming easily annoyed or irritable: 1 = Several days Feeling afraid as if something awful might happen: 1 = Several days Total MARIA TERESA-7 score (0-4 normal; 5-9 mild; 10-14 moderate; 15-21 severe): 7 Source: Developed by Drs. Hesham Sapp, Amanda Marino, Jace Phillips and colleagues, with an educational brittany from [employer]. MARIA TERESA-7 Assessment Billing MARIA TERESA-7 Assessment Tool: MARIA TERESA-7 Assessment 63221 Physical exam (Primary Care) Vital Signs: Last Vital Signs Temp 98.5 F 07/26/25 14:57 Pulse 95 07/26/25 14:57 Resp 16 07/26/25 14:57 BP 128/70 07/26/25 14:57 Pulse Ox 97 07/26/25 14:57 Oxygen Delivery Method Room Air 07/26/25 14:57 BMI result Body Mass Index 27.8 Tobacco/Smoking Status: Tobacco use Status Tobacco use date assessed 07/26/25 07/26/25 15:02 Patient Tobacco Use Status Current everyday Tobacco 07/26/25 15:02 Tobacco use type Cigarette 07/26/25 15:02 e-Cigarette/Vaping Use Never Used 07/26/25 15:02 PHQ-9: PHQ-9 Score PHQ-9: Total score 5 07/26/25 15:35 Depression Screening Interpretation: Negative Thrive Assessment: Date of Thrive Assessment Date Thrive assessed 03/13/25 07/26/25 15:02 Currently or been in a relationship where the following occur: I choose not to answer Coding Level of Care Code Est Pt Level 4 (86964) Complex EM visit Add On G2211 Diagnoses Left lumbar radiculitis M54.16 Lipid disorder E78.9 Vitamin D deficiency E55.9 Overactive bladder N32.81 Restless leg syndrome G25.81 Tobacco abuse Z72.0 Pain, foot, left, chronic M79.672; G89.29 Additional Codes PHQ-9 - 63556 - PHQ-9 Billing: Yes ([id number]) MARIA TERESA-7 Assessment Billing - MARIA TERESA-7 Assessment Tool: MARIA TERESA-7 Assessment 01506 ([id number]) Assessment & Plan Assessment & Plan (1) Left lumbar radiculitis: Code(s): M54.16 - Radiculopathy, lumbar region Category: Medical (2) Lipid disorder: Code(s): E78.9 - Disorder of lipoprotein metabolism, unspecified Category: Medical (3) Vitamin D deficiency: Code(s): E55.9 - Vitamin D deficiency, unspecified Category: Medical (4) Overactive bladder: Code(s): N32.81 - Overactive bladder Category: Medical (5) Restless leg syndrome: Code(s): G25.81 - Restless legs syndrome Category: Medical (6) Tobacco abuse: Code(s): Z72.0 - Tobacco use Category: Medical (7) Pain, foot, left, chronic: Code(s): M79.672 - Pain in left foot; G89.29 - Other chronic pain Category: Medical Plan History of Present Illness The patient is a 65-year-old female with H/o chronic left foot pain, tobacco use disorder, restless leg syndrom, over active bladder, Vit D def, and lipid disoder , chronic dizziness, GERD Back Pain: - The patient reports experiencing significant lower back pain. - Pain is exacerbated when walking around the house and attempting tasks such as sweeping the stairs. - Pain sometimes radiates as a shooting pain up the left leg. - The patient has tried taking extra strength Tylenol for pain relief without improvement. Neuropathy: - The patient experiences cramping and pain in the toes, particularly in the foot with a previous broken ankle. - Reports sensations of pinching in the toes. - Neuropathy symptoms also include numbness, predominantly in the other foot. - Previously prescribed gabapentin for cramping and pain management. Plan - Referred to a plate painter for further evaluation and treatment of back pain. Emphasized the need for evaluation to determine contributing factors such as sacroiliac joint involvement. - Discussed importance of addressing neuropathy symptoms and referred to a street light servicer supervisor for pinching toes. it can also be due to pinch nerve in back - Blood tests ordered before upcoming physical exam on August 07, with fasting required prior to the test. - continue other medications as presccribed Orders: Orders Hemoglobin A1c 07/26/25 E55.9 - Vitamin D deficiency, unspecified, E78.9 - Disorder of lipoprotein metabolism, unspecified, G25.81 - Restless legs syndrome, M54.16 - Radiculopathy, lumbar region, M81.0 - Age-related osteoporosis without current pathological fracture, N32.81 - Overactive bladder, Z72.0 - Tobacco use Vitamin D 25-OH (D2 and D3) 07/26/25 E55.9 - Vitamin D deficiency, unspecified, E78.9 - Disorder of lipoprotein metabolism, unspecified, G25.81 - Restless legs syndrome, M54.16 - Radiculopathy, lumbar region, M81.0 - Age-related osteoporosis without current pathological fracture, N32.81 - Overactive bladder, Z72.0 - Tobacco use Complete Blood Count Auto Diff 07/26/25 E55.9 - Vitamin D deficiency, unspecified, E78.9 - Disorder of lipoprotein metabolism, unspecified, G25.81 - Restless legs syndrome, M54.16 - Radiculopathy, lumbar region, M81.0 - Age- related osteoporosis without current pathological fracture, N32.81 - Overactive bladder, Z72.0 - Tobacco use Comprehensive [place]. Panel Fast 07/26/25 E55.9 - Vitamin D deficiency, unspecified, E78.9 - Disorder of lipoprotein metabolism, unspecified, G25.81 - Restless legs syndrome, M54.16 - Radiculopathy, lumbar region, M81.0 - Age- related osteoporosis without current pathological fracture, N32.81 - Overactive bladder, Z72.0 - Tobacco use Lipid Panel 07/26/25 E55.9 - Vitamin D deficiency, unspecified, E78.9 - Disorder of lipoprotein metabolism, unspecified, G25.81 - Restless legs syndrome, M54.16 - Radiculopathy, lumbar region, M81.0 - Age-related osteoporosis without current pathological fracture, N32.81 - Overactive bladder, Z72.0 - Tobacco use TSH reflex Free T4 07/26/25 E55.9 - Vitamin D deficiency, unspecified, E78.9 - Disorder of lipoprotein metabolism, unspecified, G25.81 - Restless legs syndrome, M54.16 - Radiculopathy, lumbar region, M81.0 - Age-related osteoporosis without current pathological fracture, N32.81 - Overactive bladder, Z72.0 - Tobacco use Magnesium 07/26/25 E55.9 - Vitamin D deficiency, unspecified, E78.9 - Disorder of lipoprotein metabolism, unspecified, G25.81 - Restless legs syndrome, M54.16 - Radiculopathy, lumbar region, M81.0 - Age-related osteoporosis without current pathological fracture, N32.81 - Overactive bladder, Z72.0 - Tobacco use Referrals Pain Management Referral M54.16 - Radiculopathy, lumbar region Podiatry Referral G89.29 - Other chronic pain, M79.672 - Pain in left foot
[2025-07-26 14:57] VITALS: BP 128/70; PULSE 95; RESP 16; TEMP 36.9; O2SAT 97; BMI 27.8
--- OUTSIDE RECORDS SUMMARY | 2025-07-26 16:32 | XMS_ITS | Clinical Summary ---
Author Organization [facility] Address [address] [place] [id number] Phone Care Team Providers Care Drum Builder Name Role Phone Kevin Muñoz MD Primary Care Provider Medications No known medications Active Problems Problem [...] Medical Devices Not on file Insurance [facility] [facility] [place] [address] [place] [address] [place] [address] [place] [address] [place] [place] [address] [place] [address] [facility] [facility] [employer] Advance Directives For more information, please contact: [phone] (9AM - 5PM Juliana/[facility], Tuesday-Tuesday) Documents on File Type Date Recorded Patient Wardrobe Coordinator Expl anation Healthcare Proxy 06/25/2020 [facility] Irina ROACH Request Care Teams Drum Builder Relationship Specialty Start Date End Date Kevin Muñoz MD [address] [place] [address] PCP - General Internal Medicine 05/29/20 Additional Source Comments The information contained in this document represents components of the legal health record. It is not the complete legal health record.[facility]
--- OUTSIDE RECORDS SUMMARY | 2025-07-26 16:33 | XMS_ITS | Patient Health Record ---
Author Organization [facility] Address [address] [place] [address] Care Team Providers Care Snack Bar Cashier Name Role Phone Toni HARDING, [facility] Primary Care Provider Alpesh Alexander Jr Unavailable Allergies Allergen (clinical drug ingredient) Drug/Non Drug Allergy documented on EMR Reaction Allergy Type Onset Date Status Steroids steroids (uncoded) Unknown Allergy A ctive Reason For Referral No Information Medications Medication SIG (Take, Route, Frequency, Duration) Notes Start Date End Date Status Diphenoxylate-Atropine 2.5-0.025 MG TAKE 1 TABLET BY MOUTH FOUR TIMES DAILY 30 DAYS; Duration: 30 07/12/2024 Active Melatonin 3 MG 1 tablet at bedtime as needed Orally Once a day; Duration: 30 day(s) Active Claritin 10 MG 1 tablet Orally Once a day Active Polyethylene Glycol 3350 17 GM TAKE 1 PACKET MIXED WITH 8 OUNCES OF FLUID ONCE A DAY FOR CONSTIPATION; Duration: 28 Active Bentyl 20 MG 1 tablet Orally up t o 4 times daily Active Prolia 60 MG/ML as directed Subcutaneous Active Vistaril 50 MG 1 capsule as needed Orally every 6 hrs; Duration: 30 day(s) Active busPIRone HCl 10 MG [...] 120 MG 1 capsule Orally Once a day; Duration: 30 day(s) Active Lovastatin 40 MG 1 [...] Omeprazole 20 MG TAKE 1 CAPSULE BY [facility] TWICE DAILY; Duration: 30 Active MiraLax Mix-In [place] 17 GM 1 packet mixed with 8 ounces of fluid Orally Once a day; Duration: 30 days Active Esomeprazole Magnesium 40 MG TAKE 1 CAPSULE BY MOUTH EVERY DAY; Duration: 30 Active Antacid & Anti-Gas Max Str 800-800-80 MG/10ML 10 mL for reflux Orally Twice a day; Duration: 30 days Active Immunizations Vaccine Route Administration [...] Problem Status W/U Status Risk Notes Problem Colon cancer screening (660453612) Colon cancer screening (Z12.11) Active confirmed Problem Diverticulitis (13402262) Diverticulitis (K57.92) Active confirmed Problem Gastroesophageal reflux disease without esophagitis (987083681) Gastroesophageal reflux disease without esophagitis (K21.9) Active confirmed Problem Irritable bowel syndrome (51918994) Irritable bowel syndrome with both constipation and diarrhea (K58.2) Active confirmed Encounters Encounter Location Date Provider Diagnosis [facility] [address] [place] [address] 02/28/2025 Alpesh Aranda Jr [facility] [address] [place] [address] 04/26/2025 Alpesh Aranda Jr [facility] [address] [place] [address] 05/21/2025 Alpesh Aranda Jr Plan Of Treatment Pending Test Test Name Order Date CT COLON SCREENING NO CONTRAST 0 XR BARIUM SWALLOW-ESOPHAGUS 02/18/2023 XR GI SERIES 07/11/2015 XR GI SERIES 05/30/2019 Future Test Test Name Order Date UPPER GI ENDOSCOPY 10/24/2019 COLONOSCOPY 10/24/2019 Next Appt Details Provider Name:Alpesh hernandez Jr, 10/10/2025 01:55:00 PM, [address], [address], [place], [address], Insurance Providers Payer Name Payer Address Payer Phone Subscriber Number Group Number Insured Name Patient Relationship to Insured Coverage Start Date Coverage End Date [facility] [address] Attn Claims DOC Mak [id number] MARS PATEL Self - patient is the insured MEDICAID OF [place] [address] [place] [id number] MARS PATEL Self - patient is the [...]
--- OUTSIDE RECORDS SUMMARY | 2025-07-26 16:33 | XMS_ITS | Data Portability ---
Author Organization [employer], [facility] Address [address] [place] [address] Care Team Providers Care Fisher Line Name Role Phone HIM CCA OTHER GURINDER SHEARER Primary Care Provider [phone] Assessment Encounter Date Assessment Date Assessment LastModified by Organization Details LastModified Time 09/03/2024 09/03/2024 I have reviewed and agree with the assessment and plan as documented by the glue plant operator. I provided real-time medical direction for this [...] Name and Address Organization Details Recorded Time 49915 lithium Not available Not available Not available Not available 09/03/2024 6448 RxNorm Not Available [facility] - production 15:04:59 74744 Trileptal medicatio n Not available Not available Not available 09/03/2024 52044 0 RxNorm Not Available [facility] - production 15:04:59 17858 Trilafon medicatio n Not available Not available Not available 09/03/202453686 0 RxNorm Not Available [facility] - production [...] in Arterial blood by Pulse oximetry Systolic And Diastolic Provider Name and Address Organization Details Last Updated DateTime 4 16 /min 89 /min 99 % 99 % 140/80 mm[Hg] Not Available [facility] - production 4 [...] Diagnosis SNOMED-CT Code Diagnosis ICD10 Code Diagnosis IMO Codes Diagnosis Note [id number] Africa Causey MD Main - [facility] [address] [place] [address] 09/03/2024 20:27:25 09/03/2024 22:05:54 Low back pain 712546003 M54.50 Health Concerns Section Related Observation LastModified by Organization Detai ls LastModified Time None Recorded Concern Status LastModified by Organization Details LastModified Time None Recorded Advance Directives Directive None Recorded Payers Insurance Date Sequence Insurance Name Policy Number Policy Ro Covered Member ID Ro Member ID Guarantor Name 09/03/2024 1 [facility] - DOS ON OR AFTER 2023 - DUAL ELIGIBLE - CUSTODIAL OPTIONS AND ONE CARE (MEDICARE REPLACEMENT/AD VANTAGE - HMO) Blanquita Gonzalez [id number] Blanquita Gonzalez Notes Date Note Type Note Provider Name and Address Organization Details Recorded Time 09/03/2024 text/html [facility] Nurse Triage Notes (Kayla Sosa): Reason For Request: left leg hip and back pain, lower back pain. Chief Complaints: Back pain PMH: Severe Persistent Mental Illness (SPMI), Anxiety Disorder Pain Assessment: Level 8 out of 10 Comments: Gaming Surveillance Observer verified the member's name//address and phone number. [...] ................... ................... ................... ................... ................... ................... ........ Surveying Crew Rodman Note From Db Joaquin: Dispatched for a [...] ................... ................... ................... ................... ................... ................... ........ [facility] Consulted: Africa Causey ................... ................... ................... ................... ................... ................... ................... ........ Disposition: Fulfilled Africa Causey MD [address] [facility],[address] [facility], [place], [address], [employer], [facility] 09/03/2024 21:38:51 OBGyn Episode No OBEpisode recorded.
== END 2025-07-26 15:34 | disposition home or self-care (01) ==
LOC: HO.HMCC 14:51
PROVIDERS: PCP Internal Medicine; Visit Provider Internal Medicine
DX: M54.16 Radiculopathy, lumbar region (principal); E78.9 Disorder of lipoprotein metabolism, unspecified; E55.9 Vitamin D deficiency, unspecified; N32.81 Overactive bladder; G25.81 Restless legs syndrome; Z72.0 Tobacco use; M79.672 Pain in left foot; G89.29 Other chronic pain

== ENCOUNTER → 2025-07-26 14:50 | Outpatient (BNVA) | payer OTHER, SELFPAY | PROVIDERS: PCP Internal Medicine; Visit Provider Internal Medicine | DX: M54.16 Radiculopathy, lumbar region (principal); G62.9 Polyneuropathy, unspecified; E55.9 Vitamin D deficiency, unspecified; N32.81 Overactive bladder; G25.81 Restless legs syndrome; M79.672 Pain in left foot; G89.29 Other chronic pain | CPT/HCPCS: 96127; 99212 ==

== ENCOUNTER 2025-07-31 14:46 | Outpatient (REF) | payer OTHER, SELFPAY ==
--- OUTSIDE RECORDS SUMMARY | 2024-12-31 06:00 | XMS_ITS ---
Author Organization [facility] Address [address] [place] [address] Care Team Providers Care Hedis Abstractor Name Role Phone Toni HARDING, Kevin Primary Care Provider Alpesh Alexander Jr [phone] REASON FOR VISIT medication check Encounters Encounter Location Date Provider Diagnosis [facility] [address] [facility] [address] [place] [address] 12/31/2024 Alpesh Aranda Jr Plan Of Treatment Next Appt Details Provider Name:Alpesh hernandez Jr, 10/10/2025 01:55:00 PM, [address] [facility], [address], [place], [address], Progress Notes * MARS PANDEY CDOB:[birth year] (65 yo F)Acc No.[id number]:12/31/2024 Progress Notes Patient: MARS MCKINLEY Provider: Lucille Aranda MD :1960 A ge:64 Y S ex:Female Date:12/31/2024 Address:[address] [place] [address], A PT D, [place] [id number] Pcp:Kevin Muñoz MD Subjective: * Chief Complaints: [...] 0 12/31/2024 Generated for Jamila trinh/Qiana/Sergey on: 1 07:08 PM EDT
--- OUTSIDE RECORDS SUMMARY | 2025-02-28 10:55 | XMS_ITS ---
Author Organization [facility] Address [address] [place] [address] Care Team Providers Care Information Systems Coordinator Name Role Phone Toni HARDING, Kevin Primary Care Provider Alpesh Alexander Jr REASON FOR VISIT Patient presents today for a medication check Encounters Encounter Location Date Provider Diagnosis [facility] [address] [place] [address] 02/28/2025 Alpesh Aranda Jr Plan Of Treatment Next Appt Details Provider Name:Alpesh hernandez Jr, 10/10/2025 01:55:00 PM, [address], [address], [place], [address], Progress Notes * MARS PANDEY CDOB:[birth year] (65 yo F)Acc No.[id number]:02/28/2025 Progress Notes Patient: MARS MCKINLEY Provider: Lucille Aranda MD :1960 A ge:65 Y S ex:Female Date:02/28/2025 Address:[address] [place] [address], A PT D, [place] [id number] Pcp:Kevin Muñoz MD Subjective: * Chief Complaints: [...] * Provider: Lucille Aranda MD Date: 0 02/28/2025 Generated for Jamila trinh/Qiana/Sergey on: 07:09 PM EDT
--- OUTSIDE RECORDS SUMMARY | 2025-06-13 10:55 | XMS_ITS ---
Author Organization [facility] Address [address] [place] [address] Care Team Providers Care Tuna Purse Seiner Name Role Phone Toni HARDING, Kevin Primary Care Provider Alpesh Alexander Jr REASON FOR VISIT Patient presents today for a medication recall Encounters Encounter Location Date Provider Diagnosis [facility] [address] [facility] [address] [place] [address] 06/13/2025 Alpesh Aranda Jr Plan Of Treatment Next Appt Details Provider Name:Alpesh hernandez Jr, 10/10/2025 01:55:00 PM, [address] [facility], [address], [place], [address], Progress Notes * MARS PANDEY CDOB:[birth year] (65 yo F)Acc No.[id number]:06/13/2025 Progress Notes Patient: MARS MCKINLEY Provider: Lucille Aranda MD :1960 A ge:65 Y S ex:Female Date:06/13/2025 Address:[address] [place] [address], A PT D, [place] [id number] Pcp:Kevin Muñoz MD Subjective: * Chief Complaints: [...] 0 06/13/2025 Generated for Jamila trinh/Qiana/Sergey on: 07:08 PM EDT
[2025-07-31 15:58] LABS: MANUAL DIFF FLAG NO
[2025-07-31 16:01] LABS: Hematocrit 45.2 % (37.0-47.0); Hemoglobin 14.6 g/dl (12.0-16.0); Imm Gran Abs Auto 0.04 X10*3/uL (0.00-0.03); Imm Gran Pct Auto 0.4 % (0.0-0.4); Lymphocytes Absolute Auto 2.4 X10*3/uL (1.2-4.9); Mean Corpuscular HGB Conc 32.3 g/dl (31.0-35.0); Mean Corpuscular Hemoglobin 29.5 pg (27.0-33.0); Mean Corpuscular Volume 91.3 fL (80.0-98.0); NRBC Abs Auto 0.000 X10*3/uL (0.0-0.012); NRBC Pct Auto 0.0 /100WBC (0.0-0.2); Platelet Count 375 X10*3/uL (160-400); Red Blood Count 4.95 X10*6/uL (4.20-5.50); White Blood Count 10.3 X10*3/uL (4.8-10.8)
[2025-07-31 16:29] LABS: Alanine Aminotransferase 22 U/L (0-31); Albumin Level 4.7 g/dL (3.5-5.0); Alkaline Phosphatase 91 U/L (39-117); Anion Gap 12 (12-20); Aspartate Amino Transferase 33 U/L (5-31); Blood Urea Nitrogen 14 mg/dL (9-16); Calcium 9.7 mg/dL (8.4-10.2); Carbon Dioxide 25 mmol/L (22-29); Chloride 107 mmol/L (96-108); Cholesterol 263 mg/dL (<200); Estimated Glomerular Filt Rate > 60; HDL Cholesterol 54 mg/dL (>40); Magnesium 2.3 mg/dL (1.6-2.6); Potassium 4.0 mmol/L (3.3-5.1); Sodium 140 mmol/L (135-145); Total Protein 7.7 g/dL (6.5-8.0); Triglycerides 211 mg/dL (<150)
--- OUTSIDE RECORDS SUMMARY | 2025-07-31 19:08 | XMS_ITS | Clinical Summary ---
Author Organization [facility] Address [address] [facility] [address] [place] [phone] Phone Care Team Providers Care Hairspring Cutter Name Role Phone Kevin Muñoz MD Primary Care Provider [phone] Medications No known medications Active Problems Problem [...] Medical Devices Not on file Insurance [facility] [place] [address] [place] [address] [place] [address] [place] [address] [place] [address] [place] [address] [facility] [facility] Advance Directives For more information, please contact: [phone] (9AM - 5PM Juliana/[facility], Tuesday-Tuesday) Documents on File Type Date Recorded 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 [address] PCP - General Internal Medicine 05/29/20 Additional Source Comments The information contained in this document represents components of the legal health record. It is not the complete legal health record.[facility]
--- OUTSIDE RECORDS SUMMARY | 2025-07-31 19:09 | XMS_ITS | Data Portability ---
Author Organization [employer] [facility], [facility] Address [address] [place] [address] Care Team Providers Care Flat Drier Name Role Phone HIM CCA OTHER GURINDER SHEARER Primary Care Provider Assessment Encounter Date Assessment Date Assessment LastModified by Organization Details LastModified Time 09/03/2024 09/03/2024 I have reviewed and agree with the assessment and plan as documented by the fuel retrofitting technician. I provided real-time medical direction for this [...] Name and Address Organization Details Recorded Time 49287 lithium Not available Not available Not available Not available 09/03/2024 6448 RxNorm Not Available [facility] - production 15:04:59 92062 Trileptal medicatio n Not available Not available Not available 09/03/2024 80651 0 RxNorm Not Available [facility] - production 15:04:59 43634 Trilafon medicatio n Not available Not available Not available 09/03/202429184 0 RxNorm Not Available [facility] - production [...] ICD10 Code Diagnosis IMO Codes Diagnosis Note [id number] Africa Causey MD Main - [facility] [address] [place] [address] 09/03/2024 20:27:25 09/03/2024 22:05:54 Low back pain 696203921 M54.50 Health Concerns Section Related Observation LastModified by Organization Detai ls LastModified Time None Recorded Concern Status LastModified by Organization Details LastModified Time None Recorded Advance Directives Directive None Recorded Payers Insurance Date Sequence Insurance Name Policy Number Policy Ro Covered Member ID Ro Member ID Guarantor Name 09/03/2024 1 [facility] - DOS ON OR AFTER 2023 - DUAL ELIGIBLE - SENIOR LIVING OPTIONS AND ONE CARE (MEDICARE REPLACEMENT/AD VANTAGE - HMO) Blanquita Gonzalez [id number] Blanquita Gonzalez Notes Date Note Type Note Provider Name and Address Organization Details Recorded Time 09/03/2024 text/html [facility] Nurse Triage Notes (Kayla Sosa): Reason For Request: left leg hip and back pain, lower back pain. Chief Complaints: Back pain PMH: Severe Persistent Mental Illness (SPMI), Anxiety Disorder Pain Assessment: Level 8 out of 10 Comments: Computer Hardware Engineer verified the member's name//address and phone [...] ................... ................... ................... ................... ................... ................... ........ Community Coordinator Note From Db Joaquin: Dispatched for a [...] ................... ................... ................... ................... ................... ................... ........ [facility] Consulted: Africa Causey ................... ................... ................... ................... ................... ................... ................... ........ Disposition: Fulfilled Africa Causey MD [address] [facility],[address] [facility], [place], [address], [employer], [facility] 09/03/2024 21:38:51 OBGyn Episode No OBEpisode recorded.
--- OUTSIDE RECORDS SUMMARY | 2025-07-31 19:09 | XMS_ITS | Patient Health Record ---
Author Organization [facility] Address [address] [place] [address] Care Team Providers Care Senior Electrical Controls Engineer Name Role Phone [facility] HARD[facility], [facility] Primary Care Provider Alpesh Alexander Jr Unavailable [phone] Allergies Allergen (clinical drug ingredient) Drug/Non Drug [...] 20 MG TAKE 1 CAPSULE BY [facility] TWICE DAILY; Duration: 30 Active MiraLax Mix-In [place] 17 GM 1 packet mixed with 8 [...] Status Risk Notes Problem Colon cancer screening (147184203) Colon cancer screening (Z12.11) Active confirmed Problem Diverticulitis (73483527) Diverticulitis (K57.92) Active confirmed Problem Gastroesophageal reflux disease without esophagitis (165357872) Gastroesophageal reflux disease without esophagitis (K21.9) Active confirmed Problem Irritable bowel syndrome (45632530) Irritable bowel syndrome with both constipation and diarrhea (K58.2) Active confirmed Encounters Encounter Location Date Provider Diagnosis [facility] [address] [place] [address] 02/28/2025 Alpesh Aranda Jr [facility] [address] [place] [address] 04/26/2025 Alpesh Aranda Jr [facility] [address] [place] [address] 05/21/2025 Alpesh Aranda Jr Plan Of Treatment Pending Test Test Name Order Date CT COLON SCREENING NO CONTRAST 0 XR BARIUM SWALLOW-ESOPHAGUS 02/18/2023 XR GI SERIES 07/11/2015 XR GI SERIES 05/30/2019 Future Test Test Name Order Date UPPER GI ENDOSCOPY 10/24/2019 COLONOSCOPY 10/24/2019 Next Appt Details Provider Name:Alpesh hernandez Jr, 10/10/2025 01:55:00 PM, [address], [address], [place], [address], Insurance Providers Payer Name Payer Address Payer Phone Subscriber Number Group Number Insured Name Patient Relationship to Insured Coverage Start Date Coverage End Date [facility] [address] Attn Claims DOC Mak [id number] MARS PATEL Self - patient is the insured MEDICA[employer] OF [employer] [address] [place] [id number] MARS PATEL Self - patient is the [...]
[2025-08-04 12:34] LABS: Vitamin D 25-OH, D2 <4 ng/mL; Vitamin D 25-OH, D3 29 ng/mL; Vitamin D 25-OH, Total 29 ng/mL (30-100)
== END 2025-07-31 14:47 | disposition home or self-care (01) ==
LOC: HO.HMGCLDS 14:46
PROVIDERS: PCP Internal Medicine; Visit Provider Internal Medicine
DX: E78.9 Disorder of lipoprotein metabolism, unspecified (principal); M81.0 Age-related osteoporosis without current pathological fracture; E55.9 Vitamin D deficiency, unspecified; N32.81 Overactive bladder; M54.16 Radiculopathy, lumbar region; G25.81 Restless legs syndrome; Z72.0 Tobacco use; Z13.1 Encounter for screening for diabetes mellitus; Z13.29 Encounter for screening for other suspected endocrine disorder
CPT/HCPCS: 36415; 80053; 80061; 82306; 83036; 83735; 84443; 85025

== ENCOUNTER 2025-08-07 14:03 | Outpatient (AMB) | payer OTHER, SELFPAY ==
--- OUTSIDE RECORDS SUMMARY | 2024-12-31 05:00 | XMS_ITS ---
Author Organization [facility] Address [address] [place] [address] Care Team Providers Care Commercial Management Accountant Name Role Phone Toni HARDING, Kevin Primary Care Provider Alpesh Alexander Jr REASON FOR VISIT medication check Encounters Encounter Location Date Provider Diagnosis [facility] [address] [place] [address] 12/31/2024 Alpesh Aranda Jr Plan Of Treatment Next Appt Details Provider Name:Alpesh hernandez Jr, 10/10/2025 01:55:00 PM, [address], [address], [place], [address], Progress Notes * MARS PANDEY CDOB:[birth year] (65 yo F)Acc No.[id number]:12/31/2024 Progress Notes Patient: MARS MCKINLEY Provider: Lucille Aranda MD :1960 A ge:64 Y S ex:Female Date:12/31/2024 Address:[address] [place] [address], A PT D, [place] [id number] Pcp:Kevin Muñoz MD Subjective: * Chief Complaints: * 1 . Medication check. * Medical History: Objective: * Vitals: Assessment: Plan: * Treatment: * * The named appointment provid er may or may not be the originator of this progress note, and it is not deemed complete until electronically signed by the appointment provider. Sign off status: Pending * Provider: Lucille Aranda MD Date: 0 12/31/2024 Generated for Jamila trinh/Qiana/Sergey on: 10/07/2024 05:15 PM EST
--- OUTSIDE RECORDS SUMMARY | 2025-02-28 09:55 | XMS_ITS ---
Author Organization [facility] Address [address] [place] [address] Care Team Providers Care Awning Spreader Name Role Phone Toni HARDING, Kevin Primary Care Provider Alpesh Alexander Jr REASON FOR VISIT Patient presents today for a medication check Encounters Encounter Location Date Provider Diagnosis [facility] [address] [facility] [address] [place] [address] 02/28/2025 Alpesh Aranda Jr Plan Of Treatment Next Appt Details Provider Name:Alpesh hernandez Jr, 10/10/2025 01:55:00 PM, [address] [facility], [address], [place], [address], Progress Notes * MARS PANDEY CDOB:[birth year] (65 yo F)Acc No.[id number]:02/28/2025 Progress Notes Patient: MARS MCKINLEY Provider: Lucille Aranda MD :1960 A ge:65 Y S ex:Female Date:02/28/2025 Address:[address] [place] [address], A PT D, [place] [id number] Pcp:Kevin Muñoz MD Subjective: * Chief Complaints: * 1 . Patient presents today for a medication check. * Medical History: Objective: * Vitals: Assessment: Plan: * Treatment: * * The named appointment provid er may or may not be the originator of this progress note, and it is not deemed complete until electronically signed by the appointment provider. Sign off status: Pending * Provider: Lucille Aarnda MD Date: 0 02/28/2025 Generated for Jamila trinh/Qiana/Sergey on: 10/07/2024 05:16 PM EST
--- OUTSIDE RECORDS SUMMARY | 2025-06-13 09:55 | XMS_ITS ---
Author Organization [facility] Address [address] [place] [address] Care Team Providers Care Women Specialist Name Role Phone Toni HARDING, Kevin Primary Care Provider Alpesh Alexander Jr [phone] REASON FOR VISIT Patient presents today for a medication recall Encounters Encounter Location Date Provider Diagnosis [facility] [address] [place] [address] 06/13/2025 Alpesh Aranda Jr Plan Of Treatment Next Appt Details Provider Name:Alpesh hernnadez Jr, 10/10/2025 01:55:00 PM, [address], [address], [place], [address], Progress Notes * MARS PANDEY CDOB:[birth year] (65 yo F)Acc No.[id number]:06/13/2025 Progress Notes Patient: MARS MCKINLEY Provider: Lucille Aranda MD :1960 A ge:65 Y S ex:Female Date:06/13/2025 Address:[address] [place] [address], [address] D, [place] [id number] Pcp:Kevin Muñoz MD Subjective: * Chief Complaints: * 1 . Patient presents today for a medication recall. * Medical History: Objective: * Vitals: Assessment: Plan: * Treatment: * * The named appointment provid er may or may not be the originator of this progress note, and it is not deemed complete until electronically signed by the appointment provider. Sign off status: Pending * Provider: Lucille Aranda MD Date: 0 06/13/2025 Generated for Jamila trinh/Qiana/Sergey on: 10/07/2024 05:15 PM EST
[2025-08-07 14:06] VITALS: BP 116/76; PULSE 86; O2SAT 98; BMI 26.8
--- NOTE | 2025-08-07 14:06 | A.OFFPC_ITS ---
Vital Signs 08/07/25 14:06 Height 5 ft 1 in Weight 142 lb BMI 26.8 BP 116/76 Blood Pressure Location Lt brachial Position Sitting Pulse 86 Pulse Source Pulse Oximeter Pulse Oximetry (%) 98 Intake Visit Reasons: Annual PE- A1C Allergies clozapine (From Clozaril) Allergy (Mild, Verified 08/07/25 14:07) UNKNOWN fluoxetine (From Prozac) Allergy (Mild, Verified 08/07/25 14:07) ANXIETY lithium ([place]) Allergy (Mild, Verified 08/07/25 14:07) UNKNOWN oxcarbazepine (From Trileptal) Allergy (Mild, Verified 08/07/25 14:07) ANXIETY carbamazepine (Tegretol) Allergy (Unknown, Verified 08/07/25 14:07) Unknown quetiapine (Seroquel) Allergy (Unknown, Verified 08/07/25 14:07) unknown ziprasidone (Geodon) Allergy (Unknown, Verified 08/07/25 14:07) Unknown CINNAMON TOAST CRUNCH Allergy (Severe, Uncoded 07/26/25 14:55) THROAT SWELLING FRUIT LOOPS Allergy (Severe, Uncoded 07/26/25 14:55) THROAT SWELLING KIDNEY BEANS Allergy (Severe, Uncoded 07/26/25 14:55) THROAT SWELLING Clozaril Allergy (Unknown, Uncoded 07/26/25 14:55) Unknown Environmental Allergy (Unknown, Uncoded 07/26/25 14:55) unknown Floxin Otic Allergy (Unknown, Uncoded 07/26/25 14:55) unknown [place] Carbonate Allergy (Unknown, Uncoded 07/26/25 14:55) Unknown [place] Allergy (Unknown, Uncoded 07/26/25 14:55) unknown Some cereals Allergy (Unknown, Uncoded 07/26/25 14:55) Unknown Spider Bites Allergy (Unknown, Uncoded 07/26/25 14:55) unknown Medication List - Last Reconciled 08/07/25 by Kevin Muñoz MD acetaminophen (Tylenol) 650 mg PO Q8H PRN alendronate 70 mg PO QWEEK amitriptyline 50 mg PO BEDTIME 30 days aspirin 325 mg PO DAILY buspirone 15 mg PO BID cvogejrxjt-ltlstpvbgnxyk-cioy 50-325-40 mg 1 tab PO Q8H 30 days calcium citrate-vitamin D3 315 mg-5 mcg (200 unit) 1 tab PO BID cane Quad cane , use as directed NS cholecalciferol (vitamin D3) 25 mcg PO DAILY 90 days diphenoxylate-atropine 2.5-0.025 mg 1 tab PO QID PRN disposable gloves (Disposable Latex-Free Gloves) Use As directed disposable gloves (Disposable Latex-Free Gloves) Use As directed divalproex ER 1,000 mg PO BEDTIME fluticasone propionate 50 mcg/actuation 1 spray intranasal DAILY gabapentin 100 mg PO BEDTIME 30 days latex gloves Use As directed loratadine 10 mg PO DAILY 90 days lorazepam (Ativan) 0.5 mg PO Q6H PRN lovastatin 40 mg PO BEDTIME meclizine 25 mg PO BID PRN 30 days melatonin 10 mg PO BEDTIME minoxidil 2.5 mg PO BID miscellaneous medical supply Quad cane use As directed NS nicotine (Nicoderm CQ) 1 patch transdermal DAILY [non-slip bath mat As directed NS] nystatin 1 appl topical BID olanzapine (Zyprexa) 20 mg PO BEDTIME omeprazole 20 mg PO BID oxybutynin chloride ER 15 mg PO BEDTIME 90 days polyethylene glycol 3350 17 grams PO BEDTIME propranolol ER 120 mg PO DAILY 30 days [rollator walker with basket As directed NS] ropinirole 1 mg PO BEDTIME 30 days Shower Chair Use As directed NS simethicone (Gas Relief (simethicone)) 80 mg PO BID PRN sodium bicarbonate 650 mg PO TIDAC topiramate 100 mg PO BID 30 days walker Folding walker with wheels, use as directed NS zolpidem (Ambien) 2.5 mg PO BEDTIME Tobacco use date assessed: 07/26/25 Fall risk assessment: No Falls in past year Last assessed Fall Risk: 08/07/25 Dental Screening Dental Screen Date: 07/26/25 HPI Annual PE- A1C 2 HPI Details History of Present Illness The patient is a 65-year-old female presenting for a physical exam. Emotional Distress: - The patient appeared sad during the vi sit, reporting she is in love with her neighbor who does not reciprocate her feelings. - She is under the care of a psychiatris t, who recently increased her doses of Ativan and an unspecified antidepressant medication. Prediabetes: - Lab results from July 31 showed a hemoglobin A1c of 6.3%, placing her in the prediabetic range. - She has a strong family history of aaliyah jean, including two sisters, a brother, her mother, and a nephew. Hypercholesterolemia: - The patient has high cholesterol and t akes atorvastatin 40 mg daily. Foot Pain: - The patient reports that her left toes pinch, causing difficulty walking, which occurs even when wearing slippers at home. Tobacco Use Disorder: - The patient continues to smoke but wou ld like to quit. - She no longer rolls her own cigarettes and now smokes approximately a pack or less per day, smoking half a cigarette at a time. - She mentioned her son successfully kelly t using Nicoderm CQ. Chronic Back Pain: - The patient continues to experience ba ck pain, which limits her ability to go for walks. waiting for pain managment apt Medical History: - Hypertension, controlled - Prediabetes, diagnosed based on an A1c of 6.3% - Hypercholesterolemia - Depression - Anxiety - History of dizziness and vertigo - osteoporosis - restless leg syndrome - vertigo - Headaches - Schizophrenia Medications: - Alendronate for osteoporosis - Amphetamine at bedtime - Buspirone for anxiety - Devalprex (Likely a medication for psy chiatric or neurological condition) - Flonase nasal spray for allergies - Loratadine for allergies - Lovastatin for lipid disorder - Zyprexa (presumed for psychiatric purp ose) - Omeprazole for GERD - Oxybutynin for bladder incontinence Social History: - Smoking: The patient smokes about a pa ck or less of cigarettes per day and expresses a desire to quit. - Functional status: The patient has a P [facility] [employer] (SWITCH MAKER) who helps with cleaning and shopping. - Exercise: She attempts to go for walks but is limited by back pain and is planning to go swimming. Family History: - There is a strong family history of di abetes mellitus, including two sisters, a brother, her mother, and a nephew. Health Maintenance - Mammogram: Up to date, completed in . - Colonoscopy: Up to date, last performe d in 2019. - Gynecological care: Patient will call to make appointment with her food science professor. - Podiatry care: A referral will be plac ed for a podiatry appointment for foot pain. - Vitamin D: Advised to take 1000 units daily, and a prescription was sent to the pharmacy. - Smoking cessation: A prescription for Nicoderm patches was sent to the pharmacy. wtih a refill for 2 months Patient is to call me for step down Rx after that [facility] of Care The patient sees a psychiatrist named Callie for management of depression and anxiety. She has a food science professor, Dr. Pompa, for whom a follow-up will be arranged. She has a Burrer Machine (SWITCH MAKER) who assists with cleaning and shopping. Patient Instructions - Continue taking your cholesterol medic ation, atorvastatin 40 mg, every day. - Take Vitamin D 1000 units daily. A pre scription has been sent to your pharmacy. - To help you quit smoking, use the [place] derm patches as prescribed. It is very important that you do not smoke while a patch is on your skin. - Our office will help you make an appoi ntment with a foot doctor (outdoor education teacher) for your foot pain. - You will also get an appointment for p ain management. - Please call your food science professor, Dr. Britt heck, to schedule an appointment. - Please continue to wear or keep your m edical alert device with you, as you sometimes get dizzy or feel unbalanced. - Please schedule a follow-up visit in t hree months to check on your progress with quitting smoking. - Your next full physical exam is due in one year. Review of Systems - General: No fever no chills - Neurological: No headaches no dizzin ess - Ear nose throat: No sore throat no hearing difficulty no ear pain - Cardiovascular: No syncope, no chest pain, no palpitations - Gastrointestinal: No nausea vomiting or diarrhea - Skin: No new complaints Physical Exam General: Cooperative, healthy appearing, comfortable, no acute distress Orientation: Patient oriented x3 Head: Normal to inspection Ears: Within normal limit visually Nose: Normal external nose present Face and sinus: Normal facial exam Eyes: Appearance normal, extraocular movement intact pupils reactive Neck: Normal visual inspection and supple Respiratory: Normal respiratory effort and able to speak in complete sentences. Clear to auscultation, no stridor Cardiovascular: S1 and S2 RRR GI: Normal to inspection. Soft to palpation and nontender Skin: Turgor normal, no acute findings Neuro: Patient oriented x3, motor sensory intact, balance intact Extremities: Normal to inspection, ROM age appropriate . [facility] Medical History HLD (hyperlipidemia) HTN (hypertension) Headache Anxiety Depression Schizophrenia Habitual snoring Asthma IBS (irritable bowel syndrome) Endobronchial mass Vitamin D deficiency Osteoporosis Back pain Surgical History History of bladder surgery History of tubal ligation Family History Father Back problem Diabetes mellitus Cataract Mother Diabetes mellitus Maternal Grandfather No problems noted. Maternal Grandmother No problems noted. Paternal Grandfather No problems noted. Paternal Grandmother No problems noted. Social History Household Members: None Housing: Apartment Do you presently have visiting nurse or other home services: No Alcohol intake: former Patient Tobacco Use Status: Current everyday Tobacco user Tobacco use type: Cigarette Cigarette Packs Per Day: 1 Cigarettes Per Day: 20.0 Years Smoked: 35 e-Cigarette/Vaping Use: Never Used Substance Use Type: Crack/Cocaine service: No Current occupational status: disabled Cognitive needs: No Hearing needs: No Vision needs: Yes Questionnaire Thrive Questionnaire Date Thrive assessed: 03/13/25 I am a: Patient What is your living situation today?: I have a steady place to live Within the past 12 months, did the food you bought not last and you didn't have the money to get more?: I choose not to answer this question Within the past 12 months, did you worry whether your food would run out before you got money to buy more?: I choose not to answer this question Do you have trouble paying for medicines?: I choose not to answer this question Do you have trouble getting transportation to medical appointments?: No Do you have trouble paying your heating and electricity bill?: I choose not to answer this question Do you have trouble taking care of your child, family member or friend?: No Do you have trouble with day-to-day activities such as bathing, preparing meals, shopping, managing finances, etc.?: Yes Are you currently unemployed and looking for a job?: I choose not to answer this question Are you interested in more education?: No Currently or been in a relationship where the following occur: I choose not to answer THRIVE Score: 0 MARIA TERESA-7 AMB Questionnaire MARIA TERESA-7 Date MARIA TERESA - 7 assessed: 03/13/25 Source: Developed by Drs. Hesham Sapp, Amanda Marino, Jace Phillips and colleagues, with an educational brittany from [employer] Physical exam (Primary Care) Vital Signs: Last Vital Signs Pulse 86 08/07/25 14:06 BP 116/76 08/07/25 14:06 Pulse Ox 98 08/07/25 14:06 BMI result Body Mass Index 26.8 Tobacco/Smoking Status: Tobacco use Status Tobacco use date assessed 07/26/25 08/07/25 14:06 Patient Tobacco Use Status Current everyday Tobacco 08/07/25 14:06 Tobacco use type Cigarette 08/07/25 14:06 e-Cigarette/Vaping Use Never Used 08/07/25 14:06 Thrive Assessment: Date of Thrive Assessment Date Thrive assessed 03/13/25 08/07/25 14:06 Currently or been in a relationship where the following occur: I choose not to answer Coding Level of Care Code Est Pt Level 4 (12242) Est Pt Prev Care >65y(55783) Diagnoses Encounter for general adult medical examination with abnormal findings Z00.01 Left foot pain M79.672 Tobacco abuse Z72.0 Dizziness R42 Restless leg syndrome G25.81 Left lumbar radiculitis M54.16 Overactive bladder N32.81 Vitamin D deficiency E55.9 Lipid disorder E78.9 Schizophrenia, unspecified type F20.9 Schizophrenia type: unspecified Anxiety F41.9 Assessment & Plan Assessment & Plan (1) Encounter for general adult medical examination with abnormal findings: Code(s): Z00.01 - Encounter for general adult medical examination with abnormal findings Category: Medical (2) Left foot pain: Code(s): M79.672 - Pain in left foot Category: Medical (3) Tobacco abuse: Code(s): Z72.0 - Tobacco use Category: Medical (4) Dizziness: Code(s): R42 - Dizziness and giddiness Category: Medical (5) Restless leg syndrome: Code(s): G25.81 - Restless legs syndrome Category: Medical (6) Left lumbar radiculitis: Code(s): M54.16 - Radiculopathy, lumbar region Category: Medical (7) Overactive bladder: Code(s): N32.81 - Overactive bladder Category: Medical (8) Vitamin D deficiency: Code(s): E55.9 - Vitamin D deficiency, unspecified Category: Medical (9) Lipid disorder: Code(s): E78.9 - Disorder of lipoprotein metabolism, unspecified Category: Medical (10) Schizophrenia: Code(s): F20.9 - Schizophrenia, unspecified Category: Medical Qualifiers: Schizophrenia type: unspecified Qualified Code(s): F20.9 - Greg izophrenia, unspecified (11) Anxiety: Code(s): F41.9 - Anxiety disorder, unspecified Category: Medical Plan Emotional Distress: - The patient appeared sad during the visit, reporting she is in love with her neighbor who does not reciprocate her feelings. - She is under the care of a psychiatrist, who recently increased her doses of Ativan and an unspecified antidepressant medication. Prediabetes: - Lab results from July 31 showed a hemoglobin A1c of 6.3%, placing her in the prediabetic range. - She has a strong family history of diabetes, including two sisters, a brother, her mother, and a nephew. Hypercholesterolemia: - The patient has high cholesterol and takes atorvastatin 40 mg daily. Foot Pain: - The patient reports that her left toes pinch, causing difficulty walking, which occurs even when wearing slippers at home. Tobacco Use Disorder: - The patient continues to smoke but would like to quit. - She no longer rolls her own cigarettes and now smokes approximately a pack or less per day, smoking half a cigarette at a time. - She mentioned her son successfully quit using Nicoderm CQ. Chronic Back Pain: - The patient continues to experience back pain, which limits her ability to go for walks. waiting for pain managment apt Medical History: - Hypertension, controlled - Prediabetes, diagnosed based on an A1c of 6.3% - Hypercholesterolemia - Depression - Anxiety - History of dizziness and vertigo - osteoporosis - restless leg syndrome - vertigo - Headaches - Schizophrenia Medications: - Alendronate for osteoporosis - Amphetamine at bedtime - Buspirone for anxiety - Devalprex (Likely a medication for psychiatric or neurological condition) - Flonase nasal spray for allergies - Loratadine for allergies - Lovastatin for lipid disorder - Zyprexa (presumed for psychiatric purpose) - Omeprazole for GERD - Oxybutynin for bladder incontinence Social History: - Smoking: The patient smokes about a pack or less of cigarettes per day and expresses a desire to quit. - Functional status: The patient has a Burrer Machine (SWITCH MAKER) who helps with cleaning and shopping. - Exercise: She attempts to go for walks but is limited by back pain and is planning to go swimming. Family History: - There is a strong family history of diabetes mellitus, including two sisters, a brother, her mother, and a nephew. Health Maintenance - Mammogram: Up to date, completed in September. - Colonoscopy: Up to date, last performed in 2019. - Gynecological care: Patient will call to make appointment with her food science professor. - Podiatry care: A referral will be placed for a podiatry appointment for foot pain. - Vitamin D: Advised to take 1000 units daily, and a prescription was sent to the pharmacy. - Smoking cessation: A prescription for Nicoderm patches was sent to the pharmacy. wtih a refill for 2 months Patient is to call me for step down Rx after that [facility] of Care The patient sees a psychiatrist named Callie for management of depression and anxiety. She has a food science professor, Dr. Pompa, for whom a follow-up will be arranged. She has a Burrer Machine (SWITCH MAKER) who assists with cleaning and shopping. Patient Instructions - Continue taking your cholesterol medication, atorvastatin 40 mg, every day. - Take Vitamin D 1000 units daily. A prescription has been sent to your pharmacy. - To help you quit smoking, use the Nicoderm patches as prescribed. It is very important that you do not smoke while a patch is on your skin. - Our office will help you make an appointment with a foot doctor (outdoor education teacher) for your foot pain. - You will also get an appointment for pain management. - Please call your food science professor, Dr. Pompa, to schedule an appointment. - Please continue to wear or keep your medical alert device with you, as you sometimes get dizzy or feel unbalanced. - Please schedule a follow-up visit in three months to check on your progress with quitting smoking. - Your next full physical exam is due in one year. Orders: Referrals Podiatry Referral M79.677 - Pain in left foot Medications: New cholecalciferol (vitamin D3) 25 mcg PO DAILY 90 caps 1RF 90 days nicotine (Nicoderm CQ) 1 patch transdermal Q24H 28 ea 1RF nicotine (Nicoderm CQ) 1 patch transdermal Q24H 28 ea 2RF
--- OUTSIDE RECORDS SUMMARY | 2025-08-07 17:15 | XMS_ITS | Clinical Summary ---
Author Organization [facility] Address [address] [place] [id number] Phone Care Team Providers Care Pmp Name Role Phone Kevin Muñoz MD Primary Care Provider [phone] Medications No known medications Active Problems Problem [...] Medical Devices Not on file Insurance ACO [facility] [place] [address] [place] [address] [address] [place] [address] [place] [address] [place] [address] ACO [facility] ACO Advance Directives For more information, please contact: [phone] (9AM - 5PM Juliana/[facility], Tuesday-Tuesday) Documents on File Type Date Recorded Patient Brim Molder Expl anation Healthcare Proxy 06/25/2020 [facility] [place]ina ROACH Request Care Teams Pmp Relationship Specialty Start Date End Date Kevin Muñoz MD [address] [place] [address] PCP - General Internal Medicine 05/29/20 Additional Source Comments The information contained in this document represents components of the legal health record. It is not the complete legal health record.[facility]
--- OUTSIDE RECORDS SUMMARY | 2025-08-07 17:16 | XMS_ITS | Data Portability ---
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 I provided real-time medical direction for this [...] Name and Address Organization Details Recorded Time 32777 lithium Not available Not available Not available Not available 09/03/2024 6448 RxNorm Not Available [facility] - production 15:04:59 09260 Trileptal medicatio n Not available Not available Not available 09/03/2024 95050 0 RxNorm Not Available [facility] - production 15:04:59 35898 Trilafon medicatio n Not available Not available Not available 09/03/202401070 0 RxNorm Not Available [facility] - production [...] ICD10 Code Diagnosis IMO Codes Diagnosis Note [id number] Africa Causey MD Main - [facility] [address] [place] [phone] 09/03/2024 20:27:25 09/03/2024 22:05:54 Low back pain 408300961 M54.50 Health Concerns Section Related Observation LastModified by Organization Detai ls LastModified Time None Recorded Concern Status LastModified by Organization Details LastModified Time None Recorded Advance Directives Directive None Recorded Payers Insurance Date Sequence Insurance Name Policy Number Policy Ro Covered Member ID Ro Member ID Guarantor Name 09/03/[address] [facility] - DOS ON OR AFTER 2023 - DUAL ELIGIBLE - [employer] OPTIONS AND ONE CARE (MEDICARE REPLACEMENT/AD VANTAGE - HMO) Blanquita Gonzalez [id number] Blanquita Gonzalez Notes Date Note Type Note Provider Name and Address Organization Details Recorded Time 09/03/2024 text/html CRC Nurse Triage Notes (Kayla Sosa): Reason For Request: left leg hip and back pain, lower back pain. Chief Complaints: Back pain PMH: Severe Persistent Mental Illness (SPMI), Anxiety Disorder Pain Assessment: Level 8 out of 10 Comments: Beverage Host verified the member's name//address and phone number. [...] ................... ................... ................... ................... ................... ................... ........ Insurance Office Manager Note From Db Joaquin: Dispatched for a [...] ................... ................... ................... ................... ................... ................... ........ [facility] Consulted: Africa Causey ................... ................... ................... ................... ................... ................... ................... ........ Disposition: Fulfilled Africa Causey MD [address] [facility],[address] [facility], [place], [address], [employer], [facility] 09/03/2024 21:38:51 OBGyn Episode No OBEpisode recorded.
--- OUTSIDE RECORDS SUMMARY | 2025-08-07 17:16 | XMS_ITS | Patient Health Record ---
Author Organization [facility] Address [address] [place] [address] Care Team Providers Care Urgent Care Nurse Practitioner Name Role Phone [facility] Primary [facility] Provider Alpesh Alexander Jr [...] Omeprazole 20 MG TAKE 1 CAPSULE BY [facility] TWICE DAILY; Duration: 30 Active MiraLax Mix-In [place] 17 GM 1 packet mixed with 8 [...] Status Risk Notes Problem Colon cancer screening (656492376) Colon cancer screening (Z12.11) Active confirmed Problem Diverticulitis (54562817) Diverticulitis (K57.92) Active confirmed Problem Gastroesophageal reflux disease without esophagitis (804010974) Gastroesophageal reflux disease without esophagitis (K21.9) Active confirmed Problem Irritable bowel syndrome (67706696) Irritable bowel syndrome with both constipation and diarrhea (K58.2) Active confirmed Encounters Encounter Location Date Provider Diagnosis [facility] [address] [place] [address] 02/28/2025 Alpesh Aranda Jr [facility] [address] [place] [address] 04/26/2025 Alpesh Aranda Jr [facility] [address] [place] [address] 05/21/2025 Alpesh Aranda Jr Plan Of Treatment Pending Test Test Name Order Date CT COLON SCREENING NO CONTRAST 0 XR BARIUM SWALLOW-ESOPHAGUS 02/18/2023 XR GI SERIES 07/11/2015 XR GI SERIES 05/30/2019 Future Test Test Name Order Date UPPER GI ENDOSCOPY 10/24/2019 COLONOSCOPY 10/24/2019 Next Appt Details Provider Name:Alpesh hernandez Jr, 10/10/2025 01:55:00 PM, [address], [address], [place], [address], Insurance Providers Payer Name Payer Address Payer Phone Subscriber Number Group Number Insured Name Patient Relationship to Insured Coverage Start Date Coverage End Date [facility] [address] Attn Claims [place] [id number] MARS PATEL Self - patient is the insured MEDICA[employer] OF [employer] [address] [place] [id number] MARS PATEL Self - patient is the [...]
== END 2025-08-07 14:39 | disposition home or self-care (01) ==
LOC: HO.HMCC 14:04
PROVIDERS: PCP Internal Medicine; Visit Provider Internal Medicine
DX: Z00.01 Encounter for general adult medical examination with abnormal findings (principal); E55.9 Vitamin D deficiency, unspecified; F20.9 Schizophrenia, unspecified; F17.210 Nicotine dependence, cigarettes, uncomplicated; M79.672 Pain in left foot; R42 Dizziness and giddiness; G25.81 Restless legs syndrome; M54.16 Radiculopathy, lumbar region; N32.81 Overactive bladder; E78.9 Disorder of lipoprotein metabolism, unspecified; F41.9 Anxiety disorder, unspecified

== ENCOUNTER → 2025-08-07 14:03 | Outpatient (BNVA) | payer OTHER, SELFPAY | PROVIDERS: PCP Internal Medicine; Visit Provider Internal Medicine | DX: Z00.01 Encounter for general adult medical examination with abnormal findings (principal); R73.03 Prediabetes; E78.00 Pure hypercholesterolemia, unspecified; M79.672 Pain in left foot; R42 Dizziness and giddiness; G25.81 Restless legs syndrome; M54.16 Radiculopathy, lumbar region; N32.81 Overactive bladder; E55.9 Vitamin D deficiency, unspecified; E78.9 Disorder of lipoprotein metabolism, unspecified; F20.9 Schizophrenia, unspecified; F41.9 Anxiety disorder, unspecified; F17.210 Nicotine dependence, cigarettes, uncomplicated | CPT/HCPCS: 99212; 99397 ==